=== PATIENT | male | born 1950 | race African-American/Black ===

== ENCOUNTER 2020-09-10 11:40 | Outpatient (REF) | payer MEDICARE, SELFPAY ==
[2020-09-10 14:45] LABS: Vitamin B12 434 pg/mL (200-900)
[2020-09-10 14:50] LABS: TSH reflex Free T4 3.73 mIU/mL (0.32-4.0)
== END 2020-09-10 11:41 | disposition home or self-care (01) ==
LOC: HO.HMGCLDS 11:40
PROVIDERS: PCP Nurse Practitioner Family; Visit Provider Nurse Practitioner Family
DX: R41.89 Other symptoms and signs involving cognitive functions and awareness (principal)
CPT/HCPCS: 82607; 84443

== ENCOUNTER → 2020-10-22 13:46 | Outpatient (BNVA) | payer MEDICARE, SELFPAY | PROVIDERS: PCP Nurse Practitioner Family; Visit Provider Urology | DX: L91.8 Other hypertrophic disorders of the skin (principal) | CPT/HCPCS: 99202 ==

== ENCOUNTER → 2020-11-05 09:49 | Outpatient (BNVA) | payer MEDICARE, SELFPAY | PROVIDERS: PCP Nurse Practitioner Family; Visit Provider Urology | DX: L91.8 Other hypertrophic disorders of the skin (principal) | CPT/HCPCS: 99212 ==

== ENCOUNTER 2021-03-27 09:58 | Outpatient (REF) | payer OTHER, SELFPAY ==
--- NOTE | ~2021-03-27 | XR_ITS ---
EXAMINATION: XR CERVICAL SPINE CLINICAL INFORMATION: Cervical disc disorder. COMPARISON: None TECHNIQUE: 3 views of the cervical spine were obtained. FINDINGS: Normal cervical lordosis and spinal alignment is seen. A rudimentary appearing disc is seen at C5-6 with partial osseous fusion of the vertebral bodies. Moderate degenerative disc disease is seen at C6-7 with disc space narrowing and moderate anterior osteophyte formation. The vertebral bodies are intact. The odontoid process is intact. Mild to moderate multilevel bilateral facet arthropathy is seen with hypertrophic changes most pronounced at C3-4. Prevertebral soft tissues are unremarkable. XR/XR cervical spine 3V IMPRESSION: 1. 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 No acute abnormality. 2. C6-7 moderate degenerative disc disease. 3. Mild to moderate multilevel bilateral facet arthropathy.
== END 2021-03-27 09:59 | disposition home or self-care (01) ==
LOC: HO.HMGCX 09:58
PROVIDERS: PCP Nurse Practitioner Family; Visit Provider Nurse Practitioner Family
DX: M50.90 Cervical disc disorder, unspecified, unspecified cervical region (principal)
CPT/HCPCS: 72040

== ENCOUNTER 2021-03-29 14:48 | Outpatient (REF) | payer OTHER, SELFPAY ==
--- NOTE | ~2021-03-29 | US_ITS ---
EXAMINATION: US SCROTUM CLINICAL INFORMATION: Scrotal pain. COMPARISON: None TECHNIQUE: A sonogram of the scrotum was performed assessing delacruz-scale appearance and color Doppler flow. Spectral Doppler analysis of the arterial and venous flow were performed in the testes bilaterally. FINDINGS: RIGHT: Right testicle measures 4.5 x 2.0 x 3.0 cm, volume 14.4 mL. There are several small millimeter in size calcifications. Spectral Doppler analysis of the arterial and venous flow is normal in the right testis. Right epididymal head is slightly enlarged and heterogeneous in attenuation. There are multiple right epididymal head cysts, largest measuring 5 mm. There is an appendix testis. Right epididymal Doppler flow is normal. There is a small right hydrocele. There is no right varicocele. LEFT: Left testicle measures 3.8 x 2.0 x 3.2 cm, volume 13.0 mL. There are several small millimeter in size calcifications. Spectral Doppler analysis of the arterial and venous flow is normal in the left testis. Left epididymal head is normal in size. There are several left epididymal head cysts, largest measuring 6 mm. No left varicocele is seen. There is an appendix testis. Left epididymal Doppler flow is normal. There is a small left hydrocele. There is no varicocele. US/US scrotum IMPRESSION: Enlarged heterogeneous-appearing right epididymal head. This does not appear hypervascular. Differential would include an epididymal mass and epididymitis. Short-term follow-up exam following antibiotic treatment is recommended. Bilateral epididymal head cysts. Small bilateral hydroceles. Bilateral small testicular calcifications.
== END 2021-03-29 14:49 | disposition home or self-care (01) ==
LOC: HO.US 14:48
PROVIDERS: PCP Nurse Practitioner Family; Visit Provider Nurse Practitioner Family
DX: N50.82 Scrotal pain (principal)
CPT/HCPCS: 76870

== ENCOUNTER → 2021-04-17 08:19 | Outpatient (BNVA) | payer OTHER, SELFPAY | PROVIDERS: Visit Provider Urology | DX: N43.3 Hydrocele, unspecified (principal); N45.1 Epididymitis; T81.30XA Disruption of wound, unspecified, initial encounter; K86.1 Other chronic pancreatitis; J44.9 Chronic obstructive pulmonary disease, unspecified; E11.9 Type 2 diabetes mellitus without complications; Z86.73 Personal history of transient ischemic attack (TIA), and cerebral infarction without residual deficits | CPT/HCPCS: 99202 ==

== ENCOUNTER → 2021-05-06 08:53 | Outpatient (BNVA) | payer OTHER, SELFPAY | PROVIDERS: PCP Nurse Practitioner Family; Visit Provider Internal Medicine | DX: M50.90 Cervical disc disorder, unspecified, unspecified cervical region (principal) | CPT/HCPCS: 99202 ==

== ENCOUNTER → 2021-05-28 10:23 | Outpatient (BNVA) | payer OTHER, SELFPAY | PROVIDERS: PCP Nurse Practitioner Family; Visit Provider Urology | DX: M79.10 Myalgia, unspecified site (principal) | CPT/HCPCS: 20550; 51798; 99212 ==

== ENCOUNTER 2021-06-12 07:41 | Outpatient (REF) | payer OTHER, SELFPAY ==
--- NOTE | ~2021-06-12 | XR_ITS ---
EXAMINATION: CHEST 2 VIEWS CLINICAL INFORMATION: Pre-MRI screening. COMPARISON: None TECHNIQUE: 2 views FINDINGS: The lungs are well-expanded and clear. The heart size and pulmonary vascularity is normal. No gross bony abnormality seen. There is a loop recorder seen along the left anterior chest wall XR/XR pre mri screening IMPRESSION: Loop recorder along the left anterior chest wall. The lungs are clear.
--- NOTE | ~2021-06-12 | MR_ITS ---
MR CERVICAL SPINE WITHOUT IV CONTRAST CLINICAL INFORMATION: Cervical disc disorder. COMPARISON: None available. TECHNIQUE: MRI of the cervical spine was obtained using routine sequences without contrast. FINDINGS: Cervical alignment is maintained. 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 Vertebral body heights are preserved. Multilevel endplate osteophytes. There is no bone marrow edema. There are no acute fractures. Craniocervical junction is unremarkable. Partially imaged intracranial compartment demonstrates cerebral volume loss. The cervical arterial flow voids are maintained. No significant extraspinal soft tissue findings. C2-C3: Disc osteophyte mildly narrows the central canal. Left greater than right facet arthropathy. No significant foraminal stenosis. C3-C4: Shallow central disc protrusion and ligamentum flavum thickening result in moderate central canal stenosis and flattening of the cord. Advanced uncovertebral joint hypertrophy and hypertrophic facet arthropathy result in moderate to severe left and moderate right foraminal stenosis. C4-C5: Central disc protrusion mildly narrows the central canal. Uncovertebral joint hypertrophy and hypertrophic facet arthropathy result in moderate to severe bilateral foraminal stenosis. 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 No central canal stenosis and no foraminal stenosis. C6-C7: Annular disc bulge. Uncovertebral joint hypertrophy and hypertrophic facet arthropathy result in moderate to severe right and mild left foraminal stenosis. C7-T1: Small annular disc bulge. No central canal stenosis. Right-sided hypertrophic facet arthropathy results in at least moderate right-sided foraminal stenosis. MR/MR cervical spine wo con IMPRESSION: At C3-C4, a shallow central disc protrusion and ligamentum flavum thickening result in moderate central canal stenosis and flattening of the cervical cord. Spondylitic changes result in varying degrees of moderate to severe foraminal stenosis bilaterally throughout the cervical spine as described.
== END 2021-06-12 07:42 | disposition home or self-care (01) ==
LOC: HO.MRI 07:41
PROVIDERS: PCP Nurse Practitioner Family; Visit Provider Anesthesiology
DX: Z01.818 Encounter for other preprocedural examination (principal); M50.90 Cervical disc disorder, unspecified, unspecified cervical region
CPT/HCPCS: 72141

== ENCOUNTER 2021-06-18 08:33 | Outpatient (REF) | payer OTHER, SELFPAY ==
[2021-06-18 11:53] LABS: Glucose Urine UA >=1000 MG/DL (NEG); Leukocyte Esterase Urine NEG (NEG); Nitrite Urine NEG (NEG); PH 5.5 (5.0-8.0); Specific Gravity - Urine 1.025 (1.005-1.025); Urine Blood NEG (NEG); Urine Ketones NEG (NEG); Urine Protein NEG (NEG-TRACE)
[2021-06-18 12:05] LABS: Appearance Urine CLOUDY; Color Urine YELLOW
[2021-06-18 12:19] LABS: Estimated Average Glucose 272 mg/dL; Hemoglobin A1c % 11.1 %
[2021-06-18 12:28] LABS: Alanine Aminotransferase 54 U/L (0-40); Albumin Level 4.3 g/dL (3.5-5.0); Alkaline Phosphatase 79 U/L (39-117); Anion Gap 14 (12-20); Aspartate Amino Transferase 25 U/L (5-37); Bilirubin Total 0.4 mg/dL (0.0-1.0); Blood Urea Nitrogen 14 mg/dL (9-16); Calcium 9.2 mg/dL (8.4-10.2); Carbon Dioxide 25 mmol/L (22-29); Chloride 104 mmol/L (96-108); Cholesterol 128 mg/dL; Estimated Glomerular Filt Rate > 60; Glucose Fasting 192 mg/dL (60-99); HDL Cholesterol 53 mg/dL; LDL Cholesterol Calculated 61 mg/dl; Potassium 4.3 mmol/L (3.3-5.1); Sodium 139 mmol/L (135-145); Total Protein 6.7 g/dL (6.5-8.0); Triglycerides 73 mg/dL
[2021-06-18 12:29] LABS: Amorphous Sediment Urine 1+ /LPF; Bacteria Urine 2+ /LPF; Mucus Urine TRACE /LPF; RBC Urine 0 /HPF (0); WBC Urine 0 /HPF (0-4)
[2021-06-18 12:36] LABS: Creatinine Urine 175.59 mg/dL
[2021-06-18 12:50] LABS: TSH reflex Free T4 2.87 uIU/mL (0.32-4.0)
== END 2021-06-18 08:34 | disposition home or self-care (01) ==
LOC: HO.HMGCLDS 08:33
PROVIDERS: PCP Nurse Practitioner Family; Visit Provider Nurse Practitioner Family
DX: Z00.00 Encounter for general adult medical examination without abnormal findings (principal); E11.9 Type 2 diabetes mellitus without complications
CPT/HCPCS: 36415; 80053; 80061; 81001; 81003; 82043; 83036; 84443

== ENCOUNTER → 2021-06-21 13:55 | Outpatient (BNVA) | payer OTHER, SELFPAY | PROVIDERS: PCP Nurse Practitioner Family; Referring Provider Nurse Practitioner Family; Visit Provider Urology | DX: E11.9 Type 2 diabetes mellitus without complications (principal); S39.011A Strain of muscle, fascia and tendon of abdomen, initial encounter; X58.XXXA Exposure to other specified factors, initial encounter; Y93.9 Activity, unspecified; Y92.9 Unspecified place or not applicable; Y99.8 Other external cause status | CPT/HCPCS: 51798; 81002; 99212 ==

== ENCOUNTER 2021-06-26 06:05 | Outpatient (REF) | payer OTHER, SELFPAY ==
--- NOTE | ~2021-06-26 | FL_ITS ---
EXAMINATION: XR FLUOROSCOPY WITH IMAGES CLINICAL INFORMATION: Cervical disc disorder COMPARISON: None. TECHNIQUE: Fluoroscopy performed by Akua Kinsey NP. Fluoroscopy time: 1.4 minutes DAP: 7 Gycm2 Images: 4 FINDINGS: Fluoroscopy guidance was provided for cervical spine procedure. Lateral images of the cervical spine demonstrate needle placement and contrast injection. FL/FL guidance in treatment room IMPRESSION: Fluoroscopy guidance for cervical spine procedure.
== END 2021-06-26 06:06 | disposition home or self-care (01) ==
LOC: HO.RADIR 06:05
PROVIDERS: Visit Provider Internal Medicine
DX: M47.812 Spondylosis without myelopathy or radiculopathy, cervical region (principal); M50.90 Cervical disc disorder, unspecified, unspecified cervical region
CPT/HCPCS: 64490; 64491; 64492; Q9967

== ENCOUNTER → 2021-07-05 08:01 | Outpatient (BNVA) | payer OTHER, SELFPAY | PROVIDERS: Visit Provider Internal Medicine | DX: M47.812 Spondylosis without myelopathy or radiculopathy, cervical region (principal) | CPT/HCPCS: 99212 ==

== ENCOUNTER → 2021-08-15 14:16 | Outpatient (BNVA) | payer OTHER, SELFPAY | PROVIDERS: PCP Nurse Practitioner Family; Referring Provider Nurse Practitioner Family; Visit Provider Nurse Practitioner | DX: Z12.11 Encounter for screening for malignant neoplasm of colon (principal); J44.9 Chronic obstructive pulmonary disease, unspecified; Z79.01 Long term (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 of anticoagulants | CPT/HCPCS: 99202 ==

== ENCOUNTER → 2021-12-19 08:33 | Outpatient (BNVA) | payer OTHER, SELFPAY | PROVIDERS: PCP Nurse Practitioner Family; Visit Provider Urology | DX: N40.1 Benign prostatic hyperplasia with lower urinary tract symptoms (principal); N13.8 Other obstructive and reflux uropathy; E11.40 Type 2 diabetes mellitus with diabetic neuropathy, unspecified; E11.65 Type 2 diabetes mellitus with hyperglycemia | CPT/HCPCS: 99212 ==

== ENCOUNTER 2022-03-18 10:45 | Day surgery (SDC) | payer OTHER, SELFPAY ==
[2022-03-13 08:36] VITALS: BMI 32.5
--- NOTE | 2022-03-14 14:03 | P.CONAN_ITS ---
Documented by User: Marilyn Torres NP 03/14/22 14:15 HPI - Anesthesia Eval Consult details Narrative: 71yo M for Colonoscopy Eliquis for PFO PMFSH Active Problems Active Problems: All Active Problems (Updated 03/11/22 @ 15:18 by Lewis Goldberg, [facility]) Myocardial infarction (Acute) Depression, major, recurrent (Acute) Diabetic neuropathy associated with diabetes mellitus due to underlying condition (Acute) BPH w urinary obs/LUTS (Acute) COPD (chronic obstructive pulmonary disease) (Acute) Chronic anticoagulation (Acute) Cervical spondylarthritis (Acute) Screening for colon cancer (Acute) Type 2 diabetes mellitus (Acute) Physical exam (Acute) Tendon pain (Acute) Strain of rectus abdominis muscle (Acute) Cervical neck pain with evidence of disc disease (Acute) Scrotal pain (Acute) Acquired skin tag (Acute) Scrotal irritation (Acute) Cognitive changes (Acute) Past Medical History Medical History (Updated 03/18/22 @ 11:03 by Marlene Bolden RN) Acquired skin tag Bilateral carpal tunnel syndrome BPH (benign prostatic hyperplasia) Carpal tunnel syndrome Cervical spondylarthritis Chronic pancreatitis COPD (chronic obstructive pulmonary disease) CVA (cerebral vascular accident) Depression Encephalopathy HTN (hypertension) Myocardial infarction PFO (patent foramen ovale) Tenosynovitis of finger Type 2 diabetes mellitus Family History Family History (Updated 02/27/22 @ 09:52 by Marivel Acosta CMA) Father Mental health disorder Mother Diabetes Unknown Substance use disorder Surgical History Surgical History History of appendectomy History of back surgery History of shoulder surgery Social History Social History Housing: Apartment Alcohol intake: current Alcohol intake frequency: holidays/special occasions only Patient Tobacco Use Status: Never used Tobacco e-Cigarette/Vaping Use: Never Used Second Hand Smoke Exposure: No Use of substances other than those prescribed or required for medical reasons: No Are you DNR?: No Advance Directives: No Advance Directives Information Provided: Yes Current occupational status: retired Cognitive needs: No Hearing needs: No Vision needs: No Meds Allergies Allergy/AdvReac Type Severity Reaction Status Date / Time No Known Allergies Allergy Verified 03/18/22 11:03 Home Medications Medication Instructions Recorded Confirmed Last Taken Type alcohol swabs 0 pad TOPICAL 09/10/20 07/05/21 Unknown History apixaban 5 mg tablet 5 mg PO BID 09/10/20 02/27/22 03/17/22 History blood sugar diagnostic #10 ea 09/10/20 07/05/21 Unknown History dexlansoprazole 60 mg 60 mg PO DAILY 09/10/20 02/27/22 Unknown History capsule,biphase delayed release flu vacc [id number](65yr up)-PF 240 ml IM 09/10/20 07/05/21 Unknown History mcg/0.7 mL intramuscular syringe insulin glargine 100 unit/mL (3 25 unit SUBCUT BEDTIME ml 09/10/20 02/27/22 Unknown History mL) subcutaneous pen lancets 30 gauge #100 ea 09/10/20 07/05/21 Unknown History melatonin 10 mg tablet 10 mg PO BEDTIME 09/10/20 02/27/22 Unknown History montelukast 10 mg tablet 10 mg PO DAILY 09/10/20 02/27/22 Unknown History pen needle, diabetic 32 gauge x #50 ea 09/10/20 07/05/21 Unknown History 10/29 pen needle, diabetic 33 gauge x #100 ea 09/10/20 07/05/21 Unknown History 01/08 albuterol sulfate 90 mcg/actuation 0 mcg INHALATION 06/10/21 02/27/22 Unknown History aerosol inhaler fluticasone furoate 100 1 ea INHALATION DAILY 06/10/21 02/27/22 Unknown History mcg-vilanterol 25 mcg/dose inhalation powder (Breo Ellipta) ciclopirox 0.77 % topical cream appl TOPICAL 08/15/21 Unknown History insulin aspart U-100 100 unit/mL SUBCUT 12/19/21 02/27/22 Unknown History (3 mL) subcutaneous pen (Novolog Flexpen U-100 Insulin aspart) pen needle, diabetic 33 gauge x #100 ea 12/19/21 Unknown History (Comfort EZ Pen [place]) donepezil 5 mg tablet 5 mg PO DAILY 02/27/22 02/27/22 Unknown History isosorbide mononitrate 30 mg 30 mg PO DAILY 02/27/22 02/27/22 Unknown History tablet,extended release 24 hr tamsulosin 0.4 mg capsule 0.4 mg PO DAILY 02/27/22 02/27/22 Unknown History Exam Exam Date and Time: March 14, 2022 1403 Height,Weight and Vital Signs: Height 5 ft 6 in Weight 91.626 kg Pertinent Lab Results Pertinent Lab Results: Laboratory Tests 06/18/21 08:42 Sodium 139 Potassium 4.3 Chloride 104 Carbon Dioxide 25 BUN 14 Creatinine 0.86 Narrative Narrative: EKG 02/2022 SB with frequent PVCs @ 81 Prolonged QT Diagnostic cath 05/2021 patent prior mid LAD stent with diffuse in-stent restenosis. A small obtuse marginal with severe ostial stenosis. Nml LV end-diastolic pressure with no gradient across his aortic valve. Small vessel CAD, large epicardial vessels have no obstructive disease. Medical therapy recommended for chest pain. No evidence of afib on ILR ECHO 04/2021 Frequent PVCs Nml LV chamber size. Evidence of mid to apical septal, apical, and anterior apical hypokinesis. Cannot r/o the possibility of previous infarct. EF 52%. Diastolic dysfunction. Nml RV chamber size. Reduced RV systolic function. Trace mitral insufficiency New WMA compared to 05/2019 Airway Adult Head Mouth w/Numbe Teeth: 1. Loose Assessment and Plan Assessment Anesthesia Assessment: Chart Reviewed Documented by User: Gian Yang MD 03/18/22 11:45 [facility] Past Medical History Medical History (Updated 03/18/22 @ 11:03 by Marlene Bolden RN) Acquired skin tag Bilateral carpal tunnel syndrome BPH (benign prostatic hyperplasia) Carpal tunnel syndrome Cervical spondylarthritis Chronic pancreatitis COPD (chronic obstructive pulmonary disease) CVA (cerebral vascular accident) Depression Encephalopathy HTN (hypertension) Myocardial infarction PFO (patent foramen ovale) Tenosynovitis of finger Type 2 diabetes mellitus Family History Family History (Updated 02/27/22 @ 09:52 by Marivel Acosta CMA) Father Mental health disorder Mother Diabetes Unknown Substance use disorder Family history of problems with anesthesia: No Surgical History Surgical History History of appendectomy History of back surgery History of shoulder surgery History of Problems with Anesthesia: No Social History Social History Housing: Apartment Alcohol intake: current Alcohol intake frequency: holidays/special occasions only Patient Tobacco Use Status: Never used Tobacco e-Cigarette/Vaping Use: Never Used Second Hand Smoke Exposure: No Use of substances other than those prescribed or required for medical reasons: No Are you DNR?: No Advance Directives: No Advance Directives Information Provided: Yes Current occupational status: retired Cognitive needs: No Hearing needs: No Vision needs: No Meds Allergies Allergy/AdvReac Type Severity Reaction Status Date / Time No Known Allergies Allergy Verified 03/18/22 11:03 Home Medications Medication Instructions Recorded Confirmed Last Taken Type alcohol swabs 0 pad TOPICAL 09/10/20 07/05/21 Unknown History apixaban 5 mg tablet 5 mg PO BID 09/10/20 02/27/22 03/17/22 History blood sugar diagnostic #10 ea 09/10/20 07/05/21 Unknown History dexlansoprazole 60 mg 60 mg PO DAILY 09/10/20 02/27/22 Unknown History capsule,biphase delayed release flu vacc [id number](65yr up)-PF 240 ml IM 09/10/20 07/05/21 Unknown History mcg/0.7 mL intramuscular syringe insulin glargine 100 unit/mL (3 25 unit SUBCUT BEDTIME ml 09/10/20 02/27/22 Unknown History mL) subcutaneous pen lancets 30 gauge #100 ea 09/10/20 07/05/21 Unknown History melatonin 10 mg tablet 10 mg PO BEDTIME 09/10/20 02/27/22 Unknown History montelukast 10 mg tablet 10 mg PO DAILY 09/10/20 02/27/22 Unknown History pen needle, diabetic 32 gauge x #50 ea 09/10/20 07/05/21 Unknown History 1/ pen needle, diabetic 33 gauge x #100 ea 09/10/20 07/05/21 Unknown History 01/08 albuterol sulfate 90 mcg/actuation 0 mcg INHALATION 06/10/21 02/27/22 Unknown History aerosol inhaler fluticasone furoate 100 1 ea INHALATION DAILY 06/10/21 02/27/22 Unknown History mcg-vilanterol 25 mcg/dose inhalation powder (Breo Ellipta) ciclopirox 0.77 % topical cream appl TOPICAL 08/15/21 Unknown History insulin aspart U-100 100 unit/mL SUBCUT 12/19/21 02/27/22 Unknown History (3 mL) subcutaneous pen (Novolog Flexpen U-100 Insulin aspart) pen needle, diabetic 33 gauge x #100 ea 12/19/21 Unknown History (Comfort EZ Pen [place]) donepezil 5 mg tablet 5 mg PO DAILY 02/27/22 02/27/22 Unknown History isosorbide mononitrate 30 mg 30 mg PO DAILY 02/27/22 02/27/22 Unknown History tablet,extended release 24 hr tamsulosin 0.4 mg capsule 0.4 mg PO DAILY 02/27/22 02/27/22 Unknown History Exam Airway Mallampati Class: II TM Dist: >3cm Neck ROM: Full Adult Head Mouth w/Numbe Teeth: 1. Loose Loose/Missing/Broken Teeth: Yes Assessment and Plan Assessment Anesthesia Assessment: Anesthesia Plan Discussed Final Anesthetic Review Family History of Problems with Anesthesia: No History of Problems with Anesthesia: No NPO: Yes ASA Class: III Final Preanesthetic Review: No Changes in Pt Med Stat, Meds/Allgs Chart Reviewed, Consent Obtained/Reviewed and Anes Risks/Benef Reviewed Patient Risk: Intermediate Procedure Risk: Low Anesthetic Plan Anesthetic Plan: MAC: Disposition: Standard PACU
--- NOTE | 2022-03-18 11:07 | MHC.SHP ---
Pre-Procedural Eval Section A Date of Service: 03/18/22 Section B Chief Complaint: screening Relevant Family History (Specify if Yes): No Relevant Social History: None Present Medications: see Short Stay Collaborative assessment Medical History: Significant History (Acquired skin tag Bilateral carpal tunnel syndrome Carpal tunnel syndrome Cervical spondylarthritis Chronic pancreatitis COPD (chronic obstructive pulmonary disease) CVA (cerebral vascular accident) Encephalopathy Myocardial infarction PFO (patent foramen ovale) Tenosynovitis of finger Type 2 diabet) History of Previous Operations: Relevant previous surgery/procedure and date(s) (History of appendectomy History of back surgery History of shoulder surgery) Allergies: Allergies Allergy/AdvReac Type Severity Reaction Status Date / Time No Known Allergies Allergy Verified 03/18/22 11:03 Review of Systems Sugical H&P ROS: Negative: Constitution, Cardiovascular, Respiratory, Neurological, Psychiatric, Hem-Onc, Allergic/Immunologic, Gastrointestinal, Genitourinary, Musculoskeletal, Integumentary, Endocrine and Eyes/Ears/Nose/Throat Exam Surgical H&P Exam: Normal: HEENT, Normal: Heart, Normal: Lungs, Normal: Extremities, Normal: Abdomen, Normal: Skin and Normal: Neurological Plan Diagnosis/Plan: Unchanged I have reviewed the history and physical and performed a pertinent physical examination on my patient. No changes have occurred unless specified.
[2022-03-18 11:16] VITALS: BP 139/64; PULSE 57; RESP 16; TEMP 36.3; O2SAT 97
[2022-03-18] MEDS: Lactated Ringers 1,000 ML 50 ML IVCONT (11:30)
[2022-03-18 11:31] LABS: Glucose, Whole Blood 140 mg/dL (60-115)
--- NOTE | 2022-03-18 11:32 | PM.OP ---
Brief Operative Note Date of Service: 03/18/22 Pre-op diagnosis: colon screening Post-op diagnosis: same Procedure: see op note Surgeon: Cara Mcbride MD Anesthesia: MAC Was an Cottrell Operator used for this Procedure?: No Estimated blood loss (mL): 0 Condition: stable Disposition: PACU
--- NOTE | 2022-03-18 11:33 | P.OP_ITS ---
Operative Note Operative Note Date of Service: 03/18/22 Narrative: Operative Information Procedure Description: Colonoscopy Indication: screening colonoscopy Anesthesia: MAC COLONOSCOPY Instrument: Olympus variable stiffness ADULT scope 190L Colonoscopy Monitoring: Vital signs and clinical assessment, continuous EKG monitoring, Pulse oximetry, Carbon Dioxide monitoring and blood pressure monitoring were done throughout the procedure. Colon withdrawal time was 13 minutes. Procedure: The patient was placed in the left lateral decubitis position and pre-procedure medications were administered. After a digital rectal examination of the ano-rectum, the video colonoscope was inserted into the rectum and advanced through the colon to the cecum/TI. The colonoscope was slowly withdrawn in a retrograde panoramic fashion and the colon mucosa was carefully examined including a retroflexed view of the rectum. Findings and interventions are described below. Procedure Difficulty: easy Findings: Terminal Ileum-normal Right sided retroflexion was normal Cecum:normal, few non bleeding small AVM noted. Ascending Colon: normal Transverse Colon -normal Descending Colon:normal Sigmoid Colon: normal Rectum: Retroflexion with small internal hemorrhoids, grade I, 4-5 mm sessile polyp removed with cold forceps Anorectum - normal Colon preparation: [place] Bowel Preparation Scale Right colon; 2 Transverse colon: 3 Left colon; 3 (0 = Unprepared colon segment with mucosa not seen due to solid stool that cannot be cleared. 1 = Portion of mucosa of the colon segment seen, but other areas of the colon segment not well seen due to staining, residual stool and/or opaque liquid. 2 = Minor amount of residual staining, small fragments of stool and/or opaque liquid, but mucosa of colon segment seen well. 3 = Entire mucosa of colon segment seen well with no residual staining, small fragments of stool or opaque liquid) Impression and Post Procedure Diagnosis: polyp internal hemorrhoids Plan: High fiber diet leaflet Avoid straining at stool, epsom salts and sitz bath, anusol supps or cream Repeat Colonoscopy in 5-7 years if adenomatous polyp, 10 yrs if hyperplastic or earlier if clinically indicated restart eliquis tomorrow Above findings were reviewed with the patient and relevant handouts were provided if indicated.
[2022-03-18 12:15] VITALS: BP 106/84; PULSE 57; RESP 20; TEMP 36.4; O2SAT 100
== END 2022-03-18 13:21 | disposition home or self-care (01) ==
PROVIDERS: PCP Nurse Practitioner Family; Visit Provider Internal Medicine Gastroenterology
PROC: 0DJD8ZZ Inspection of Lower Intestinal Tract, Via Natural or Artificial Opening Endoscopic (ICD-10-PCS; CPT 45378; principal; 2022-03-18 12:50)
DX: Z12.11 Encounter for screening for malignant neoplasm of colon (principal); Z86.010 Personal history of colon polyps; K62.1 Rectal polyp; K55.20 Angiodysplasia of colon without hemorrhage; K64.8 Other hemorrhoids; I25.2 Old myocardial infarction; Q21.1 Atrial septal defect; J44.9 Chronic obstructive pulmonary disease, unspecified; E11.9 Type 2 diabetes mellitus without complications; Z79.4 Long term (current) use of insulin; Z79.01 Long term (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 of anticoagulants; Z79.899 Other long term (current) drug therapy; Z86.73 Personal history of transient ischemic attack (TIA), and cerebral infarction without residual deficits
CPT/HCPCS: 45380; 82947; 88305

== ENCOUNTER 2022-06-27 08:21 | Outpatient (REF) | payer OTHER, SELFPAY ==
[2022-06-27 11:14] LABS: Appearance Urine Turbid; Color Urine Yellow; Glucose Urine UA Negative (Negative); Leukocyte Esterase Urine Negative (Negative); Nitrite Urine Negative (Negative); PH 5.5 (5.0-9.0); Specific Gravity - Urine >= 1.030 (1.005-1.025); Urine Blood Trace (Negative); Urine Ketones Negative (Negative); Urine Protein Negative (Neg-Trace)
[2022-06-27 11:18] LABS: Bacteria Urine None Seen (None Seen); Hyaline Casts Urine 0-2 /LPF (0-2); RBC Urine 0-2 /HPF (0-2); Squamous Epithelial Cell Urine 0-2 /HPF (0-2); WBC Urine 0-5 /HPF (0-5)
[2022-06-27 11:22] LABS: MANUAL DIFF FLAG NO
[2022-06-27 11:30] LABS: Basophils Percent Auto 0.4 % (0-2); Eosinophils Absolute Auto 0.1 X10*3/uL (0.0-0.4); Hematocrit 38.7 % (42.0-52.0); Hemoglobin 13.2 g/dl (14.0-18.0); Imm Gran Abs Auto 0.03 X10*3/uL (0.00-0.03); Imm Gran Pct Auto 0.6 % (0.0-0.4); Lymphocytes Absolute Auto 2.1 X10*3/uL (1.2-4.9); Lymphocytes Percent Auto 38.4 % (20-40); Mean Corpuscular HGB Conc 34.1 g/dl (31.0-36.0); Mean Corpuscular Hemoglobin 29.5 pg (27.0-33.0); Mean Corpuscular Volume 86.4 fL (80.0-98.0); Mean Platelet Volume 12.3 fL (9.4-12.4); Monocytes Absolute Auto 0.4 X10*3/uL (0.1-1.2); Monocytes Percent Auto 8.1 % (2-11); Neutrophils Absolute Auto 2.7 x10*3/uL (2.0-8.3); Neutrophils Percent Auto 50.5 % (45-73); Platelet Count 199 X10*3/uL (160-400); Red Blood Count 4.48 X10*6/uL (4.60-5.80); Red Cell Distribution Width 12.8 % (11.0-16.0); White Blood Count 5.4 X10*3/uL (4.8-10.8)
[2022-06-27 11:44] LABS: Estimated Average Glucose 200 mg/dL; Hemoglobin A1c % 8.6 %
[2022-06-27 11:45] LABS: Creatinine Urine 212.25 mg/dL; Microalbum/Creatinine Ratio Ur 7.5 ug/mg cr
[2022-06-27 11:57] LABS: Alanine Aminotransferase 46 U/L (0-40); Albumin Level 4.1 g/dL (3.5-5.0); Alkaline Phosphatase 81 U/L (39-117); Anion Gap 14 (12-20); Aspartate Amino Transferase 29 U/L (5-37); Bilirubin Total 0.5 mg/dL (0.0-1.0); Blood Urea Nitrogen 16 mg/dL (9-16); Carbon Dioxide 24 mmol/L (22-29); Chloride 104 mmol/L (96-108); Cholesterol 133 mg/dL; Estimated Glomerular Filt Rate > 60; Glucose Fasting 131 mg/dL (60-99); HDL Cholesterol 46 mg/dL; LDL Cholesterol Calculated 73 mg/dl; Potassium 4.3 mmol/L (3.3-5.1); Sodium 138 mmol/L (135-145); Total Protein 6.7 g/dL (6.5-8.0); Triglycerides 74 mg/dL
[2022-06-27 12:04] LABS: TSH reflex Free T4 2.94 uIU/mL (0.32-4.0)
== END 2022-06-27 08:22 | disposition home or self-care (01) ==
LOC: HO.HMGCLDS 08:21
PROVIDERS: PCP Nurse Practitioner Family; Visit Provider Nurse Practitioner Family
DX: E11.40 Type 2 diabetes mellitus with diabetic neuropathy, unspecified (principal)
CPT/HCPCS: 36415; 80053; 80061; 81001; 82043; 83036; 84443; 85025

== ENCOUNTER 2022-09-25 11:04 | Outpatient (REF) | payer OTHER, SELFPAY ==
--- NOTE | ~2022-09-25 | XR_ITS ---
EXAMINATION: XR CHEST CLINICAL INFORMATION: Acute bronchitis COMPARISON: Cervical spine 06/02/21. TECHNIQUE: 2 views of the chest were obtained. FINDINGS: The lungs are hyperinflated but clear of acute process. Heart size and pulmonary vascularity is normal. There is a loop recorder in the left anterior chest wall. No gross bony pneumonitis seen except for moderate right paravertebral spondylosis of dorsal spine. XR/XR chest 2V IMPRESSION: Slightly hyperinflated lungs without any acute process.
== END 2022-09-25 11:05 | disposition home or self-care (01) ==
LOC: HO.HMGCX 11:04
PROVIDERS: PCP Nurse Practitioner Family; Visit Provider Internal Medicine
DX: J20.9 Acute bronchitis, unspecified (principal); R09.89 Other specified symptoms and signs involving the circulatory and respiratory systems
CPT/HCPCS: 71046

== ENCOUNTER → 2022-11-04 09:32 | Outpatient (BNVA) | payer OTHER, SELFPAY | PROVIDERS: PCP Nurse Practitioner Family; Visit Provider Nurse Practitioner Family | DX: N40.1 Benign prostatic hyperplasia with lower urinary tract symptoms (principal); N13.8 Other obstructive and reflux uropathy; L91.8 Other hypertrophic disorders of the skin; C61 Malignant neoplasm of prostate | CPT/HCPCS: 51798; 99212 ==

== ENCOUNTER → 2022-11-14 09:57 | Outpatient (BNVA) | payer OTHER, SELFPAY | PROVIDERS: PCP Nurse Practitioner Family; Visit Provider Internal Medicine | DX: M47.812 Spondylosis without myelopathy or radiculopathy, cervical region (principal) | CPT/HCPCS: 99212 ==

== ENCOUNTER 2023-02-25 12:02 | Outpatient (REF) | payer OTHER, SELFPAY ==
--- NOTE | 2023-02-25 09:15 | EMG_ITS ---
Please see scanned EMG / Nerve Conduction Report. MTDD
== END 2023-02-25 12:03 | disposition home or self-care (01) ==
LOC: HO.NEURO 12:02
PROVIDERS: PCP Nurse Practitioner Family; Visit Provider Nurse Practitioner Family
DX: R29.898 Other symptoms and signs involving the musculoskeletal system (principal)
CPT/HCPCS: 95885; 95911

== ENCOUNTER 2023-03-16 09:04 | Emergency (ER) | payer OTHER, SELFPAY ==
--- NOTE | ~2023-03-16 | CT_ITS ---
EXAMINATION: CT LUMBAR SPINE WITHOUT CONTRAST CLINICAL INFORMATION: Fall, pain COMPARISON: None available. TECHNIQUE: 2 minutes thin axial and reformatted 2 minutes thin sagittal coronal images of lumbar spine were obtained without contrast. This CT examination was performed using dose optimization techniques as appropriate, variously including the following: *Automated exposure control *Adjustment of mA and/or kV according to patient size (this includes techniques or standardized protocols for targeted exams where dose is matched to indication/reason for exam; i.e. extremities or head) *Use of iterative reconstruction technique DLP; 646 mGy-cm FINDINGS: On sagittal reconstructed images there is maintained lumbar lordosis. The vertebral heights and alignment is normal. There is loss of L5-S1 disc height. There is moderate ventral spondylosis and bridging osteophytes at throughout the entire lumbar spine most prominent at the L4-L5 and L5-S1 disc levels. No aggressive lytic or sclerotic process seen. There is posterior annular calcification at L5-S1 disc level. Incidental finding of L2 L1 left lumbar rib. Mild vacuum degeneration changes bilateral SI joints is noted. The paravertebral soft tissues are normal. CT/CT lumbar spine wo IV con IMPRESSION: 1. No acute fracture, dislocation or subluxation seen. 2. Degenerative disc changes L5-S1 disc level with moderate ventral spondylosis and bridging osteophytes at L4-L5 and L5-S1 disc levels.
[2023-03-16 09:28] VITALS: BP 111/74; PULSE 63; RESP 16; TEMP 36.6; O2SAT 97; BMI 30.7
--- NOTE | 2023-03-16 10:32 | ED_ITS ---
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 Patient states that he has fallen multiple times over the last few months due to his chronic unsteady gait and now he is having low back pain. Patient denies any head strike, loss of consciousness, dizziness, lightheadedness, abdominal pain, nausea, vomiting, fever, chills, blurry vision, double vision, loss of vision, chest pain, difficulty breathing, shortness of breath, night sweats, pain with urination, increased urinary frequency, increased urinary urgency, blood in his urine or stool, syncope or a near syncopal episode, bowel incontinence, bladder incontinence, bowel retention, bladder retention, or any other complaints at this time. Onset (ago): month(s) Location: back Radiation: non-radiation Severity: mild Severity scale (1-10): 3 Quality: aching and dull Pain Consistency: constant Relieving factors: none Exacerbating factors: none Associated symptoms: denies other symptoms Treatments prior to arrival: none Related Data Home Medications Medication Instructions Recorded Confirmed alcohol swabs 0 pad topical 09/10/20 12/10/22 ciclopirox 0.77 % topical cream appl topical 08/15/21 12/10/22 tamsulosin 0.4 mg capsule 0.4 mg PO DAILY 02/27/22 12/10/22 rivastigmine 4.6 mg/24 hour 1 patch transdermal DAILY 06/05/22 12/10/22 transdermal patch Previous Rx's Medication Instructions Recorded bed protector #1 ea 02/07/21 cleaning towels #1 ea 02/07/21 peg 3350-electrolytes 236 240 ml PO Q10M 1 day #4,000 mL 08/15/21 gram-22.74 gram-6.74 gram-5.86 gram solution (Golytely) terazosin 5 mg capsule 5 mg PO BEDTIME 30 days #30 caps 12/19/21 Chair Lift For Stair use #1 ea 03/04/22 hospital bed #1 ea 03/04/22 flash glucose scanning reader #1 ea 06/05/22 (FreeStyle Gera 2 Gillespie) flash glucose sensor (FreeStyle #1 ea 06/05/22 Gera 2 Sensor kit) insulin glargine 100 unit/mL (3 80 unit (0.8 mL) subcut BEDTIME 30 07/16/22 mL) subcutaneous pen days #24 mL pen needle, diabetic 33 gauge x #100 ea 07/23/22 5/32 (Comfort EZ Pen [place]) fluticasone furoate 100 1 ea inhalation DAILY #60 ea 08/26/22 mcg-vilanterol 25 mcg/dose inhalation powder (Breo Ellipta) dexlansoprazole 60 mg 60 mg PO DAILY 90 days #90 caps 09/15/22 capsule,biphase delayed release montelukast 10 mg tablet 10 mg PO DAILY 90 days #90 tabs 09/15/22 insulin aspart U-100 100 unit/mL 1 sliding scale dose subcut TID 30 12/04/22 (3 mL) subcutaneous pen (Novolog days #15 mL FlexPen U-100 Insulin aspart) albuterol sulfate 90 mcg/actuation 2 inh inhalation Q6-8H PRN 01/22/23 aerosol inhaler bronchospasm #8.5 grams aspirin 81 mg tablet,delayed 81 mg PO DAILY 90 days #90 tabs 01/22/23 release atorvastatin 40 mg tablet 40 mg PO BEDTIME 90 days #90 tabs 01/22/23 donepezil 5 mg tablet 5 mg PO DAILY #90 tabs 01/22/23 glipizide 10 mg tablet 10 mg PO BID 30 days #60 tabs 01/22/23 melatonin 10 mg tablet 10 mg PO BEDTIME #90 tabs 01/22/23 sertraline 25 mg tablet 25 mg PO DAILY #90 tabs 01/22/23 walker #1 ea 01/22/23 gabapentin 300 mg capsule 300 mg PO TID #270 caps 01/30/23 losartan 25 mg tablet 25 mg PO DAILY #90 tabs 01/30/23 diaper,brief,adult,disposable #100 ea 02/12/23 apixaban 5 mg tablet 5 mg PO BID 90 days #180 tabs 02/27/23 isosorbide mononitrate 30 mg 30 mg PO DAILY 90 days #90 tabs 02/27/23 tablet,extended release 24 hr metoprolol succinate 50 mg 50 mg PO DAILY 90 days #90 tabs 02/27/23 tablet,extended release 24 hr diabetic shoes #1 ea 03/11/23 lancets 30 gauge #100 ea 03/12/23 cyclobenzaprine 5 mg tablet 5 mg PO TID PRN muscle spasm 7 03/16/23 days #21 tabs Allergies Allergy/AdvReac Type Severity Reaction Status Date / Time No Known Allergies Allergy Verified 01/22/23 13:10 Review of Systems Constitutional: Constitutional: Reports no additional constitutional complaints, Denies chills, Denies fever(s) and Denies night sweats Eyes: Eyes: Reports no additional eye complaints, Denies blurry vision, Denies change in vision, Denies diplopia, Denies eye discharge, Denies loss of vision and Denies eye pain ENT: Denies dizziness Cardiovascular: Cardiovascular: Reports no additional cardiovascular complaints, Denies chest pain, Denies lightheadedness, Denies Loss of Consciousness and Denies dyspnea Respiratory: Respiratory: Reports no additional respiratory complaints and Denies dyspnea Gastrointestinal: Gastrointestinal: Reports no additional gastrointestinal complaints, Denies abdominal pain, Denies melena, Denies hematochezia, Denies ch willie in bowel habits and Denies change in stool character Genitourinary: Genitourinary: Reports no additional male genitourinary complaints, Denies hematuria, Denies oliguria, Denies difficulty urinating, Denies dysuria, Denies urinary frequency, Denies urinary hesitancy, Denies urinary incontinence and Denies urinary urgency Musculoskeletal: Musculoskeletal: Reports no additional musculoskeletal complaints, Reports back pain, Denies numbness and Denies tingling Neurologic: Denies dizziness, Denies loss of vision, Denies numbness and Denies tingling Psychiatric: Psychiatric: Reports no additional psychiatric complaints Endocrine: Endocrine: Reports no additional endocrine complaints Hematologic/Lymphatic: Hematologic/Lymphatic: Reports no additional hematologic/lymphatic complaints Allergic/Immunologic: Allergic/Immunologic: Reports no additional allergic/immunologic complaints PMFSH Past Medical History Attestation statement: The following information was validated with the patient. 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 Surgical History History of appendectomy History of back surgery History of shoulder surgery Family History Family History Father Mental health disorder Mother Diabetes Unknown Substance use disorder Social History Social History Housing: Apartment Alcohol intake: current Alcohol intake frequency: holidays/special occasions only Patient Tobacco Use Status: Never used Tobacco e-Cigarette/Vaping Use: Never Used Second Hand Smoke Exposure: No Advance Directives: No Advance Directives Information Provided: Yes Current occupational status: retired Cognitive needs: No Hearing needs: No Vision needs: No Physical Exam ED Vital Signs: Vital Signs - 24 hr 03/16/23 09:28 Temperature 97.8 F Pulse Rate 63 Respiratory Rate 16 Blood Pressure 111/74 Pulse Oximetry 97 Oxygen Delivery Method Room Air BMI result Body Mass Index 30.7 Const General: cooperative, no acute distress, alert and awake Nutritional Appearance: well nourished Orientation/consciousness: patient oriented x3 Limitations: no limitations HENMT Head: Yes normal to inspection and Yes atraumatic Ears: hearing grossly normal bilaterally and external ears normal General nose exam: Normal external nose present, no nasal discharge noted and no epistaxis Face and sinus: Yes normal facial exam, No abrasion and No laceration Mouth: Normal oral and palatal mucosa present, no drooling and no muffled voice Eyes General: appearance normal, both eyes and all related structures Periorbital: periorbital findings normal Eyelids: Yes eyelids normal Conjunctivae: conjunctivae normal Pupils: Equal, round and reactive pupils present EOM: EOMs intact bilaterally Neck Neck: Yes normal visual inspection, Yes full ROM and Yes no lymphadenopathy Chest Chest palpation & inspection: normal inspection of the chest Resp Effort & Inspection: normal respiratory effort and able to speak in complete sentences Auscultation: clear to auscultation bilaterally Cardio Rate: regular rate GI Inspection: Yes normal to inspection General: Yes no CVA tenderness Back/Spine/Pelvis Back: no CVA tenderness Cervical Spine: normal cervical lordosis and cervical ROM normal Thoracic/Lumbar Spine: thoracic and lumbar spine normal to inspection and thoraco-lumbar ROM normal Neuro General: patient oriented x3 and moves all extremities Cranial nerves: Yes Equal, round and reactive pupils present Cognition (Neuro): normal cognition Motor exam (neuro): 5/5 motor strength present throughout Sensory Exam: Normal double simultaneous stimulation for sensation Coordination: [id number] test normal Extrem General: Yes normal to inspection, Yes full ROM and Yes capillary refill normal Psych Appearance: grossly normal Mental Status: mental status grossly normal Affect: normal affect Attitude: cooperative Thought process: Normal thought process present Thought content: Normal thought content present Insight: Good insight present (Psych) Medications Administered Discontinued Medications Generic Name Dose Route Start Last Admin Trade Name [place] PRN Reason Stop Dose Admin Cyclobenzaprine HCl 5 mg 03/16/23 12:40 03/16/23 12:51 Cyclobenzaprine Hcl 5 Mg Tablet PO 03/16/23 12:41 5 mg ONCE ONE Administration Medical Decision Making Medical Decision Making MDM Narrative: Patient is a 72 year old assigned male at with a history of HTN and BPH presenting to the emergency department today with low back pain. Patient's physical exam was unremarkable. Patient's lumbar CT showed no acute process. I explained my physical exam findings as well as all test results to the patient. I answered all questions asked by the patient. Patient received PO Flexeril which he stated helped his symptoms significantly. I stressed the importance of the patient taking his medication as prescribed. I stressed the importance of the patient following up with his primary care provider. I stressed the importance of the patient returning to the emergency department immediately if his symptoms were to worsen or if he were to develop any dizziness, shortness of breath, difficulty breathing, chest pain, blurry vision, loss of vision, nausea, vomiting, abdominal pain, fever, chills, back pain, or any other complaints. Patient verbalized agreement and understanding with this treatment plan and discharge. Differential Diagnosis Differential Diagnoses: The differential diagnosis associated with the presentation includes low back pain, falls Independent Interpretation I performed an independent interpretation of an: CT Scan Interpretation: My interpretation is in agreement with the radiologist's impression of this imaging study. EXAMINATION: CT LUMBAR SPINE WITHOUT CONTRAST CLINICAL INFORMATION: Fall, pain? COMPARISON: None available.? ? TECHNIQUE: 2 minutes thin axial and reformatted 2 minutes thin sagittal coronal images of lumbar spine were obtained without contrast.? ? This CT examination was performed using dose optimization techniques as appropriate, variously including the following: *Automated exposure control *Adjustment of mA and/or kV according to patient size (this includes techniques or standardized protocols for targeted exams where dose is matched to indication/reason for exam; i.e. extremities or head) *Use of iterative reconstruction technique DLP; 646 mGy-cm FINDINGS: On sagittal reconstructed images there is maintained lumbar lordosis. The vertebral heights and alignment is normal. There is loss of L5-S1 disc height. There is moderate ventral spondylosis and bridging osteophytes at throughout the entire lumbar spine most prominent at the L4-L5 and L5-S1 disc levels. No aggressive lytic or sclerotic process seen. There is posterior annular calcification at L5-S1 disc level. Incidental finding of L2 L1 left lumbar rib. Mild vacuum degeneration changes bilateral SI joints is noted. The paravertebral soft tissues are normal. CT/CT lumbar spine wo IV con IMPRESSION: 1.? No acute fracture, dislocation or subluxation seen. 2.? Degenerative disc changes L5-S1 disc level with moderate ventral spondylosis and bridging osteophytes at L4-L5 and L5-S1 disc levels. Dictated By: Clint Barrios MD Signed By: Electronically signed by Clint Barrios MD 03/16/23 1200 Discharge Plan Discharge Clinical Impression: Low back pain, Fall Patient Disposition: Home, Self-Care Instructions: Fall Prevention for Older Adults (ED), Back Pain (ED) Additional Instructions: Follow up with your primary care provider. Return to the emergency department immediately if your symptoms worsen or if you develop any dizziness, shortness of breath, difficulty breathing, chest pain, blurry vision, loss of vision, nausea, vomiting, abdominal pain, fever, chills, back pain, or any other complaints. Ryan un seguimiento con bills proveedor de atenci?n primaria. Regrese al departamento de emergencias de inmediato si jackelin s?ntomas empeoran o si presenta mareos, falta de aire, dificultad para respirar, dolor de pecho, visi?n borrosa, p?rdida de la visi?n, n?useas, v?mitos, dolor abdominal, fiebre, escalofr?os, dolor de espalda o cualquier otras quejas. Prescriptions: New cyclobenzaprine 5 mg tablet 5 mg PO TID PRN (Reason: muscle spasm) 7 Days Qty: 21 0RF No Action (DME) Chair Lift For Stair use See Rx Instructions .Route .MEDSUPPLY Qty: 1 0RF Rx Instructions: use daily (DME) hospital bed Kit See Rx Instructions .Route Qty: 1 0RF Rx Instructions: weakness, use daily (DME) FreeStyle Gera 2 Gillespie Misc See Rx Instructions .Route Qty: 1 3RF Rx Instructions: TID (DME) FreeStyle Gera 2 Sensor Kit See Rx Instructions .Route Qty: 1 3RF Rx Instructions: TID insulin glargine 100 unit/mL (3 mL) insulin pen 80 unit subcut BEDTIME 30 Days Qty: 24 0RF (DME) pen needle, diabetic [Comfort EZ Pen [place]] 33 gauge x 5/32 needle See Rx Instructions .ROUTE DAILY Qty: 100 2RF Rx Instructions: Use to administer insulin with pen 3 times a day as ordered. Breo Ellipta 100-25 mcg/dose blister with device 1 ea inhalation DAILY Qty: 60 0RF dexlansoprazole 60 mg capsule,biphase delayed releas 60 mg PO DAILY 90 Days Qty: 90 0RF montelukast 10 mg tablet 10 mg PO DAILY 90 Days Qty: 90 0RF insulin aspart U-100 [Novolog FlexPen U-100 Insulin] 100 unit/mL (3 mL) insulin pen 1 sliding scale dose subcut TID 30 Days Qty: 15 0RF (DME) walker Misc See Rx Instructions .Route Qty: 1 0RF Rx Instructions: use daily gabapentin 300 mg capsule 300 mg PO TID Qty: 270 1RF losartan 25 mg tablet 25 mg PO DAILY Qty: 90 1RF (DME) Briefs Medium Mis See Rx Instructions .ROUTE .MEDSUPPLY Qty: 100 6RF Rx Instructions: Change at least 3 times daily or as needed for episodes of incontinence apixaban 5 mg tablet 5 mg PO BID 90 Days Qty: 180 1RF metoprolol succinate 50 mg tablet extended release 24 hr 50 mg PO DAILY 90 Days Qty: 90 1RF isosorbide mononitrate 30 mg tablet extended release 24 hr 30 mg PO DAILY 90 Days Qty: 90 1RF (DME) diabetic shoes 0 .Route .MEDSUPPLY Qty: 1 0RF Rx Instructions: daily use with 3 pairs of inserts. (DME) lancets 30 [place] [facility] Rx Instructions .Route Qty: 100 3RF Rx Instructions: Use to check blood sugar if implanted device is not functioning. (DME) cleaning towels See Rx Instructions .Route .MEDSUPPLY Qty: 1 6RF Rx Instructions: 1; (DME) bed protector See Rx Instructions .Route .MEDSUPPLY Qty: 1 2RF Rx Instructions: 1; alcohol swabs Pads, Medicated 0 pad topical tamsulosin 0.4 mg capsule 0.4 mg PO DAILY rivastigmine 4.6 mg/24 hour patch 24 hour 1 patch transdermal DAILY albuterol sulfate 90 mcg/actuation HFA aerosol inhaler 2 inh inhalation Q6-8H PRN (Reason: bronchospasm) Qty: 8.5 0RF aspirin 81 mg tablet,delayed release (DR/EC) 81 mg PO DAILY 90 Days Qty: 90 0RF atorvastatin 40 mg tablet 40 mg PO BEDTIME 90 Days Qty: 90 0RF donepezil 5 mg tablet 5 mg PO DAILY Qty: 90 0RF glipizide 10 mg tablet 10 mg PO BID 30 Days Qty: 60 0RF melatonin 10 mg tablet 10 mg PO BEDTIME Qty: 90 0RF sertraline 25 mg tablet 25 mg PO DAILY Qty: 90 0RF ciclopirox 0.77 % cream topical peg 3350-electrolytes [Golytely] 236-22.74-6.74 -5.86 gram recon soln 240 ml PO Q10M 1 Days Qty: 4000 0RF Rx Instructions: until fecal effluent is clear; do not exceed a total volume of 2,000 mL terazosin 5 mg capsule 5 mg PO BEDTIME 30 Days Qty: 30 1RF Referrals: Lewis Goldberg, [facility] [Primary Care Provider] - Interventions: ED Discharge Assessment Last Done: 03/16/23 12:59 Discharge Date/Time: 03/16/23 12:59 Print Language: Ethiopian
[2023-03-16] MEDS: Cyclobenzaprine HCl 5 MG TABLET PO (12:51)
== END 2023-03-16 12:59 | disposition home or self-care (01) ==
PROVIDERS: Emergency Provider Emergency Medicine; PCP Nurse Practitioner Family
DX: M54.50 Low back pain, unspecified (principal); Z91.81 History of falling; E11.9 Type 2 diabetes mellitus without complications; I10 Essential (primary) hypertension; Z79.4 Long term (current) use of insulin; Z79.899 Other long term (current) drug therapy
CPT/HCPCS: 72131; 99283; 99284

== ENCOUNTER 2023-05-08 09:22 | Outpatient (AMB) | payer OTHER, SELFPAY ==
--- NOTE | 2023-05-08 09:25 | A.OFFVIS_ITS ---
Intake Vital Signs 05/08/23 09:27 Height 5 ft 6 in Weight 203 lb BMI 32.8 BP 123/65 Blood Pressure Location Lt brachial Position Sitting Respiration 14 Pulse 64 Pulse Source Pulse Oximeter Pulse Oximetry (%) 94 Oxygen Delivery Method Room Air Intake Visit Reasons: Increasing Back Pain s/p Fall Allergies No Known Allergies Allergy (Verified 05/08/23 09:28) Medication List - Last Reconciled 05/08/23 by Ginger Rao LPN albuterol sulfate 90 mcg/actuation 2 inhalations inhalation Q6-8H PRN alcohol swabs 0 pad topical apixaban 5 mg PO BID 90 days aspirin 81 mg PO DAILY 90 days atorvastatin 40 mg PO BEDTIME 90 days [bed protector 1; NS] [Chair Lift For Stair use use daily] ciclopirox 0.77% appl topical [cleaning towels 1; NS] cyclobenzaprine 5 mg PO TID PRN 7 days dexlansoprazole 60 mg PO DAILY 90 days [diabetic shoes daily use with 3 pairs of inserts.] diaper,brief,adult,disposable Change at least 3 times daily or as needed for episodes of incontinence flash glucose scanning reader ([employer] Gera 2 [place]) TID flash glucose sensor (FreeStyle Gera 2 Sensor kit) TID fluticasone furoate-vilanterol 100-25 mcg/dose (Breo Ellipta) 1 ea inhalation DAILY gabapentin 400 mg PO TID 30 days glipizide 10 mg PO BID hospital bed weakness, use daily insulin aspart U-100 (Novolog FlexPen U-100 Insulin aspart) 1 sliding scale dose subcut TID 30 days insulin glargine 80 units (0.8 mL) subcut BEDTIME 30 days isosorbide mononitrate ER 30 mg PO DAILY 90 days lancets Use to check blood sugar if implanted device is not functioning. losartan 25 mg PO DAILY metoprolol succinate ER 50 mg PO DAILY 90 days montelukast 10 mg PO DAILY 90 days pen needle, diabetic (Comfort EZ Pen [place]) Use to administer insulin with pen 3 times a day as ordered. rivastigmine 1 patch transdermal DAILY sertraline 25 mg PO DAILY tamsulosin 0.4 mg PO DAILY terazosin 5 mg PO BEDTIME 30 days walker use daily HPI Increasing Back Pain s/p Fall HPI Details 72-year-old male presenting today for an increasing back pain status post fall. He states that he was walking, and then he felt that his leg gave out and he fell down. He did hit his head, was picked up by EMS, and was seen in the [facility] ER on 01/07/23. He was on a blood thinner at that time. The patient was seen in the [facility] ER on 03/16/23 for low back pain. He states that he has fallen multiple times over the last few months due to his chronically unsteady gait. He describes his low back pain as constant, dull, and non-radiating. He rates his pain at 3/10 in intensity. He states that Flexeril provided good relief. He does experience radicular symptoms in his lower extremities. He had back surgery in 2003. He complains of lower back pain that radiates to his anterior LLQ. He reports that this is worse when turning his upper torso. He is currently on 400 mg of T ID. Past Procedures: 06/26/21: Right Diagnostic C3, C4, C5 MBB ? Greater than 50% relief on the day of the MBBs and continues to have greater than 25% relief one week out. [facility] Medical History Acquired deformity of toenail Acquired skin tag Bilateral carpal tunnel syndrome BPH (benign prostatic hyperplasia) Carpal tunnel syndrome Cervical spondylarthritis Chronic pancreatitis COPD (chronic obstructive pulmonary disease) CVA (cerebral vascular accident) Delayed gastric emptying Depression Encephalopathy HTN (hypertension) Myocardial infarction PFO (patent foramen ovale) Prostate cancer Tenosynovitis of finger Type 2 diabetes mellitus Ventricular bigeminy seen on campus monitor Surgical History History of appendectomy History of back surgery History of shoulder surgery Family History Father Mental health disorder Mother Diabetes Unknown Substance use disorder Social History Housing: Apartment Alcohol intake: current Alcohol intake frequency: holidays/special occasions only Patient Tobacco Use Status: Never used Tobacco e-Cigarette/Vaping Use: Never Used Second Hand Smoke Exposure: No Current occupational status: retired Cognitive needs: No Hearing needs: No Vision needs: No Review of Systems Const All systems reviewed & are unremarkable except as noted in HPI and below Physical Exam Vital Signs: Last Vital Signs Pulse 64 05/08/23 09:27 Resp 14 05/08/23 09:27 BP 123/65 05/08/23 09:27 Pulse Ox 94 05/08/23 09:27 Oxygen Delivery Method Room Air 05/08/23 09:27 BMI result Body Mass Index 32.8 General: Appears afebrile. Alert and oriented. Mood and affect appropriate. Follows and participates in conversation appropriately. Respiratory effort is unlabored. Able to transition from sit to stand unassisted. Ambulates with bilaterally normal heel strike and toe off. Chest Tenderness on palpation right lateral aspect of the chest wall overlying the lower ribs. Bilateral tenderness in the lateral chest wall. Results Reviewed Results Reviewed: 03/16/23: CT LUMBAR SPINE WITHOUT CONTRAST FINDINGS: On sagittal reconstructed images there is maintained lumbar lordosis. The vertebral heights and alignment is normal. There is loss of L5-S1 disc height. There is moderate ventral spondylosis and bridging osteophytes at throughout the entire lumbar spine most prominent at the L4-L5 and L5-S1 disc levels. No aggressive lytic or sclerotic process seen. There is posterior annular calcification at L5-S1 disc level. Incidental finding of L2 L1 left lumbar rib. Mild vacuum degeneration changes bilateral SI joints is noted. The paravertebral soft tissues are normal. IMPRESSION: 1. No acute fracture, dislocation or subluxation seen. 2. Degenerative disc changes L5-S1 disc level with moderate ventral spondylosis and bridging osteophytes at L4-L5 and L5-S1 disc levels. 09/25/22: X-RAY CHEST FINDINGS: The lungs are hyperinflated but clear of acute process. Heart size and pulmonary vascularity is normal. There is a loop recorder in the left anterior chest wall. No gross bony pneumonitis seen except for moderate right paravertebral spondylosis of dorsal spine. IMPRESSION: Slightly hyperinflated lungs without any acute process. 01/07/23: CT scan CERVICAL SPINE. Assessment & Plan Assessment & Plan (1) Rib cage dysfunction: Code(s): M99.08 - Segmental and somatic dysfunction of rib cage Plan 1. Symptoms could be secondary to rib tip or 12th rib syndrome. Will schedule him for diagnostic right 12th intercostal nerve block in the office under ultrasound guidance. Discussed the risks and benefits of the procedure with the patient in detail. All questions were answered. The patient is on board with the plan. 2. The patient will follow up on 05/18/23. Justification for interventional therapy: ? Patient with average pain > 6/10 ? Patient has exhausted conservative therapy Scribed for Dr. Yang by Cesar Langston, medical administrative specialist, on 05/08/2023. I, Dr. Yang, have personally reviewed and agree with the information entered by the scribe. Coding Level of Care Code Est Pt Level 4 (08537) Diagnoses Rib cage dysfunction M99.08
[2023-05-08 09:27] VITALS: BP 123/65; PULSE 64; RESP 14; O2SAT 94; BMI 32.8
== END 2023-05-08 10:11 | disposition home or self-care (01) ==
PROVIDERS: PCP Nurse Practitioner Family; Visit Provider Internal Medicine
DX: M99.08 Segmental and somatic dysfunction of rib cage (principal)
CPT/HCPCS: 99214

== ENCOUNTER → 2023-05-08 09:22 | Outpatient (BNVA) | payer OTHER, SELFPAY | PROVIDERS: PCP Nurse Practitioner Family; Visit Provider Internal Medicine | DX: M99.08 Segmental and somatic dysfunction of rib cage (principal) | CPT/HCPCS: 99212 ==

== ENCOUNTER 2023-05-18 14:42 | Outpatient (AMB) | payer OTHER, SELFPAY ==
[2023-05-18 14:45] VITALS: BP 125/55; PULSE 61; RESP 14; BMI 32.8
--- NOTE | 2023-05-18 14:45 | MHC.OFFVIS ---
Intake Vital Signs 05/18/23 14:45 Height 5 ft 6 in Weight 203 lb BMI 32.8 BP 125/55 L Blood Pressure Location Lt brachial Position Sitting Respiration 14 Pulse 61 Pulse Source Pulse Oximeter Intake Visit Reasons: Diagnostic intercostal nerve block Allergies No Known Allergies Allergy (Verified 05/18/23 14:48) Medication List - Last Reconciled 05/18/23 by Ginger Rao LPN albuterol sulfate 90 mcg/actuation 2 inhalations inhalation Q6-8H PRN alcohol swabs 0 pad topical apixaban 5 mg PO BID 90 days aspirin 81 mg PO DAILY 90 days atorvastatin 40 mg PO BEDTIME 90 days [bed protector 1; NS] [Chair Lift For Stair use use daily] ciclopirox 0.77% appl topical [cleaning towels 1; NS] cyclobenzaprine 5 mg PO TID PRN 7 days dexlansoprazole 60 mg PO DAILY 90 days [diabetic shoes daily use with 3 pairs of inserts.] diaper,brief,adult,disposable Change at least 3 times daily or as needed for episodes of incontinence flash glucose scanning reader (FreeStyle Gera 2 [place]) TID flash glucose sensor (FreeStyle Gera 2 Sensor kit) TID fluticasone furoate-vilanterol 100-25 mcg/dose (Breo Ellipta) 1 ea inhalation DAILY gabapentin 400 mg PO TID 30 days glipizide 10 mg PO BID hospital bed weakness, use daily insulin aspart U-100 (Novolog FlexPen U-100 Insulin aspart) 1 sliding scale dose subcut TID 30 days insulin glargine 80 units (0.8 mL) subcut BEDTIME 30 days isosorbide mononitrate ER 30 mg PO DAILY 90 days lancets Use to check blood sugar if implanted device is not functioning. losartan 25 mg PO DAILY metoprolol succinate ER 50 mg PO DAILY 90 days montelukast 10 mg PO DAILY 90 days pen needle, diabetic (Comfort EZ Pen [place]) Use to administer insulin with pen 3 times a day as ordered. rivastigmine 1 patch transdermal DAILY sertraline 25 mg PO DAILY tamsulosin 0.4 mg PO DAILY terazosin 5 mg PO BEDTIME 30 days walker use daily HPI Diagnostic intercostal nerve block HPI Details 72-year-old male presenting today for a diagnostic intercostal nerve block. Patient presents for scheduled procedure. Denies any recent cough, cold, infection, fever or other significant changes in medical history since last office visit. Past Procedures: 06/26/21: Right Diagnostic C3, C4, C5 MBB ? Greater than 50% relief on the day of the MBBs and continues to have greater than 25% relief one week out. [facility] Medical History Acquired deformity of toenail Acquired skin tag Bilateral carpal tunnel syndrome BPH (benign prostatic hyperplasia) Carpal tunnel syndrome Cervical spondylarthritis Chronic pancreatitis COPD (chronic obstructive pulmonary disease) CVA (cerebral vascular accident) Delayed gastric emptying Depression Encephalopathy HTN (hypertension) Myocardial infarction PFO (patent foramen ovale) Prostate cancer Tenosynovitis of finger Type 2 diabetes mellitus Ventricular bigeminy seen on hearing aid technician Surgical History History of appendectomy History of back surgery History of shoulder surgery Family History Father Mental health disorder Mother Diabetes Unknown Substance use disorder Social History Housing: Apartment Alcohol intake: current Alcohol intake frequency: holidays/special occasions only Patient Tobacco Use Status: Never used Tobacco e-Cigarette/Vaping Use: Never Used Second Hand Smoke Exposure: No Current occupational status: retired Cognitive needs: No Hearing needs: No Vision needs: No Review of Systems Const All systems reviewed & are unremarkable except as noted in HPI and below Physical Exam Vital Signs: Last Vital Signs Pulse 61 05/18/23 14:45 Resp 14 05/18/23 14:45 BP 125/55 L 05/18/23 14:45 BMI result Body Mass Index 32.8 General: Appears afebrile. Alert and oriented. Mood and affect appropriate. Follows and participates in conversation appropriately. Respiratory effort is unlabored. Able to transition from sit to stand unassisted. Ambulates with bilaterally normal heel strike and toe off. Office Procedures Nerve Block Details: Bilateral diagnostic 12th intercoastal nerve block, US guided After obtaining written consent, pre-procedure time-out was completed. The patient was placed in a left lateral position. The relevant levels of the intercostal nerves were physically palpated corresponding to the patient's pain and marked. Using ultrasound, the appropriate landmarks including the rib, intercostal muscles and pleura were identified. The skin was anesthetized with 1% lidocaine. A 21 gauge 80 mm echostim needle was advanced under sonographic guidance in proximity to each of the the intercostal nerves. Aspiration was negative for heme and air. 2 cc of ropivacaine 0.5% was injected around each of the targeted nerves. The needle was removed, skin cleansed and a sterile bandage was applied. The patient tolerated the procedure well and no complications were encountered. Following the procedure the patient's vital signs and respiration were stable. The patient was discharged home in good condition with post-procedural instructions. Time Out: Immediately prior to the procedure, the following was verbally confirmed that there is a signed consent form and that the correct patient, planned procedure, site and side are consistent with documentation and that necessary equipment and/or blood products are available prior to the start of the case. Complications: none EBL: <1 cc Procedure code (CPT) selection complete Results Reviewed Results Reviewed: 05/18/23 09:00 Lidocaine HCl 2 % MPF [Xylocaine 2 % MPF] 10 ml .ROUTE .K-MED ONE No imaging is available for review. Assessment & Plan Assessment & Plan (1) Rib cage dysfunction: Code(s): M99.08 - Segmental and somatic dysfunction of rib cage Plan Patient is status post bilateral diagnostic 12th intercoastal nerve block. Patient tolerated procedure well and was discharged home in stable condition with discharge instructions. All questions were answered. We will follow-up in two weeks via telephone or in clinic to assess response to therapy. A follow-up appointment was made during today's visit. Scribed for Dr. Yang by Cesar Langston, electromedical equipment technician, on 05/18/2023. I, Dr. Yang, have personally reviewed and agree with the information entered by the scribe. Coding Level of Care Code Procedure Only Diagnoses Rib cage dysfunction M99.08
== END 2023-05-18 15:45 | disposition home or self-care (01) ==
PROVIDERS: PCP Nurse Practitioner Family; Visit Provider Internal Medicine
DX: M99.08 Segmental and somatic dysfunction of rib cage (principal)
CPT/HCPCS: 64420

== ENCOUNTER → 2023-05-18 14:42 | Outpatient (BNVA) | payer OTHER, SELFPAY | PROVIDERS: PCP Nurse Practitioner Family; Visit Provider Internal Medicine | DX: M99.08 Segmental and somatic dysfunction of rib cage (principal) | CPT/HCPCS: 64420 ==

== ENCOUNTER 2023-06-15 09:58 | Outpatient (AMB) | payer OTHER, SELFPAY ==
[2023-06-15 10:25] VITALS: BP 110/68; PULSE 50; O2SAT 97; BMI 33.1
--- NOTE | 2023-06-15 10:25 | A.OFFPC_ITS ---
Vital Signs 06/15/23 10:25 Height 5 ft 6 in Weight 205 lb BMI 33.1 BP 110/68 Blood Pressure Location Rt brachial Position Sitting Pulse 50 Pulse Source Pulse Oximeter Pulse Oximetry (%) 97 Oxygen Delivery Method Room Air Intake Visit Reasons: annual PE Allergies No Known Allergies Allergy (Verified 06/15/23 12:25) Medication List - Last Reconciled 06/15/23 by Lewis Goldberg, SHRIMP PACKER- albuterol sulfate 90 mcg/actuation 2 inhalations inhalation Q6-8H PRN alcohol swabs 0 pad topical apixaban 5 mg PO BID 90 days aspirin 81 mg PO DAILY 90 days atorvastatin 40 mg PO BEDTIME 90 days [bed protector 1; NS] [Chair Lift For Stair use use daily] ciclopirox 0.77% appl topical [cleaning towels 1; NS] cyclobenzaprine 5 mg PO TID PRN 7 days dexlansoprazole 60 mg PO DAILY 90 days [diabetic shoes daily use with 3 pairs of inserts.] diaper,brief,adult,disposable Change at least 3 times daily or as needed for episodes of incontinence flash glucose scanning reader (FreeStyle Gera 2 [place]) TID flash glucose sensor (FreeStyle Gera 2 Sensor kit) TID fluticasone furoate-vilanterol 100-25 mcg/dose (Breo Ellipta) 1 ea inhalation DAILY gabapentin 400 mg PO TID 30 days glipizide 10 mg PO BID hospital bed weakness, use daily insulin aspart U-100 (Novolog FlexPen U-100 Insulin aspart) 1 sliding scale dose subcut TID 30 days insulin glargine 80 units (0.8 mL) subcut BEDTIME 30 days isosorbide mononitrate ER 30 mg PO DAILY 90 days lancets Use to check blood sugar if implanted device is not functioning. losartan 25 mg PO DAILY metoprolol succinate ER 50 mg PO DAILY 90 days montelukast 10 mg PO DAILY 90 days pen needle, diabetic (Comfort EZ Pen [place]) Use to administer insulin with pen 3 times a day as ordered. prednisone 50 mg PO DAILY 5 days rivastigmine 1 patch transdermal DAILY sertraline 25 mg PO DAILY tamsulosin 0.4 mg PO DAILY terazosin 5 mg PO BEDTIME 30 days walker use daily Tobacco use date assessed: 04/22/23 Fall risk assessment: 2 + Falls in past year Last assessed Fall Risk: 06/15/23 Dental Screening Dental Screen Date: 06/15/23 Did you have a dental visit in the last 12 months?: Yes Did you have a dental problem in the last 6 months where you did not have access to dental care?: No Was dental information given to patient?: Patient has dentist HPI annual PE HPI Details Pt is here for a PE. Will order labs. Colon screen is up to date. Due for PSA, will order. Denies dribbling with urination, weak stream, and nocturia. Pt is a diabetic, sees endo. Pt is getting over a viral illness. wheezing with intermittent cough, will treat with prednisone. diabetes: pt sees endo. 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 [facility] Medical History Acquired deformity of toenail Acquired skin tag Bilateral carpal tunnel syndrome BPH (benign prostatic hyperplasia) Carpal tunnel syndrome Cervical spondylarthritis Chronic pancreatitis COPD (chronic obstructive pulmonary disease) CVA (cerebral vascular accident) Delayed gastric emptying Depression Encephalopathy HTN (hypertension) Myocardial infarction PFO (patent foramen ovale) Prostate cancer Tenosynovitis of finger Type 2 diabetes mellitus Ventricular bigeminy seen on property assessment monitor Surgical History History of appendectomy History of back surgery History of shoulder surgery Family History Father Mental health disorder Mother Diabetes Unknown Substance use disorder Social History Housing: Apartment Alcohol intake: current Alcohol intake frequency: holidays/special occasions only Patient Tobacco Use Status: Never used Tobacco e-Cigarette/Vaping Use: Never Used Second Hand Smoke Exposure: No Current occupational status: retired Cognitive needs: No Hearing needs: No Vision needs: No Questionnaire Thrive Questionnaire Date Thrive assessed: 02/27/22 JANY-7 AMB Questionnaire JANY-7 Date JANY - 7 assessed: 02/27/22 Source: Developed by Drs. Brayden Huffman, Becka Llanos, Tommy Butler and colleagues, with an educational rafal from [employer]. Review of Systems Const Denies chills and Denies fever(s) Eyes Denies blurry vision ENT Denies vertigo, Denies dizziness and Denies sore throat Card Denies chest pain at rest, Denies chest pain with activity, Denies diaphoresis, Denies dyspnea and Denies dyspnea on exertion Resp Denies cough, Denies dyspnea, Denies dyspnea on exertion and Denies wheezing GI Denies abdominal pain, Denies melena, Denies hematochezia, Denies constipation, Denies diarrhea and Denies loose stools Denies hematuria Musc Denies numbness and Denies tingling Skin/Breast Denies lesions Neuro Denies vertigo, Denies dizziness, Denies numbness and Denies tingling Psych Denies anxiety, Denies depression, Denies homicidal ideation, Denies suicidal ideation and Denies other (substance abuse) Aller/Immun Denies wheezing Physical exam (Primary Care) Vital Signs: Last Vital Signs Pulse 50 06/15/23 10:25 BP 110/68 06/15/23 10:25 Pulse Ox 97 06/15/23 10:25 Oxygen Delivery Method Room Air 06/15/23 10:25 BMI result Body Mass Index 33.1 Tobacco/Smoking Status: Tobacco use Status Tobacco use date assessed 04/22/23 06/15/23 10:27 Patient Tobacco Use Status Never used Tobacco 06/15/23 10:27 e-Cigarette/Vaping Use Never Used 06/15/23 10:27 Thrive Assessment: Date of Thrive Assessment Date Thrive assessed 02/27/22 06/15/23 10:27 Const General: cooperative Nutritional Appearance: obese Orientation/consciousness: patient oriented x3 HENMT Head: Yes normal to inspection, Yes normocephalic and Yes atraumatic Ears: TM's normal bilaterally Eyes General: appearance normal, both eyes and all related structures Alignment and Position: alignment normal and position normal Neck Neck: Yes normal visual inspection and Yes no lymphadenopathy Thyroid: Thyroid normal Resp Effort & Inspection: normal respiratory effort Auscultation: wheezes throughout Cardio Rate: regular rate Rhythm: regular rhythm Heart sounds: S1 normal heart sound present, S2 normal heart sound present and no murmurs GI Palpation (GI): Soft to palpation and nontender Auscultation: normal bowel sounds Male General Exam: Yes normal external exam Penis: normal penis Skin Rashes: no rashes Neuro Other: lack of sensation with use of monofilament to bilat feet, intact though General: patient oriented x3, moves all extremities and deep tendon reflexes 2+ bilaterally Romberg Test: Negative Psych Appearance: grossly normal Mental Status: mental status grossly normal Speech and movement: Normal speech and movement present Affect: normal affect Attitude: cooperative Thought process: Normal thought process present Thought content: Normal thought content present Insight: Good insight present (Psych) Judgement: Good judgement present (Psych) Assessment and Plan Assessment & Plan (1) Type 2 diabetes mellitus: Code(s): E11.9 - Type 2 diabetes mellitus without complications (2) Physical exam: Code(s): Z00.00 - Encounter for general adult medical examination without abnormal findings Plan: Labs ordered (3) Screening PSA (prostate specific antigen): Code(s): Z12.5 - Encounter for screening for malignant neoplasm of prostate Plan: PSA ordered Plan The patient agreed to the use of a medical records clerk for this encounter. Scribed for MERLINE Mcintyre-CECY by Rola Modi medical records clerk, on 06/15/2023 at 10:50 EST. Orders: Orders Comprehensive [place]. Panel Fast Today E11.9 - Type 2 diabetes mellitus without complications, Z00.00 - Encounter for general adult medical examination without abnormal findings Lipid Panel Today E11.9 - Type 2 diabetes mellitus without complications, Z00.00 - Encounter for general adult medical examination without abnormal findings TSH reflex Free T4 Today E11.9 - Type 2 diabetes mellitus without complications, Z00.00 - Encounter for general adult medical examination without abnormal findings Microalbumin, Random (w Creat) Today E11.9 - Type 2 diabetes mellitus without complications, Z00.00 - Encounter for general adult medical examination without abnormal findings Complete Blood Count Auto Diff Today E11.9 - Type 2 diabetes mellitus without complications, Z00.00 - Encounter for general adult medical examination without abnormal findings UA CC w/rflx Micro + Cult Today E11.9 - Type 2 diabetes mellitus without complications, Z00.00 - Encounter for general adult medical examination without abnormal findings Prostate Specific Antigen Scr Today Z12.5 - Encounter for screening for malignant neoplasm of prostate Medications: New prednisone 50 mg PO DAILY 5 tabs 0RF 5 days Coding Level of Care Code Est Pt Prev Care >65y(80739) Diagnoses Type 2 diabetes mellitus E11.9 Physical exam Z00.00 Screening PSA (prostate specific antigen) Z12.5
== END 2023-06-15 11:59 | disposition home or self-care (01) ==
PROVIDERS: Visit Provider Nurse Practitioner Family
DX: E11.9 Type 2 diabetes mellitus without complications (principal); Z00.00 Encounter for general adult medical examination without abnormal findings; Z12.5 Encounter for screening for malignant neoplasm of prostate
CPT/HCPCS: 99397

== ENCOUNTER 2023-07-27 08:30 | Outpatient (REF) | payer OTHER, SELFPAY ==
[2023-07-27 09:01] LABS: MANUAL DIFF FLAG NO
[2023-07-27 09:14] LABS: Basophils Percent Auto 0.3 % (0-2); Eosinophils Absolute Auto 0.1 X10*3/uL (0.0-0.4); Hematocrit 39.9 % (42.0-52.0); Hemoglobin 13.5 g/dl (14.0-18.0); Imm Gran Abs Auto 0.03 X10*3/uL (0.00-0.03); Imm Gran Pct Auto 0.5 % (0.0-0.4); Lymphocytes Absolute Auto 2.2 X10*3/uL (1.2-4.9); Lymphocytes Percent Auto 32.9 % (20-40); Mean Corpuscular HGB Conc 33.8 g/dl (31.0-36.0); Mean Corpuscular Hemoglobin 29.2 pg (27.0-33.0); Mean Corpuscular Volume 86.2 fL (80.0-98.0); Mean Platelet Volume 10.9 fL (9.4-12.4); Monocytes Absolute Auto 0.5 X10*3/uL (0.1-1.2); Monocytes Percent Auto 7.1 % (2-11); Neutrophils Absolute Auto 3.8 x10*3/uL (2.0-8.3); Neutrophils Percent Auto 57.2 % (45-73); Platelet Count 266 X10*3/uL (160-400); Red Blood Count 4.63 X10*6/uL (4.60-5.80); Red Cell Distribution Width 12.9 % (11.0-16.0); White Blood Count 6.7 X10*3/uL (4.8-10.8)
[2023-07-27 10:12] LABS: Alanine Aminotransferase 40 U/L (0-40); Albumin Level 4.2 g/dL (3.5-5.0); Alkaline Phosphatase 92 U/L (39-117); Anion Gap 11 (12-20); Aspartate Amino Transferase 24 U/L (5-37); Bilirubin Total 0.4 mg/dL (0.0-1.0); Blood Urea Nitrogen 12 mg/dL (9-16); Calcium 9.2 mg/dL (8.4-10.2); Carbon Dioxide 26 mmol/L (22-29); Chloride 105 mmol/L (96-108); Cholesterol 87 mg/dL (<200); Estimated Glomerular Filt Rate > 60; Glucose Fasting 141 mg/dL (60-99); HDL Cholesterol 40 mg/dL (>40); LDL Cholesterol Calculated 33 mg/dL (<100); Potassium 4.2 mmol/L (3.3-5.1); Sodium 138 mmol/L (135-145); Triglycerides 74 mg/dL (<150)
[2023-07-27 10:22] LABS: Prostate Specific Antigen Scr 4.85 ng/mL (<0.05-4.0)
[2023-07-27 10:23] LABS: Appearance Urine Clear; Color Urine Yellow; Glucose Urine UA Negative (Negative); Leukocyte Esterase Urine Negative (Negative); Nitrite Urine Negative (Negative); PH 5.5 (5.0-9.0); Specific Gravity - Urine >= 1.030 (1.005-1.025); Urine Blood Negative (Negative); Urine Ketones Negative (Negative); Urine Protein Negative (Neg-Trace)
[2023-07-27 10:32] LABS: TSH reflex Free T4 2.66 uIU/mL (0.32-4.0)
[2023-07-27 10:39] LABS: Creatinine Urine 310.27 mg/dL; Microalbum/Creatinine Ratio Ur 6.7 ug/mg cr (<30)
== END 2023-07-27 08:31 | disposition home or self-care (01) ==
LOC: HO.LAB 08:30
PROVIDERS: PCP Nurse Practitioner Family; Visit Provider Nurse Practitioner Family
DX: Z00.00 Encounter for general adult medical examination without abnormal findings (principal); Z12.5 Encounter for screening for malignant neoplasm of prostate; E11.9 Type 2 diabetes mellitus without complications
CPT/HCPCS: 36415; 80053; 80061; 81003; 82043; 82570; 84153; 84443; 85025

== ENCOUNTER 2023-08-06 10:06 | Outpatient (AMB) | payer OTHER, SELFPAY ==
--- NOTE | 2023-08-06 10:27 | A.OFFPC_ITS ---
Vital Signs 08/06/23 10:28 Height 5 ft 6 in Weight 203 lb BMI 32.8 BP 120/78 Blood Pressure Location Rt brachial Position Sitting Pulse 62 Pulse Source Pulse Oximeter Pulse Oximetry (%) 96 Oxygen Delivery Method Room Air Intake Visit Reasons: [facility] right eye Allergies No Known Allergies Allergy (Verified 08/06/23 12:46) Medication List - Last Reconciled 08/06/23 by STEWART HarrisP- albuterol sulfate 90 mcg/actuation 2 inhalations inhalation Q6-8H PRN alcohol swabs 0 pad topical apixaban 5 mg PO BID 90 days aspirin 81 mg PO DAILY 90 days atorvastatin 40 mg PO BEDTIME 90 days [bed protector 1; NS] [Chair Lift For Stair use use daily] ciclopirox 0.77% appl topical [cleaning towels 1; NS] cyclobenzaprine 5 mg PO TID PRN 7 days dexlansoprazole 60 mg PO DAILY 90 days [diabetic shoes daily use with 3 pairs of inserts.] diaper,brief,adult,disposable Change at least 3 times daily or as needed for episodes of incontinence flash glucose scanning reader (WorkableStyle Gera 2 [place]) TID flash glucose sensor (FreeStyle Gera 2 Sensor kit) TID fluticasone furoate-vilanterol 100-25 mcg/dose (Breo Ellipta) 1 ea inhalation DAILY gabapentin 400 mg PO TID 30 days glipizide 10 mg PO BID hospital bed weakness, use daily insulin aspart U-100 (Novolog FlexPen U-100 Insulin aspart) 1 sliding scale dose subcut TID 30 days isosorbide mononitrate ER 30 mg PO DAILY 90 days lancets Use to check blood sugar if implanted device is not functioning. losartan 25 mg PO DAILY melatonin 10 mg PO BEDTIME PRN metoclopramide HCl 5 mg PO QIDACHS metoprolol succinate ER 50 mg PO DAILY 90 days montelukast 10 mg PO DAILY 90 days pen needle, diabetic (Comfort EZ Pen [place]) Use to administer insulin with pen 3 times a day as ordered. sertraline 25 mg PO DAILY tamsulosin 0.4 mg PO DAILY trospium ER 60 mg PO DAILY walker use daily Tobacco use date assessed: 08/06/23 Fall risk assessment: 2 + Falls in past year (4 times ) Last assessed Fall Risk: 08/06/23 Dental Screening Dental Screen Date: 08/06/23 Did you have a dental visit in the last 12 months?: Yes Did you have a dental problem in the last 6 months where you did not have access to dental care?: No Was dental information given to patient?: Patient has dentist [facility] eye HPI Details Pt is here for a pre-op evaluation. He is scheduled to undergo a right cataract extraction on 08/11. Pt is clear for surgery from my standpoint, though pt left before his appointment was finished. 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 monitoring Surgical History History of shoulder surgery History of appendectomy History of back surgery Family History Father Mental health disorder Mother Diabetes Unknown Substance use disorder Social History Housing: Apartment Alcohol intake: current Alcohol intake frequency: holidays/special occasions only Patient Tobacco Use Status: Never used Tobacco e-Cigarette/Vaping Use: Never Used Second Hand Smoke Exposure: No Current occupational status: retired Cognitive needs: No Hearing needs: No Vision needs: No Questionnaire Thrive Questionnaire Date Thrive assessed: 02/27/22 JANY-7 AMB Questionnaire JANY-7 Date JANY - 7 assessed: 02/27/22 Source: Developed by Drs. Brayden Huffman, Becka Llanos, Tommy Butler and colleagues, with an educational rafal from [employer]. Review of Systems Const Denies chills and Denies fever(s) Eyes Denies blurry vision ENT Denies vertigo, Denies dizziness and Denies sore throat Card Denies chest pain at rest, Denies chest pain with activity, Denies diaphoresis, Denies dyspnea and Denies dyspnea on exertion Resp Denies cough, Denies dyspnea, Denies dyspnea on exertion and Denies wheezing GI Denies abdominal pain, Denies melena, Denies hematochezia, Denies constipation, Denies diarrhea and Denies loose stools Denies hematuria Musc Denies numbness and Denies tingling Skin/Breast Denies lesions Neuro Denies vertigo, Denies dizziness, Denies numbness and Denies tingling Psych Denies anxiety, Denies depression, Denies homicidal ideation, Denies suicidal ideation and Denies other (substance abuse) Aller/Immun Denies wheezing Physical exam (Primary Care) Vital Signs: Last Vital Signs Pulse 62 08/06/23 10:28 BP 120/78 08/06/23 10:28 Pulse Ox 96 08/06/23 10:28 Oxygen Delivery Method Room Air 08/06/23 10:28 BMI result Body Mass Index 32.8 Tobacco/Smoking Status: Tobacco use Status Tobacco use date assessed 08/06/23 08/06/23 10:39 Patient Tobacco Use Status Never used Tobacco 08/06/23 10:28 e-Cigarette/Vaping Use Never Used 08/06/23 10:28 Thrive Assessment: Date of Thrive Assessment Date Thrive assessed 02/27/22 08/06/23 10:28 Const General: cooperative Nutritional Appearance: obese Orientation/consciousness: patient oriented x3 Neck Neck: Yes normal visual inspection and Yes no lymphadenopathy Resp Effort & Inspection: normal respiratory effort Auscultation: clear to auscultation bilaterally Cardio Rate: regular rate Rhythm: regular rhythm Heart sounds: S1 normal heart sound present, S2 normal heart sound present and no murmurs Neuro General: patient oriented x3 and moves all extremities Psych Appearance: grossly normal Mental Status: mental status grossly normal Speech and movement: Normal speech and movement present Affect: normal affect Attitude: cooperative Thought process: Normal thought process present Thought content: Normal thought content present Insight: Good insight present (Psych) Judgement: Good judgement present (Psych) Assessment and Plan Assessment & Plan (1) Pre-op evaluation: Code(s): Z01.818 - Encounter for other preprocedural examination Plan: Pt is clear for surgery from my standpoint Plan The patient agreed to the use of a biomedical technician for this encounter. Scribed for Lewis Goldberg, MAINTENANCE SHOP MANAGER- by Rola Modi, biomedical technician, on 08/06/2023 at 10:45 EST Orders: Orders Comprehensive Met. Panel Today Z01.818 - Encounter for other preprocedural examination Complete Blood Count Auto Diff Today Z01.818 - Encounter for other preprocedural examination Coding Level of Care Code Est Pt Prev Care >65y(61540) Diagnoses Pre-op evaluation Z01.818
[2023-08-06 10:28] VITALS: BP 120/78; PULSE 62; O2SAT 96; BMI 32.8
== END 2023-08-06 12:45 | disposition home or self-care (01) ==
PROVIDERS: PCP Nurse Practitioner Family; Visit Provider Nurse Practitioner Family
DX: H26.9 Unspecified cataract (principal); Z01.818 Encounter for other preprocedural examination
CPT/HCPCS: 99213

== ENCOUNTER → 2023-08-10 08:17 | Outpatient (BNVA) | payer OTHER, SELFPAY | PROVIDERS: PCP Nurse Practitioner Family; Visit Provider Internal Medicine | DX: M99.08 Segmental and somatic dysfunction of rib cage (principal) | CPT/HCPCS: 64420; 99212 ==

== ENCOUNTER 2023-10-21 09:09 | Outpatient (AMB) | payer OTHER, SELFPAY ==
--- NOTE | 2023-10-21 09:19 | MHC.PC.OV ---
Vital Signs 10/21/23 09:20 Weight 208 lb BP 112/52 L Blood Pressure Location Rt brachial Position Sitting Respiration 14 Pulse 64 Pulse Oximetry (%) 97 Oxygen Delivery Method Room Air Intake Visit Reasons: 4 month fu Allergies No Known Allergies Allergy (Verified 10/21/23 09:20) Medication List - Last Reconciled 10/21/23 by Lewis Goldberg, CCIE- albuterol sulfate 90 mcg/actuation 2 inhalations inhalation Q6-8H PRN amoxicillin 2,000 mg (4 x 500 mg) PO ONCE 1 day apixaban 5 mg PO BID 90 days aspirin 81 mg PO DAILY 90 days atorvastatin 40 mg PO BEDTIME 90 days [bed protector 1; NS] [Chair Lift For Stair use use daily] [cleaning towels 1; NS] [diabetic shoes daily use with 3 pairs of inserts.] diaper,brief,adult,disposable Change at least 3 times daily or as needed for episodes of incontinence flash glucose scanning reader (FreeStyle Gera 2 [place]) TID flash glucose sensor (FreeStyle Gera 2 Sensor kit) TID fluticasone furoate-vilanterol 100-25 mcg/dose (Breo Ellipta) 1 ea inhalation DAILY gabapentin 400 mg PO TID 30 days glipizide 10 mg PO BID hospital bed weakness, use daily insulin aspart U-100 (Novolog FlexPen U-100 Insulin aspart) 1 sliding scale dose subcut TID 30 days isosorbide mononitrate ER 30 mg PO DAILY 90 days lancets Use to check blood sugar if implanted device is not functioning. losartan 25 mg PO DAILY melatonin 10 mg PO BEDTIME PRN metoclopramide HCl 5 mg PO QIDACHS metoprolol succinate ER 50 mg PO DAILY 90 days montelukast 10 mg PO DAILY 90 days pen needle, diabetic (Comfort EZ Pen [place]) Use to administer insulin with pen 3 times a day as ordered. sertraline 25 mg PO DAILY trospium ER 60 mg PO DAILY walker use daily Tobacco use date assessed: 08/06/23 HPI 4 month fu HPI Details HTN: Blood pressure is managed with losartan 25mg and metoprolol 50mg. BP is lower today, denies any dizziness. Pt is following up with endo (diabetes), cardiology, and urology. Denies chest pain, shortness of breath, headache, dizziness, and blurred vision. [facility] Medical History Acquired deformity of toenail Delayed gastric emptying Prostate cancer Ventricular bigeminy seen on traffic monitor specialist BPH (benign prostatic hyperplasia) Depression HTN (hypertension) Tenosynovitis of finger Encephalopathy Bilateral carpal tunnel syndrome Myocardial infarction PFO (patent foramen ovale) Cervical spondylarthritis Acquired skin tag Chronic pancreatitis Carpal tunnel syndrome COPD (chronic obstructive pulmonary disease) CVA (cerebral vascular accident) Type 2 diabetes mellitus Surgical History History of shoulder surgery History of appendectomy History of back surgery Family History Father Mental health disorder Mother Diabetes Unknown Substance use disorder Social History Housing: Apartment Alcohol intake: current Alcohol intake frequency: holidays/special occasions only Patient Tobacco Use Status: Never used Tobacco e-Cigarette/Vaping Use: Never Used Second Hand Smoke Exposure: No Current occupational status: retired Cognitive needs: No Hearing needs: No Vision needs: No Questionnaire Thrive Questionnaire Date Thrive assessed: 02/27/22 JANY-7 AMB Questionnaire JANY-7 Date JANY - 7 assessed: 02/27/22 Source: Developed by Drs. Brayden Huffman, Becka Llanos, Tommy Butler and colleagues, with an educational rafal from [employer]. Review of Systems Const Reports as per HPI Physical exam (Primary Care) Vital Signs: Last Vital Signs Resp 62 H 10/21/23 09:20 BP 112/52 L 10/21/23 09:20 Pulse Ox 97 10/21/23 09:20 Oxygen Delivery Method Room Air 10/21/23 09:20 Tobacco/Smoking Status: Tobacco use Status Tobacco use date assessed 08/06/23 10/21/23 09:19 Patient Tobacco Use Status Never used Tobacco 10/21/23 09:19 e-Cigarette/Vaping Use Never Used 10/21/23 09:19 Thrive Assessment: Date of Thrive Assessment Date Thrive assessed 02/27/22 10/21/23 09:19 Const General: cooperative Orientation/consciousness: patient oriented x3 Neuro General: patient oriented x3 Psych Appearance: grossly normal Mental Status: mental status grossly normal Speech and movement: Normal speech and movement present Affect: normal affect Attitude: cooperative Thought process: Normal thought process present Thought content: Normal thought content present Insight: Good insight present (Psych) Judgement: Good judgement present (Psych) Assessment and Plan Assessment & Plan (1) HTN (hypertension): Code(s): I10 - Essential (primary) hypertension Plan: Continue to monitor Plan The patient agreed to the use of a medical instrument cable fabricator for this encounter. Scribed for KENRICK Mcintyre by Rola Modi medical instrument cable fabricator, on 10/21/2023 at 09:40 EST. Orders: Orders Complete Blood Count Auto Diff Today I10 - Essential (primary) hypertension Lipid Panel Today I10 - Essential (primary) hypertension Comprehensive [place]. Panel Fast Today I10 - Essential (primary) hypertension TSH reflex Free T4 Today I10 - Essential (primary) hypertension UA CC w/rflx Micro + Cult Today I10 - Essential (primary) hypertension Medications: Refilled amoxicillin take all 4 tabs approx 45 minutes before a dental procedure 2,000 mg (4 x 500 mg) PO ONCE 4 tabs 4RF 1 day Coding Level of Care Code Est Pt Level 3 (27879) Diagnoses HTN (hypertension) I10
[2023-10-21 09:20] VITALS: BP 112/52; PULSE 64; RESP 14; O2SAT 97
== END 2023-10-21 09:50 | disposition home or self-care (01) ==
PROVIDERS: PCP Nurse Practitioner Family; Visit Provider Nurse Practitioner Family
DX: I10 Essential (primary) hypertension (principal)
CPT/HCPCS: 99213

== ENCOUNTER 2023-12-10 06:44 | Outpatient (REF) | payer OTHER, SELFPAY ==
[2023-12-10 11:31] LABS: MANUAL DIFF FLAG NO
[2023-12-10 11:38] LABS: Appearance Urine Clear; Color Urine Yellow; Glucose Urine UA >=1000 mg/dL (Negative); Leukocyte Esterase Urine Negative (Negative); Nitrite Urine Negative (Negative); PH 5.5 (5.0-9.0); Specific Gravity - Urine >= 1.030 (1.005-1.025); UMIC TRIGGER UACC YES; Urine Blood Negative (Negative); Urine Ketones Negative (Negative); Urine Protein Negative (Neg-Trace)
[2023-12-10 11:41] LABS: Basophils Percent Auto 0.5 % (0-2); Eosinophils Absolute Auto 0.2 X10*3/uL (0.0-0.4); Eosinophils Percent Auto 3.2 % (0-4); Hemoglobin 14.3 g/dl (14.0-18.0); Imm Gran Abs Auto 0.06 X10*3/uL (0.00-0.03); Imm Gran Pct Auto 0.9 % (0.0-0.4); Lymphocytes Absolute Auto 2.6 X10*3/uL (1.2-4.9); Lymphocytes Percent Auto 39.5 % (20-40); Mean Corpuscular HGB Conc 33.3 g/dl (31.0-36.0); Mean Corpuscular Hemoglobin 29.2 pg (27.0-33.0); Mean Corpuscular Volume 87.9 fL (80.0-98.0); Mean Platelet Volume 12.1 fL (9.4-12.4); Monocytes Absolute Auto 0.5 X10*3/uL (0.1-1.2); Neutrophils Absolute Auto 3.2 x10*3/uL (2.0-8.3); Neutrophils Percent Auto 48.9 % (45-73); Platelet Count 253 X10*3/uL (160-400); Red Blood Count 4.89 X10*6/uL (4.60-5.80); White Blood Count 6.6 X10*3/uL (4.8-10.8)
[2023-12-10 11:45] LABS: Bacteria Urine None Seen (None Seen); Hyaline Casts Urine 0-2 /LPF (0-2); RBC Urine 0-2 /HPF (0-2); Squamous Epithelial Cell Urine 0-2 /HPF (0-2); WBC Urine 0-5 /HPF (0-5)
[2023-12-10 11:57] LABS: Alanine Aminotransferase 35 U/L (0-40); Albumin Level 4.4 g/dL (3.5-5.0); Alkaline Phosphatase 116 U/L (39-117); Anion Gap 11 (12-20); Aspartate Amino Transferase 26 U/L (5-37); Bilirubin Total 0.3 mg/dL (0.0-1.0); Blood Urea Nitrogen 15 mg/dL (9-16); Calcium 10.1 mg/dL (8.4-10.2); Carbon Dioxide 27 mmol/L (22-29); Chloride 105 mmol/L (96-108); Cholesterol 99 mg/dL (<200); Estimated Glomerular Filt Rate > 60; Glucose Fasting 138 mg/dL (60-99); Glucose Random 139 mg/dL (60-115); HDL Cholesterol 37 mg/dL (>40); LDL Cholesterol Calculated 43 mg/dL (<100); Potassium 4.2 mmol/L (3.3-5.1); Sodium 139 mmol/L (135-145); Total Protein 7.5 g/dL (6.5-8.0); Triglycerides 96 mg/dL (<150)
[2023-12-10 12:15] LABS: TSH reflex Free T4 3.75 uIU/mL (0.32-4.0)
== END 2023-12-10 06:45 | disposition home or self-care (01) ==
LOC: HO.HMGCLDS 06:44
PROVIDERS: PCP Nurse Practitioner Family; Visit Provider Nurse Practitioner Family
DX: Z01.818 Encounter for other preprocedural examination (principal); I10 Essential (primary) hypertension
CPT/HCPCS: 36415; 80053; 80061; 81001; 84443; 85025

== ENCOUNTER 2024-05-18 12:23 | Outpatient (AMB) | payer OTHER, SELFPAY ==
--- NOTE | 2024-05-18 12:46 | A.OFFPC_ITS ---
Vital Signs 05/18/24 12:49 Weight 204 lb BP 124/70 Blood Pressure Location Rt brachial Position Sitting Pulse 68 Pulse Source Pulse Oximeter Pulse Oximetry (%) 97 Oxygen Delivery Method Room Air Intake Visit Reasons: 6 month follow up Intake Note: Patient here for HTN follow up Allergies No Known Allergies Allergy (Verified 05/18/24 12:50) Tobacco use date assessed: 05/18/24 Fall risk assessment: No Falls in past year Last assessed Fall Risk: 05/18/24 Dental Screening Dental Screen Date: 05/18/24 Did you have a dental visit in the last 12 months?: Yes Did you have a dental problem in the last 6 months where you did not have access to dental care?: No Was dental information given to patient?: Patient has dentist HPI 6 month follow up HPI Details Pt c/o pain to his bilat hands with weak hand grasps bilat.. He has some faint swelling to his hands. ? arthritis. Will order labs and XRs. Pt is a diabetic, sees endo. Denies any fevers, chills, loss of use of hands. Does report intermittent numbness. [facility] Medical History (Updated 05/18/24 @ 13:19 by KENRICK Harris) Fatty liver Acquired deformity of toenail Delayed gastric emptying Prostate cancer Ventricular bigeminy seen on winder fixer BPH (benign prostatic hyperplasia) Depression HTN (hypertension) Tenosynovitis of finger Encephalopathy Bilateral carpal tunnel syndrome Myocardial infarction PFO (patent foramen ovale) Cervical spondylarthritis Acquired skin tag Chronic pancreatitis Carpal tunnel syndrome COPD (chronic obstructive pulmonary disease) CVA (cerebral vascular accident) Type 2 diabetes mellitus Surgical History History of shoulder surgery History of appendectomy History of back surgery Family History Father Mental health disorder Mother Diabetes Unknown Substance use disorder Social History Housing: Apartment Alcohol intake: current Alcohol intake frequency: holidays/special occasions only Patient Tobacco Use Status: Never used Tobacco e-Cigarette/Vaping Use: Never Used Second Hand Smoke Exposure: No Current occupational status: retired Cognitive needs: No Hearing needs: No Vision needs: No Questionnaire PHQ-9 Over the last 2 weeks, how often have you been bothered by any of the following problems? 1. Little interest or pleasure in doing things: more than half the days 2. Feeling down, depressed, or hopeless: more than half the days 3. Trouble falling or staying asleep, or sleeping too much: more than half the days 4. Feeling tired or having little energy: nearly every day 5. Poor appetite or overeating: several days 6. Feeling bad about yourself - or that you are a failure or have let yourself or your family down: nearly every day 7. Trouble concentrating on things, such as reading the newspaper or watching television: several days 8. Moving or speaking so slowly that other people could have noticed. Or the opposite - being so fidgety or restless that you have been moving around a lot more than usual: not at all 9. Thoughts that you would be better off or of hurting yourself in some way: several days Total score: 15 Source: Developed by Drs. Brayden Huffman, Becka Llanos, Tommy Butler and colleagues, with an educational rafal from [employer]. Thrive Questionnaire Date Thrive assessed: 02/27/22 I am a: Parent/Caregiver What is your living situation today?: I have a steady place to live Within the past 12 months, did the food you bought not last and you didn't have the money to get more?: Never true Within the past 12 months, did you worry whether your food would run out before you got money to buy more?: Never true Do you have trouble paying for medicines?: No Do you have trouble getting transportation to medical appointments?: No Do you have trouble paying your heating and electricity bill?: No Do you have trouble taking care of your child, family member or friend?: No Do you have trouble with day-to-day activities such as bathing, preparing meals, shopping, managing finances, etc.?: Yes Are you currently unemployed and looking for a job?: Yes Are you interested in more education?: No Please select the resources that you would like help with: Housing/Prison Currently or been in a relationship where the following occur: No concerns reported THRIVE Score: 0 AUDIT C Alcohol Use Questionnaire (AUDIT-C) 1. How often do you have a drink containing alcohol?: Never Total Score: 0 JANY-7 AMB Questionnaire JANY-7 Date JANY - 7 assessed: 02/27/22 Feeling nervous, anxious, or on edge: 1 = Several days Not being able to stop or control worryin = Several days Worrying too much about different things: 1 = Several days Trouble relaxin = Nearly every day Being so restless that it is hard to sit still: 1 = Several days Becoming easily annoyed or irritable: 1 = Several days Feeling afraid as if something awful might happen: 1 = Several days Total JANY-7 score (0-4 normal; 5-9 mild; 10-14 moderate; 15-21 severe): 9 Source: Developed by Drs. Brayden Huffman, Becka Llanos, Tommy Butler and colleagues, with an educational rafal from [employer]. Review of Systems Const Reports as per HPI Physical exam (Primary Care) Vital Signs: Last Vital Signs Pulse 68 05/18/24 12:49 BP 124/70 05/18/24 12:49 Pulse Ox 97 05/18/24 12:49 Oxygen Delivery Method Room Air 05/18/24 12:49 Tobacco/Smoking Status: Tobacco use Status Tobacco use date assessed 05/18/24 05/18/24 12:52 Patient Tobacco Use Status Never used Tobacco 05/18/24 12:47 e-Cigarette/Vaping Use Never Used 05/18/24 12:47 PHQ-9: PHQ-9 Score PHQ-9: Total score 15 05/18/24 13:18 Thrive Assessment: Date of Thrive Assessment Date Thrive assessed 02/27/22 05/18/24 12:47 Currently or been in a relationship where the following occur: No concerns reported Const General: cooperative Orientation/consciousness: patient oriented x3 Resp Effort & Inspection: normal respiratory effort Auscultation: clear to auscultation bilaterally Cardio Rate: regular rate Rhythm: regular rhythm Heart sounds: S1 normal heart sound present and S2 normal heart sound present Neuro General: patient oriented x3 Extrem Other: faint swelling to fingers bilat, slight weakness with bilat hand grasps Psych Appearance: grossly normal Mental Status: mental status grossly normal Speech and movement: Normal speech and movement present Affect: normal affect Attitude: cooperative Thought process: Normal thought process present Thought content: Normal thought content present Insight: Good insight present (Psych) Judgement: Good judgement present (Psych) Assessment and Plan Assessment & Plan (1) Bilateral hand pain: Code(s): M79.641 - Pain in right hand; M79.642 - Pain in left hand Plan: Labs and XRs ordered Plan The patient agreed to the use of a medical device sales representative for this encounter. Scribed for MERLINE Mcintyre-CECY by Rola Modi medical device sales representative, on 05/18/2024 at 13:20 EST. Orders: Orders C Reactive Protein Today M79.641 - Pain in right hand, M79.642 - Pain in left hand Rheumatoid Factor Today M79.641 - Pain in right hand, M79.642 - Pain in left hand Lyme IgG/IgM w/reflex to WB Today M79.641 - Pain in right hand, M79.642 - Pain in left hand ROBLES Reflex Titer and Pattern Today M79.641 - Pain in right hand, M79.642 - Pain in left hand Erythrocyte Sedimentation Rate Today M79.641 - Pain in right hand, M79.642 - Pain in left hand Cyclic Citrullinated Peptide Today M79.641 - Pain in right hand, M79.642 - Pain in left hand Tick-borne Disease Molecular Today M79.641 - Pain in right hand, M79.642 - Pain in left hand XR hand LT 2V Today M79.641 - Pain in right hand, M79.642 - Pain in left hand XR hand RT 2V Today M79.641 - Pain in right hand, M79.642 - Pain in left hand Coding Level of Care Code Est Pt Level 3 (12349) Diagnoses Bilateral hand pain M79.641; M79.642
[2024-05-18 12:49] VITALS: BP 124/70; PULSE 68; O2SAT 97
== END 2024-05-18 14:11 | disposition home or self-care (01) ==
PROVIDERS: PCP Nurse Practitioner Family; Visit Provider Nurse Practitioner Family
DX: M79.641 Pain in right hand (principal); M79.642 Pain in left hand
CPT/HCPCS: 99213

== ENCOUNTER 2024-05-18 13:26 | Outpatient (REF) | payer OTHER, SELFPAY ==
--- NOTE | ~2024-05-18 | XR_ITS ---
EXAMINATION: XR HAND, LEFT CLINICAL INFORMATION: Left hand pain COMPARISON: None available. TECHNIQUE: PA, lateral, and oblique views of the left hand. FINDINGS: Normal osseous mineralization. No focal erosion. No significant degenerative or arthritic changes are noted. No acute fracture or dislocation. No significant abnormality of the bones, joints and soft tissues is demonstrated. Arterial calcifications are seen. XR/XR hand LT 2V IMPRESSION: No acute or significant osseous abnormalities in the left hand. Arterial calcifications.
--- NOTE | ~2024-05-18 | XR_ITS ---
EXAMINATION: XR HAND, RIGHT CLINICAL INFORMATION: Pain in the right hand COMPARISON: None available. TECHNIQUE: PA, lateral, and oblique views of the right hand. FINDINGS: Normal osseous mineralization. No focal erosion. No evidence of acute fracture or dislocation. No soft tissue calcifications. No significant abnormality of the bones, joints or soft tissues is demonstrated. XR/XR hand RT 2V IMPRESSION: No acute osseous abnormality. No significant arthritic changes are noted in the right hand.
[2024-05-18 16:47] LABS: C Reactive Protein 0.24 mg/dL (< or = 0.50)
[2024-05-18 16:49] LABS: Rheumatoid Factor 23.9 IU/mL (<15.0)
[2024-05-18 17:36] LABS: Erythrocyte Sedimentation Rate 5 MM/HR (0-15)
[2024-05-19 10:58] LABS: Lyme Abs Screen <0.90 index
[2024-05-20 15:18] LABS: Cyclic Citrullinated Peptide <16 UNITS
[2024-05-20 15:47] LABS: A. Phagocytphilium DNA,RT-PCR NOT DETECTED (NOT DETECTED); Babesia Microti DNA, RT-PCR NOT DETECTED (NOT DETECTED); Borrelia Miyamotoi,DNA RT-PCR NOT DETECTED (NOT DETECTED); E.Chaffeensis DNA RT-PCR NOT DETECTED (NOT DETECTED); Lyme(Borrelia ssp)DNA RT-PCR NOT DETECTED (NOT DETECTED)
[2024-05-23 14:13] LABS: Anti Nuclear Antibody Screen NEGATIVE (NEGATIVE)
== END 2024-05-18 13:27 | disposition home or self-care (01) ==
LOC: HO.HMGCX 13:26
PROVIDERS: PCP Nurse Practitioner Family; Visit Provider Nurse Practitioner Family
DX: M79.642 Pain in left hand (principal); M79.641 Pain in right hand
CPT/HCPCS: 36415; 73120; 85652; 86038; 86140; 86200; 86431; 86617; 86618; 87468; 87469; 87478; 87484; 87798

== ENCOUNTER 2024-06-22 08:10 | Outpatient (AMB) | payer OTHER, SELFPAY ==
[2024-06-22 08:19] VITALS: BP 116/70; PULSE 66; O2SAT 94; BMI 33.2
--- NOTE | 2024-06-22 08:19 | MHC.PC.OV ---
Vital Signs 06/22/24 08:19 Height 5 ft 6 in Weight 206 lb BMI 33.2 BP 116/70 Blood Pressure Location Lt brachial Position Sitting Pulse 66 Pulse Source Pulse Oximeter Pulse Oximetry (%) 94 Oxygen Delivery Method Room Air Intake Visit Reasons: Annual PE Intake Note: Pt is here today for his PE Allergies No Known Allergies Allergy (Verified 06/22/24 08:23) Medication List - Last Reconciled 06/22/24 by Lewis Goldberg, SENIOR TECHNICAL MANAGER- albuterol sulfate 90 mcg/actuation 2 inhalations inhalation Q6-8H PRN apixaban 5 mg PO BID 90 days aspirin 81 mg PO DAILY 90 days atorvastatin 40 mg PO BEDTIME 90 days [bed protector 1; NS] [Chair Lift For Stair use use daily] [cleaning towels 1; NS] clotrimazole-betamethasone 1-0.05 % 1 appl topical BID [diabetic shoes daily use with 3 pairs of inserts.] diaper,brief,adult,disposable Change at least 3 times daily or as needed for episodes of incontinence flash glucose scanning reader (PanteaStyle Gera 2 [place]) TID flash glucose sensor (FreeStyle Gera 2 Sensor kit) TID fluticasone furoate-vilanterol 100-25 mcg/dose (Breo Ellipta) 1 ea inhalation DAILY gabapentin 400 mg PO TID 30 days glipizide 10 mg PO BID hospital bed weakness, use daily insulin aspart U-100 (Novolog FlexPen U-100 Insulin aspart) 1 sliding scale dose subcut TID 30 days isosorbide mononitrate ER 30 mg PO DAILY 90 days lancets Use to check blood sugar if implanted device is not functioning. losartan 25 mg PO DAILY melatonin 10 mg (2 x 5 mg) PO BEDTIME PRN 90 days metoclopramide HCl 5 mg PO QIDACHS metoprolol succinate ER 50 mg PO DAILY 90 days montelukast 10 mg PO DAILY 90 days pen needle, diabetic (Comfort EZ Pen [place]) Use to administer insulin with pen 3 times a day as ordered. sertraline 25 mg PO DAILY trospium ER 60 mg PO DAILY walker use daily Tobacco use date assessed: 06/22/24 Fall risk assessment: No Falls in past year Last assessed Fall Risk: 06/22/24 Dental Screening Dental Screen Date: 06/22/24 Did you have a dental visit in the last 12 months?: Yes Did you have a dental problem in the last 6 months where you did not have access to dental care?: No Was dental information given to patient?: Patient has dentist HPI Annual PE HPI Details Pt is here for a PE. Will order labs. Colon screen is up to date. PSA is up to date. Pt follows up with urology (hx of prostate cancer), cardiology, neurology, and endo (diabetes). Pt is accompanied by his who helps translate for pt. NOTE: moving to [place] next month [facility] Medical History Fatty liver Acquired deformity of toenail Delayed gastric emptying Prostate cancer Ventricular bigeminy seen on monitoring engineer BPH (benign prostatic hyperplasia) Depression HTN (hypertension) Tenosynovitis of finger Encephalopathy Bilateral carpal tunnel syndrome Myocardial infarction PFO (patent foramen ovale) Cervical spondylarthritis Acquired skin tag Chronic pancreatitis Carpal tunnel syndrome COPD (chronic obstructive pulmonary disease) CVA (cerebral vascular accident) Type 2 diabetes mellitus Surgical History History of shoulder surgery History of appendectomy History of back surgery Family History Father Mental health disorder Mother Diabetes Unknown Substance use disorder Social History Housing: Apartment Alcohol intake: current Alcohol intake frequency: holidays/special occasions only Patient Tobacco Use Status: Never used Tobacco e-Cigarette/Vaping Use: Never Used Second Hand Smoke Exposure: No Current occupational status: retired Cognitive needs: No Hearing needs: No Vision needs: No Questionnaire PHQ-9 Over the last 2 weeks, how often have you been bothered by any of the following problems? 1. Little interest or pleasure in doing things: more than half the days 2. Feeling down, depressed, or hopeless: more than half the days 3. Trouble falling or staying asleep, or sleeping too much: more than half the days 4. Feeling tired or having little energy: nearly every day 5. Poor appetite or overeating: several days 6. Feeling bad about yourself - or that you are a failure or have let yourself or your family down: nearly every day 7. Trouble concentrating on things, such as reading the newspaper or watching television: several days 8. Moving or speaking so slowly that other people could have noticed. Or the opposite - being so fidgety or restless that you have been moving around a lot more than usual: not at all 9. Thoughts that you would be better off or of hurting yourself in some way: several days Total score: 15 Depression Screening Interpretation: Positive (denies any SI or HI) Depression Screening Follow-up: Existing condition and In treatment Depression Screening Done: Yes Source: Developed by Drs. Brayden Huffman, Becka Llanos, Tommy Butler and colleagues, with an educational rafal from [employer]. Thrive Questionnaire Date Thrive assessed: 06/22/24 I am a: Parent/Caregiver What is your living situation today?: I have a steady place to live Within the past 12 months, did the food you bought not last and you didn't have the money to get more?: Never true Within the past 12 months, did you worry whether your food would run out before you got money to buy more?: Never true Do you have trouble paying for medicines?: No Do you have trouble getting transportation to medical appointments?: No Do you have trouble paying your heating and electricity bill?: No Do you have trouble taking care of your child, family member or friend?: No Do you have trouble with day-to-day activities such as bathing, preparing meals, shopping, managing finances, etc.?: Yes Are you currently unemployed and looking for a job?: Yes Are you interested in more education?: No Please select the resources that you would like help with: None Currently or been in a relationship where the following occur: No concerns reported THRIVE Score: 0 AUDIT C Alcohol Use Questionnaire (AUDIT-C) 1. How often do you have a drink containing alcohol?: Never Total Score: 0 JANY-7 AMB Questionnaire JANY-7 Date JANY - 7 assessed: 06/22/24 Feeling nervous, anxious, or on edge: 1 = Several days Not being able to stop or control worryin = Several days Worrying too much about different things: 1 = Several days Trouble relaxin = Nearly every day Being so restless that it is hard to sit still: 1 = Several days Becoming easily annoyed or irritable: 1 = Several days Feeling afraid as if something awful might happen: 1 = Several days Total JANY-7 score (0-4 normal; 5-9 mild; 10-14 moderate; 15-21 severe): 9 Source: Developed by Drs. Brayden Huffman, Becka Llanos, Tommy Butler and colleagues, with an educational rafal from [employer]. JANY-7 Assessment Billing JANY-7 Assessment Tool: JANY-7 Assessment 28582 Review of Systems Const Denies chills and Denies fever(s) Eyes Denies blurry vision ENT Denies vertigo, Denies dizziness and Denies sore throat Card Denies chest pain at rest, Denies chest pain with activity, Denies diaphoresis, Denies dyspnea and Denies dyspnea on exertion Resp Denies cough, Denies dyspnea, Denies dyspnea on exertion and Denies wheezing GI Denies abdominal pain, Denies melena, Denies hematochezia, Denies constipation, Denies diarrhea and Denies loose stools Denies hematuria Musc Denies numbness and Denies tingling Skin/Breast Denies lesions Neuro Denies vertigo, Denies dizziness, Denies numbness and Denies tingling Psych Denies anxiety, Denies depression, Denies homicidal ideation, Denies suicidal ideation and Denies other (substance abuse) Aller/Immun Denies wheezing Physical exam (Primary Care) Vital Signs: Last Vital Signs Pulse 66 06/22/24 08:19 BP 116/70 06/22/24 08:19 Pulse Ox 94 06/22/24 08:19 Oxygen Delivery Method Room Air 06/22/24 08:19 BMI result Body Mass Index 33.2 Tobacco/Smoking Status: Tobacco use Status Tobacco use date assessed 06/22/24 06/22/24 08:26 Patient Tobacco Use Status Never used Tobacco 06/22/24 08:19 e-Cigarette/Vaping Use Never Used 06/22/24 08:19 PHQ-9: PHQ-9 Score PHQ-9: Total score 15 06/22/24 08:19 Depression Screening Interpretation: Positive (denies any SI or HI) Depression Screening Follow-up: Existing condition and In treatment Thrive Assessment: Date of Thrive Assessment Date Thrive assessed 06/22/24 06/22/24 08:26 Currently or been in a relationship where the following occur: No concerns reported Const General: cooperative Nutritional Appearance: well nourished Orientation/consciousness: patient oriented x3 Limitations: ambulation with cane HENMT Head: Yes normal to inspection, Yes normocephalic and Yes atraumatic Ears: TM's normal bilaterally Eyes General: appearance normal, both eyes and all related structures Alignment and Position: alignment normal and position normal Neck Neck: Yes normal visual inspection, Yes no lymphadenopathy and Yes supple Resp Effort & Inspection: normal respiratory effort Auscultation: clear to auscultation bilaterally Cardio Rate: regular rate Rhythm: regular rhythm Heart sounds: S1 normal heart sound present, S2 normal heart sound present and no murmurs GI Palpation (GI): Soft to palpation and nontender Auscultation: normal bowel sounds Male General Exam: Yes normal external exam Penis: normal penis Scrotum: scrotum normal, testes descended bilaterally and no inguinal hernias Testes: no testicular mass Skin Other: multiple skin tags throughout neck, faint macular eyrthema to inguinal and suprapubic region Rashes: no rashes Neuro General: patient oriented x3, moves all extremities, no focal motor deficits and deep tendon reflexes 2+ bilaterally Romberg Test: Negative Extrem Other: bilat feet: no sensation with use of monofilament, feet intact Psych Appearance: grossly normal Mental Status: mental status grossly normal Speech and movement: Normal speech and movement present Affect: normal affect Attitude: cooperative Thought process: Normal thought process present Thought content: Normal thought content present Insight: Good insight present (Psych) Judgement: Good judgement present (Psych) Assessment and Plan Assessment & Plan (1) Encounter for routine adult physical exam with abnormal findings: Code(s): Z00.01 - Encounter for general adult medical examination with abnormal findings Plan: Labs ordered (2) Groin rash: Code(s): R21 - Rash and other nonspecific skin eruption Plan: Cream sent, appears more fungal Plan The patient agreed to the use of a medical tech for this encounter. Scribed for KENRICK Mcintyre by sadi Cartagena scribe, on 06/22/2024 at 08:45 EST. Medications: New clotrimazole-betamethasone 1-0.05 % 1 appl topical BID 45 grams 2RF Coding Level of Care Code Est Pt Prev Care >65y(00442) Diagnoses Encounter for routine adult physical exam with abnormal findings Z00.01 Groin rash R21 Additional Codes JANY-7 Assessment Billing - JANY-7 Assessment Tool: JANY-7 Assessment 50796 ([id number])
== END 2024-06-22 09:24 | disposition home or self-care (01) ==
PROVIDERS: PCP Nurse Practitioner Family; Visit Provider Nurse Practitioner Family
DX: Z00.01 Encounter for general adult medical examination with abnormal findings (principal); R21 Rash and other nonspecific skin eruption
CPT/HCPCS: 99213; 99397

== ENCOUNTER 2024-06-22 09:06 | Outpatient (REF) | payer OTHER, SELFPAY ==
[2024-06-22 10:09] LABS: MANUAL DIFF FLAG NO
[2024-06-22 10:16] LABS: Basophils Percent Auto 0.4 % (0-2); Eosinophils Absolute Auto 0.3 X10*3/uL (0.0-0.4); Eosinophils Percent Auto 4.4 % (0-4); Hematocrit 38.2 % (42.0-52.0); Hemoglobin 12.8 g/dl (14.0-18.0); Imm Gran Abs Auto 0.03 X10*3/uL (0.00-0.03); Imm Gran Pct Auto 0.5 % (0.0-0.4); Lymphocytes Absolute Auto 2.1 X10*3/uL (1.2-4.9); Lymphocytes Percent Auto 36.5 % (20-40); Mean Corpuscular HGB Conc 33.5 g/dl (31.0-36.0); Mean Corpuscular Hemoglobin 29.1 pg (27.0-33.0); Mean Corpuscular Volume 86.8 fL (80.0-98.0); Mean Platelet Volume 11.9 fL (9.4-12.4); Monocytes Absolute Auto 0.5 X10*3/uL (0.1-1.2); Monocytes Percent Auto 8.9 % (2-11); Neutrophils Absolute Auto 2.8 x10*3/uL (2.0-8.3); Neutrophils Percent Auto 49.3 % (45-73); Platelet Count 236 X10*3/uL (160-400); Red Cell Distribution Width 13.4 % (11.0-16.0); White Blood Count 5.6 X10*3/uL (4.8-10.8)
[2024-06-22 10:26] LABS: Appearance Urine Clear; Color Urine Yellow; Glucose Urine UA >=1000 mg/dL (Negative); Leukocyte Esterase Urine Negative (Negative); Nitrite Urine Negative (Negative); PH 5.5 (5.0-9.0); Specific Gravity - Urine >= 1.030 (1.005-1.025); UMIC TRIGGER UACC YES; Urine Blood Negative (Negative); Urine Ketones Negative (Negative); Urine Protein Negative (Neg-Trace)
[2024-06-22 10:32] LABS: Bacteria Urine None Seen (None Seen); Hyaline Casts Urine 0-2 /LPF (0-2); RBC Urine 0-2 /HPF (0-2); Squamous Epithelial Cell Urine 0-2 /HPF (0-2); WBC Urine 0-5 /HPF (0-5)
== END 2024-06-22 09:07 | disposition home or self-care (01) ==
LOC: HO.HMGCLDS 09:06
PROVIDERS: PCP Nurse Practitioner Family; Visit Provider Nurse Practitioner Family
DX: I10 Essential (primary) hypertension (principal)
CPT/HCPCS: 36415; 81001; 81003; 85025

== ENCOUNTER 2025-02-08 12:32 | Outpatient (REF) | payer OTHER, SELFPAY ==
--- NOTE | ~2025-02-08 | XR_ITS ---
EXAMINATION: XR CHEST 2 VIEWS HISTORY: B34.9 - Viral infection, unspecified COMPARISON: Comparison is made with the prior examination dated 09/25/2022. FINDINGS: PA and lateral views of the chest are submitted. The lungs are expanded and clear. There is no pleural effusion, pneumothorax, or pulmonary vascular congestion. The heart is normal in size. There is degenerative disc disease of the spine. There is a suture anchor in the right humeral head. XR/XR chest 2V IMPRESSION: No acute cardiopulmonary abnormality. Electronically signed by: Brayden Padgett MD 02/09/2025 11:34 AM EDT
--- OUTSIDE RECORDS SUMMARY | 2025-02-08 17:12 | XMS_ITS | Clinical Summary ---
Author Organization [facility], Address [address] [place] [address] [place] [address] Phone Care Team Providers Care Casino Investigator Name Role Phone Lucia Rebolledo PA-C Primary Care Provider [phone] Allergies Active Allergy Reactions Criticality Noted Date [...] complete this topic Insurance ([id number]) Care Teams Casino Investigator Relationship Specialty Start Date End Date Lucia Rebolledo PA-C [address] [place] [address] [address] [place] [address] PCP - General Physician Datacap Developer 12/09/19
--- OUTSIDE RECORDS SUMMARY | 2025-02-08 17:13 | XMS_ITS | Clinical Summary ---
Author Organization [address] [place] [address] [place] [phone] Phone Care Team Providers Care Rail Equipment Operator Name Role Phone Lewis Goldberg NP Primary [...] (hypoglycemia). 3 Active blood-glucose meter,continuous ([employer] G6 Buttonhole Facer) misc 1 Device by Does not apply [...] units 15 mL 5 Active blood-glucose sensor ([employer] G7 Sensor) device Use to change sensor [...] Diabetes mellitus type 2, un complicated, on watermelon harvesting supervisor insulin pump ([facility] V24, [facility] V28) 05/21/2023 Diabetes mellitus type 2 wit h neurological manifestations ([facility] V24, [facility] V28) 08/04/2022 PVC's (premature ventricular contractions) 04/03 [...] losartan and isosorbide as prescribed. Chronic pancreatitis ([facility] V24, [facility] V28) 07/19/2019 PFO (patent foramen ovale) 06/29/2019 Assessment & Plan (02/03/2025 1:19 PM EDT): Patient has history of PFO was deemed not a candidate for surgical care. He continues aspirin therapy. Major depression 03/03/2019 Overview (07/27/2024): F/u home therapist CAD (coronary artery disease) 03/03/2019 Assessment & Plan (02/03/2025 1:19 PM EDT): Patient has history of [place] and was left with residual coronary disease. [...] with routine medical care. Cerebrovascular accident (CVA) ([facility] V24, [facility] V28) 11/22/2018 Overview (07/27/2024): Follows with neurology. [...] Care Team Description 02/08/2025 Telephone Gastroenterology - [place] 175 [facility] 175 [facility] [address] [place] [phone] [place] 02/03/2025 1:10 PM EDT Office Visit [facility] [address] [place] [address] Jerrica Rizzo NP PFO (patent foramen ovale) (Primary Dx); Coronary artery disease involving [place] coronary artery of [place] heart without angina pectoris; Mixed hyperlipidemia; Upper respiratory tract infection, unspecified type 02/01/2025 10:12 AM EDT - 02/01/2025 11:59 PM EDT Hospital Encounter [facility] MRI [address] [place] [phone] BRBPR (bright red blood per rectum); Chronic pancreatitis, unspecified pancreatitis type (CMS/HCC V24, CMS/HCC V28); Pancreatic insufficiency; Gastroesophageal reflux disease with esophagitis without hemorrhage Discharge Disposition: Home or Self Care 01/24/2025 8:30 AM EDT Office Visit Gastroenterology - [place] 175 [facility] [address] [facility] [address] [place] [phone] Lucia Rebolledo PA BRBPR (bright red blood per rectum) (Primary Dx); Chronic pancreatitis, unspecified pancreatitis type (CMS/HCC V24, CMS/HCC V28); Pancreatic insufficiency; Gastroesophageal reflux disease with esophagitis without hemorrhage 12/29/2024 9:30 AM EST Office Visit Endocrinology - [address] [address] Sydney Hector PA Diabetes mellitus type 2, uncomplicated, on correction insulin pump (CMS/HCC V24, CMS/HCC V28) (Primary Dx) from Last 3 Months Surgical History Surgery Date Site/Laterality Comments APPENDECTOMY PROCEDURE: [place] APPENDECTOMY ROTATOR CUFF REPAIR PROCEDURE: HISTORICAL ROTATOR CUFF REPAIR BACK SURGERY 1992 PROCEDURE: HISTORICAL BACK SURGERY; COMMENT: lumbar Medical History Medical History Date Comments Type 2 diabetes mellitus wit h neurological manifestations, uncontrolled 11/18/2017 DX:Type 2 diabetes mellitus with neurological manifestations, uncontrolled Major depression 03/03/2019 DX:Major depres kody [place] (myocardial infarction) 03/03/2019 D X:[place] (myocardial infarction) PFO (patent foramen ovale) 06/29/2019 [...] 9:00 AM EDT Office Visit Endocrinology - [place] [address] [place] [address] Sydney Hector PA [address] [place] [address] 03/08/2025 1:30 PM EDT Appointment [facility] Endoscopy [address] [place] [phone] Joe Echols MD [address] [address] 06/12/2025 9:30 AM EDT Office Visit Gastroenterology - [place] [address] [place] [address] [phone] Lucia Rebolledo PA [address] [address] Health Maintenance Due Date Last Done Comments [...] (patent foramen ovale) Coronary artery disease involving [place] coronary artery of [place] heart without angina pectoris Mixed hyperlipidemia MR ABDOMEN WO AND W CONTRAST Routine 02/01/2025 11:52 AM EDT BRBPR (bright red blood per rectum) Chronic pancreatitis, unspecified pancreatitis type (CMS/HCC V24, CMS/HCC V28) Pancreatic insufficiency Gastroesophageal reflux disease with esophagitis without hemorrhage HEMOGLOBIN A1C Routine 12/29/2024 10:20 AM EST Diabetes mellitus type 2, uncomplicated, on correction insulin pump (CMS/HCC V24, CMS/HCC V28) BASIC METABOLIC PANEL Routine 12/29/2024 10:20 AM EST Diabetes mellitus type 2, uncomplicated, on correction insulin pump (CMS/HCC V24, CMS/HCC V28) LIPID PANEL WITH REFLEX TO DIRECT LDL Routine 12/29/2024 10:20 AM EST Diabetes mellitus type 2, uncomplicated, on watermelon harvesting supervisor insulin pump (CMS/HCC V24, CMS/HCC V28) MICROALBUMIN CREATININE URINE RATIO Routine 12/29/2024 10:20 AM EST Diabetes mellitus type 2, uncomplicated, on correction insulin pump (CMS/HCC V24, CMS/HCC V28) POC GLUCOSE Routine 12/29/2024 9:37 AM EST Diabetes mellitus type 2, uncomplicated, on watermelon harvesting supervisor insulin pump (CMS/HCC V24, CMS/HCC V28) DIABETES EYE EXAM Routine 10/28/2023 from Last 3 Months or Most Recently Relevant to Health Maintenance Results * ECG 12 lead (02/03/2025 1:19 PM EDT) Ventricular Rate ECG 79 BPM GEMUSE Atrial Rate 79 BPM GEMUSE P-R Interval 152 ms GEMUSE QRS Duration 96 ms GEMUSE Q-T Interval 400 ms GEMUSE QTc 458 ms GEMUSE P Wave [place] 60 degrees GEMUSE R [place] -6 degrees GEMUSE T Marks 80 degrees GEMUSE ECG Interpretation Normal sinus [...] Signed Date: 02/01/2025 12:45 ET Workstation ID: [id number] Transcribed By: Self Edit Transcribed Date: 02/01/2025 [...] Signed Date: 02/01/2025 12:45 ET Workstation ID: [id number] Transcribed By: Self Edit Transcribed Date: 02/01/2025 12:18 ET us Lucia LEWIS IMG MRI PROCEDURES Final Resu lt * Lipid panel with reflex to direct LDL (12/29/2024 10:20 AM EST) Cholesterol 100 0 - 200 mg/dL LAB CHEMISTRY METHOD 12/29/2024 12:56 PM EST [facility] Triglycerides 119 0 - 150 mg/dL LAB CHEMISTRY METHOD 12/29/2024 12:56 PM EST [facility] HDL 47 >=40 mg/dL LAB CHEMISTRY METHOD 12/29/2024 12:56 PM EST [facility] LDL Calculated 29 0 - 100 mg/dL LAB CHEMISTRY METHOD 12/29/2024 12:56 PM EST [facility] VLDL Cholesterol [place] 23.8 mg/dL LAB CHEMISTRY METHOD 12/29/2024 12:56 PM EST [facility] Non HDL Chol. (LDL+VLDL) 53 <145 mg/dL LAB CHEMISTRY METHOD 12/29/2024 12:56 PM EST [facility] Chol/HDL Ratio 2.1 0.0 - 4.4 LAB CHEMISTRY METHOD 12/29/2024 12:56 PM EST [facility] Blood Venous blood specimen / Unknown Venipuncture / Unknown 12/29/2024 10:20 AM EST 12/29/2024 10:20 AM EST us Sydney LEWIS LAB BLOOD ORDERABLES Final Result [facility] [address] [place] [address], * (ABNORMAL) Microalbumin creatinine urine ratio (12/29/2024 10:20 AM EST) Creatinine, Urine 224.0 mg/dL LAB CHEMISTRY METHOD 12/29/2024 1:14 PM [facility] Microalb, Ur 98.1(H) 0.0 - 29.0 mg/L LAB CHEMISTRY METHOD 12/29/2024 1:14 PM EST [facility] Microalb/Crea t Ratio 44(H) <30 mg/g creat LAB CHEMISTRY METHOD 12/29/2024 1:14 PM EST [facility] Urine Urine specimen from urethra / Unknown Non-blood Collection / Unknown 12/29/2024 10:20 AM EST 12/29/2024 10:20 AM EST Sydney LEWIS LAB URINE ORDERABLES Final Result Performing Organization Address City/[facility]/ZIP Co de Phone Number [facility] [address] [place] [address], [place] [phone] * (ABNORMAL) Hemoglobin A1c (12/29/2024 10:20 AM EST) Pathologist [facility] Hemoglobin A1C 9.9(H) <6.5 % LAB CHEMISTRY METHOD 12/29/2024 2:04 PM EST [facility] Mean Bld Glu Estim. 237 mg/dL LAB CHEMISTRY METHOD 12/29/2024 2:04 PM EST [facility] Blood Venous blood specimen / Unknown Venipuncture / Unknown 12/29/2024 10:20 AM EST 12/29/2024 10:20 AM EST us Sydney LEWIS LAB BLOOD ORDERABLES Final Result Performing Organization Address City/[facility]/ZIP Co de Phone Number [facility] [address] [place] [address], [place] [phone] * (ABNORMAL) Basic metabolic panel (12/29/2024 10:20 AM EST) Sodium 135 133 - 145 mmol/L LAB CHEMISTRY METHOD 12/29/2024 12:52 PM [facility] Potassium 4.1 3.5 - 5.5 mmol/L LAB CHEMISTRY METHOD 12/29/2024 12:52 PM [facility] Chloride 100 96 - 110 mmol/L LAB CHEMISTRY METHOD 12/29/2024 12:52 PM [facility] CO2 25 21 - 32 mmol/L LAB CHEMISTRY METHOD 12/29/2024 12:52 PM [facility] Anion Gap 10 3 - 11 LAB CHEMISTRY METHOD 12/29/2024 12:52 PM [facility] Glucose 303(H) 70 - 100 mg/dL LAB CHEMISTRY METHOD 12/29/2024 12:52 PM [facility] BUN 12 5 - 25 mg/dL LAB CHEMISTRY METHOD 12/29/2024 12:52 PM [facility] Creatinine 0.97 0.70 - 1.30 mg/dL LAB CHEMISTRY METHOD 12/29/2024 12:52 PM [facility] eGFR 83 >=60 mL/min/1. 73m2 LAB CHEMISTRY METHOD 12/29/2024 12:52 PM [facility] Comment:Calculation based on the??Chronic Kidney Disease Epidemiology Collaboration (CKD-EPI) equation refit??without adjustment for race. BUN/Creatinine Ratio 12.4 LAB CHEMISTRY METHOD 12/29/2024 12:52 PM [facility] Calcium 9.4 8.5 - 10.5 mg/dL LAB CHEMISTRY METHOD 12/29/2024 12:52 PM [facility] Blood Venous blood specimen / Unknown Venipuncture / Unknown 12/29/2024 10:20 AM EST 12/29/2024 10:20 AM EST us Sydney LEWIS LAB BLOOD ORDERABLES Final Result [facility] [address] [place] [address], [place] [phone] * POC glucose manually resulted (12/29/2024 9:37 [...] Most Recently Relevant to Health Maintenance Insurance [facility] Member Subscriber Plan / Payer (Ef fective 2024-Present) Name:Deann Thao Relation to Subscriber:Self Name:Deann Thao Payer ID:[id number] Group ID:[id number] Type:Not on file Address: [place] [address] [place] [place] [address] Care Teams Rail Equipment Operator Relationship Specialty Start Date End Date Lewis Goldberg NP [address] [place], [place] PCP - General 07/05/21
--- OUTSIDE RECORDS SUMMARY | 2025-02-08 17:13 | XMS_ITS | Encounter Summary ---
Author Organization [facility] Address [address] [place] [address] Care Team Providers Care Patient Support Partner Name Role Phone Lewis Goldberg NP Primary Care Provider Encounter Details Date Type Department Care Team (Late Contact Info) Description 02/08/2025 Telephone Gastroenterology - [place] 175 [facility] 175 [facility] [address] [place] [address] Kanwal Mayorga [place] Social History [...] 9:00 AM EDT Office Visit Endocrinology - [place] [address] [place] [address] Sydney Hector PA [address] [place] [address] 03/08/2025 1:[address] [facility] Endoscopy [address] [place] [phone] Joe Echols MD 175 [facility] [address] [place], [place] [phone] 06/12/2025 9:30 AM EDT Office Visit Gastroenterology - [place] [address] [place] [address] [place] [address] Lucia Rebolledo PA [address] [place] [place] [address] documented as of this encounter Visit Diagnoses Not on filedocumented in this encounter Care Teams Patient Support Partner Relationship Specialty Start Date End Date Lewis Goldberg NP [address] [place], [place] PCP - General 07/05/21 documented as of this encounter
--- OUTSIDE RECORDS SUMMARY | 2025-02-08 17:13 | XMS_ITS | Encounter Summary ---
Author Organization [facility] Address [address] [place] [address] Care Team Providers Care Patient Care Associate Name Role Phone Lewis Goldberg NP Primary Care Provider + [phone] Reason for Visit * Reason Comments Follow-up Encounter Details Date Type Department Care Team (Late st Contact Info) Description 02/03/2025 1:10 PM EDT Office Visit [facility] [address] [place] [phone] Jerrica Rizzo NP [address] [place] [address] [address] [place] [address] PFO (patent foramen ovale) (Primary Dx); Coronary artery disease involving [place] coronary artery of [place] heart without angina pectoris; Mixed hyperlipidemia; Upper [...] (coronary artery disease) Patient has history of [place] and was left with residual coronary disease. [...] 02/14/2025 9:00 AM EDT Office Visit [facility] [address] [place] [address] Sydney Hector PA [address] [place] [address] 03/08/2025 1:[address] [facility] Endoscopy [address] [place] [phone] Joe Echols MD [address] [address] 06/12/2025 9:30 AM EDT Office Visit Gastroenterology - [place] 175 [facility] [address] [phone] Lucia Rebolledo PA [address] [address] documented as of this encounter Procedures Procedure Name Priority Date/Time Associated Diagnosis Comments ECG 12-LEAD Routine 02/03/2025 1:19 PM EDT PFO (patent foramen ovale) Coronary artery disease involving [place] coronary artery of [place] heart without angina pectoris Mixed hyperlipidemia documented in this encounter Results * ECG 12 lead (02/03/2025 1:19 PM EDT) Ventricular Rate ECG 79 BPM GEMUSE Atrial Rate 79 BPM GEMUSE P-R Interval 152 ms GEMUSE QRS Duration 96 ms GEMUSE Q-T Interval 400 ms GEMUSE QTc 458 ms GEMUSE P Wave [place] 60 degrees GEMUSE R [place] -6 degrees GEMUSE T [place] 80 degrees GEMUSE ECG Interpretation Normal sinus [...] atrial septal defect Coronary artery disease involving [place] coronary artery of [place] heart without angina pectoris Mixed hyperlipidemia Upper respiratory tract infection, unspecified type documented in this encounter Care Teams Patient Care Associate Relationship Specialty Start Date End Date Lewis Goldberg NP 262 [facility] [place], [place] PCP - General 07/05/21 documented as of this encounter
== END 2025-02-08 12:33 | disposition home or self-care (01) ==
LOC: HO.HMGCX 12:32
PROVIDERS: PCP Nurse Practitioner Family; Visit Provider Nurse Practitioner Family
DX: B34.9 Viral infection, unspecified (principal); I10 Essential (primary) hypertension
CPT/HCPCS: 71046; 96127; 99212

== ENCOUNTER 2025-02-08 12:32 | Outpatient (AMB) | payer OTHER, SELFPAY ==
[2025-02-08 13:33] VITALS: BP 118/66; PULSE 72; RESP 18; TEMP 37.1; O2SAT 96; BMI 29.7
--- NOTE | 2025-02-08 13:33 | MHC.PC.OV ---
Vital Signs 02/08/25 13:33 Height 5 ft 6 in Weight 184 lb BMI 29.7 BP 118/66 Blood Pressure Location Rt brachial Position Sitting Respiration 18 Pulse 72 Pulse Source Pulse Oximeter Temp 98.7 F Temp Source Oral Pulse Oximetry (%) 96 Oxygen Delivery Method Room Air Intake Visit Reasons: Followup meds Allergies No Known Allergies Allergy (Verified 02/08/25 14:27) Medication List - Last Reconciled 02/08/25 by STEWART HarrisP- albuterol sulfate 90 mcg/actuation 2 inhalations inhalation Q6-8H PRN amoxicillin 2,000 mg (4 x 500 mg) PO ONCE apixaban 5 mg PO BID 90 days aspirin 81 mg PO DAILY 90 days atorvastatin 40 mg PO BEDTIME 90 days [bed protector 1; NS] benzonatate 200 mg PO BID PRN 10 days [Chair Lift For Stair use use daily] [cleaning towels 1; NS] clotrimazole-betamethasone 1-0.05 % 1 appl topical BID [diabetic shoes daily use with 3 pairs of inserts.] diaper,brief,adult,disposable Change at least 3 times daily or as needed for episodes of incontinence flash glucose scanning reader (FreeStyle Gera 2 Duarte) TID flash glucose sensor (FreeStyle Gera 2 Sensor kit) TID fluticasone furoate-vilanterol 100-25 mcg/dose (Breo Ellipta) 1 ea inhalation DAILY gabapentin 400 mg PO TID 30 days glipizide 10 mg PO BID hospital bed weakness, use daily hydrocortisone 2.5% 1 appl topical TID insulin aspart U-100 (Novolog FlexPen U-100 Insulin aspart) 1 sliding scale dose subcut TID 30 days isosorbide mononitrate ER 30 mg PO DAILY 90 days lancets Use to check blood sugar if implanted device is not functioning. losartan 25 mg PO DAILY melatonin 10 mg (2 x 5 mg) PO BEDTIME PRN 90 days metoclopramide HCl 5 mg PO QIDACHS metoprolol succinate ER 50 mg PO DAILY 90 days montelukast 10 mg PO DAILY 90 days pen needle, diabetic (Comfort EZ Pen [place]) Use to administer insulin with pen 3 times a day as ordered. sertraline 25 mg PO DAILY tacrolimus 0.1% 1 appl topical DAILY PRN trospium ER 60 mg PO DAILY walker use daily Tobacco use date assessed: 02/08/25 Fall risk assessment: 2 + Falls in past year Last assessed Fall Risk: 02/08/25 Dental Screening Dental Screen Date: 02/08/25 Did you have a dental visit in the last 12 months?: Yes Did you have a dental problem in the last 6 months where you did not have access to dental care?: No Was dental information given to patient?: Patient has dentist HPI Followup meds HPI Details Chief Complaint The patient reports generalized cough and congestion. History of Present Illness The patient is a 74-year-old male presenting with generalized follow-up and medication refills. He reports ongoing cough and congestion, stating that these symptoms are improving. No fever or chills were noted, and he denies any chest pain or shortness of breath. The patient has not experienced abdominal pain, diarrhea, constipation, blood in stool, or sore throat. He and his moved to [place] for a few months before returning, and he sees multiple specialists for his healthcare needs. HTN: stable Social History - Currently residing with his . - Relocated temporarily to [place] for a few months. Health Maintenance Review of Systems - Respiratory: Reports cough and congestion. Denies shortness of breath or chest pain. - Constitutional: Denies fever and chills. - Gastrointestinal: Denies abdominal pain, diarrhea, constipation, and blood in stool. - ENT: Denies sore throat. Physical Exam General: Cooperative, healthy appearing, comfortable, no acute distress and well developed Orientation: Patient oriented x3 Limitations: No limitations Head: Normal to inspection Ears: Hearing grossly normal bilaterally Nose: Normal external nose present Face and sinus: Normal facial exam Eyes: Appearance normal, both eyes and all related structures Neck: Normal visual inspection and Yes full ROM, no lymphadenopathy noted Respiratory: Some rhonchi noted, but able to speak in complete sentences. Cardiovascular: Regular rate and rhythm. Normal S1 and S2 GI: Normal to inspection. Soft to palpation and nontender Skin: No rashes or lesions noted Neuro: Patient oriented x3 Extremities: Trace edema in lower extremities, otherwise normal to inspection Results Plan I have decided on performing a chest X-ray due to the presence of cough, congestion, and rhonchi noted upon examination. The patient was also informed about the trace edema present in his lower extremities, and this will be monitored closely. Medication refills were provided as needed, and the patient was encouraged to continue regular consultation with his specialists. Close observation and follow-up of the symptoms are essential. Discussion Notes I discussed with the patient the importance of obtaining a chest X-ray to assess the observed rhonchi and ensure there are no underlying pulmonary conditions. I advised continuing with his current specialists for his comprehensive healthcare needs, and we agreed on the current management plan. Patient Instructions - Follow up with specialists as regularly scheduled. - Obtain a chest X-ray as discussed to further assess respiratory symptoms. - Monitor any changes in the symptoms or new symptoms for timely reporting. - Continue with prescribed medications and maintain regular health appointments. [facility] Medical History (Updated 02/08/25 @ 14:18 by MERLINE Harris-CECY) Encephalomalacia on imaging study Fatty liver Acquired deformity of toenail Delayed gastric emptying Prostate cancer Ventricular bigeminy seen on ekg monitor tech BPH (benign prostatic hyperplasia) Depression HTN (hypertension) Tenosynovitis of finger Encephalopathy Bilateral carpal tunnel syndrome Myocardial infarction PFO (patent foramen ovale) Cervical spondylarthritis Acquired skin tag Chronic pancreatitis Carpal tunnel syndrome COPD (chronic obstructive pulmonary disease) CVA (cerebral vascular accident) Type 2 diabetes mellitus Surgical History History of shoulder surgery History of appendectomy History of back surgery Family History Father Mental health disorder Mother Diabetes Unknown Substance use disorder Social History Housing: Apartment Alcohol intake: current Alcohol intake frequency: holidays/special occasions only Patient Tobacco Use Status: Never used Tobacco e-Cigarette/Vaping Use: Never Used Second Hand Smoke Exposure: No service: No Current occupational status: retired Cognitive needs: No Hearing needs: No Vision needs: No Questionnaire PHQ-9 Over the last 2 weeks, how often have you been bothered by any of the following problems? 1. Little interest or pleasure in doing things: more than half the days 2. Feeling down, depressed, or hopeless: more than half the days 3. Trouble falling or staying asleep, or sleeping too much: more than half the days 4. Feeling tired or having little energy: several days 5. Poor appetite or overeating: not at all 6. Feeling bad about yourself - or that you are a failure or have let yourself or your family down: more than half the days 7. Trouble concentrating on things, such as reading the newspaper or watching television: more than half the days 8. Moving or speaking so slowly that other people could have noticed. Or the opposite - being so fidgety or restless that you have been moving around a lot more than usual: several days 9. Thoughts that you would be better off or of hurting yourself in some way: several days Total score: 13 Depression Screening Interpretation: Positive (denies any si or hi) Depression Screening Follow-up: Existing condition and In treatment Depression Screening Done: Yes 20466 - PHQ-9 Billing: Yes Source: Developed by Drs. Brayden Huffman, Becka Llanos, Tommy Butler and colleagues, with an educational rafal from [employer]. Thrive Questionnaire Date Thrive assessed: 02/08/25 I am a: Patient What is your living situation today?: I have a steady place to live Within the past 12 months, did the food you bought not last and you didn't have the money to get more?: Never true Within the past 12 months, did you worry whether your food would run out before you got money to buy more?: Never true Do you have trouble paying for medicines?: No Do you have trouble getting transportation to medical appointments?: No Do you have trouble paying your heating and electricity bill?: No Do you have trouble taking care of your child, family member or friend?: Yes Do you have trouble with day-to-day activities such as bathing, preparing meals, shopping, managing finances, etc.?: No Are you currently unemployed and looking for a job?: No Are you interested in more education?: No Please select the resources that you would like help with: None Currently or been in a relationship where the following occur: No concerns reported THRIVE Score: 0 AUDIT C Alcohol Use Questionnaire (AUDIT-C) 1. How often do you have a drink containing alcohol?: Never Total Score: 0 JANY-7 AMB Questionnaire JANY-7 Date JANY - 7 assessed: 02/08/25 Feeling nervous, anxious, or on edge: 2 = More than half the days Not being able to stop or control worryin = More than half the days Worrying too much about different things: 2 = More than half the days Trouble relaxin = More than half the days Being so restless that it is hard to sit still: 2 = More than half the days Becoming easily annoyed or irritable: 2 = More than half the days Feeling afraid as if something awful might happen: 1 = Several days Total JANY-7 score (0-4 normal; 5-9 mild; 10-14 moderate; 15-21 severe): 13 Source: Developed by Drs. Brayden Huffman, Bekca Llanos, Tommy Butler and colleagues, with an educational rafal from [employer]. JANY-7 Assessment Billing JANY-7 Assessment Tool: JANY-7 Assessment 10879 Physical exam (Primary Care) Vital Signs: Last Vital Signs Temp 98.7 F 02/08/25 13:33 Pulse 72 02/08/25 13:33 Resp 18 02/08/25 13:33 BP 118/66 02/08/25 13:33 Pulse Ox 96 02/08/25 13:33 Oxygen Delivery Method Room Air 02/08/25 13:33 BMI result Body Mass Index 29.7 Tobacco/Smoking Status: Tobacco use Status Tobacco use date assessed 02/08/25 02/08/25 13:43 Patient Tobacco Use Status Never used Tobacco 02/08/25 13:43 e-Cigarette/Vaping Use Never Used 02/08/25 13:43 PHQ-9: PHQ-9 Score PHQ-9: Total score 13 02/08/25 14:24 Depression Screening Interpretation: Positive (denies any si or hi) Depression Screening Follow-up: Existing condition and In treatment Thrive Assessment: Date of Thrive Assessment Date Thrive assessed 02/08/25 02/08/25 13:43 Currently or been in a relationship where the following occur: No concerns reported Coding Level of Care Code Est Pt Level 3 (16492) Diagnoses HTN (hypertension) I10 Viral illness B34.9 Additional Codes JANY-7 Assessment Billing - JANY-7 Assessment Tool: JANY-7 Assessment 14945 ([id number]) PHQ-9 - 05148 - PHQ-9 Billing: Yes ([id number]) Assessment & Plan Assessment & Plan (1) HTN (hypertension): Code(s): I10 - Essential (primary) hypertension Category: Medical (2) Viral illness: Code(s): B34.9 - Viral infection, unspecified Category: Medical Plan . Orders: Orders Comprehensive [place]. Panel Fast Today I10 - Essential (primary) hypertension XR chest 2V Today B34.9 - Viral infection, unspecified Complete Blood Count Auto Diff Today I10 - Essential (primary) hypertension TSH reflex Free T4 Today I10 - Essential (primary) hypertension UA CC w/rflx Micro + Cult Today I10 - Essential (primary) hypertension Lipid Panel Today I10 - Essential (primary) hypertension Medications: New amoxicillin take all 4 tabs one hr before dental procedure 2,000 mg (4 x 500 mg) PO ONCE 4 tabs 3RF benzonatate 200 mg PO BID PRN 20 caps 0RF cough 10 days Refilled apixaban 5 mg PO BID 180 tabs 0RF 90 days atorvastatin 40 mg PO BEDTIME 90 tabs 4RF 90 days glipizide 10 mg PO BID 180 tabs 1RF losartan 25 mg PO DAILY 90 tabs 4RF aspirin 81 mg PO DAILY 90 tabs 0RF 90 days gabapentin 400 mg PO TID 90 caps 0RF 30 days melatonin 10 mg (2 x 5 mg) PO BEDTIME PRN 180 tabs 0RF sleep 90 days metoprolol succinate ER 50 mg PO DAILY 90 tabs 0RF 90 days montelukast 10 mg PO DAILY 90 tabs 0RF 90 days sertraline 25 mg PO DAILY 90 tabs 0RF
--- OUTSIDE RECORDS SUMMARY | 2025-02-08 14:47 | XMS_ITS | Clinical Summary ---
Author Organization [facility], Address [address] [place] [address] [place] [address] Phone Care Team Providers Care Bobbin Washer Name Role Phone Lucia Rebolledo PA-C Primary Care Provider [phone] Allergies Active Allergy Reactions Criticality Noted Date Comments Lisinopril Other (see comments) Medium 09/30/2019 Metformin Diarrhea 03/03/2019 Medications acetaminophen (TYLENOL 8 HOUR) 650 MG 8 hr tablet Pain Relief 650 mg tablet,extended release Active albuterol HFA (PROVENTIL HFA;VENTOLIN HFA) 108 (90 Base) MCG/ACT inhaler Inhale 2 puffs Activ e ammonium lactate (AMLACTIN) 12 % cream ammonium lactate 12 % topical cream Active apixaban (Eliquis) 5 MG tablet Take 1 tablet by mouth 9 Active atorvastatin (LIPITOR) 40 MG tablet atorvastatin 40 mg tablet 9 Active azithromycin (ZITHROMAX) 250 MG tablet azithromycin 250 mg tablet Active chlorhexidine (PERIDEX) 0.12 % solution chlorhexidine gluconate 0.12 % mouthwash Active clonazePAM (KlonoPIN) 0.5 MG tablet clonazepam 0.5 mg tablet Active ciprofloxacin (CIPRO) 500 MG tablet ciprofloxacin 500 mg tablet Active clopidogrel (PLAVIX) 75 MG tablet clopidogrel 75 mg tablet Active clotrimazole (LOTRIMIN) 1 % cream clotrimazole 1 % topical cream 9 Active clotrimazole-b etamethasone (LOTRISONE) cream clotrimazole-betam ethasone 1 %-0.05 % topical cream Active dexlansoprazol e (Dexilant) [address] capsule Dexilant 60 mg capsule, delayed release 9 Active diclofenac (VOLTAREN) 50 MG EC tablet diclofenac sodium 50 mg tablet,delayed release Active doxycycline (VIBRAMYCIN) 100 MG capsule doxycycline hyclate 100 mg capsule Active Empagliflozin (Jardiance) 10 MG tablet Take 10 mg by mouth 0 Active fluconazole (DIFLUCAN) 150 MG tablet fluconazole 150 mg tablet Active Fluticasone Furoate-Vilant anirudh (Breo Ellipta) 100-25 MCG/INH aerosol powder INHALE 1 PUFF BY MOUTH INTO THE lungs EVERY DAY AT THE same TIME EVERY DAY 8 Active fluticasone (FLONASE) 50 MCG/ACT nasal spray 2 sprays each nostril daily 0 Active fluticasone (FLONASE) 50 MCG/ACT nasal spray fluticasone propionate 50 mcg/actuation nasal spray,suspension Active gabapentin (NEURONTIN) 100 MG capsule gabapentin 100 mg capsule Active glipiZIDE (GLUCOTROL) 10 MG tablet glipizide 10 mg tablet 9 Active glucose blood (FREESTYLE LITE) test strip Test blood sugar once daily 9 Active HYDROcodone-ac etaminophen (NORCO) 5-325 MG per tablet hydrocodone 5 mg-acetaminophen 325 mg tablet Active hydrocortisone (Procto-Med HC) 2.5 % rectal cream Procto-Med HC 2.5 % topical cream perineal applicator Active hydrocortisone valerate (WEST-GEOFF) 0.2 % ointment hydrocortisone valerate 0.2 % topical ointment 8 Active hydrOXYzine (ATARAX) 25 MG tablet hydroxyzine HCl 25 mg tablet Active ibuprofen (ADVIL,MOTRIN) 400 MG tablet ibuprofen 400 mg tablet Active Lancets (FREESTYLE) lancets Test blood sugar once daily 9 Active lansoprazole (PREVACID) [address] capsule lansoprazole 30 mg capsule,delayed release Active lidocaine (XYLOCAINE) 5 % ointment lidocaine 5 % topical ointment Active lisinopril (PRINIVIL,ZEST RIL) 2.5 MG tablet lisinopril 2.5 mg tablet Active losartan (COZAAR) 25 MG tablet losartan 25 mg tablet 9 Active Melatonin 10 MG tablet melatonin 10 mg tablet Active meloxicam (MOBIC) 7.5 MG tablet meloxicam 7.5 mg tablet Active metFORMIN (GLUCOPHAGE) 1000 MG tablet metformin 1,000 mg tablet Active metoprolol succinate XL (TOPROL-XL) 50 MG 24 hr tablet metoprolol succinate ER 50 mg tablet,extended release 24 hr 9 Active mometasone (ELOCON) 0.1 % lotion APPLY ONLY TO SCALP LESIONS AND RUB IN GENTLY AND COMPLETELY. PREVENT SOLUTION FROM SPREADING ONTO FOREHEAD. 9 Active montelukast (SINGULAIR) 10 MG tablet montelukast 10 mg tablet 8 Active nitroglycerin (NITROSTAT) 0.4 MG SL tablet nitroglycerin 0.4 mg sublingual tablet Active pantoprazole (PROTONIX) 40 MG EC tablet pantoprazole 40 mg tablet,delayed release Active penicillin v potassium (VEETID) 500 MG tablet penicillin V potassium 500 mg tablet Active predniSONE (DELTASONE) 10 MG tablet prednisone 10 mg tablet Active pregabalin (Lyrica) 300 MG capsule Lyrica 300 mg capsule Active raNITIdine (ZANTAC) 300 MG tablet ranitidine 300 mg tablet Active rOPINIRole (REQUIP) 0.5 MG tablet ropinirole 0.5 mg tablet Active sAXagliptin-me tFORMIN ER (Kombiglyze XR) 2.5-1000 MG tablet sustained-rele ase 24 hour Kombiglyze XR 2.5 mg-1,000 mg tablet,extended release Active senna (Senexon) 8.6 MG tablet Senexon 8.6 mg tablet Active sertraline (ZOLOFT) 50 MG tablet sertraline 50 mg tablet Active Simethicone 250 MG capsule Take 1 capsule by mouth 9 Active SITagliptin (Januvia) 50 MG tablet Januvia 50 mg tablet Active tamsulosin (FLOMAX) 0.4 MG 24 hr capsule tamsulosin 0.4 mg capsule Active terbinafine (LamISIL) 1 % cream terbinafine HCl 1 % topical cream Active tiZANidine (ZANAFLEX) 2 MG tablet tizanidine 2 mg tablet Active traMADol (ULTRAM) 50 MG tablet tramadol 50 mg tablet Active traZODone (DESYREL) 50 MG tablet trazodone 50 mg tablet Active Active Problems Problem Noted Date Diagnosed Date Secondary hypertension 03/15/2020 Cyst of kidney 02/07/2020 Disorder of nervous system due to type 2 diabete s mellitus 10/29/2016 Immunizations Immunization Administration Dates Next Due Influenza, Quadrivalent, With Preservative 07/15 Social History Tobacco Use Types Packs/Day Years Used Date Smoking Tobacco: Never Smokeless Tobacco: Never Alcohol Use Standard Drinks/Week Comments Never 0 (1 standard drink = 0.6 oz pur e alcohol) AUDIT-C Answer Date Recorded Q1: How often do you have a drink containing alc ohol? Never 02/07/2020 Average Number of Drinks Not on file 020 Frequency of Binge Drinking Not on file 01/24 Sex and Gender Information Value Date Recorded Sex Assigned at Not on file Legal Sex Male 9:40 AM EST Gender Identity Not on file Sexual Orientation Not on file Plan of Treatment Health Maintenance Due Date Last Done Comments Colorectal Cancer Screening: Annual FOBT 2001 Colorectal Cancer Screening: Colonoscopy 2001 Colorectal Cancer Screening: Sigmoidoscopy 2001 Pneumococcal Vaccine: 50+ Years (1 of 1 - PCV) 2002 Diabetes: Ophthalmology Exam 01/18/2020 Diabetes: Pedal Pulse Checked 01/18/2020 Diabetes: Sensory Foot Exam 01/18/2020 Diabetes: Visual Foot Exam 01/18/2020 Diabetes: Hemoglobin A1C 12/14/2020 020, 03/13/2020, 10/28/2019 Influenza Vaccine (Season Ended) 2025 07/15/2016 Hepatitis B Vaccine Aged Out No longe r eligible based on patient's age to complete this topic Insurance ([id number]) Care Teams Bobbin Washer Relationship Specialty Start Date End Date Lucia Rebolledo PA-C [address] [place] [address] [address] [place] [address] PCP - General Physician Alarm Service Technician 12/09/19
--- OUTSIDE RECORDS SUMMARY | 2025-02-08 14:47 | XMS_ITS | Patient Health Record ---
Author Organization [facility] Address [address] [facility] [place] [address] Care Team Providers Care Preventive Medicine Specialist Name Role Phone VOSSKELLYGRETCHEN iDonna Primary Care Provide r Unavailable WILL PEREZ Unavailable [phone] Allergies No Known Allergies Reason For Referral Reason [id number] Diagnosis 1 Inflamed internal he morrhoid (K64.8) Referred Organization [facility] Referred Provider WILL PEREZ Referred Address [address] [place] [address] [place], Referred Provider Specialty Gastroentero logy Referral Priority Routine Medications Medication SIG (Take, Route, Frequency, Duration) Notes Start Date End Date Status Losartan Potassium 25 MG 1 tablet Orally Once a day Active Atorvastatin Calcium 40 MG 1 tablet Orally Once a day Active Aspirin 81 81 MG 1 tablet Orally Once a day Active Omeprazole 40 MG 1 capsule 1/2 to 1 h our before morning meal Orally Once a day Active glipiZIDE 10 MG 1 tablet 30 minutes before breakfast Orally Once a day Active Lantus SoloStar 100 UNIT/ML as directed Subcutaneous Act monica Eliquis 5 MG as directed Orally Active Problems Problem Type SNOMED Code ICD Code Onset Dates Problem Status W/U Status Risk Notes Problem Acute myocardial infarction (42280472) Acute myocardial infarction, unspecified (I21.9) Active confirmed Problem Hyperlipidemia (65457629) Hyperlipidemia (E78.5) Active confirmed Problem Asthma (665167649) Asthma (J45.909) Active confirmed Problem Hypertension (08059489) Hypertension (I10) Active confirmed Problem Type 2 diabetes mellitus (89625551) Type 2 diabetes mellitus (E11.9) Active confirmed Vital Signs Heart Rate 69 /min 11/30/2024 Blood pressure diastolic 69 mm Hg 11/30/2024 Height 66 in 11/30/2024 Blood pressure systolic 109 mm Hg 11/30/2024 Weight 193 lbs 11/30/2024 BMI 31.15 kg/m2 11/30/2024 Encounters Encounter Location Date Provider Diagnosis [facility] [address] [facility] [place] [place] [address] 11/30/2024 [facility] Abdominal pain R10.9 ; Constipation in male K59.00 ; Pancreatic cyst K86.2 and Colon cancer screening Z12.11 [facility] [address] [facility] [place] [place] [address] 11/30/2024 [facility] Assessments Encounter Date Diagnosis (ICD Code) Assessment Notes Treatment Notes Treatment Clinical Notes Section Notes 11/30/2024 Constipation in male (ICD-10 - K59.00) Discussed in detail regarding dietary modification and also increasing fiber in diet and taking fiber supplementation. 11/30/2024 Abdominal pain (ICD-10 - R10.9) related to his pancreatitis? will evaluate with MRI 11/30/2024 Pancreatic cyst (ICD-10 - K86.2) 11/30/2024 Colon cancer screening (ICD-10 - Z12.11) needs cscope, but will do labs/MRI first. Plan Of Treatment Pending Test Test Name Order Date CBC With Differential/Platelet MRI : Abdomen with and without Contrast 11/30/2024 [id number] 11/30/2024 Insurance Providers Payer Name Payer Address Payer Phone Subscriber Number Group Number Insured Name Patient Relationship to Insured Coverage Start Date Coverage End Date [facility] [address] [address] BERNIE KRISHNAN [phone] [id number] EDUARDO MILLS Self - patient is the insured MEDICARE SECONDARY [address] JOSHUA SALMERON [phone] [id number] EDUARDO MILLS Self - patient is the insured Medical (General) History Medical History History ICD Code Hypertension I10 Type 2 diabetes mellitus E11.9 Hyperlipidemia E78.5 Asthma J45.909 Acute myocardial infarction, unspecified I21.9 Surgical History Surgery Date(Month/Year) appendectomy Back surgery
--- OUTSIDE RECORDS SUMMARY | 2025-02-08 14:48 | XMS_ITS ---
Author Organization [facility] Address [address] [place] [id number] Care Team Providers Care Guide Rail Cleaner Name Role Phone Mau Rivas Primary Care Provider REASON FOR VISIT F/UP REFILL Social History Sex Assigned At : Social History Observation Description Sex Assigned At Female Encounters Encounter Location Date Provider Diagnosis [address] [address] 12/30/2024 Mau Rivas Plan Of Treatment Next Appt Details Provider Name:Mau montoya, 03/06/2025 08:32:00 AM, [address] [place] [address], [place], [address], Provider Name:Mau montoya, 12/19/2025 09:00:00 AM, [address] [place] [address], [place] [address], [place], [address], Progress Notes * EDUARDO MILLSDOB:05/1950 (74 yo M)Acc No.[id number]:12/30/2024 Progress Note Patient:?MAYO MILLSKALA ON Provider:?Mau Rivas MD :1950???Age:74 Y???Sex:Male Omar e:12/30/2024 Address:[address] [place], [place] [id number] Subjective: * Chief Complaints: * ???1. F/UP REFILL. * Medical History:? Objective: * Vitals:? Assessment: Plan: * Treatment: * Images: Care Plan Details* * Electronic signature of Gus Rivas MD on 02/08/2025 at 02:48 PM EDT Sign off status: Pending * Provider:?Mau Rivas MD Date:?04/2025 Generated for Rosalie padilla/Yoav/Aleshia on:?02/08/2025 02:48 PM EDT
--- OUTSIDE RECORDS SUMMARY | 2025-02-08 14:48 | XMS_ITS ---
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 Primary Care Provide r Unavailable WILL PEREZ Unavailable [phone] Allergies No Known Allergies REASON FOR VISIT CONSULT Medications Medication SIG (Take, Route, Frequency, Duration) Notes Start Date End Date Status Atorvastatin Calcium 40 MG 1 tablet Orally Once a day Active Aspirin 81 81 MG 1 tablet Orally Once a day Active Omeprazole 40 MG 1 capsule 1/2 to 1 h our before morning meal Orally Once a day Active glipiZIDE 10 MG 1 tablet 30 minutes before breakfast Orally Once a day Active Lantus SoloStar 100 UNIT/ML as directed Subcutaneous Act monica Losartan Potassium 25 MG 1 tablet Orally Once a day Active Eliquis 5 MG as directed Orally Active Problems Problem Type SNOMED Code ICD Code Onset Dates Problem Status W/U Status Risk Notes Problem Hypertension (36086050) Hypertension (I10) Active confirmed Problem Type 2 diabetes mellitus (20744179) Type 2 diabetes mellitus (E11.9) Active confirmed Problem Hyperlipidemia (05518546) Hyperlipidemia (E78.5) Active confirmed Problem Asthma (694771883) Asthma (J45.909) Active confirmed Problem Acute myocardial infarction (48376367) Acute myocardial infarction, unspecified (I21.9) Active confirmed Vital Signs Weight 193 lbs 11/30/2024 Height 66 in 11/30/2024 BMI 31.15 kg/m2 11/30/2024 Heart Rate 69 /min 11/30/2024 Blood pressure systolic 109 mm Hg 11/30/19 25 Blood pressure diastolic 69 mm Hg 025 Encounters Encounter Location Date Provider Diagnosis [facility] [address] [facility] [place] [facility] [address] 11/30/2024 WILL PEREZ Abdominal pain R10.9 ; Constipation in male K59.00 ; Pancreatic cyst K86.2 and Colon cancer screening Z12.11 Assessments Encounter Date Diagnosis (ICD Code) Assessment Notes Treatment Notes Treatment Clinical Notes Section Notes 11/30/2024 Abdominal pain (ICD-10 - R10.9) related to his pancreatitis? will evaluate with MRI 11/30/2024 Constipation in male (ICD-10 - K59.00) Discussed in detail regarding dietary modification and also increasing fiber in diet and taking fiber supplementation. 11/30/2024 Pancreatic cyst (ICD-10 - K86.2) 11/30/2024 Colon cancer screening (ICD-10 - Z12.11) needs cscope, but will do labs/MRI first. Plan Of Treatment Treatment Notes Assessment Notes Abdominal pain related to his pancr eatitis? will evaluate with MRI Constipation in male Discussed in detail regarding dietary modification and also increasing fiber in diet and taking fiber supplementation. Colon cancer screening needs cscope, but will do labs/MRI first. Pending Test Test Name Order Date CBC With Differential/Platelet MRI : Abdomen with and without Contrast 11/30/2024 CMP14+eGFR 11/30/2024 Next Appt Details Follow Up: 4 Weeks, Reason: Progress Notes * EDUARDO MILLSDOB:05/1950 (74 yo M)Acc No.[id number]:11/30/2024 Progress Notes Patient:?TOOTIE MILLS ON Provider:?WILL PEREZ MD :1950???Age:74 Y???Sex:Male Omar e:11/30/2024 Address:[address] [place], [place] [id number] Pcp:GRETCHEN SOTO Subjective: * Chief Complaints: * ???CONSULT * HPI: ???Constitutional:? This is a 74 year old male here for consult. pt with constipation,occ blood in stool. he has chronic back pain and also right sided abdominal pain for years. he was told his pancreas does not work well. he drank too much alcohol. he also had pancreatic cyst? no recent imaging. last cscope was 7 years back. he had polyps. * ROS:?Plastic Surgery ROS:?The patient's ROS and history is pertinent for?all systems reviews , negative other than listed..?Cardiovascular:? no chest pain..?Respiratory:? no shortness of breath..?Gastrointestinal:?no other GI symtoms other them staited a both in HPI ..?Infectious Disease:? no fever or chills ..?Musculoskeletal:? no joint pain or sweeling or redness..?Neurological:?no neurologic symtoms ..?Genitourinary:?no urine symtoms..?Psychiatric:?not suicidal..? * Medical History:? * Surgical History:?appendecto my Back surgery * Hospitalization/Major Diagno stic Procedure:? * Family History:? PT DENIES FM WITH COLON CANCER. * Social History:?Drugs/Alcohol:?Do you drink alcohol?: No. * Medications:?TakingLosartan Potassium 25 MG Tablet 1 tablet Orally Once a day Atorvastatin Calcium 40 MG Tablet 1 tablet Orally Once a day glipiZIDE 10 MG Tablet 1 tablet 30 minutes before breakfast Orally Once a day Lantus SoloStar 100 UNIT/ML Solution Pen-injector as directed Subcutaneous Aspirin 81 81 MG Tablet Delayed Release 1 tablet Orally Once a day Omeprazole 40 MG Capsule Delayed Release 1 capsule 1/2 to 1 hour before morning meal Orally Once a day Eliquis 5 MG Tablet as directed Orally Medication List reviewed and reconciled with the patientTaking Losartan Potassium 25 MG Tablet 1 tablet Orally Once a day Taking Atorvastatin Calcium 40 MG Tablet 1 tablet Orally Once a day Taking glipiZIDE 10 MG Tablet 1 tablet 30 minutes before breakfast Orally Once a day Taking Lantus SoloStar 100 UNIT/ML Solution Pen-injector as directed Subcutaneous Taking Aspirin 81 81 MG Tablet Delayed Release 1 tablet Orally Once a day Taking Omeprazole 40 MG Capsule Delayed Release 1 capsule 1/2 to 1 hour before morning meal Orally Once a day Taking Eliquis 5 MG Tablet as directed Orally Medication List reviewed and reconciled with the patient * Allergies:?N.K.D.A.no[Allerg ies Verified] Objective: * Vitals:?Wt:193lbs, Ht: 66 in , BMI:31.15Index, HR:69/min, BP:109/69mm Hg, Ht-cm: 167.64 cm, Wt-k.54 kg. * Examination: ???Examination: ?GENERAL APPEARANCE:?in no acute distress, well developed, well nourished.?HEAD:?normocephalic, atraumatic.?EYES:?pupils equal, round, reactive to light and accommodation.?HEART:? S1, S2 normal.?LUNGS:? clear to auscultation bilaterally.?ABDOMEN:?normal, bowel sounds present, soft, nontender, nondistended.? Assessment: * Assessment: 1.?Abdominal pain - R10.9 (P rimary)???2.?Constipation in male - K59.00???3.?Pancreatic cyst - K86.2???4.?Colon cancer screening - Z12.11??? Plan: * Treatment: 2.?Constipation in male? Notes: Discussed in detail regarding dietary modification and also increasing fiber in diet and taking fiber supplementation.?? 3.?Pancreatic cyst?LAB: CBC With Differential/Platelet ?LAB: CMP14+eGFR ?Imaging: MRI : Abdomen with and without Contrast 4.?Colon cancer screening? Notes: needs cscope, but will do labs/MRI first.?? * Procedure Codes:? * Follow Up:?4 Weeks * Images: Care Plan Details* * Sign off status: Completed true * Provider:?WILL PEREZ MD Date:? 11/30/2024 Generated for Rosalie padilla/Yoav/Aleshia on:?02/08/2025 02:47 PM EDT History and Physical Notes * HPI (History of Present Illness) Category Sub-Category Detail Notes Category Not es Constitutional This is a 74 year old male here for consult. pt with constipation,occ blood in stool. he has chronic back pain and also right sided abdominal pain for years. he was told his pancreas does not work well. he drank too much alcohol. he also had pancreatic cyst? no recent imaging. last cscope was 7 years back. he had polyps. Examination Category Sub-Category Detail Notes Category Not es Examination GENERAL APPEARANCE: in no acute distress, well developed, well nourished HEAD: normocephalic, atrau matic EYES: pupils equal, round, reactive to light and accommodation HEART: S1, S2 normal LUNGS: clear to auscultatio n bilaterally ABDOMEN: normal, bowel sounds present, soft, nontender, nondistended
--- OUTSIDE RECORDS SUMMARY | 2025-02-08 14:48 | XMS_ITS | Patient Health Record ---
Author Organization [employer]. Address [address] [place] [id number] Care Team Providers Care Cafeteria Table Attendant Name Role Phone Mau Rivas Primary Care Provider [phone] Allergies No Known Allergies Results Component Value Reference Range Notes X-Ray CHEST 2 VIEWS Reviewed date:10/20/2024 08:18:46 AM Interpretation: Performing Lab: Notes/Report: See Below For Report Exam # [id number] - October 15 2024 - CHEST 2 VIEWS - See Below For Report Prothrombin Time (PT) with I NR-LC Reviewed date:10/20/2024 08:18:52 AM Interpretation: Performing Lab:[facility], [address], [place] [id number], Phone - [phone], Director - Simon Notes/Report: INR 1.0 0.9-1.2 Reference interval is for non-anticoagulated patients. . Suggested INR therapeutic range for Vitamin K antagonist therapy: Standard Dose (moderate intensity therapeutic range): 2.0 - 3.0 Higher intensity therapeutic range 2.5 - 3.5 Prothrombin Time 11.0 9.1-12.0 sec US ABDOMEN COMP Reviewed date:11/10/2024 04:39:59 PM Interpretation: Performing Lab: Notes/Report: See Below For Report Exam # [id number] - November 09 2024 - ABDOMEN COMP - See Below For Report Cardiovascular Risk Assessme nt Reviewed date:10/20/2024 08:18:56 AM Interpretation: Performing Lab:[facility], [address] [place], [place] [id number], Phone - [phone], Director - Simon Notes/Report: Interpretation Note Supplemental report is available. PDF . Ceruloplasmin-LC Reviewed date:11/17/2024 03:59:06 PM Interpretation: Performing Lab:[facility], [address] [place] [id number], Phone - [phone], Director - Simon Notes/Report: Ceruloplasmin 23.6 16.0-31.0 mg/dL Prothrombin Time (PT) with I NR-LC Reviewed date:11/17/2024 03:59:06 PM Interpretation: Performing Lab:[facility], [address] [place] [id number], Phone - [phone], Director - Simon Notes/Report: INR 1.0 0.9-1.2 Reference interval is for non-anticoagulated patients. . Suggested INR therapeutic range for Vitamin K antagonist therapy: Standard Dose (moderate intensity therapeutic range): 2.0 - 3.0 Higher intensity therapeutic range 2.5 - 3.5 Prothrombin Time 11.3 9.1-12.0 sec AFP, Serum, Tumor Marker Reviewed date:11/17/2024 03:59:06 PM Interpretation: Performing Lab:[facility], [address] [place] [id number], Phone - [phone], Director - Simon Notes/Report: AFP, Serum, Tumor Marker 2.5 0.0-8.4 ng/mL [employer] Electrochemiluminescence Immunoassay (ECLIA) . Values obtained with different assay methods or kits cannot be used interchangeably. Results cannot be interpreted as absolute evidence of the presence or absence of malignant disease. . This test is not interpretable in females. Written Authorization Reviewed date:11/17/2024 03:59:06 PM Interpretation: Performing Lab:[facility], [address] [place] [id number], Phone - [phone], Director - Simon Notes/Report: Written Authorization Written Authorization Received. Authorization received from Original Requisition 11-16-2024 Logged by Yeni Norman Lipid Panel With LDL/HDL Rat io-LC Reviewed date:11/17/2024 03:59:06 PM Interpretation: Performing Lab:[facility] [address] [place] [id number], Phone - [phone], Director - Simon Notes/Report: Cholesterol, Total 114 100-199 mg/dL Triglycerides 168 0-149 mg/dL HDL Cholesterol 44 >39 mg/dL VLDL Cholesterol Orville 28 5-40 mg/dL LDL Chol Calc (NIH) 42 0-99 mg/dL LDL/HDL Ratio 1.0 0.0-3.6 ratio LDL/HDL Ratio Men Women 1/2 Avg.Risk 1.0 1.5 Avg.Risk 3.6 3.2 2X Avg.Risk 6.2 5.0 3X Avg.Risk 8.0 6.1 Comprehensive Metabolic Pane l 14+eGFR-LC-Q Reviewed date:11/17/2024 03:59:06 PM Interpretation: Performing Lab:[address] [id number], Phone - [phone], Director - Simon Notes/Report: Glucose 311 70-99 mg/dL BUN 19 8-27 mg/dL Creatinine 0.86 0.76-1.27 mg/dL eGFR 92 >59 mL/min/1.73 BUN/Creatinine Ratio 22 10-24 Sodium 138 134-144 mmol/L Potassium 4.5 3.5-5.2 mmol/L Chloride 98 96-106 mmol/L Carbon Dioxide, Total 26 20-29 mmol/L Calcium 10.0 8.6-10.2 mg/dL Protein, Total 7.5 6.0-8.5 g/dL Albumin 4.8 3.8-4.8 g/dL Globulin, Total 2.7 1.5-4.5 g/dL Bilirubin, Total 0.5 0.0-1.2 mg/dL Alkaline Phosphatase 145 44-121 IU/L AST (SGOT) 45 0-40 IU/L ALT (SGPT) 82 0-44 IU/L CBC With Differential/Platel et-LC-Q Reviewed date:11/17/2024 03:59:06 PM Interpretation: Performing Lab:[facility] [address] [facility], [address] [place] [id number], Phone - [phone], Director - Simon Notes/Report: WBC 5.6 3.4-10.8 x10E3/uL RBC 5.17 4.14-5.80 x10E6/uL Hemoglobin 15.1 13.0-17.7 g/dL Hematocrit 46.8 37.5-51.0 % MCV 91 79-97 fL MCH 29.2 26.6-33.0 pg MCHC 32.3 31.5-35.7 g/dL RDW 12.6 11.6-15.4 % Platelets 228 150-450 x10E3/uL Neutrophils 60 Not Estab. % Lymphs 32 Not Estab. % Monocytes 6 Not Estab. % Eos 2 Not Estab. % Basos 0 Not Estab. % Neutrophils (Absolute) 3.3 1.4-7.0 x10E3/uL Lymphs (Absolute) 1.8 0.7-3.1 x10E3/uL Monocytes(Absolute) 0.3 0.1-0.9 x10E3/uL Eos (Absolute) 0.1 0.0-0.4 x10E3/uL Baso (Absolute) 0.0 0.0-0.2 x10E3/uL Immature Granulocytes 0 Not Estab. % Immature Grans (Abs) 0.0 0.0-0.1 x10E3/uL Hemoglobin A1C Reviewed date:11/17/2024 03:59:06 PM Interpretation: Performing Lab:[facility] [address] [id number], Phone - [phone], Director - Simon Notes/Report: Hemoglobin A1c 8.7 4.8-5.6 % . Prediabetes: 5.7 - 6.4 Diabetes: >6.4 Glycemic control for adults with diabetes: <7.0 PSA Total, Serum-LC Reviewed date:11/17/2024 03:59:06 PM Interpretation: Performing Lab:[facility] [address] [id number], Phone - [phone], Director - Simon Notes/Report: Prostate Specific Ag 1.8 0.0-4.0 ng/mL [employer] ECLIA methodology. . According to the [employer], Serum PSA should decrease and remain at undetectable levels after radical prostatectomy. The AUA defines biochemical recurrence as an initial PSA value 0.2 ng/mL or greater followed by a subsequent confirmatory PSA value 0.2 ng/mL or greater. Values obtained with different assay methods or kits cannot be used interchangeably. Results cannot be interpreted as absolute evidence of the presence or absence of malignant disease. Microalb/Creat Ratio, Timed Ur-LC Reviewed date:11/17/2024 03:59:07 PM Interpretation: Performing Lab:[facility] [address] [id number], Phone - [phone], Director - Simon Notes/Report: Ur.Collec. Interval 0 Creatinine, Urine 57.6 Not Estab. mg/dL Albumin, Urine 3.5 Not Estab. ug/mL Alb/Creat Ratio 6.1 0.0-30.0 ug/mg creat Alb, U Excret. Rate 0.0-20.0 ug/min No to deborah volume submitted. Unable to calculate 24 hour result. Albumin,Ur mg/day TNP Unable to calculate result since non-numeric result obtained for component test. EKG Electrocardiogram Reviewed date:10/07/2024 02:14:04 PM Interpretation: Performing Lab: Notes/Report: PSA Total (Reflex To Free) Reviewed date:10/20/2024 08:22:54 AM Interpretation: Performing Lab:[facility] [address] [id number], Phone - [phone], Director - Simon Notes/Report: Prostate Specific Ag 2.1 0.0-4.0 ng/mL [employer] ECLIA methodology. . According to the [employer], Serum PSA should decrease and remain at undetectable levels after radical prostatectomy. The AUA defines biochemical recurrence as an initial PSA value 0.2 ng/mL or greater followed by a subsequent confirmatory PSA value 0.2 ng/mL or greater. Values obtained with different assay methods or kits cannot be used interchangeably. Results cannot be interpreted as absolute evidence of the presence or absence of malignant disease. Reflex Criteria The percent free PSA is performed on a reflex basis only when the total PSA is between 4.0 and 10.0 ng/mL. Lipid Panel-Q-LC Reviewed date:10/20/2024 08:22:50 AM Interpretation: Performing Lab:[facility] [address] [id number], Phone - [phone], Director - Simon Notes/Report: Cholesterol, Total 115 100-199 mg/dL Triglycerides 129 0-149 mg/dL HDL Cholesterol 37 >39 mg/dL VLDL Cholesterol Orville 23 5-40 mg/dL LDL Chol Calc (NIH) 55 0-99 mg/dL Comprehensive Metabolic Pane l 14+eGFR-LC-Q Reviewed date:10/20/2024 08:22:46 AM Interpretation: Performing Lab:[facility] [address] [place] [id number], Phone - [phone], Director - Simon Notes/Report: Glucose 155 70-99 mg/dL BUN 14 8-27 mg/dL Creatinine 0.88 0.76-1.27 mg/dL eGFR 91 >59 mL/min/1.73 BUN/Creatinine Ratio 16 10-24 Sodium 138 134-144 mmol/L Potassium 4.5 3.5-5.2 mmol/L Chloride 101 96-106 mmol/L Carbon Dioxide, Total 26 20-29 mmol/L Calcium 9.7 8.6-10.2 mg/dL Protein, Total 7.2 6.0-8.5 g/dL Albumin 4.6 3.8-4.8 g/dL Globulin, Total 2.6 1.5-4.5 g/dL Bilirubin, Total 0.5 0.0-1.2 mg/dL Alkaline Phosphatase 148 44-121 IU/L AST (SGOT) 54 0-40 IU/L ALT (SGPT) 91 0-44 IU/L Urinalysis, Mvgroche-GW-I Reviewed date:10/20/2024 08:25:48 AM Interpretation: Performing Lab:[facility] [address] [place] [id number], Phone - [phone], Director - Simon Notes/Report: Specific Whipple >=1.030 1.005-1.030 pH 5.5 5.0-7.5 Urine-Color Yellow Yellow Appearance Clear Clear WBC Esterase Negative Negative Protein Negative Negative/Trace Glucose 3+ Negative Ketones Negative Negative Occult Blood Negative Negative Bilirubin Negative Negative Urobilinogen,Semi-Qn 0.2 0.2-1.0 mg/dL Nitrite, Urine Negative Negative Microscopic Examination Micr oscopic follows if indicated. Microscopic Examination See below: Micr oscopic was indicated and was performed. WBC 0-5 0 - 5 /hpf RBC None seen 0 - 2 /hpf Epithelial Cells (non renal) None seen 0 - 10 /hpf Casts None seen None seen /lpf Bacteria None seen None seen/Few CBC With Differential/Platel et-LC-Q Reviewed date:10/20/2024 08:22:42 AM Interpretation: Performing Lab:[facility], [address] [place] [id number], Phone - [phone], Director - Simon Notes/Report: WBC 5.7 3.4-10.8 x10E3/uL RBC 5.07 4.14-5.80 x10E6/uL Hemoglobin 14.5 13.0-17.7 g/dL Hematocrit 45.0 37.5-51.0 % MCV 89 79-97 fL MCH 28.6 26.6-33.0 pg MCHC 32.2 31.5-35.7 g/dL RDW 13.0 11.6-15.4 % Platelets 236 150-450 x10E3/uL Neutrophils 54 Not Estab. % Lymphs 35 Not Estab. % Monocytes 6 Not Estab. % Eos 4 Not Estab. % Basos 0 Not Estab. % Neutrophils (Absolute) 3.1 1.4-7.0 x10E3/uL Lymphs (Absolute) 2.0 0.7-3.1 x10E3/uL Monocytes(Absolute) 0.4 0.1-0.9 x10E3/uL Eos (Absolute) 0.3 0.0-0.4 x10E3/uL Baso (Absolute) 0.0 0.0-0.2 x10E3/uL Immature Granulocytes 1 Not Estab. % Immature Grans (Abs) 0.0 0.0-0.1 x10E3/uL Hemoglobin A1C Reviewed date:01/10/2025 09:49:17 AM Interpretation: Performing Lab:[facility], [address] [place] [address], [place], [place] [id number], Phone - [phone], Director - An Notes/Report: Hemoglobin A1c 11.0 4.8-5.6 % . Prediabetes: 5.7 - 6.4 Diabetes: >6.4 Glycemic control for adults with diabetes: <7.0 Microalbumin/Creatinine Rati o, Random Urine-LC Reviewed date:10/20/2024 08:22:37 AM Interpretation: Performing Lab:[facility], [address] [place] [id number], Phone - [phone], - Simon Notes/Report: Creatinine, Urine 107.2 Not Estab. mg/dL Albumin, Urine 5.0 Not Estab. ug/mL Alb/Creat Ratio 5 0-29 mg/g creat Normal: 0 - 29 Moderately increased: 30 - 300 Severely increased: >300 Occult Blood, Fecal, IA-LAB [facility] Reviewed date:10/20/2024 08:19:02 AM Interpretation: Performing Lab:[facility] [address] [place] [id number], Phone - [phone], Director - Simon Notes/Report: Occult Blood, Fecal, IA Negative Negative Occult Blood, Fecal, IA-LAB MELVIN Reviewed date:11/17/2024 04:15:29 PM Interpretation: Performing Lab:[facility] [address] [id number], Phone - [phone], - Simon Notes/Report: Occult Blood, Fecal, IA Positive Negative [facility] CKD Program Reviewed date:11/17/2024 03:59:06 PM Interpretation: Performing Lab:[facility] [address] [place] [id number], Phone - [phone], - Simon Notes/Report: Interpretation Note - CHRONIC KIDNEY DISEASE: EGFR, BLOOD PRESSURE, AND PROTEINURIA ASSESSMENT Estimated GFR is 60 mL/min/1.73mE2 or above; this patient is not presently in CKD stage 3 or higher, therefore we are unable to provide suggestions for treatment or follow-up. - DISCLAIMER These assessments and treatment suggestions are provided as a convenience in support of the physician-patient relationship and are not intended to replace the physician's clinical judgment. They are derived from national guidelines in addition to other evidence and expert opinion. The clinician should consider this information within the context of clinical opinion and the individual patient. SEE GUIDANCE FOR CHRONIC KIDNEY DISEASE PROGRAM: Kidney Disease Improving Global Outcomes (KDIGO) clinical practice guidelines are at http://kdigo.org/home/guidelin es/. National Kidney Foundation Kidney Disease Outcomes Quality Initiative (KDOQI (TM)), with its limitations and disclaimers, are at www.kidney.org/professionals/K DOQI. This program is intended for patients who have been diagnosed with stages 3, 4, or pre-dialysis 5 CKD. It is not intended for children, patients, or transplant patients. PDF . Cardiovascular Risk Assessme nt Reviewed date:11/17/2024 03:59:06 PM Interpretation: Performing Lab:[facility], [address], [place] [id number], Phone - [phone], Director - Simon Notes/Report: Interpretation Note Supplemental report is available. PDF Not applicable Microscopic Examination Reviewed date:11/17/2024 03:59:07 PM Interpretation: Performing Lab:[facility], [address], [place] [id number], Phone - [phone], Director - Simon Notes/Report: Specific Whipple >=1.030 1.005-1.030 pH 5.5 5.0-7.5 Urine-Color Yellow Yellow Appearance Clear Clear WBC Esterase Negative Negative Protein Negative Negative/Trace Glucose 3+ Negative Ketones Trace Negative Occult Blood Negative Negative Bilirubin Negative Negative Urobilinogen,Semi-Qn 0.2 0.2-1.0 mg/dL Nitrite, Urine Negative Negative Microscopic Examination Micr oscopic not indicated and not performed. Reason For Referral Reason Please fax consul t notes and/or results of procedure approved to [phone]. Thanks! ~Annual Eye Exam~ Diagnosis 1 Encounter for examin ation of eyes and vision without abnormal findings (Z01.00) Referral Organization [facility] Referring Provider First Name Mau Referring Provider Last Name Rob Referring Provider Speciality General Pr actice Referred Provider [employer] Referred Provider Specialty Regional [employer] Referral Priority Routine Reason Please fax consul t notes and/or results of procedure approved to [phone]. Thanks! CONSULT ONLY - MANAGED CARE ~Annual Eye Exam~ Diagnosis 1 Encounter for examin ation of eyes and vision without abnormal findings (Z01.00) Referral Organization [facility] Referring Provider First Name Mau Referring Provider Last Name Rob Referring Provider Speciality General Pr actice Referred Provider [employer] [employer] Referred Provider Specialty [employer] Referral Priority Routine Reason NEW PATIENT [phone] [place] [phone] [place] [phone] [place] [phone] [place] [phone] If additional testing is needed, please refer back to PCP. Please fax consult notes and/or results of procedure approved to [phone]. Thanks! Diagnosis 1 Internal hemorrhoids (K64.8) Referral Organization [facility] Referring Provider First Name Mau Referring Provider Last Name Rob Referring Provider Speciality General Pr actice Referred Provider [employer] ([place]) Referred Provider Specialty Gastroentero logy Referral Priority Routine Reason If additional licha ting is needed, please refer back to PCP. Diagnosis 1 Fecal occult blood t est positive (R19.5) Referral Organization [facility] Referring Provider First Name Mau Referring Provider Last Name Rob [facility] Niesha actroman Referred Provider Specialty Gastroentero logy Referral Priority Routine Medications Medication SIG (Take, Route, Frequency, Duration) Notes Start Date End Date Status Warfarin Sodium 5 MG 1 tablet Orally Once a day Active Metoprolol Tartrate 50 MG 1 tablet with food Orally daily 10/07/2024 Active Insulin Syringe 30G X 5/16 1 ML as directed once a day 10/07/2024 Activ e Rosuvastatin Calcium 40 MG 1 tablet Orally Once a day 10/07/2024 Active Fluticasone-Salmeterol 100-50 MCG/ACT 1 puff Inhalation Twice a day 10/07/2024 Active Donepezil HCl 10 MG 1 tablet at bedtime Orally Once a day 11/15/2024 Active Isosorbide Dinitrate 30 MG 1 tablet Orally daily 1 12/08/2023 Active Sertraline HCl 50 MG 1 tablet Orally Once a day Active Flomax 0.4 MG 1 capsule Orally Onc e a day 10/07/2024 Active glipiZIDE 10 MG 1 tablet 30 minutes before breakfast Orally Once a day 10/07/2024 Active Lancets - as directed twice a day 10/07/2024 Active Losartan Potassium 25 MG 1 tablet Orally Once a day 10/07/2024 Active strips strips checK twice a day subcutaneus twice a day 10/07/2024 Active Gabapentin 300 MG 1 capsule Orally Onc e a day 10/07/2024 Active Multivitamin Adult - 1 tablet Orally Once a day Active Lantus 100 UNIT/ML 51 unit Subcutaneous daily 09/25 Active Social History Tobacco Use: Social History Observation Description Date Details (start date - stop date) Never Smoker NA - NA Sex Assigned At : Social History Observation Description Sex Assigned At Female Sexual History Question Answer Notes Had sex in the past 12 months (vaginal, oral, or anal)? No Have you ever had a Sexually transmitted disease ? No Tobacco Control (Standard) Question Answer Notes Tobacco use: Nonsmoker AUDIT-C (Standard) Question Answer Notes Did you have a drink containing alcohol in the p ast year? No Points 0 Interpretation Negative Problems Problem Type SNOMED Code ICD Code Onset Dates Problem Status W/U Status Risk Notes Problem 880110909 [employer] (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 of insulin (Z79.4) Active confirmed Problem 287754023 Type 2 diabetes mellitus with diabetic chronic kidney disease (E11.22) Active confirmed Problem 085996930 Mixed hyperlipidemia (E78.2) Active confirmed Problem 05842592 Alzheimer's disease with early onset (G30.0) Active confirmed Problem 2913519299141 Hypertensive heart and chronic kidney disease without heart failure, with stage 1 through stage 4 chronic kidney disease, or unspecified chronic kidney disease (I13.10) Active confirmed Problem 1882134 Old myocardial infarction (I25.2) Active confirmed Problem 864660008 Fatty infiltration of liver (K76.0) Active confirmed Problem 32820683 Major depressive disorder, recurrent episode, moderate (F33.1) Active confirmed Problem 92034172 Hepatomegaly (R16.0) Active confirmed Problem 399652190 [employer] (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 of anticoagulants (Z79.01) Active confirmed Problem Internal hemorrhoids (76848143) Internal hemorrhoids (K64.8) Active confirmed Problem 973468913 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) Active confirmed Problem 183546202 H/O heart artery stent (Z95.5) Active confirmed Problem 555057206 Hyperactivity of bladder (N31.8) Active confirmed Problem 603954682 Chronic pancreatitis, unspecified pancreatitis type (K86.1) Active confirmed As per [facility] records from 07/14/2024 Problem 955674277 CKD (chronic kidney disease), stage II (N18.2) Active confirmed GFR 92 as per lab results from 11/17/2024 has improved from GFR 82 as per lab results from [facility] record from 06/26/2024 Problem 313075113 Diabetic peripheral neuropathy (E11.42) Active confirmed Problem Type 2 diabetes mellitus with other specified complication, without long-term current use of insulin (E11.69) Active confirmed Problem 85158034 Pulmonary hypertension (I27.20) Active confirmed As per [facility] records from 09/27/2024 Problem 914226978 BPH without urinary obstruction (N40.0) Active confirmed Problem 21941118 COPD without exacerbation (J44.9) Active confirmed Problem 582859996 Diabetic peripheral vascular disease (E11.51) Active confirmed Problem 651239370 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, mild, without behavioral disturbance, psychotic disturbance, mood disturbance, and anxiety (F02.A0) Active confirmed Vital Signs Temperature 97 degrees Fahrenheit 11/23/2024 Respiratory Rate 18 /min 11/23/2024 Oximetry 97 % 11/23/2024 Blood pressure diastolic 58 mm Hg 11/23/2024 Height 5ft6in in 11/23/2024 Blood pressure systolic 119 mm Hg 11/23/2024 Weight 191 lbs 11/23/2024 BMI 30.82 kg/m2 11/23/2024 Encounters Encounter Location Date Provider Diagnosis [facility] [address] [place] [address] 10/07/2024 Mau Rivas [facility] [address] [place] [address] 10/07/2024 Mau Rivas [facility] [address] [place] [address] 10/07/2024 Mau Rivas [facility] [address] [place] [address] 10/14/2024 Mau Rivas H/O heart artery yon nt Z95.5 [facility] [address] [facility] [address] [place] [address] 11/15/2024 Mau Freyarez Elevated liver enzym es R74.8 ; Hypertensive heart and chronic kidney disease without heart failure, with stage 1 through stage 4 chronic kidney disease, or unspecified chronic kidney disease I13.10 ; Mixed hyperlipidemia E78.2 ; Type 2 diabetes mellitus with diabetic chronic kidney disease E11.22 ; BPH without urinary obstruction N40.0 ; Hyperactivity of bladder N31.8 and H/O heart artery stent Z95.5 [facility] [address] [facility] [address] [place] [address] 11/15/2024 Mau Rivas [facility] [address] [facility] [address] [place] [address] 10/07/2024 Mau Rob Major depressive disorder, recurrent episode, moderate F33.1 ; Hypertensive heart and chronic kidney disease without heart failure, with stage 1 through stage 4 chronic kidney disease, or unspecified chronic kidney disease I13.10 ; 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.119 ; Pulmonary hypertension I27.20 ; Old myocardial infarction I25.2 ; Type 2 diabetes mellitus with diabetic chronic kidney disease E11.22 ; CKD (chronic kidney disease), stage II N18.2 ; Type 2 diabetes mellitus with other specified complication, without long-term current use of insulin E11.69 ; Mixed hyperlipidemia E78.2 ; Diabetic peripheral neuropathy E11.42 ; Diabetic peripheral vascular disease E11.51 ; COPD without exacerbation J44.9 ; Chronic pancreatitis, unspecified pancreatitis type K86.1 ; BPH without urinary obstruction N40.0 ; Hyperactivity of bladder N31.8 ; Obesity (BMI 30.0-34.9) E66.811 ; H/O heart artery stent Z95.5 ; half-way (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 of insulin Z79.4 ; History of cerebrovascular accident (CVA) in adulthood Z86.73 ; Body mass index (BMI) of 32.0 to 32.9 in adult Z68.32 ; Encounter for examination of eyes and vision without abnormal findings Z01.00 ; Encounter for fecal immunochemical test screening Z12.11 ; Screening for osteoporosis Z13.820 and Encounter for prostate cancer screening Z12.5 [facility] [address] [address] 10/20/2024 Mau Rivas Hypertensive heart a nd chronic kidney disease without heart failure, with stage 1 through stage 4 chronic kidney disease, or unspecified chronic kidney disease I13.10 ; Elevated liver enzymes R74.8 ; Pulmonary hypertension I27.20 ; 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.119 ; Old myocardial infarction I25.2 ; Type 2 diabetes mellitus with diabetic chronic kidney disease E11.22 ; CKD (chronic kidney disease), stage II N18.2 ; Type 2 diabetes mellitus with other specified complication, without long-term current use of insulin E11.69 ; Mixed hyperlipidemia E78.2 ; Diabetic peripheral neuropathy E11.42 ; Diabetic peripheral vascular disease E11.51 ; COPD without exacerbation J44.9 ; Major depressive disorder, recurrent episode, moderate F33.1 ; Chronic pancreatitis, unspecified pancreatitis type K86.1 ; BPH without urinary obstruction N40.0 ; Obesity (BMI 30.0-34.9) E66.9 ; H/O heart artery stent Z95.5 ; [employer] (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 of insulin Z79.4 and Body mass index (BMI) of 31.0 to 31.9 in adult Z68.[address] [address] 11/09/2024 Mau Rivas Elevated liver enzym es R74.[address] [address] 11/15/2024 Mau Rivas Alzheimer's disease with early onset G30.0 ; Internal hemorrhoids K64.8 ; Dementia in other diseases classified elsewhere, mild, without behavioral disturbance, psychotic disturbance, mood disturbance, and anxiety F02.A0 ; COPD without exacerbation J44.9 ; Major depressive disorder, recurrent episode, moderate F33.1 ; Hypertensive heart and chronic kidney disease without heart failure, with stage 1 through stage 4 chronic kidney disease, or unspecified chronic kidney disease I13.10 ; Pulmonary hypertension I27.20 ; 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.119 ; Type 2 diabetes mellitus with diabetic chronic kidney disease E11.22 ; CKD (chronic kidney disease), stage II N18.2 ; Type 2 diabetes mellitus with other specified complication, without long-term current use of insulin E11.69 ; Mixed hyperlipidemia E78.2 ; Diabetic peripheral neuropathy E11.42 ; Diabetic peripheral vascular disease E11.51 ; Chronic pancreatitis, unspecified pancreatitis type K86.1 ; BPH without urinary obstruction N40.0 ; Obesity (BMI 30.0-34.9) E66.9 ; H/O heart artery stent Z95.5 ; half-way (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 of anticoagulants Z79.01 ; [employer] (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 of insulin Z79.4 ; Body mass index (BMI) of 30.0 to 30.9 in adult Z68.30 ; Encounter for examination of eyes and vision without abnormal findings Z01.00 and Encounter for screening fecal occult blood testing Z12.[address] [address] 11/23/2024 Mau Rivas Major depressive disorder, recurrent episode, moderate F33.1 ; Fecal occult blood test positive R19.5 ; COPD without exacerbation J44.9 ; Alzheimer's disease with early onset G30.0 ; Dementia in other diseases classified elsewhere, mild, without behavioral disturbance, psychotic disturbance, mood disturbance, and anxiety F02.A0 ; Chronic pancreatitis, unspecified pancreatitis type K86.1 ; Hypertensive heart and chronic kidney disease without heart failure, with stage 1 through stage 4 chronic kidney disease, or unspecified chronic kidney disease I13.10 ; 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.119 ; Pulmonary hypertension I27.20 ; Type 2 diabetes mellitus with diabetic chronic kidney disease E11.22 ; CKD (chronic kidney disease), stage II N18.2 ; Type 2 diabetes mellitus with other specified complication, without long-term current use of insulin E11.69 ; Mixed hyperlipidemia E78.2 ; Diabetic peripheral neuropathy E11.42 ; Diabetic peripheral vascular disease E11.51 ; BPH without urinary obstruction N40.0 ; Obesity (BMI 30.0-34.9) E66.9 ; H/O heart artery stent Z95.5 ; [employer] (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 of insulin Z79.4 ; half-way (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 of anticoagulants Z79.01 and Body mass index (BMI) of 30.0 to 30.9 in adult Z68.30 [address] [place] [address] 11/17/2024 Mau Freyarez [facility] [address] [facility] [address] [place] [address] 11/25/2024 Mau Rivas Assessments Encounter Date Diagnosis (ICD Code) Assessment Notes Treatment Notes Treatment Clinical Notes Section Notes 10/07/2024 Hypertensive heart and chronic kidney disease without heart failure, with stage 1 through stage 4 chronic kidney disease, or unspecified chronic kidney disease (ICD-10 - I13.10) Heart disease and CKD Stage II due to HTN. Blood pressure control and daily exercise as tolerated is recommended. Will continue to monitor. 10/07/2024 Major depressive disorder, recurrent episode, moderate (ICD-10 - F33.1) Recommended to patient avoid stressful situations. Will continue to monitor. 10/14/2024 H/O heart artery stent (ICD-10 - Z95.5) 10/20/2024 Hypertensive heart and chronic kidney disease without heart failure, with stage 1 through stage 4 chronic kidney disease, or unspecified chronic kidney disease (ICD-10 - I13.10) Heart disease and CKD Stage II due to HTN. Blood pressure control and daily exercise as tolerated is recommended. Will continue to monitor. 10/20/2024 Elevated liver enzymes (ICD-10 - R74.8) 11/09/2024 Elevated liver enzymes (ICD-10 - R74.8) 11/15/2024 Elevated liver enzymes (ICD-10 - R74.8) 11/15/2024 Alzheimer's disease with early onset (ICD-10 - G30.0) 11/15/2024 Internal hemorrhoids (ICD-10 - K64.8) 11/23/2024 Major depressive disorder, recurrent episode, moderate (ICD-10 - F33.1) Recommended to patient avoid stressful situations. Will continue to monitor. 11/23/2024 Fecal occult blood test positive (ICD-10 - R19.5) 11/23/2024 COPD without exacerbation (ICD-10 - J44.9) 11/15/2024 Dementia in other diseases classified elsewhere, mild, without behavioral disturbance, psychotic disturbance, mood disturbance, and anxiety (ICD-10 - F02.A0) Continue taking Donepezil 11/15/2024 Hypertensive heart and chronic kidney disease without heart failure, with stage 1 through stage 4 chronic kidney disease, or unspecified chronic kidney disease (ICD-10 - I13.10) 10/20/2024 Pulmonary hypertension (ICD-10 - I27.20) As per medical consultants [facility] records from 09/27/2024 As per medical consultants [facility] records from 09/27/2024. Will continue to monitor. Strict blood pressure control, low fat diet and daily exercise as tolerated recommended. 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 Will continue to monitor. Strict blood pressure control, low fat diet and daily exercise as tolerated recommended. 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 Will continue to monitor patient. 11/15/2024 Type 2 diabetes mellitus with diabetic chronic kidney disease (ICD-10 - E11.22) 11/15/2024 Major depressive disorder, recurrent episode, moderate (ICD-10 - F33.1) Recommended to patient avoid stressful situations. Will continue to monitor. 10/20/2024 Old myocardial infarction (ICD-10 - I25.2) Will continue to monitor. Strict blood pressure control, low fat diet and daily exercise as tolerated recommended. 10/07/2024 Old myocardial infarction (ICD-10 - I25.2) Will continue to monitor. Strict blood pressure control, low fat diet and daily exercise as tolerated recommended. 10/07/2024 Type 2 diabetes mellitus with diabetic chronic kidney disease (ICD-10 - E11.22) Diabetes Mellitus (DM) w Renal Manifestations, CKD II due to DM 10/20/2024 Type 2 diabetes mellitus with diabetic chronic kidney disease (ICD-10 - E11.22) Diabetes Mellitus (DM) w Renal Manifestations, CKD II due to DM 11/15/2024 Hypertensive heart and chronic kidney disease without heart failure, with stage 1 through stage 4 chronic kidney disease, or unspecified chronic kidney disease (ICD-10 - I13.10) Heart disease and CKD Stage II due to HTN. Blood pressure control and daily exercise as tolerated is recommended. Will continue to monitor. 11/15/2024 BPH without urinary obstruction (ICD-10 - N40.0) 11/23/2024 Chronic pancreatitis, unspecified pancreatitis type (ICD-10 - K86.1) As per [facility] records from 07/14/2024 As per [facility] records from 07/14/2024. Will continue to monitor patient. 11/23/2024 Hypertensive heart and chronic kidney disease without heart failure, with stage 1 through stage 4 chronic kidney disease, or unspecified chronic kidney disease (ICD-10 - I13.10) Heart disease and CKD Stage II due to HTN. Blood pressure control and daily exercise as tolerated is recommended. Will continue to monitor. 11/15/2024 Hyperactivity of bladder (ICD-10 - N31.8) 11/15/2024 Pulmonary hypertension (ICD-10 - I27.20) As per medical consultants [facility] records from 09/27/2024 As per medical consultants [facility] records from 09/27/2024. Will continue to monitor. Strict blood pressure control, low fat diet and daily exercise as tolerated recommended. 10/20/2024 CKD (chronic kidney disease), stage II (ICD-10 - N18.2) GFR 82 as per lab results from [facility] record from 06/26/2024 GFR 82 as per lab results from [facility] record from 06/26/2024 10/07/2024 CKD (chronic kidney disease), stage II (ICD-10 - N18.2) GFR 82 as per lab results from [facility] record from 06/26/2024 GFR 82 as per lab results from [facility] record from 06/26/2024 10/07/2024 Type 2 diabetes mellitus with other specified complication, without long-term current use of insulin (ICD-10 - E11.69) Mixed Hyperlipidemia as due to diabetes mellitus (DM) 11/15/2024 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 Continue taking Glipizide. 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 Will continue to monitor. Strict blood pressure control, low fat diet and daily exercise as tolerated recommended. 11/15/2024 Type 2 diabetes mellitus with diabetic chronic kidney disease (ICD-10 - E11.22) Diabetes Mellitus (DM) w Renal Manifestations, CKD II due to DM 10/20/2024 Mixed hyperlipidemia (ICD-10 - E78.2) 10/07/2024 Mixed hyperlipidemia (ICD-10 - E78.2) 10/07/2024 Diabetic peripheral neuropathy (ICD-10 - E11.42) DM w Neurological Manisfestation. Neuropathy/Polyne uropathy/Peripher al due to DM 11/15/2024 CKD (chronic kidney disease), stage II (ICD-10 - N18.2) GFR 82 as per lab results from [facility] record from 06/26/2024 GFR 82 as per lab results from [facility] record from 06/26/2024 10/20/2024 Diabetic peripheral neuropathy (ICD-10 - E11.42) DM w Neurological Manisfestation. Neuropathy/Polyne uropathy/Peripher al due to DM 11/23/2024 Type 2 diabetes mellitus with diabetic chronic kidney disease (ICD-10 - E11.22) Diabetes Mellitus (DM) w Renal Manifestations, CKD II due to DM 11/23/2024 CKD (chronic kidney disease), stage II (ICD-10 - N18.2) GFR 92 as per lab results from 11/17/2024 has improved from GFR 82 as per lab results from [facility] record from 06/26/2024 GFR 92 as per lab results from 11/17/2024 has improved from GFR 82 as per lab results from [facility] record from 06/26/2024 10/20/2024 Diabetic peripheral vascular disease (ICD-10 - E11.51) DM w Peripheral Circulatory Diseases, Peripheral Vascular Disease (PVD) due to DM - Encouraged patient to perform aerobic activity for 20 to 30 mins 5 days a week to improve vascular health - Recommending ASA 81 mg / daily - Advised about Compressive socks use 11/15/2024 Type 2 diabetes mellitus with other specified complication, without long-term current use of insulin (ICD-10 - E11.69) Mixed Hyperlipidemia as due to diabetes mellitus (DM). Continue taking Glipizide. 10/07/2024 Diabetic peripheral vascular disease (ICD-10 - E11.51) DM w Peripheral Circulatory Diseases, Peripheral Vascular Disease (PVD) due to DM - Encouraged patient to perform aerobic activity for 20 to 30 mins 5 days a week to improve vascular health - Recommending ASA 81 mg / daily - Advised about Compressive socks use 10/07/2024 COPD without exacerbation (ICD-10 - J44.9) 11/15/2024 Mixed hyperlipidemia (ICD-10 - E78.2) 10/20/2024 COPD without exacerbation (ICD-10 - J44.9) 11/23/2024 Type 2 diabetes mellitus with other specified complication, without long-term current use of insulin (ICD-10 - E11.69) Mixed Hyperlipidemia as due to diabetes mellitus (DM). Continue glipiZIDE 10 MG Tablet, 11/23/2024 Mixed hyperlipidemia (ICD-10 - E78.2) 11/15/2024 Diabetic peripheral neuropathy (ICD-10 - E11.42) DM w Neurological Manisfestation. Neuropathy/Polyne uropathy/Peripher al due to DM 10/20/2024 Major depressive disorder, recurrent episode, moderate (ICD-10 - F33.1) Recommended to patient avoid stressful situations. Will continue to monitor. 10/07/2024 Chronic pancreatitis, unspecified pancreatitis type (ICD-10 - K86.1) As per [facility] records from 07/14/2024 As per [facility] records from 07/14/2024. Avoid smoking and drinking alcohol, and limit caffeine. Eat a healthy diet that's low in fat and protein, and eat smaller meals more frequently 10/07/2024 BPH without urinary obstruction (ICD-10 - N40.0) 10/20/2024 Chronic pancreatitis, unspecified pancreatitis type (ICD-10 - K86.1) As per [facility] records from 07/14/2024 As per [facility] records from 07/14/2024. Avoid smoking and drinking alcohol, and limit caffeine. Eat a healthy diet that's low in fat and protein, and eat smaller meals more frequently 11/15/2024 Diabetic peripheral vascular disease (ICD-10 - E11.51) DM w Peripheral Circulatory Diseases, Peripheral Vascular Disease (PVD) due to DM - Encouraged patient to perform aerobic activity for 20 to 30 mins 5 days a week to improve vascular health - Recommending ASA 81 mg / daily - Advised about Compressive socks use 11/23/2024 Diabetic peripheral neuropathy (ICD-10 - E11.42) DM w Neurological Manisfestation. Neuropathy/Polyne uropathy/Peripher al due to DM 11/23/2024 Diabetic peripheral vascular disease (ICD-10 - E11.51) DM w Peripheral Circulatory Diseases, Peripheral Vascular Disease (PVD) due to DM - Encouraged patient to perform aerobic activity for 20 to 30 mins 5 days a week to improve vascular health - Recommending ASA 81 mg / daily - Advised about Compressive socks use 10/07/2024 Hyperactivity of bladder (ICD-10 - N31.8) 11/15/2024 Chronic pancreatitis, unspecified pancreatitis type (ICD-10 - K86.1) As per [facility] records from 07/14/2024 As per [facility] records from 07/14/2024. Will continue to monitor patient. 10/20/2024 BPH without urinary obstruction (ICD-10 - N40.0) 11/15/2024 BPH without urinary obstruction (ICD-10 - N40.0) 10/07/2024 Obesity (BMI 30.0-34.9) (ICD-10 - E66.811) Avoid overeating, eating too quickly, eating high-fat foods, eating during stressful situations, or drinking too much alcohol or coffee. Counseled patient on adequate diet and exercise as tolerant. 11/23/2024 BPH without urinary obstruction (ICD-10 - N40.0) 11/23/2024 Obesity (BMI 30.0-34.9) (ICD-10 - E66.9) Avoid overeating, eating too quickly, eating high-fat foods, eating during stressful situations, or drinking too much alcohol or coffee. Counseled patient on adequate diet and exercise. 10/07/2024 H/O heart artery stent (ICD-10 - Z95.5) 11/15/2024 Obesity (BMI 30.0-34.9) (ICD-10 - E66.9) Avoid overeating, eating too quickly, eating high-fat foods, eating during stressful situations, or drinking too much alcohol or coffee. Counseled patient on adequate diet and exercise. 10/20/2024 Obesity (BMI 30.0-34.9) (ICD-10 - E66.9) Avoid overeating, eating too quickly, eating high-fat foods, eating during stressful situations, or drinking too much alcohol or coffee. Counseled patient on adequate diet and exercise. 11/15/2024 H/O heart artery stent (ICD-10 - Z95.5) 10/07/2024 [employer] (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 of insulin (ICD-10 - Z79.4) 10/20/2024 H/O heart artery stent (ICD-10 - Z95.5) 11/23/2024 H/O heart artery stent (ICD-10 - Z95.5) 11/23/2024 [employer] (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 of insulin (ICD-10 - Z79.4) 10/07/2024 History of cerebrovascular accident (CVA) in adulthood (ICD-10 - Z86.73) 10/20/2024 half-way (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 of insulin (ICD-10 - Z79.4) 11/15/2024 half-way (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 of anticoagulants (ICD-10 - Z79.01) 11/15/2024 half-way (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 of insulin (ICD-10 - Z79.4) 10/20/2024 Body mass index (BMI) of 31.0 to 31.9 in adult (ICD-10 - Z68.31) 10/07/2024 Body mass index (BMI) of 32.0 to 32.9 in adult (ICD-10 - Z68.32) 11/23/2024 half-way (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 of anticoagulants (ICD-10 - Z79.01) 11/23/2024 Body mass index (BMI) of 30.0 to 30.9 in adult (ICD-10 - Z68.30) 10/07/2024 Encounter for examination of eyes and vision without abnormal findings (ICD-10 - Z01.00) 11/15/2024 Body mass index (BMI) of 30.0 to 30.9 in adult (ICD-10 - Z68.30) 11/15/2024 Encounter for examination of eyes and vision without abnormal findings (ICD-10 - Z01.00) 10/07/2024 Encounter for fecal immunochemical test screening (ICD-10 - Z12.11) 10/07/2024 Screening for osteoporosis (ICD-10 - Z13.820) 11/15/2024 Encounter for screening fecal occult blood testing (ICD-10 - Z12.11) 10/07/2024 Encounter for prostate cancer screening (ICD-10 - Z12.5) 10/07/2024 Other 11/15/2024 Other Plan Of Treatment Pending Test Test Name Order Date EKG Electrocardiogram 11/15/2024 CHEST X-RAY (PA/LATERAL) 11/15/2024 CHEST X-RAY (PA/LATERAL) 10/07/2024 Prothrombin Time + INR 10/14/2024 ALPHA FETOPROTEIN, TUMOR MARKER 11/15/19 25 CERULOPLASMIN 11/15/2024 HEPATITIS PANEL 11/15/2024 Urinalysis, Routine-LC 11/15/2024 Prothrombin Time + INR 11/15/2024 Future Test Test Name Order Date Abdominal Ultrasound 11/07/2024 Prothrombin Time + INR 12/16/2024 Next Appt Details Provider Name:Mau Pauly montoya, 03/06/2025 08:32:00 AM, [address], [place], [address], Provider Name:Mau montoya, 12/19/2025 09:00:00 AM, [address], [place], [address], Insurance Providers Payer Name Payer Address Payer Phone Subscriber Number Group Number Insured Name Patient Relationship to Insured Coverage Start Date Coverage End Date [facility] [address] [address] [place] [phone] [id number] EDUARDO MILLS Self - patient is the insured Medical (General) History Medical History History ICD Code Hypertensive Diabetic Asthma Pulmonary hypertension I27.20 Mixed hyperlipidemia E78.2 Chronic pancreatitis, unspecified pancre atitis type K86.1 COPD without exacerbation J44.9 Major depressive disorder, recurrent epi sode, moderate F33.1 BPH without urinary obstruction N40.0 Alzheimer's disease with early onset G30 .0 Surgical History Surgery Date(Month/Year) appendectomy
--- OUTSIDE RECORDS SUMMARY | 2025-02-08 14:49 | XMS_ITS | Clinical Summary ---
Author Organization [address] [place] [address] [place] [phone] Phone Care Team Providers Care Drag Seiner Name Role Phone Lewis Goldberg NP Primary Care Provider Allergies Active Allergy Reactions Criticality Noted Date Comments Lisinopril Cough,Diarrhea Medium 09/30/2019 Metformin Diarrhea 03/03/2019 Medications insulin pump cart,automated,B T (Omnipod 5 G6 Pods, Gen 5,) cartridge 1 DEVICE BY DOES NOT APPLY ROUTE EVERY 48 HOURS. 4 Active dexlansoprazole (DEXILANT) [address] capsule TAKE 1 CAPSULE BY MOUTH DAILY. 4 Active sertraline (ZOLOFT) 50 mg tablet Take 1 Tablet by mouth daily. Active donepeziL (ARICEPT) 5 mg tablet Take 1 Tablet by mouth at bedtime. Active alcohol swabs pads, medicated 1 Package by Does not apply route 3 times daily (with meals). USE DIRECTED TO CLEAN AREA PRIOR TO TESTING OR INJECTING INSULIN FOR 30 DAYS 4 Active blood-glucose transmitter (DEXCOM G6 TRANSMITTER MISC) 1 Device by Does not apply route See Admin Instructions. Change transmitter every 3 months. 4 Active NUTRITIONAL SUPPLEMENTS ORAL Take 4 Tablets by mouth as needed for Other (hypoglycemia). 4 Active gabapentin (NEURONTIN) 400 mg capsule Take 1 Capsule by mouth 3 times daily. Active trospium 60 mg capsule,extended release 24hr Take 1 Capsule by mouth daily. Active rivastigmine (EXELON) 9.5 mg/[address] 1 Patch onto the skin daily. Active glucagon (Baqsimi) 3 mg/actuation nasal spray 1 Dose by Nasal route as needed for Other (hypoglycemia). 3 Active blood-glucose meter,continuous (Dexcom G6 Orthotic/Prosthetic Clinician) misc 1 Device by Does not apply route daily. 3 Active dextrose 40 % gel Take 15 g by mouth as needed for Other. 3 Active glucagon (Gvoke HypoPen 1-Pack) 0.5 mg/0.1 mL auto-injector Inject 1 Dose into the skin as needed for Other (severe hypoglycemia). 2 Active atorvastatin (LIPITOR) 40 mg tablet Take 1 Tablet by mouth daily. 2 Active isosorbide mononitrate (IMDUR) 30 mg 24 hr tablet Take 1 Tablet by mouth daily. 2 Active apixaban (ELIQUIS) 5 mg tablet Take 1 Tablet by mouth 2 times daily. 2 Active lancets lancets USE DIRECTED TO TEST BLOOD SUGAR ONCE A DAY 2 Active losartan (COZAAR) 25 mg tablet Take 25 mg by mouth daily. Active metoprolol succinate (TOPROL-XL) 50 mg 24 hr tablet Take 1 Tab by mouth daily. 0 Active aspirin 81 mg EC tablet Take 1 Tab by mouth daily. 0 Active albuterol HFA (PROAIR HFA ; PROVENTIL HFA ; VENTOLIN HFA) 90 mcg/actuation inhaler Inhale 2 Puffs into the lungs every 4 hours as needed. Active montelukast (SINGULAIR) 10 mg tablet TAKE ONE TABLET BY MOUTH EVERY DAY IN THE EVENING 8 Active lipase/protease/ amylase (PANCRELIPASE EC ORAL) Take 1 Capsule by mouth 3 times daily (with meals). 4 Active fluticasone furoate-vilanter oL (Breo Ellipta) 100-25 mcg/dose inhaler Inhale by mouth. INHALE 1 PUFF BY MOUTH INTO THE lungs EVERY DAY AT THE same TIME EVERY DAY 8 Active glipiZIDE (GLUCOTROL) 10 mg tablet Take 1 tablet (10 mg total) by mouth 2 (two) times a day before meals. 180 tablet 3 5 Active dapagliflozin propanediol (Farxiga) 10 mg tablet Take 1 tablet (10 mg total) by mouth 1 (one) time each day. 90 tablet 5 Active insulin pump cart,auto,BT,G6/ 7 (Omnipod 5 G6-G7 Pods, Gen 5,) cartridge 1 DEVICE BY DOES NOT APPLY ROUTE EVERY 48 HOURS 45 each 3 5 Active insulin aspart (NovoLOG FlexPen) 100 unit/mL (3 mL) injection pen Inject 3 times a day with meals per scale :100-149: 2 units; 150-199: 3 units; 200-249: 4 units; 250-300:5 units; 301-350: 6 units; 351-400: 7 units call office if BS above 400, when not in insulin pump. Max dose 40 units 15 mL 5 Active blood-glucose sensor (IPX G7 Sensor) device Use to change sensor every 10 days 9 each 3 5 Active blood sugar diagnostic (FreeStyle Lite Strips) test strip Use to check BS 3 times a day 100 each 12 5 12/30/19 26 Active blood-glucose meter kit 1 each 1 (one) time each day. Use to check BS 3 times a day 1 each 5 12/30/19 26 Active freestyle 28 gauge lancets Check blood sugar 3 times a day or as directed 100 each 5 12/30/19 26 Active insulin degludec (TRESIBA FlexTouch U-200) 200 unit/mL (3 mL) CONCENTRATED injection pen Inject 30 Units under the skin at bedtime. When not in insulin pump 45 mL 5 12/30/19 26 Active pen needle, diabetic (BD Ultra-Fine Short Pen Needle) 31 gauge x 5/16 needle Use to inject 1-4 times daily as directed 100 each 5 Active pen needle, diabetic (Microdot Insulin Pen Needle) 33 gauge x 5/32 needle Use with insulin 4 times a day 100 each 5 5 Active insulin aspart (NovoLOG) 100 unit/mL injection Use daily with insulin pump, max daily dose 150 units 30 mL 5 12/30/19 26 Active lansoprazole (PREVACID) [address] capsule Take 1 capsule (30 mg total) by mouth 1 (one) time each day. Do not crush or chew. 30 each 3 5 01/25/20 26 Active loperamide (Imodium A-D) 2 mg tablet Take 1 tablet (2 mg total) by mouth 4 (four) times a day if needed for diarrhea. 90 tablet 1 5 04/24/20 25 Active hydrocortisone (Proctosol HC) 2.5 % rectal cream Insert into the rectum 2 (two) times a day for 10 days. 30 g 5 Active Active Problems Problem Noted Date Diagnosed Date URI (upper respiratory infection) 02/03/2025 Assessment & Plan (02/03/2025 1:19 PM EDT): Patient reports that he has had a cough and he currently has influenza. Patient encouraged to go home, wear a mask when in public areas and follow-up with his primary care provider if necessary. Pancreatic insufficiency 07/27/2024 Diabetes mellitus type 2, un complicated, on termite technician insulin pump ([facility] V24, [facility] V28) 05/21/2023 Diabetes mellitus type 2 wit h neurological manifestations ([facility] V24, [facility] V28) 08/04/2022 PVC's (premature ventricular contractions) 04/03 Overview (07/27/2024): Last Assessment & Plan: Patient has history of PVCs asymptomatic. He continues Toprol with good effect. He denies any exertional symptoms. We will continue to follow this and patient will let us know if he develops any palpitations. Secondary hypertension 03/15/2020 Overview (07/27/2024): Last Assessment & Plan: BP under excellent control with a reading today 118/70. Continue with metoprolol, losartan and isosorbide as prescribed. Chronic pancreatitis ([facility] V24, [facility] V28) 07/19/2019 PFO (patent foramen ovale) 06/29/2019 Assessment & Plan (02/03/2025 1:19 PM EDT): Patient has history of PFO was deemed not a candidate for surgical care. He continues aspirin therapy. Major depression 03/03/2019 Overview (07/27/2024): F/u home therapist CAD (coronary artery disease) 03/03/2019 Assessment & Plan (02/03/2025 1:19 PM EDT): Patient has history of CO and was left with residual coronary disease. He continues on risk factor modifying agents. He denies any exertional anginal symptoms. Continue with aspirin, statin and beta-martha. I have reviewed with the patient the importance of a heart healthy lifestyle which includes eating a low-fat low-salt diet, getting regular exercise, maintaining a healthy weight, not smoking, and following up with routine medical care. Cerebrovascular accident (CVA) ([facility] V24, [facility] V28) 11/22/2018 Overview (07/27/2024): Follows with neurology. Last Assessment & Plan: With a history of CVA and evidence of PFO deemed not in need of closure. Neurology has left the patient on aspirin and Eliquis due to the multiple events.Patient is coming from the dental extraction his Eliquis can be held for 2 days if it is held only for 2 days he does not need bridging if is held for a longer period of time he will need bridging. Though we have never seen actual atrial fibrillation when his ILR was in which has been removed recently. He was left on Eliquis. Esophageal dysmotility 07/13/2018 GERD (gastroesophageal reflux disease) 8 Overview (07/27/2024): esophagitis Hyperlipidemia 04/09/2018 Assessment & Plan (02/03/2025 1:19 PM EDT): Patient's last LDL cholesterol was 30. He will remain on atorvastatin as prescribed. Restless leg syndrome 07/03/2017 Hemorrhoids 08/08/2016 Resolved Problems Problem Noted Date Diagnosed Date Resolved Date Chest pain 04/03/2021 02/02/2025 Overview (07/27/2024): Last Assessment & Plan: Patient complains of vague chest discomfort. There was small vessel disease identified on his cath. I do not think were dealing with large epicardial vessel pain. I am starting him on isosorbide 30 mg a day to try to help with small vessel disease but also helping down his blood pressure little bit has been more about lightheadedness and headache Encounters Date Type Department Care Team Description 02/08/2025 Telephone Gastroenterology - [place] [address] [facility] [address] [facility] [address] [place] [phone] Kanwal MayorgaSASABE, [place] 02/03/2025 1:10 PM EDT Office Visit [facility] - [facility] [address] [place] [address] Jerrica Rizzo NP PFO (patent foramen ovale) (Primary Dx); Coronary artery disease involving crow coronary artery of crow heart without angina pectoris; Mixed hyperlipidemia; Upper respiratory tract infection, unspecified type 02/01/2025 10:12 AM EDT - 02/01/2025 11:59 PM EDT Hospital Encounter [facility] MRI [address] [place] [phone] BRBPR (bright red blood per rectum); Chronic pancreatitis, unspecified pancreatitis type (CMS/HCC V24, CMS/HCC V28); Pancreatic insufficiency; Gastroesophageal reflux disease with esophagitis without hemorrhage Discharge Disposition: Home or Self Care 01/24/2025 8:30 AM EDT Office Visit Gastroenterology - [place] [address] [facility] [address] [place] [phone] Lucia Rebolledo PA BRBPR (bright red blood per rectum) (Primary Dx); Chronic pancreatitis, unspecified pancreatitis type (CMS/HCC V24, CMS/HCC V28); Pancreatic insufficiency; Gastroesophageal reflux disease with esophagitis without hemorrhage 12/29/2024 9:30 AM EST Office Visit Endocrinology - [address] [phone] Sydney Hector PA Diabetes mellitus type 2, uncomplicated, on alf insulin pump (CMS/HCC V24, CMS/HCC V28) (Primary Dx) from Last 3 Months Surgical History Surgery Date Site/Laterality Comments APPENDECTOMY PROCEDURE: [place] APPENDECTOMY ROTATOR CUFF REPAIR PROCEDURE: HISTORICAL ROTATOR CUFF REPAIR BACK SURGERY 1992 PROCEDURE: HISTORICAL BACK SURGERY; COMMENT: lumbar Medical History Medical History Date Comments Type 2 diabetes mellitus wit h neurological manifestations, uncontrolled 11/18/2017 DX:Type 2 diabetes mellitus with neurological manifestations, uncontrolled Major depression 03/03/2019 DX:Major depres kody Old CO (myocardial infarction) 03/03/2019 D X:Old CO (myocardial infarction) PFO (patent foramen ovale) 06/29/2019 DX:PF O (patent foramen ovale) Family history of cardiovasc ular disease DX:Family history of cardiov ascular disease Family History Medical History Relation Name Comments No Known Problems Father Alzheimer's disease Mother Relation Name Status Comments Father Mother Social History Tobacco Use Types Packs/Day Years Used Date Smoking Tobacco: Never Smokeless Tobacco: Never Alcohol Use Standard Drinks/Week Comments Not Currently 0 (1 standard drink = 0.6 oz pur e alcohol) Sex and Gender Information Value Date Recorded Sex Assigned at Not on file Legal Sex Male 1:09 PM EST Gender Identity Not on file Sexual Orientation Not on file Obstetrics History Last Filed Vital Signs Vital Sign Reading Time Taken Comments Blood Pressure 118/66 02/03/2025 12:48 PM EDT Pulse 79 02/03/2025 12:48 PM EDT Temperature 36.5 ??C (97.7 ??F) 12/29/2024 9:27 AM ES T Respiratory Rate - - Oxygen Saturation 96% 02/03/2025 12: 48 PM EDT Inhaled Oxygen Concentration - - Weight 84.7 kg (186 lb 12.8 oz) 025 12:48 PM EDT Height 167.6 cm (5' 6 ) 02/03/2025 12:4 8 PM EDT Body Mass Index 30.15 02/03/2025 12:48 PM EDT Plan of Treatment Upcoming Encounters Date Type Department Care Team (Late st Contact Info) Description 02/14/2025 9:00 AM EDT Office Visit Endocrinology - [place] [address] [place] [phone] Sydney Hector PA [address] [place] [address] 03/08/2025 1:30 PM EDT Appointment [facility] [address] [place] [phone] Joe Echols MD [address] [address] 06/12/2025 9:30 AM EDT Office Visit Gastroenterology - [place] [address] [place] [address] [phone] Lucia Rebolledo PA [address] [address] Health Maintenance Due Date Last Done Comments Diabetes: Annual Foot Exam 1962 DTaP,Tdap,and Td Vaccines (1 - Tdap) 1971 RSV Immunization Adult Patients (1 - Risk 60-74 years 1-dose series) 2012 Zoster Vaccines (3 of 3) 11/25/2019 09/30/2019, 07/26 Colorectal Cancer Screening: Colonoscopy 09/23/2022 Depression Screening 09/23/2022 Falls Risk Assessment 09/23/2022 Hepatitis C Screening 09/23/2022 Social Influencers of Health Screening 09/23/2022 COVID-19 Vaccine ( season) 2024 10/02/2022, 09/09/2021, 01/21/2021, Additional history exists Diabetes: Annual Retina Eye Exam 10/28/2024 10/28/2023 Influenza Vaccine (Season Ended) 2025 07/07/2023, 07/10/2022, 07/29/2021, Additional history exists Diabetes: Blood Sugar Control Test (HGBA1C) 07/01/2025 12/29/2024, 05/20/2024, 05/20/2024 Diabetes: Annual Urine Albumin-Creatinine Ratio (uACR) 12/29/2025 12/29/2024, 05/20/2024 Diabetes: Annual GFR (Glomerular Filtration Rate) 12/29/2025 12/29/2024, 06/11/2023 Hypertension/CHF/CAD Annual BMP Blood Test 12/29/2025 12/29/2024, 06/11/2023 Cholesterol Screening (Lipid Panel) 12/29/2029 12/29/2024, 05/20/2024, 05/20/2024 Pneumococcal Vaccine: 50+ Years Completed 02/27/2022, 07/12/2020 HIB Vaccines Aged Out No longer eligi ble based on patient's age to complete this topic HPV Vaccines Aged Out No longer eligi ble based on patient's age to complete this topic Hepatitis A Vaccines Aged Out No long er eligible based on patient's age to complete this topic Hepatitis B Vaccines Aged Out No long er eligible based on patient's age to complete this topic IPV Vaccines Aged Out No longer eligi ble based on patient's age to complete this topic MMR Vaccines Aged Out No longer eligi ble based on patient's age to complete this topic Meningococcal ACWY Vaccine Aged Out N o longer eligible based on patient's age to complete this topic Meningococcal B Vaccine Aged Out No l onger eligible based on patient's age to complete this topic RSV Immunization Patients Under 20 months Aged Out No longer eligible based on patient's age to complete this topic Varicella Vaccines Aged Out No longer eligible based on patient's age to complete this topic Procedures Procedure Name Priority Date/Time Associated Diagnosis Comments ECG 12-LEAD Routine 02/03/2025 1:19 PM EDT PFO (patent foramen ovale) Coronary artery disease involving crow coronary artery of crow heart without angina pectoris Mixed hyperlipidemia MR ABDOMEN WO AND W CONTRAST Routine 02/01/2025 11:52 AM EDT BRBPR (bright red blood per rectum) Chronic pancreatitis, unspecified pancreatitis type (CMS/HCC V24, CMS/HCC V28) Pancreatic insufficiency Gastroesophageal reflux disease with esophagitis without hemorrhage HEMOGLOBIN A1C Routine 12/29/2024 10:20 AM EST Diabetes mellitus type 2, uncomplicated, on alf insulin pump (CMS/HCC V24, CMS/HCC V28) BASIC METABOLIC PANEL Routine 12/29/2024 10:20 AM EST Diabetes mellitus type 2, uncomplicated, on alf insulin pump (CMS/HCC V24, CMS/HCC V28) LIPID PANEL WITH REFLEX TO DIRECT LDL Routine 12/29/2024 10:20 AM EST Diabetes mellitus type 2, uncomplicated, on termite technician insulin pump (CMS/HCC V24, CMS/HCC V28) MICROALBUMIN CREATININE URINE RATIO Routine 12/29/2024 10:20 AM EST Diabetes mellitus type 2, uncomplicated, on alf insulin pump (CMS/HCC V24, CMS/HCC V28) POC GLUCOSE Routine 12/29/2024 9:37 AM EST Diabetes mellitus type 2, uncomplicated, on termite technician insulin pump (CMS/HCC V24, CMS/HCC V28) DIABETES EYE EXAM Routine 10/28/2023 from Last 3 Months or Most Recently Relevant to Health Maintenance Results * ECG 12 lead (02/03/2025 1:19 PM EDT) Ventricular Rate ECG 79 BPM GEMUSE Atrial Rate 79 BPM GEMUSE P-R Interval 152 ms GEMUSE QRS Duration 96 ms GEMUSE Q-T Interval 400 ms GEMUSE QTc 458 ms GEMUSE P Wave [place] 60 degrees GEMUSE R [place] -6 degrees GEMUSE T [place] 80 degrees GEMUSE ECG Interpretation Normal sinus rhythm Normal ECG When compared with ECG of 26-JUN-2024 20:57, Premature ventricular complexes are no longer Present Confirmed by Rosalina WILLIAMSON JAMES ([id number]) on 02/03/2025 6:44:57 PM GEMUSE 02/03/2025 1:01 PM EDT 02/03/2025 6:44 PM EDT us Jerrica Rizzo NP ECG ORDERABLES Edited Resul t - Final GEMUSE * MR Abdomen wo and w Contrast (02/01/2025 11:52 AM EDT) Anatomical Region Laterality Modality Body Magnetic Resonan ce 02/01/2025 12:1 8 PM EDT Impressions 02/01/2025 12:45 PM EDT 1. ??Small amount of layering sludge in the gallbladder. ??Biliary tree is otherwise unremarkable. 2. ??Several small T2 hyperintense pancreatic lesions. ??These measure up to 7 mm in diameter. 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 ??Guidelines recommend a follow-up MRI to assess for stability in 2 years. -------- FINAL REPORT -------- Dictated By: Prabhjot Taylor Dictated Date: 02/01/2025 12:18 ET Assigned Physician: Prabhjot Taylor Reviewed and Electronically Signed By: Prabhjot Taylor Signed Date: 02/01/2025 12:45 ET Workstation ID: [id number] Transcribed By: Self Edit Transcribed Date: 02/01/2025 12:18 ET Narrative 02/01/2025 12:45 PM EDT PROCEDURE: MRI of the abdomen with intravenous contrast. HISTORY: History of chronic pancreatitis. TECHNIQUE: Multiplanar multisequence MRI of the abdomen with and without intravenous contrast. IV contrast dose: ??20 mL intravenous Dotarem from a 20 mL vial with 0 mL discarded. COMPARISON: CT 02/02/2024. FINDINGS: LOWER THORAX: Normal. LIVER: No focal lesion. ??Mild steatosis evident on out of phase imaging. ??The portal and hepatic veins are patent. BILIARY: Full at the gallbladder fundus. ??Small amount of hazy layering material suggestive of sludge at the fundus. ??Normal caliber biliary tree. ??No ductal dilatation or filling defect. PANCREAS: Scattered small T2 hyperintense lesions. ??The largest 2 lesions are located in the tail, one measuring 5 mm and one 7 mm in diameter. ??Neither demonstrates an appreciable communication with the main duct. ??A small linear T2 hyperintense structure in the level of the pancreatic body (series 10, image 48) does appear to indicate with the main duct. ??No ductal dilatation. SPLEEN: Normal. ADRENAL GLANDS: Normal. KIDNEYS: Several left renal cortical cysts. ??The largest is a 5.4 cm cyst exophytic from the lower pole. ??There are thin septations within a lobulated cyst arising from the upper pole but no mural nodularity. ??Visible portions of the collecting systems are normal. RETROPERITONEUM: No mass or lymphadenopathy. VASCULATURE: No aneurysm. BOWEL/MESENTERY: Visible portions are normal. ABDOMINAL WALL: Visible portions are normal. BONES: No significant degenerative change. ??No visible bony lesion. Procedure Note Prabhjot Taylor MD - 02/01/2025 PROCEDURE: MRI of the abdomen with intravenous contrast. HISTORY: History of chronic pancreatitis. TECHNIQUE: Multiplanar multisequence MRI of the abdomen with and withoutintravenous contrast. IV contrast dose: 20 mL intravenous Dotarem from a 20 mL vial with 0 mLdiscarded. COMPARISON: CT 02/02/2024. FINDINGS: LOWER THORAX: Normal. LIVER: No focal lesion. Mild steatosis evident on out of phase imaging.The portal and hepatic veins are patent. BILIARY: Full at the gallbladder fundus. Small amount of hazy layeringmaterial suggestive of sludge at the fundus. Normal caliber biliary tree.No ductal dilatation or filling defect. PANCREAS: Scattered small T2 hyperintense lesions. The largest 2 lesionsare located in the tail, one measuring 5 mm and one 7 mm in diameter.Neither demonstrates an appreciable communication with the main duct. Asmall linear T2 hyperintense structure in the level of the pancreatic body(series 10, image 48) does appear to indicate with the main duct. Noductal dilatation. SPLEEN: Normal. ADRENAL GLANDS: Normal. KIDNEYS: Several left renal cortical cysts. The largest is a 5.4 cm cystexophytic from the lower pole. There are thin septations within alobulated cyst arising from the upper pole but no mural nodularity.Visible portions of the collecting systems are normal. RETROPERITONEUM: No mass or lymphadenopathy. VASCULATURE: No aneurysm. BOWEL/MESENTERY: Visible portions are normal. ABDOMINAL WALL: Visible portions are normal. BONES: No significant degenerative change. No visible bony lesion. IMPRESSION: 1. Small amount of layering sludge in the gallbladder. Biliary tree isotherwise unremarkable. 2. Several small T2 hyperintense pancreatic lesions. These measure up to7 mm in diameter. These are probably IPMNs. Guidelines recommend afollow-up MRI to assess for stability in 2 years. -------- FINAL REPORT -------- Dictated By: Prabhjot Taylor Dictated Date: 02/01/2025 12:18 ET Assigned Physician: Prabhjot Taylor Reviewed and Electronically Signed By: Prabhjot Taylor Signed Date: 02/01/2025 12:45 ET Workstation ID: [id number] Transcribed By: Self Edit Transcribed Date: 02/01/2025 12:18 ET us Lucia LEWIS IMG MRI PROCEDURES Final Resu lt * Lipid panel with reflex to direct LDL (12/29/2024 10:20 AM EST) Cholesterol 100 0 - 200 mg/dL LAB CHEMISTRY METHOD 12/29/2024 12:56 PM EST [facility] Triglycerides 119 0 - 150 mg/dL LAB CHEMISTRY METHOD 12/29/2024 12:56 PM EST [facility] HDL 47 >=40 mg/dL LAB CHEMISTRY METHOD 12/29/2024 12:56 PM EST [facility] LDL Calculated 29 0 - 100 mg/dL LAB CHEMISTRY METHOD 12/29/2024 12:56 PM EST [facility] VLDL Cholesterol [place] 23.8 mg/dL LAB CHEMISTRY METHOD 12/29/2024 12:56 PM EST [facility] Non HDL Chol. (LDL+VLDL) 53 <145 mg/dL LAB CHEMISTRY METHOD 12/29/2024 12:56 PM EST [facility] Chol/HDL Ratio 2.1 0.0 - 4.4 LAB CHEMISTRY METHOD 12/29/2024 12:56 PM EST [facility] Blood Venous blood specimen / Unknown Venipuncture / Unknown 12/29/2024 10:20 AM EST 12/29/2024 10:20 AM EST us Sydney LEWIS LAB BLOOD ORDERABLES Final Result [facility] [address] [place] [address], * (ABNORMAL) Microalbumin creatinine urine ratio (12/29/2024 10:20 AM EST) Creatinine, Urine 224.0 mg/dL LAB CHEMISTRY METHOD 12/29/2024 1:14 PM [facility] Microalb, Ur 98.1(H) 0.0 - 29.0 mg/L LAB CHEMISTRY METHOD 12/29/2024 1:14 PM EST [facility] Microalb/Crea t Ratio 44(H) <30 mg/g creat LAB CHEMISTRY METHOD 12/29/2024 1:14 PM EST [facility] Urine Urine specimen from urethra / Unknown Non-blood Collection / Unknown 12/29/2024 10:20 AM EST 12/29/2024 10:20 AM EST Sydney LEWIS LAB URINE ORDERABLES Final Result Performing Organization Address City/[facility]/ZIP Co de Phone Number [facility] [address] [place] [address], [place] [phone] * (ABNORMAL) Hemoglobin A1c (12/29/2024 10:20 AM EST) Pathologist [facility] Hemoglobin A1C 9.9(H) <6.5 % LAB CHEMISTRY METHOD 12/29/2024 2:04 PM EST [facility] Mean Bld Glu Estim. 237 mg/dL LAB CHEMISTRY METHOD 12/29/2024 2:04 PM EST [facility] Blood Venous blood specimen / Unknown Venipuncture / Unknown 12/29/2024 10:20 AM EST 12/29/2024 10:20 AM EST us Sydney LEWIS LAB BLOOD ORDERABLES Final Result Performing Organization Address City/[facility]/ZIP Co de Phone Number [facility] [address] [place] [address], [place] [phone] * (ABNORMAL) Basic metabolic panel (12/29/2024 10:20 AM EST) Sodium 135 133 - 145 mmol/L LAB CHEMISTRY METHOD 12/29/2024 12:52 PM [facility] Potassium 4.1 3.5 - 5.5 mmol/L LAB CHEMISTRY METHOD 12/29/2024 12:52 PM [facility] Chloride 100 96 - 110 mmol/L LAB CHEMISTRY METHOD 12/29/2024 12:52 PM [facility] CO2 25 21 - 32 mmol/L LAB CHEMISTRY METHOD 12/29/2024 12:52 PM [facility] Anion Gap 10 3 - 11 LAB CHEMISTRY METHOD 12/29/2024 12:52 PM [facility] Glucose 303(H) 70 - 100 mg/dL LAB CHEMISTRY METHOD 12/29/2024 12:52 PM [facility] BUN 12 5 - 25 mg/dL LAB CHEMISTRY METHOD 12/29/2024 12:52 PM [facility] Creatinine 0.97 0.70 - 1.30 mg/dL LAB CHEMISTRY METHOD 12/29/2024 12:52 PM [facility] eGFR 83 >=60 mL/min/1. 73m2 LAB CHEMISTRY METHOD 12/29/2024 12:52 PM [facility] Comment:Calculation based on the??Chronic Kidney Disease Epidemiology Collaboration (CKD-EPI) equation refit??without adjustment for race. BUN/Creatinine Ratio 12.4 LAB CHEMISTRY METHOD 12/29/2024 12:52 PM [facility] Calcium 9.4 8.5 - 10.5 mg/dL LAB CHEMISTRY METHOD 12/29/2024 12:52 PM [facility] Blood Venous blood specimen / Unknown Venipuncture / Unknown 12/29/2024 10:20 AM EST 12/29/2024 10:20 AM EST us Sydney LEWIS LAB BLOOD ORDERABLES Final Result [facility] [address] [place] [address], [place] [phone] * POC glucose manually resulted (12/29/2024 9:37 AM EST) Glucose POC 302 mg/dL Comment:Non fasting Blood Capillary blood specimen / Unknown 12/29/2024 9:37 AM EST Sydney LEWIS POINT OF CARE TEST ENTER/ED IT ORDERABLES Final Result * Hm Diabetes Eye Exam (10/28/2023) Diabetes: Annual Retina Eye Exam abstracted Historical Provider MD HEALTH MAINTENANCE Final Result from Last 3 Months or Most Recently Relevant to Health Maintenance Insurance [facility] Member Subscriber Plan / Payer (Ef fective 2024-Present) Name:Deann Thao Relation to Subscriber:Self Name:Deann Thao Payer ID:[id number] Group ID:[id number] Type:Not on file Address: [place] [address] [address] [id number] Care Teams Drag Seiner Relationship Specialty Start Date End Date Lewis Goldberg NP [address] [place], [place] PCP - General 07/05/21
--- OUTSIDE RECORDS SUMMARY | 2025-02-08 14:49 | XMS_ITS | Encounter Summary ---
Author Organization [facility] Address [address] [place] [address] Care Team Providers Care Program Management Professional Name Role Phone Lewis Goldberg NP Primary Care Provider + [phone] Reason for Visit * Reason Comments Follow-up Encounter Details Date Type Department Care Team (Late st Contact Info) Description 02/03/2025 1:10 PM EDT Office Visit [facility] [address] [place] [phone] Jerrica Rizzo NP [address] [place] [address] [address] [place] [address] PFO (patent foramen ovale) (Primary Dx); Coronary artery disease involving [place] coronary artery of [place] heart without angina pectoris; Mixed hyperlipidemia; Upper respiratory tract infection, unspecified type Social History Tobacco Use Types Packs/Day Years Used Date Smoking Tobacco: Never Smokeless Tobacco: Never Alcohol Use Standard Drinks/Week Comments Not Currently 0 (1 standard drink = 0.6 oz pur e alcohol) Sex and Gender Information Value Date Recorded Sex Assigned at Not on file Legal Sex Male 1:09 PM EST Gender Identity Not on file Sexual Orientation Not on file documented as of this encounter Last Filed Vital Signs Vital Sign Reading Time Taken Comments Blood Pressure 118/66 02/03/2025 12:48 PM EDT Pulse 79 02/03/2025 12:48 PM EDT Temperature - - Respiratory Rate - - Oxygen Saturation 96% 02/03/2025 12: 48 PM EDT Inhaled Oxygen Concentration - - Weight 84.7 kg (186 lb 12.8 oz) 025 12:48 PM EDT Height 167.6 cm (5' 6 ) 02/03/2025 12:4 8 PM EDT Body Mass Index 30.15 02/03/2025 12:48 PM EDT documented in this encounter Progress Notes * Jerrica Rizzo NP - 02/03/2025 1:10 PM EDTAssociated Problem(s): PFO (patent foramen ovale) Patient has history of PFO was deemed not a candidate for surgical care. He continues aspirin therapy. * Jerrica Rizzo NP - 02/03/2025 1:10 PM EDTAssociated Problem(s): CAD (coronary artery disease) Patient has history of MN and was left with residual coronary disease. He continues on risk factor modifying agents. He denies any exertional anginal symptoms. Continue with aspirin, statin and beta-martha. I have reviewed with the patient the importance of a heart healthy lifestyle which includeseating a low-fat low-salt diet, getting regular exercise, maintaining a healthy weight, not smoking, and following up with routine medical care. * Jerrica Rizzo NP - 02/03/2025 1:10 PM EDTAssociated Problem(s): Hyperlipidemia Patient's last LDL cholesterol was 30. He will remain on atorvastatin as prescribed. * Jerrica Rizzo NP - 02/03/2025 1:10 PM EDTAssociated Problem(s): URI (upper respiratory infection) Patient reports that he has had a cough and he currently has influenza. Patient encouraged to go home, wear a mask when in public areas and follow-up with his primary care provider if necessary. documented in this encounter Plan of Treatment Upcoming Encounters Date Type Department Care Team (Late st Contact Info) Description 02/14/2025 9:00 AM EDT Office Visit [facility] [address] [place] [address] Sydney Hector PA [address] [place] [address] 03/08/2025 1:30 PM EDT Appointment [facility]oscopy [address] [place] [phone] Joe Echols MD [address] [address] 06/12/2025 9:30 AM EDT Office Visit Gastroenterology - [place] 175 [facility] [address] [phone] Lucia Rebolledo PA [address] [address] documented as of this encounter Procedures Procedure Name Priority Date/Time Associated Diagnosis Comments ECG 12-LEAD Routine 02/03/2025 1:19 PM EDT PFO (patent foramen ovale) Coronary artery disease involving [place] coronary artery of [place] heart without angina pectoris Mixed hyperlipidemia documented in this encounter Results * ECG 12 lead (02/03/2025 1:19 PM EDT) Ventricular Rate ECG 79 BPM GEMUSE Atrial Rate 79 BPM GEMUSE P-R Interval 152 ms GEMUSE QRS Duration 96 ms GEMUSE Q-T Interval 400 ms GEMUSE QTc 458 ms GEMUSE P Wave [place] 60 degrees GEMUSE R [place] -6 degrees GEMUSE T [place] 80 degrees GEMUSE ECG Interpretation Normal sinus rhythm Normal ECG When compared with ECG of 26-JUN-2024 20:57, Premature ventricular complexes are no longer Present Confirmed by Rosalina WILLIAMSON JAMES ([id number]) on 02/03/2025 6:44:57 PM GEMUSE 02/03/2025 1:01 PM EDT 02/03/2025 6:44 PM EDT us Jerrica Rizzo NP ECG ORDERABLES Edited Resul t - Final GEMUSE documented in this encounter Visit Diagnoses Diagnosis PFO (patent foramen ovale)- Primary Ostium secundum type atrial septal defect Coronary artery disease involving [place] coronary artery of [place] heart without angina pectoris Mixed hyperlipidemia Upper respiratory tract infection, unspecified type documented in this encounter Care Teams Program Management Professional Relationship Specialty Start Date End Date Lewis Goldberg NP [address] [facility] [place], [place] PCP - General 07/05/21 documented as of this encounter
--- OUTSIDE RECORDS SUMMARY | 2025-02-08 14:49 | XMS_ITS ---
Author Organization [facility] Address [address] [place] [address] Care Team Providers Care Featheredge Machine Operator Name Role Phone Mau Rivas Primary Care Provider [phone] REASON FOR VISIT RESULTS LAB Social History Sex Assigned At : Social History Observation Description Sex Assigned At Female Encounters Encounter Location Date Provider Diagnosis [facility] [address] [address] 12/20/2024 Mau Rivas Plan Of Treatment Next Appt Details Provider Name:Mau montoya, 03/06/2025 08:32:00 AM, [address] [place] [address], [place], [address], Provider Name:Mau montoya, 12/19/2025 09:00:00 AM, [address] [place] [address], [place] [address], [place], [address], Progress Notes * EDUARDO MILLSDOB:05/1950 (74 yo M)Acc No.[id number]:12/20/2024 Progress Notes Patient:?MAYO MILLSKALA ON Provider:?Mau Riavs MD :1950???Age:74 Y???Sex:Male Omar e:12/20/2024 Address:[address] [place], [place] [phone] Subjective: * Chief Complaints: * ???1. RESULTS LAB. * Medical History:? Objective: * Vitals:? Assessment: Plan: * Treatment: * Images: Care Plan Details* * Electronic signature of Gus Rivas MD on 02/08/2025 at 02:49 PM EDT Sign off status: Pending * Provider:?Mau Rivas MD Date:?11/27 Generated for Rosalie padilla/Yoav/Aleshia on:?02/08/2025 02:49 PM EDT
--- OUTSIDE RECORDS SUMMARY | 2025-02-08 14:49 | XMS_ITS ---
Author Organization [facility] Address [address] [place] [address] Care Team Providers Care Meat Clerk Name Role Phone Rob Mau Primary Care Provider REASON FOR VISIT INR LAB Social History Sex Assigned At : Social History Observation Description Sex Assigned At Female Encounters Encounter Location Date Provider Diagnosis [facility] [address] [address] 12/16/2024 Mau Rivas Plan Of Treatment Next Appt Details Provider Name:Mau montoya, 03/06/2025 08:32:00 AM, [address] [place] [address], [place], [address], Provider Name:Mau montoya, 12/19/2025 09:00:00 AM, [address] [place] [address], [place], [address], Progress Notes * EDUARDO MILLSDOB:05/1950 (74 yo M)Acc No.[id number]:12/16/2024 Progress Note Patient:?MAYO MILLSJERSEYJason ON Provider:?Mau Rivas MD :1950???Age:74 Y???Sex:Male Omar e:12/16/2024 Address:[address] [place], [place] [id number] Subjective: * Chief Complaints: * ???1. INR LAB. * Medical History:? Objective: * Vitals:? Assessment: Plan: * Treatment: * Images: * Electronic signature of Gus Rivas MD on 02/08/2025 at 02:48 PM EDT Sign off status: Pending * Provider:?Mau Rivas MD Date:?11/27 Generated for Rosalie padilla/Yoav/Aleshia on:?02/08/2025 02:48 PM EDT
--- OUTSIDE RECORDS SUMMARY | 2025-02-08 14:49 | XMS_ITS | Encounter Summary ---
Author Organization [facility] Address [address] [place] [address] Care Team Providers Care Head Teller Name Role Phone Lewis Goldberg NP Primary Care Provider Encounter Details Date Type Department Care Team (Late Contact Info) Description 02/08/2025 Telephone Gastroenterology - [place] 175 [facility] 175 [facility] [address] [place] [address] Kanwal Mayorga [place] Social History Tobacco Use Types Packs/Day Years [...] on file documented as of this encounter Plan of Treatment Upcoming Encounters Date Type Department Care Team (Late Contact Info) Description 02/14/2025 9:00 AM EDT Office Visit Endocrinology - [place] [id number] [place] [address] Sydney Hector PA [address] [place] [address] 03/08/2025 1:30 PM EDT Appointment [facility] [address] [place] [phone] Joe Echols MD 175 [facility] [address] [place], [place] [phone] 06/12/2025 9:30 AM EDT Office Visit Gastroenterology - [place] [address] [place] [address] Lucia Rebolledo PA [address] [place] [address] documented as of this encounter Visit Diagnoses Not on filedocumented in this encounter Care Teams Head Teller Relationship Specialty Start Date End Date Lewis Goldberg NP [address] [place], [place] PCP - General 07/05/21 documented as of this encounter
--- OUTSIDE RECORDS SUMMARY | 2025-02-08 14:49 | XMS_ITS ---
Author Organization [facility] Address [address] [facility] [place] [address] Care Team Providers Care Weaving Teacher Name Role Phone GRETCHEN DRAPER Primary Care Provide r Unavailable WILL PEREZ Unavailable REASON FOR VISIT APPOINTMENT Encounters Encounter Location Date Provider Diagnosis [facility] [address] [facility], [place] [address] 11/30/2024 WILL PEREZ Plan Of Treatment No Information Progress Notes * EDUARDO MILLSDOB:05/1950 (74 yo M)Acc No.[id number]:11/30/2024 Patient:?TOOTIE MILLS ON :1950???Age:74 Y???Sex:Male Address:[address] [place] [address], [place] [address] * true * Date:? Generated for Printi ng/Fatyshawng/eTransmitting on:?02/08/2025 02:48 PM EDT
== END 2025-02-08 16:36 | disposition home or self-care (01) ==
LOC: HO.HMCC 12:33
PROVIDERS: PCP Nurse Practitioner Family; Visit Provider Nurse Practitioner Family
DX: I10 Essential (primary) hypertension (principal); B34.9 Viral infection, unspecified

== ENCOUNTER → 2025-02-08 14:32 | Outpatient (BNV) | payer OTHER, SELFPAY | PROVIDERS: PCP Nurse Practitioner Family; Visit Provider Radiology Diagnostic Radiology | DX: B34.9 Viral infection, unspecified (principal) | CPT/HCPCS: 71046 ==

== ENCOUNTER 2025-03-28 08:49 | Outpatient (REF) | payer OTHER, SELFPAY ==
--- OUTSIDE RECORDS SUMMARY | 2025-03-28 09:24 | XMS_ITS | Patient Health Record ---
Author Organization [facility] Address [address] [facility] [place] [address] Care Team Providers Care Help Aid Name Role Phone VOSSKELLYGRETCHEN Dionna Primary Care Provide r Unavailable WILL PEREZ Unavailable Allergies No Known Allergies Reason For Referral Reason [id number] Diagnosis 1 Inflamed internal he morrhoid (K64.8) Referred Organization [facility] Referred Provider WILL PEREZ Referred Address [address] [place] [address] [place],[address], Referred Provider Specialty Gastroentero logy Referral Priority [...] Status Risk Notes Problem Acute myocardial infarction (45180276) Acute myocardial infarction, unspecified (I21.9) Active confirmed Problem Hyperlipidemia (57070413) Hyperlipidemia (E78.5) Active confirmed Problem Asthma (870594350) Asthma (J45.909) Active confirmed Problem Hypertension (68386093) Hypertension (I10) Active confirmed Problem Type 2 diabetes mellitus (77876778) Type 2 diabetes mellitus (E11.9) Active confirmed Vital Signs Heart Rate 69 /min 11/30/2024 Blood pressure diastolic 69 mm Hg 11/30/2024 Height 66 in 11/30/2024 Blood pressure systolic 109 mm Hg 11/30/2024 Weight 193 lbs 11/30/2024 BMI 31.15 kg/m2 11/30/2024 Encounters Encounter Location Date Provider Diagnosis [facility] [address] [facility], [place] [address] 11/30/2024 [facility] Abdominal pain R10.9 ; Constipation in male K59.00 ; Pancreatic cyst K86.2 and Colon cancer screening Z12.11 [facility] [address] [facility], [place] [address] 11/30/2024 [facility] Assessments Encounter Date Diagnosis (ICD Code) Assessment [...] Insured Coverage Start Date Coverage End Date [facility] Health Plan [address] [address] [place]ERNIE KR[place]NAN [phone] [id number] EDUARDO MILLS Self - patient is the insured MEDICARE SECONDARY [address] [place] [phone] [id number] EDUARDO MILLS Self - patient is the insured Medical (General) History Medical History History ICD Code Hypertension I10 Type 2 diabetes mellitus E11.9 Hyperlipidemia E78.5 Asthma J45.909 Acute myocardial infarction, unspecified I21.9 Surgical History Surgery Date(Month/Year) appendectomy Back surgery
[2025-03-28 13:06] LABS: Appearance Urine Clear; Color Urine Yellow; Glucose Urine UA >=1000 mg/dL (Negative); Leukocyte Esterase Urine Negative (Negative); Nitrite Urine Negative (Negative); PH 5.5 (5.0-9.0); Specific Gravity - Urine 1.025 (1.005-1.025); UMIC TRIGGER UACC YES; Urine Blood Negative (Negative); Urine Ketones Negative (Negative); Urine Protein Negative (Neg-Trace)
[2025-03-28 13:11] LABS: Bacteria Urine None Seen (None Seen); Hyaline Casts Urine 0-2 /LPF (0-2); MANUAL DIFF FLAG NO; RBC Urine 0-2 /HPF (0-2); Squamous Epithelial Cell Urine 0-2 /HPF (0-2); WBC Urine 0-5 /HPF (0-5)
[2025-03-28 13:36] LABS: Basophils Percent Auto 0.4 % (0-2); Eosinophils Absolute Auto 0.1 X10*3/uL (0.0-0.4); Eosinophils Percent Auto 2.6 % (0-4); Hemoglobin 13.9 g/dl (14.0-18.0); Imm Gran Abs Auto 0.01 X10*3/uL (0.00-0.03); Imm Gran Pct Auto 0.2 % (0.0-0.4); Lymphocytes Percent Auto 40.6 % (20-40); Mean Corpuscular HGB Conc 33.9 g/dl (31.0-36.0); Mean Corpuscular Volume 85.6 fL (80.0-98.0); Monocytes Absolute Auto 0.4 X10*3/uL (0.1-1.2); Monocytes Percent Auto 7.2 % (2-11); Neutrophils Absolute Auto 2.5 x10*3/uL (2.0-8.3); Platelet Count 235 X10*3/uL (160-400); Red Blood Count 4.79 X10*6/uL (4.60-5.80); Red Cell Distribution Width 12.9 % (11.0-16.0)
[2025-03-28 14:19] LABS: Alanine Aminotransferase 50 U/L (0-40); Albumin Level 4.5 g/dL (3.5-5.0); Alkaline Phosphatase 114 U/L (39-117); Anion Gap 10 (12-20); Aspartate Amino Transferase 36 U/L (5-37); Bilirubin Total 0.3 mg/dL (0.0-1.0); Blood Urea Nitrogen 15 mg/dL (9-16); Calcium 9.2 mg/dL (8.4-10.2); Carbon Dioxide 28 mmol/L (22-29); Chloride 103 mmol/L (96-108); Cholesterol 94 mg/dL (<200); Estimated Glomerular Filt Rate > 60; Glucose Fasting 271 mg/dL (60-99); HDL Cholesterol 36 mg/dL (>40); LDL Cholesterol Calculated 41 mg/dL (<100); Potassium 4.5 mmol/L (3.3-5.1); Sodium 136 mmol/L (135-145); Total Protein 7.3 g/dL (6.5-8.0); Triglycerides 89 mg/dL (<150)
[2025-03-28 14:33] LABS: TSH reflex Free T4 3.38 uIU/mL (0.32-4.0)
== END 2025-03-28 08:50 | disposition home or self-care (01) ==
LOC: HO.HMGCLDS 08:49
PROVIDERS: PCP Nurse Practitioner Family; Visit Provider Nurse Practitioner Family
DX: I10 Essential (primary) hypertension (principal)
CPT/HCPCS: 36415; 80053; 80061; 81001; 81003; 84443; 85025

== ENCOUNTER 2025-06-08 08:20 | Outpatient (AMB) | payer OTHER, SELFPAY ==
--- NOTE | 2025-06-08 08:31 | MHC.OFFVIS ---
Vital Signs 06/08/25 08:32 Height 5 ft 6 in Intake Visit Reasons: B/L hand stiffness Accompanied by: Spouse Allergies No Known Allergies Allergy (Verified 06/08/25 08:42) Medication List - Last Reconciled 06/08/25 by Tamar Vera CNP albuterol sulfate 90 mcg/actuation 2 inhalations inhalation Q6-8H PRN amoxicillin 2,000 mg (4 x 500 mg) PO ONCE apixaban 5 mg PO BID 90 days aspirin 81 mg PO DAILY 90 days atorvastatin 40 mg PO BEDTIME 90 days [bed protector 1; NS] benzonatate 200 mg PO BID PRN 10 days [Chair Lift For Stair use use daily] [cleaning towels 1; NS] clotrimazole-betamethasone 1-0.05 % 1 appl topical BID [diabetic shoes daily use with 3 pairs of inserts.] diaper,brief,adult,disposable Change at least 3 times daily or as needed for episodes of incontinence flash glucose scanning reader (TOSA (Tests On Software Applications)Style Gera 2 [place]) TID flash glucose sensor (FreeStyle Gera 2 Sensor kit) TID fluticasone furoate-vilanterol 100-25 mcg/dose (Breo Ellipta) 1 ea inhalation DAILY gabapentin 400 mg PO TID 30 days glipizide 10 mg PO BID hospital bed weakness, use daily hydrocortisone 2.5% 1 appl topical TID insulin aspart U-100 (Novolog FlexPen U-100 Insulin aspart) 1 sliding scale dose subcut TID 30 days isosorbide mononitrate ER 30 mg PO DAILY 90 days lancets Use to check blood sugar if implanted device is not functioning. losartan 25 mg PO DAILY melatonin 10 mg (2 x 5 mg) PO BEDTIME PRN 90 days memantine (Namenda) 5 mg PO BID 30 days metoclopramide HCl 5 mg PO QIDACHS metoprolol succinate ER 50 mg PO DAILY 90 days montelukast 10 mg PO DAILY 90 days pen needle, diabetic (Comfort EZ Pen [place]) Use to administer insulin with pen 3 times a day as ordered. sertraline 25 mg PO DAILY tacrolimus 0.1% 1 appl topical DAILY PRN trospium ER 60 mg PO DAILY walker use daily HPI Comments Details: He returns after about 16 months. He and his returned to the area after moving to [place] for period of time. His memory was not so good, and was very forgetful. He was previously on rivastigmine patch, but he could not get medication in [place] and has been without medication since 11/2024. He has had neck pain for long time that has gotten worse with pain down both arms, along with numbness and tingling in both hands for long time, possibly more than a year. He had trouble closing his hands and collar padder blindstitch strength was not so good. He had R CTS release a few years ago which did not work at all. He also had some numbness and tingling in his legs. He was walking with cane, no recent falls. His blood sugar was not well controlled at this time. Spends time walking, watching TV, sleeping. In the past, he has gotten lost while walking and when on the bus, getting off at the incorrect stop. 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 He has a history of diabetes and has had at least for strokes. [facility] Medical History (Updated 06/08/25 @ 09:02 by Tamar Vera CNP) Encephalomalacia on imaging study Fatty liver Acquired deformity of toenail Delayed gastric emptying Prostate cancer Ventricular bigeminy seen on motel clerk BPH (benign prostatic hyperplasia) Depression HTN (hypertension) Tenosynovitis of finger Encephalopathy Bilateral carpal tunnel syndrome Myocardial infarction PFO (patent foramen ovale) Cervical spondylarthritis Acquired skin tag Chronic pancreatitis Carpal tunnel syndrome COPD (chronic obstructive pulmonary disease) CVA (cerebral vascular accident) Type 2 diabetes mellitus Surgical History History of shoulder surgery History of appendectomy History of back surgery Family History Father Mental health disorder Mother Diabetes Unknown Substance use disorder Social History Housing: Apartment Alcohol intake: current Alcohol intake frequency: holidays/special occasions only Patient Tobacco Use Status: Never used Tobacco e-Cigarette/Vaping Use: Never Used Second Hand Smoke Exposure: No service: No Current occupational status: retired Cognitive needs: No Hearing needs: No Vision needs: No Review of Systems Const Denies chills, Denies daytime sleepiness, Denies difficulty sleeping, Denies fatigue, Denies fever(s), Denies frequent falls, Denies headache(s), Denies increased appetite, Denies poor appetite, Denies snoring, Denies weakness, Denies weight gain and Denies weight loss Eyes Denies loss of vision ENT Denies vertigo, Denies dizziness, Denies headache(s) and Reports neck pain Card Denies chest pain at rest, Denies chest pain with activity, Denies syncope, Denies leg edema, Denies palpitations, Denies dyspnea and Denies dyspnea on exertion Resp Denies cough, Denies dyspnea, Denies dyspnea on exertion and Denies snoring GI Denies abdominal pain, Denies constipation, Denies heartburn, Denies diarrhea and Denies nausea Denies urinary frequency, Denies urinary incontinence and Denies urinary urgency Musc Reports abnormal gait (balance difficulty), Reports back pain, Reports myalgias, Reports arthralgias, Reports neck pain, Reports numbness and Reports tingling Neuro Reports abnormal gait (balance difficulty), Denies vertigo, Denies dizziness, Denies syncope, Denies frequent falls, Denies headache(s), Denies lack of coordination, Denies loss of vision, Reports memory loss, Reports numbness, Denies Other visual disturbances, Denies restless legs, Denies seizure-like activity, Reports tingling, Denies paresthesias, Denies tremor(s) and Denies weakness Psych Reports anxiety, Reports depression, Denies auditory hallucinations, Reports memory loss and Denies visual hallucinations Endo Denies fatigue and Denies palpitations Physical Exam Const Other: General Appearance:? normal, in no acute distress. Heart:? S1, S2 normal, no murmurs. Lungs:? clear anteriorly and posteriorly. Musculoskeletal:? normal. Extremities:? no edema. Psych:? alert, as below. Neuro Other: Abnormal Neurological Findings:?LE DTR 1+. 5-/5 L collar padder blindstitch. 5-/5 APB bilaterally. Walking with cane. MMSE 19/30. Mental Status: alert, as below. Cranial Nerves: Pupils are equal, round, and reactive to light. External ocular muscles are intact. Visual navarro are full, no ptosis. Face is symmetrical, no facial weakness or droop. Facial sensations are normal. Tongue protrudes in midline. Palate elevates symmetrically. Shoulder shrugging is normal Motor Examination: As above, otherwise normal muscle tone, bulk and strength. No atrophy or fasciculations. No drift of the extended upper extremities. LE DTR 1+. Sensory Exam: Normal light touch, temperature, pinprick, vibration, and joint-position sensations. Rhomberg sign is absent. Coordination: No ataxia. No titubation. Oojrtq-[id number], [id number] test, and rapid alternating movements were normal. Gait Exam: With cane. Cerebellar Signs: [id number] is okay. Extrapyramidal System: No tremor, rigidity with normal facial expressions. No bradykinesia. No bradyphrenia. Normal arm swing and posture. No propulsion or retropulsion. Speech: Normal. No dysphasia or dysarthria. MMSE Level of Consciousness: Alert. Orientation: Knows correct year and day. Does not know month, date, or season. Knows correct city, county and state. Knows correct location. Does not know floor. Registration: Able to register 3 objects. Attention: Unable to do serial 7's. Recall: Able to recall 1 out of 3 objects. Language: Normal spontaneous speech, fluency, repetition, naming, comprehension, reading, and writing. Total Score: 19/30. Results Reviewed Results Reviewed: MRI of the brain on 02/05/22 showed a moderate degree of generalized atrophy and chronic white matter changes. Had large areas of encephalomalacia in the right frontal and left occipital region from old strokes and a left frontal lacunar stroke. NCV/EMG LE 02/2023: Mild to moderate axonal sensory peripheral neuropathy in LE bilaterally. EMG of R L4-S1 innervated muscles consistent with distal chronic neuropathic changes of neuropathy. Assessment & Plan Assessment & Plan (1) Alzheimer disease: Code(s): G30.9 - Alzheimer's disease, unspecified; F02.80 - Dementia in other diseases classified elsewhere, unspecified severity, without behavioral disturbance, psychotic disturbance, mood disturbance, and anxiety Category: Medical Plan: He has been without rivastigmine patch since 11/2024. He tried donepezil in the past, but had GI side effects. Start memantine 5mg 1 tablet twice a day, use/side effects reviewed. (2) Cervical radiculopathy: Code(s): M54.12 - Radiculopathy, cervical region Category: Medical Plan: NCV/EMG ordered. (3) History of stroke: Code(s): Z86.73 - Personal history of transient ischemic attack (TIA), and cerebral infarction without residual deficits Category: Medical Plan: Control blood pressure. Continue statin and Eliquis. (4) Diabetic peripheral neuropathy: Code(s): E11.42 - Type 2 diabetes mellitus with diabetic polyneuropathy Category: Medical Plan: Control blood sugar. Stay physically active. Plan Meds tried: Donepezil (GI side effects) Orders: Orders NE electromyogram (EMG) Today M54.12 - Radiculopathy, cervical region NE nerve conduction velocity Today M54.12 - Radiculopathy, cervical region Medications: New memantine (Namenda) 5 mg PO BID 60 tabs 3RF 30 days Coding Level of Care Code Est Pt Level 4 (02858) Diagnoses Alzheimer disease G30.9; F02.80 Cervical radiculopathy M54.12 History of stroke Z86.73 Diabetic peripheral neuropathy E11.42
--- OUTSIDE RECORDS SUMMARY | 2025-06-08 08:32 | XMS_ITS | Patient Health Record ---
Author Organization [employer]. 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 . Suggested INR therapeutic range for Vitamin K antagonist therapy: Standard Dose (moderate intensity therapeutic range): 2.0 - 3.0 Higher intensity therapeutic range 2.5 - 3.5 Prothrombin Time 11.0 9.1-12.0 sec Lipid Panel With LDL/HDL Rat io-LC Reviewed date:11/17/2024 03:59:06 PM Interpretation: Performing Lab:[facility], [address] [place] [id number], Phone - [phone], Director - Simon Notes/Report: Cholesterol, Total 114 [...] 14+eGFR-LC-Q Reviewed date:11/17/2024 03:59:06 PM Interpretation: Performing Lab:[facility] [address] [place] [id number], Phone - [phone], Director - Simon Notes/Report: Glucose 311 70-99 [...] et-LC-Q Reviewed date:11/17/2024 03:59:06 PM Interpretation: Performing Lab:[facility], [address] [place] [id number], Phone - [phone], Director - Simon Notes/Report: WBC 5.6 3.4-10.8 [...] % Immature Grans (Abs) 0.0 0.0-0.1 x10E3/uL Microalb/Creat Ratio, Timed Ur-LC Reviewed date:11/17/2024 03:59:07 PM Interpretation: Performing Lab:[facility] [id number], Phone - [phone], Director - Simon Notes/Report: Ur.Collec. Interval 0 Creatinine, Urine 57.6 Not Estab. mg/dL Albumin, Urine 3.5 Not Estab. ug/mL Alb/Creat Ratio 6.1 0.0-30.0 ug/mg creat Alb, U Excret. Rate 0.0-20.0 ug/min No to deborah volume submitted. Unable to calculate 24 hour result. Albumin,Ur mg/day TNP Unable to calculate result since non-numeric result obtained for component test. Hemoglobin A1C Reviewed date:11/17/2024 03:59:06 PM Interpretation: Performing Lab:[address] [id number], Phone - [phone], Director - Simon Notes/Report: Hemoglobin A1c 8.7 4.8-5.6 % . Prediabetes: 5.7 - 6.4 Diabetes: >6.4 Glycemic control for adults with diabetes: <7.0 PSA Total, Serum-LC Reviewed date:11/17/2024 03:59:06 PM Interpretation: Performing Lab:[address] [id number], Phone - [phone], Director - Simon Notes/Report: Prostate Specific Ag 1.8 0.0-4.0 ng/mL [facility] ECLIA methodology. . According to the [employer], Serum PSA should decrease and [...] the presence or absence of malignant disease. EKG Electrocardiogram Reviewed date:10/07/2024 02:14:04 PM Interpretation: Performing Lab: Notes/Report: PSA Total (Reflex To Free) Reviewed date:10/20/2024 08:22:54 AM Interpretation: Performing Lab:[facility] [id number], Phone - [phone], Director - MDAngelina Notes/Report: Prostate Specific Ag 2.1 0.0-4.0 ng/mL [facility] ECLIA methodology. . According to the [employer], Serum PSA should decrease and [...] Panel-Q-LC Reviewed date:10/20/2024 08:22:50 AM Interpretation: Performing Lab:[address] [id number], Phone - [phone], Director - Simon Notes/Report: Cholesterol, Total 115 100-199 mg/dL Triglycerides 129 0-149 mg/dL HDL Cholesterol 37 >39 mg/dL VLDL Cholesterol [place] 23 5-40 mg/dL LDL Chol Calc (NIH) 55 0-99 mg/dL Comprehensive Metabolic Pane l 14+eGFR-LC-Q Reviewed date:10/20/2024 08:22:46 AM Interpretation: Performing Lab:[address] [id number], Phone - [phone], Director - Claritarier Notes/Report: Glucose 155 70-99 mg/dL BUN 14 [...] IU/L ALT (SGPT) 91 0-44 IU/L Urinalysis, Nbbycnyv-BR-R Reviewed date:10/20/2024 08:25:48 AM Interpretation: Performing Lab:[facility] [address] [id number], Phone - [phone], Director - Simon Notes/Report: Specific Central >=1.030 1.005-1.030 pH 5.5 5.0-7.5 Urine-Color Yellow [...] et-LC-Q Reviewed date:10/20/2024 08:22:42 AM Interpretation: Performing Lab:[facility], [facility] [address] [place], [place] [id number], Phone - [phone], Director - Simon Notes/Report: WBC 5.7 3.4-10.8 [...] A1C Reviewed date:01/10/2025 09:49:17 AM Interpretation: Performing Lab:[facility] [address] [id number], Phone - [phone], Director - An Notes/Report: Hemoglobin A1c 11.0 4.8-5.6 % . Prediabetes: 5.7 - 6.4 Diabetes: >6.4 Glycemic control for adults with diabetes: <7.0 Microalbumin/Creatinine Rati o, Random Urine-LC Reviewed date:10/20/2024 08:22:37 AM Interpretation: Performing Lab:[facility], [address] [place] [id number], Phone - [phone], Director - Simon Notes/Report: Creatinine, Urine 107.2 Not Estab. mg/dL Albumin, Urine 5.0 Not Estab. ug/mL Alb/Creat Ratio 5 0-29 mg/g creat Normal: 0 - 29 Moderately increased: 30 - 300 Severely increased: >300 Occult Blood, Fecal, IA-LAB MELVIN Reviewed date:10/20/2024 08:19:02 AM Interpretation: Performing Lab:[facility], [address] [place], [place] [id number], Phone - [phone], Director - Simon Notes/Report: Occult Blood, Fecal, IA Negative Negative Occult Blood, Fecal, IA-LAB MELVIN Reviewed date:11/17/2024 04:15:29 PM Interpretation: Performing Lab:[facility], [address] [place], [place] [id number], Phone - [phone], Director - Simon Notes/Report: Occult Blood, Fecal, IA Positive Negative X-Ray CHEST 2 VIEWS Reviewed date:10/20/2024 08:18:46 AM Interpretation: Performing Lab: Notes/Report: See Below For Report Exam # [id number] - October 15 2024 - CHEST 2 VIEWS - [facility] Reviewed date:11/17/2024 03:59:06 PM Interpretation: Performing Lab:[facility], [facility] [place], [place] [id number], Phone - [phone], Director - Simon Notes/Report: Interpretation Note - CHRONIC [...] Reviewed date:11/17/2024 03:59:06 PM Interpretation: Performing Lab:[facility] [address] [id number], Phone - [phone], Director - Simon Notes/Report: Interpretation Note Supplemental report is available. PDF Not applicable Microscopic Examination Reviewed date:11/17/2024 03:59:07 PM Interpretation: Performing Lab:[facility] [address] [id number], Phone - [phone], Director - Simon Notes/Report: Specific Central >=1.030 1.005-1.030 pH 5.5 5.0-7.5 Urine-Color Yellow Yellow Appearance Clear Clear WBC Esterase Negative Negative Protein Negative Negative/Trace Glucose 3+ Negative Ketones Trace Negative Occult Blood Negative Negative Bilirubin Negative Negative Urobilinogen,Semi-Qn 0.2 0.2-1.0 mg/dL Nitrite, Urine Negative Negative Microscopic Examination Micr oscopic not indicated and not performed. Ceruloplasmin-LC Reviewed date:11/17/2024 03:59:06 PM Interpretation: Performing Lab:[facility] [address] [id number], Phone - [phone], Director - Simon Notes/Report: Ceruloplasmin 23.6 16.0-31.0 mg/dL Prothrombin Time (PT) with I NR-LC Reviewed date:11/17/2024 03:59:06 PM Interpretation: Performing Lab:[facility] [address] [id number], Phone - [phone], Director - Simon Notes/Report: INR 1.0 0.9-1.2 Reference interval is for non-anticoagulated patients. . Suggested INR therapeutic range for Vitamin K antagonist therapy: Standard Dose (moderate intensity therapeutic range): 2.0 - 3.0 Higher intensity therapeutic range 2.5 - 3.5 Prothrombin Time 11.3 9.1-12.0 sec AFP, Serum, Tumor Marker Reviewed date:11/17/2024 03:59:06 PM Interpretation: Performing Lab:[facility], [address] [place], [place] [id number], Phone - [phone], Director - Simon Notes/Report: AFP, Serum, Tumor Marker 2.5 0.0-8.4 ng/mL [employer] Electrochemiluminescence Immunoassay (ECLIA) . Values obtained with different assay methods or kits cannot be used interchangeably. Results cannot be interpreted as absolute evidence of the presence or absence of malignant disease. . This test is not interpretable in females. Written Authorization Reviewed date:11/17/2024 03:59:06 PM Interpretation: Performing Lab:[facility], [address] [place], [place] [id number], Phone - [phone], Director - Simon Notes/Report: Written Authorization Written Authorization Received. Authorization received from Original Requisition 11-16-2024 Logged by Yeni Norman Cardiovascular Risk Assessme nt Reviewed date:10/20/2024 08:18:56 AM Interpretation: Performing Lab:[facility], [address] [place], [place] [id number], Phone - [phone], Director - Simon Notes/Report: Interpretation Note Supplemental report is available. PDF . US ABDOMEN COMP Reviewed date:11/10/2024 04:39:59 PM Interpretation: Performing Lab: Notes/Report: See Below For Report Exam # [id number] - November 09 2024 - ABDOMEN COMP - Reason For Referral Reason Please fax consul t notes and/or results of procedure approved to [phone]. Thanks! ~Annual Eye Exam~ Diagnosis 1 Encounter for examin ation of eyes and vision without abnormal findings (Z01.00) Referral Organization [facility] Referring Provider First Name Mau Referring Provider Last Name Rob Referring Provider Speciality General Pr actice Referred Provider [facility] [place] [place] Referred Provider Specialty Rental Salesperson Referral Priority Routine Reason Please fax consul t notes and/or results of procedure approved to [phone]. Thanks! CONSULT ONLY - MANAGED CARE ~Annual Eye Exam~ Diagnosis 1 Encounter for examin ation of eyes and vision without abnormal findings (Z01.00) Referral Organization [facility] Referring Provider First Name Mau Referring Provider Last Name Rob Referring Provider [facility] General Pr actice Referred Provider [facility] [place] Referred Provider Specialty Rental Salesperson Referral Priority Routine Reason NEW PATIENT [phone] [place] [phone] or [phone] [place] [phone] [place] [phone] If additional testing is needed, please refer back to PCP. Please fax consult notes and/or results of procedure approved to [phone]. Thanks! Diagnosis 1 Internal hemorrhoids (K64.8) Referral Organization [facility] Referring Provider First Name Mau Referring Provider Last Name Rob Referring Provider [facility] General Niesha actice Referred Provider [facility] ([place]) Referred Provider Specialty Gastroentero logy Referral Priority Routine Reason If additional licha ting is needed, please refer back to PCP. Diagnosis 1 Fecal occult blood t est positive (R19.5) Referral Organization [facility] Referring Provider First Name Mau Referring Provider Last Name Rob Referring Provider [facility] General Niesha actice Referred Provider Specialty Gastroentero logy Referral Priority Routine Medications Medication SIG (Take, Route, Frequency, Duration) Notes Start Date End Date Status Warfarin Sodium 5 MG 1 tablet Orally Once a day Active Metoprolol Tartrate 50 MG 1 tablet with food Orally daily 10/07/2024 Active Insulin Syringe 30G X 5/16 1 ML as directed once a day 10/07/2024 Activ e Fluticasone-Salmeterol 100-50 MCG/ACT 1 puff Inhalation Twice a day 10/07/2024 Active Donepezil HCl 10 MG 1 tablet at bedtime Orally Once a day 11/15/2024 Active Isosorbide Dinitrate 30 MG 1 tablet Orally daily 1 12/08/2023 Active Rosuvastatin Calcium 40 MG 1 tablet Oral ly Once a day; Duration: 90 days 10/07/2024 Active glipiZIDE 10 MG 1 tablet 30 minutes before breakfast Orally Once a day; Duration: 100 days 10/07/2024 Active Losartan Potassium 25 MG 1 tablet Orally Once a day; Duration: 100 days 10/07/2024 Active Sertraline HCl 50 MG 1 tablet Orally Once a day Active Flomax 0.4 MG 1 capsule Orally Onc e a day 10/07/2024 Active Lancets - as directed twice a day 10/07/2024 Active strips strips checK [...] Problem Status W/U Status Risk Notes Problem Long-term current use of insulin (823513532) 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 (Z79.4) Active confirmed Problem Diabetic renal disease (880229468) Type 2 diabetes mellitus with diabetic chronic kidney disease (E11.22) Active confirmed Problem Mixed hyperlipidemia (798592313) Mixed hyperlipidemia (E78.2) Active confirmed Problem Alzheimer's disease with early onset (342444987) Alzheimer's disease with early onset (G30.0) Active confirmed Problem Hypertensive heart AND renal disease (65778871) Hypertensive heart and chronic kidney disease without heart failure, with stage 1 through stage 4 chronic kidney disease, or unspecified chronic kidney disease (I13.10) Active confirmed Problem Old myocardial infarction (6809235) Old myocardial infarction (I25.2) Active confirmed Problem Fatty liver (296149685) Fatty infiltration of liver (K76.0) Active confirmed Problem Moderate recurrent major depression (07724906) Major depressive disorder, recurrent episode, moderate (F33.1) Active confirmed Problem Hepatomegaly (12067256) Hepatomegaly (R16.0) Active confirmed Problem Long-term current use of anticoagulant (887884783) shelter (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 of anticoagulants (Z79.01) Active confirmed Problem Internal hemorrhoids (65569729) Internal hemorrhoids (K64.8) Active confirmed Problem Angina (962936279) 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) Active confirmed Problem History of placement of stent for coronary artery disease (situation) (453385873) H/O heart artery stent (Z95.5) Active confirmed Problem Low compliance bladder (0752361) Hyperactivity of bladder (N31.8) Active confirmed Problem Chronic pancreatitis (908949007) Chronic pancreatitis, unspecified pancreatitis type (K86.1) Active confirmed As per [facility] records from 07/14/2024 Problem Chronic kidney disease stage 2 (006152671) CKD (chronic kidney disease), stage II (N18.2) Active confirmed GFR 92 as per lab results from 11/17/2024 has improved from GFR 82 as per lab results from [facility] record from 06/26/2024 Problem Diabetic peripheral neuropathy (444754131) Diabetic peripheral neuropathy (E11.42) Active confirmed Problem Type 2 diabetes mellitus with other specified complication, without long-term current use of insulin (E11.69) Active confirmed Problem Pulmonary hypertension (76641017) Pulmonary hypertension (I27.20) Active confirmed [facility] per [facility] records from 09/27/2024 Problem Benign prostatic hypertrophy without outflow obstruction (244917602) BPH without urinary obstruction (N40.0) Active confirmed Problem Chronic obstructive lung disease (88879751) COPD without exacerbation (J44.9) Active confirmed Problem Diabetic peripheral vascular disease (347984512) Diabetic peripheral vascular disease (E11.51) Active confirmed Problem 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, [...] 11/23/2024 Encounters Encounter Location Date Provider Diagnosis [place] [id number] [place] [address] 10/07/2024 Mau Freyarez [facility] [address] [place] [address] 10/07/2024 Mau Rivas [facility] [address] [place] [address] 10/07/2024 Mauamilcar Freyarez [facility] [address] [place] [address] 10/14/2024 Mauamilcar Freyarez H/O heart artery yon nt Z95.5 [facility] [address] [place] [address] 11/15/2024 Mau Freyarez Elevated liver enzym es [...] N31.8 and H/O heart artery stent Z95.5 [facility] [address] [place] [address] 11/15/2024 Mau Rivas [facility] [address] [place] [address] 10/07/2024 Mau Rivas Major depressive disorder, recurrent episode, moderate F33.1 ; Hypertensive heart and chronic kidney disease without heart failure, with stage 1 through stage 4 chronic kidney disease, or unspecified chronic kidney disease I13.10 ; Atherosclerosis of [place] coronary artery of [place] heart with angina pectoris I25.119 ; Pulmonary [...] ; H/O heart artery stent Z95.5 ; shelter (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 of insulin Z79.4 ; History of cerebrovascular accident (CVA) in adulthood Z86.73 ; Body mass index (BMI) of 32.0 to 32.9 in adult Z68.32 ; Encounter for examination of eyes and vision without abnormal findings Z01.00 ; Encounter for fecal immunochemical test screening Z12.11 ; Screening for osteoporosis Z13.820 and Encounter for prostate cancer screening Z12.5 [facility] [address] [address] 10/20/2024 Mau Rivas Hypertensive heart a nd chronic kidney disease without heart failure, with stage 1 through stage 4 chronic kidney disease, or unspecified chronic kidney disease I13.10 ; Elevated liver enzymes R74.8 ; Pulmonary hypertension I27.20 ; Atherosclerosis of [place] coronary artery of [place] heart with angina pectoris I25.119 ; Old [...] ; H/O heart artery stent Z95.5 ; 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 Z79.4 and Body mass index (BMI) of 31.0 to 31.9 in adult Z68.31 [facility] [address] [address] 11/09/2024 Mau Rivas Elevated liver enzym es R74.8 [facility] [address] [place] [address] 11/15/2024 Mau Rivas Alzheimer's disease with early [...] ; Pulmonary hypertension I27.20 ; Atherosclerosis of [place] coronary artery of [place] heart with angina pectoris I25.119 ; Type [...] ; H/O heart artery stent Z95.5 ; 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 (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 of anticoagulants Z79.01 ; 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 Z79.4 ; Body mass index (BMI) of 30.0 to 30.9 in adult Z68.30 ; Encounter for examination of eyes and vision without abnormal findings Z01.00 and Encounter for screening fecal occult blood testing Z12.[address] [address] 11/23/2024 Mau Rivas Major depressive disorder, recurrent [...] chronic kidney disease I13.10 ; Atherosclerosis of [place] coronary artery of [place] heart with angina pectoris I25.119 ; Pulmonary [...] ; H/O heart artery stent Z95.5 ; 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 Z79.4 ; 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 (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 of anticoagulants Z79.01 and Body mass index (BMI) of 30.0 to 30.9 in adult Z68.30 [facility] [address] [place] [address] 11/17/2024 Mau [facility] [address] [place] [address] 11/25/2024 Mau [facility] [address] [place] [address] 03/06/2025 Mauamilcar Rivas Type 2 diabetes mellitus with diabetic chronic kidney disease E11.22 ; Hypertensive heart and chronic kidney disease without heart failure, with stage 1 through stage 4 chronic kidney disease, or unspecified chronic kidney disease I13.10 and Mixed hyperlipidemia E78.2 Assessments Encounter Date Diagnosis (ICD Code) Assessment [...] occult blood test positive (ICD-10 - R19.5) 03/06/2025 Type 2 diabetes mellitus with diabetic chronic kidney disease (ICD-10 - E11.22) 03/06/2025 Hypertensive heart and chronic kidney disease without heart failure, with stage 1 through stage 4 chronic kidney disease, or unspecified chronic kidney disease (ICD-10 - I13.10) 11/23/2024 COPD without exacerbation (ICD-10 - J44.9) [...] (ICD-10 - I27.20) [facility] per [facility] records from 09/27/2024 [facility] per [facility] records from 09/27/2024. Will continue to monitor. Strict blood pressure control, low fat diet and daily exercise as tolerated recommended. 10/07/2024 Atherosclerosis of [place] coronary artery of [place] heart with angina pectoris (ICD-10 - I25.119) 10/07/2024 Pulmonary hypertension (ICD-10 - I27.20) [facility] per [facility] records from 09/27/2024 As per [facility] records from 09/27/2024. Will continue to monitor. Strict blood pressure control, low fat diet and daily exercise as tolerated recommended. 10/20/2024 Atherosclerosis of [place] coronary artery of [place] heart with angina pectoris (ICD-10 - I25.119) 11/15/2024 Mixed hyperlipidemia (ICD-10 - E78.2) 11/15/2024 COPD without exacerbation (ICD-10 - J44.9) 11/23/2024 Alzheimer's disease with early onset (ICD-10 - G30.0) 03/06/2025 Mixed hyperlipidemia (ICD-10 - E78.2) 11/23/2024 Dementia in other diseases classified elsewhere, [...] pancreatitis type (ICD-10 - K86.1) As per [facility] records from 07/14/2024 As per [facility] records from 07/14/2024. Will continue to monitor [...] (ICD-10 - I27.20) [facility] per [facility] records from 09/27/2024 As per [facility] records from 09/27/2024. Will continue to monitor. Strict blood pressure control, low fat diet and daily exercise as tolerated recommended. 10/20/2024 CKD (chronic kidney disease), stage II (ICD-10 - N18.2) GFR 82 as per lab results from [facility] record from 06/26/2024 GFR 82 as per lab results from [facility] record from 06/26/2024 10/07/2024 CKD (chronic kidney disease), stage II (ICD-10 - N18.2) GFR 82 as per lab results from [facility] record from 06/26/2024 GFR 82 as per lab results from [facility] record from 06/26/2024 10/07/2024 Type 2 diabetes mellitus with other specified complication, without long-term current use of insulin (ICD-10 - E11.69) Mixed Hyperlipidemia as due to diabetes mellitus (DM) 11/15/2024 Atherosclerosis of [place] coronary artery of [place] heart with angina pectoris (ICD-10 - I25.119) 11/15/2024 H/O heart artery stent (ICD-10 - Z95.5) 10/20/2024 Type 2 diabetes mellitus with other specified complication, without long-term current use of insulin (ICD-10 - E11.69) Mixed Hyperlipidemia as due to diabetes mellitus (DM). Continue taking Glipizide. 11/23/2024 Atherosclerosis of [place] coronary artery of [place] heart with angina pectoris (ICD-10 - I25.119) 11/23/2024 Pulmonary hypertension (ICD-10 - I27.20) [facility] per [facility] records from 09/27/2024 As per [facility] records from 09/27/2024. Will continue to monitor. [...] GFR 82 as per lab results from [facility] record from 06/26/2024 GFR 82 as per lab results from [facility] record from 06/26/2024 10/20/2024 Diabetic peripheral neuropathy [...] GFR 82 as per lab results from [facility] record from 06/26/2024 GFR 92 as per lab results from 11/17/2024 has improved from GFR 82 as per lab results from [facility] record from 06/26/2024 10/20/2024 Diabetic peripheral vascular [...] pancreatitis type (ICD-10 - K86.1) As per [facility] records from 07/14/2024 As per [facility] records from 07/14/2024. Avoid smoking and drinking alcohol, and limit caffeine. Eat a healthy diet that's low in fat and protein, and eat smaller meals more frequently 10/07/2024 BPH without urinary obstruction (ICD-10 - N40.0) 10/20/2024 Chronic pancreatitis, unspecified pancreatitis type (ICD-10 - K86.1) As per [facility] records from 07/14/2024 As per [facility] records from 07/14/2024. Avoid smoking and drinking [...] pancreatitis type (ICD-10 - K86.1) As per [facility] records from 07/14/2024 As per [facility] records from 07/14/2024. 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 (ICD-10 - Z79.01) 11/15/2024 shelter (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 of insulin (ICD-10 - Z79.4) 10/20/2024 Body mass index (BMI) of 31.0 to 31.9 in adult (ICD-10 - Z68.31) 10/07/2024 Body mass index (BMI) of 32.0 to 32.9 in adult (ICD-10 - Z68.32) 11/23/2024 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 (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 of anticoagulants (ICD-10 - Z79.01) [...] INR 10/14/2024 ALPHA FETOPROTEIN, TUMOR MARKER 11/15/19 CERULOPLASMIN 11/15/2024 HEPATITIS PANEL 11/15/2024 Urinalysis, Routine-LC 11/15/2024 Prothrombin Time + INR 11/15/2024 Future Test Test Name Order Date Abdominal Ultrasound 11/07/2024 Prothrombin Time + INR 12/16/2024 Next Appt Details Provider Name:Mua montoya, 12/19/2025 09:00:00 AM, [address] [facility] [address], [address], Insurance Providers Payer Name Payer Address Payer Phone Subscriber Number Group Number Insured Name Patient Relationship to Insured Coverage Start Date Coverage End Date [facility] [address] [address] [place] [phone] [id number] EDUARDO MILLS Self - patient is the [...]
--- OUTSIDE RECORDS SUMMARY | 2025-06-08 08:32 | XMS_ITS | Patient Health Record ---
Author Organization [facility] Address [address] [facility] [address] Care Team Providers Care Door To Door Sales Representative Name Role Phone VOSSKELLYGRETCHEN Dionna Primary Care Provide r Unavailable WILL PEREZ Unavailable [phone] Allergies No Known Allergies Reason For Referral Reason [id number] Diagnosis 1 Inflamed internal he morrhoid (K64.8) Referred Organization [facility] Referred Provider WILL PEREZ Referred Address [address] [place] [address] [place],[address], Referred Provider Specialty Gastroentero logy Referral Priority [...] Status Risk Notes Problem Acute myocardial infarction (17028568) Acute myocardial infarction, unspecified (I21.9) Active confirmed Problem Hyperlipidemia (71321261) Hyperlipidemia (E78.5) Active confirmed Problem Asthma (642208105) Asthma (J45.909) Active confirmed Problem Hypertension (73099132) Hypertension (I10) Active confirmed Problem Type 2 diabetes mellitus (E11.9) Active confirmed Vital Signs Heart Rate 69 /min 11/30/2024 Blood pressure diastolic 69 mm Hg 11/30/2024 Height 66 in 11/30/2024 Blood pressure systolic 109 mm Hg 11/30/2024 Weight 193 lbs 11/30/2024 BMI 31.15 kg/m2 11/30/2024 Encounters Encounter Location Date Provider Diagnosis [facility] [address] [facility] [place] [place] [address] 11/30/2024 [facility] Abdominal pain R10.9 ; Constipation in male K59.00 ; Pancreatic cyst K86.2 and Colon cancer screening Z12.11 [facility] [address] [facility] [place] [address] 11/30/2024 [facility] Assessments Encounter Date Diagnosis (ICD Code) Assessment [...] Insured Coverage Start Date Coverage End Date [facility] [address] [address] [place], [place] [phone] [id number] EDUARDO MILLS Self - patient is the insured MEDICARE SECONDARY [address] [place] [phone] [id number] EDUARDO MILLS Self - patient is the insured Medical (General) History Medical History History ICD Code Hypertension I10 Type 2 diabetes mellitus E11.9 Hyperlipidemia E78.5 Asthma J45.909 Acute myocardial infarction, unspecified I21.9 Surgical History Surgery Date(Month/Year) appendectomy Back surgery
--- OUTSIDE RECORDS SUMMARY | 2025-06-08 08:32 | XMS_ITS | Clinical Summary ---
Author Organization [facility], Address [address] [place] [address] [place] [address] Phone Care Team Providers Care Clinical Safety Manager Name Role Phone Lucia Rebolledo PA-C Primary Care Provider Unav ailable Allergies Active Allergy Reactions Criticality Noted Date [...] A1C 12/14/2020 020, 03/13/2020, 10/28/2019 Influenza Vaccine (#1) 2025 07/15/2016 Hepatitis B Vaccine Aged Out No longe r eligible based on patient's age to complete this topic Insurance [address] [place] [id number] [place] [address] ([id number]) JOSHUA LORENZ [id number] Care Teams Clinical Safety Manager Relationship Specialty Start Date End Date Lucia Rebolledo PA-C PCP - General Physician Residential Construction Instructor 12/09/19
--- OUTSIDE RECORDS SUMMARY | 2025-06-08 08:32 | XMS_ITS | Clinical Summary ---
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 Basic metabolic panel (12/29/2024 10:20 AM EST) Sodium 135 133 - 145 mmol/L LAB CHEMISTRY METHOD 12/29/2024 12:52 PM EST [facility] Potassium 4.1 3.5 - 5.5 mmol/L LAB CHEMISTRY METHOD 12/29/2024 12:52 PM [facility] Chloride 100 96 - 110 mmol/L LAB CHEMISTRY METHOD 12/29/2024 12:52 PM [facility] CO2 25 21 - 32 mmol/L LAB CHEMISTRY METHOD 12/29/2024 12:52 PM [facility] Anion Gap 10 3 - 11 LAB CHEMISTRY METHOD 12/29/2024 12:52 PM [facility] Glucose 303(H) 70 - 100 mg/dL LAB CHEMISTRY METHOD 12/29/2024 12:52 PM [facility] BUN 12 5 - 25 mg/dL LAB CHEMISTRY METHOD 12/29/2024 12:52 PM [facility] Creatinine 0.97 0.70 - 1.30 mg/dL LAB CHEMISTRY METHOD 12/29/2024 12:52 PM [facility] eGFR 83 >=60 mL/min/1. 73m2 LAB CHEMISTRY METHOD 12/29/2024 12:52 PM [facility] Comment:Calculation based on the Chronic Kidney Disease Epidemiology Collaboration (CKD-EPI) equation refit without adjustment for race. BUN/Creatinine Ratio 12.4 LAB CHEMISTRY METHOD 12/29/2024 12:52 PM [facility] Calcium 9.4 8.5 - 10.5 mg/dL LAB CHEMISTRY METHOD 12/29/2024 12:52 PM [facility] Blood Venous blood specimen / Unknown Venipuncture / Unknown 12/29/2024 10:20 AM EST 12/29/2024 10:20 AM EST us Sydney LEWIS LAB BLOOD ORDERABLES Final Result [facility] [address] [place] [address], * Diabetes Eye Exam (10/28/2023) Diabetes: Annual Retina Eye Exam abstracted us Historical Provider HEALTH MAINTENANCE Final Result from Last 3 Months or Most Recently Relevant to Health Maintenance Insurance [facility] Member Subscriber Plan / Payer (Ef fective 2024-Present) Name:Deann Thao Relation to Subscriber:Self Name:Deann Thao Payer ID:[id number] Group ID:[id number] Type:Not on file Address: [place] [address] [place] [phone] Care Teams Social Media Manager Relationship Specialty Start Date End Date Lewis Goldberg NP [address] [facility] [place], [place] PCP - General 07/05/21
== END 2025-06-08 09:12 | disposition home or self-care (01) ==
LOC: HO.HSM 08:24
PROVIDERS: PCP Nurse Practitioner Family; Visit Provider Registered Nurse
DX: G30.9 Alzheimer's disease, unspecified (principal); F02.80 Dementia in other diseases classified elsewhere, unspecified severity, without behavioral disturbance, psychotic disturbance, mood disturbance, and anxiety; M54.12 Radiculopathy, cervical region; Z86.73 Personal history of transient ischemic attack (TIA), and cerebral infarction without residual deficits; E11.42 Type 2 diabetes mellitus with diabetic polyneuropathy
CPT/HCPCS: 99214

== ENCOUNTER → 2025-06-08 08:20 | Outpatient (BNVA) | payer OTHER, SELFPAY | PROVIDERS: PCP Nurse Practitioner Family; Visit Provider Registered Nurse | DX: M54.2 Cervicalgia (principal); G30.9 Alzheimer's disease, unspecified; F02.80 Dementia in other diseases classified elsewhere, unspecified severity, without behavioral disturbance, psychotic disturbance, mood disturbance, and anxiety; M54.12 Radiculopathy, cervical region; Z86.73 Personal history of transient ischemic attack (TIA), and cerebral infarction without residual deficits; E11.42 Type 2 diabetes mellitus with diabetic polyneuropathy | CPT/HCPCS: 99212 ==

== ENCOUNTER 2025-06-20 08:47 | Outpatient (REF) | payer OTHER, SELFPAY ==
--- OUTSIDE RECORDS SUMMARY | 2024-12-20 05:00 | XMS_ITS ---
Author Organization [facility] Address [address] [place] [address] Care Team Providers Care Dental Coordinator Name Role Phone Mau Rivas Primary Care Provider [phone] REASON FOR VISIT RESULTS LAB Social History Sex Assigned At : Social History Observation Description Sex Assigned At Female Encounters Encounter Location Date Provider Diagnosis [facility] [address] [address] 12/20/2024 Mau Rivas Plan Of Treatment Next Appt Details Provider Name:Mau montoya, 12/19/2025 09:00:00 AM, [address] [place] [address], [place], [address], Progress Notes * GENE SAÚLSUNDOB:05/1950 (75 yo M)Acc No.[id number]:12/20/2024 Progress Notes Patient: MAYO ERICNACION Provider: Dionna Rivas MD :1950 A ge:74 Y S ex:Male Date:12/20/2024 Address:[address] [place], [place] [phone] Subjective: * Chief Complaints: * 1 . RESULTS LAB. * Medical History: Objective: * Vitals: Assessment: Plan: * Treatment: * Images: Care Plan Details* * Electronic signature of Gus Rivas MD on 06/20/2025 at 09:05 AM EDT Sign off status: Pending * Provider: Dionna Rivas MD Date: 0 12/20/2024 Generated for Printi ng/Faxing/eTransmitting on: 0 06/20/2025 09:05 AM EDT
--- OUTSIDE RECORDS SUMMARY | 2024-12-30 05:00 | XMS_ITS ---
Author Organization [facility] Address [address] [place] [address] Care Team Providers Care Stripping Cutter And Winder Name Role Phone Mau Rivas Primary Care Provider REASON FOR VISIT F/UP REFILL Social History Sex Assigned At : Social History Observation Description Sex Assigned At Female Encounters Encounter Location Date Provider Diagnosis [address] [address] 12/30/2024 Mau Rivas Plan Of Treatment Next Appt Details Provider Name:Mau Coats jan, 12/19/2025 09:00:00 AM, [address] [place] [address], [place], [address], Progress Notes * EDUARDO MILLSDOB:05/1950 (75 yo M)Acc No.[id number]:12/30/2024 Progress Note Patient: Federico GLOVER EDUARDO Provider: Dionna Rivas MD :1950 A ge:74 Y S ex:Male Date:12/30/2024 Address:[address] [place], [place] [id number] Subjective: * Chief Complaints: * 1 . F/UP REFILL. * Medical History: Objective: * Vitals: Assessment: Plan: * Treatment: * Images: Care Plan Details* * Electronic signature of Gus Rivas MD on 06/20/2025 at 09:05 AM EDT Sign off status: Pending * Provider: Dionna Rivas MD Date: 0 12/30/2024 Generated for Rosalie padilla/Yoav/Ceferinoitting on: 0 06/20/2025 09:05 AM EDT
--- OUTSIDE RECORDS SUMMARY | 2025-06-20 09:04 | XMS_ITS | Clinical Summary ---
Author Organization [facility], Address [address] [place] [address] [place] [address] Phone Care Team Providers Care What Job Titles Mean Name Role Phone Lucia Rebolledo PA-C Primary [...] age to complete this topic Insurance [address] [place] [id number] [place] [address] ([id number]) [place] [phone] Care Teams What Job Titles Mean Relationship Specialty Start Date End Date Lucia Rebolledo PA-C PCP - General Physician Audience Coordinator 12/09/19
--- OUTSIDE RECORDS SUMMARY | 2025-06-20 09:04 | XMS_ITS | Patient Health Record ---
Author Organization [facility] Address [address] [facility] [place] [address] Care Team Providers Care Zipper Repairer Name Role Phone VOSSKELLYGRETCHEN Dionna Primary Care Provide r Unavailable WILL PEREZ Unavailable [phone] Allergies No Known Allergies Reason For Referral Reason [id number] Diagnosis 1 Inflamed internal he morrhoid (K64.8) Referred Organization [facility] Referred Provider WILL PEREZ Referred Address [address] [place] [address] [place],[address], Referred Provider Specialty Gastroentero logy Referral Priority [...] Status Risk Notes Problem Acute myocardial infarction (60849329) Acute myocardial infarction, unspecified (I21.9) Active confirmed Problem Hyperlipidemia (E78.5) Active confirmed Problem Asthma (664294781) Asthma (J45.909) Active confirmed Problem Hypertension (78685476) Hypertension (I10) Active confirmed Problem Type 2 diabetes mellitus (03572226) Type 2 diabetes mellitus (E11.9) Active confirmed Vital Signs Heart Rate 69 /min 11/30/2024 Blood pressure diastolic 69 mm Hg 11/30/2024 Height 66 in 11/30/2024 Blood pressure systolic 109 mm Hg 11/30/2024 Weight 193 lbs 11/30/2024 BMI 31.15 kg/m2 11/30/2024 Encounters Encounter Location Date Provider Diagnosis [facility] [address] [facility], [place] [address] 11/30/2024 [facility] Abdominal pain R10.9 ; Constipation in male K59.00 ; Pancreatic cyst K86.2 and Colon cancer screening Z12.11 [facility] [address] [facility], [place] [address] 11/30/2024 [facility] Assessments Encounter Date Diagnosis (ICD Code) [...] Insured Coverage Start Date Coverage End Date [facility] Health Plan [address] [address] [place], [place] [phone] [id number] [place] Self - patient is the insured MEDICARE SECONDARY [address] [place] [phone] [id number] EDUARDO MILLS Self - patient is the insured Medical (General) History Medical History History ICD Code Hypertension I10 Type 2 diabetes mellitus E11.9 Hyperlipidemia E78.5 Asthma J45.909 Acute myocardial infarction, unspecified I21.9 Surgical History Surgery Date(Month/Year) appendectomy Back surgery
--- OUTSIDE RECORDS SUMMARY | 2025-06-20 09:05 | XMS_ITS | Encounter Summary ---
Author Organization [facility] Address [address] [place] [address] Care Team Providers Care Manager Intranet Name Role Phone Lewis Goldberg NP Primary Care Provider [phone] Reason for Visit * Reason Onset Date Comments prior auth 05/29/2025 Encounter Details Date Type Department Care Team (Late st Contact Info) Description 05/29/2025 Telephone [facility] [place] [id number] [place] [address] Sydney Hector PA [address] [place] [address] Social History Tobacco Use Types Packs/Day Years [...] on file documented as of this encounter Progress Notes * Cristine Restrepo RN - 06/01/2025 10:31 AM EDT ZENOBIA LEWIS completed and faxed to them for Omnipod intro kit and omnipod pods * Parker Tamez - 05/29/2025 3:14 PM EDT Prior Authorization for Medication-do not complete and send this encounter unless you have the fax from the pharmacy. Is this a Cover My Meds request: [place] of Medication Omnipod 5 Dose of Medication Dexcom G7/G6 Pods What is the RX # from the faxed refill? [id number] How does patient take this med? N/a What Pharmacy did the fax come from: [facility] fax #: [phone] documented in this encounter Plan of Treatment Upcoming Encounters Date Type Department Care Team (Late st Contact Info) Description 08/09/2025 9:45 AM EDT Office Visit Endocrinology [address] [address] Sydney Hector PA [address] [place] [address] 12/11/2025 9:10 AM EST Office Visit Gastroenterology - [place] [address] [address] [place] [phone] Lucia Rebolledo PA [address] [place] [address] documented as of this encounter Visit Diagnoses Not on filedocumented in this encounter Care Teams Manager Intranet Relationship Specialty Start Date End Date Lewis Goldberg NP [address] [place], [place] PCP - General 07/05/21 documented as of this encounter
--- OUTSIDE RECORDS SUMMARY | 2025-06-20 09:05 | XMS_ITS | Patient Health Record ---
Author Organization [employer]. Address [address] [place] [id number] Care Team Providers Care Open Die Inspector Name Role Phone Mau Rivas Primary Care Provider Allergies No Known Allergies Results Component Value Reference Range Notes EKG Electrocardiogram Reviewed date:10/07/2024 02:14:04 PM Interpretation: Performing Lab: Notes/Report: X-Ray CHEST 2 VIEWS Reviewed date:10/20/2024 08:18:46 AM Interpretation: Performing Lab: Notes/Report: See Below For Report Exam # [id number] - October 15 2024 - CHEST 2 VIEWS - Occult Blood, Fecal, IA-LAB MELVIN Reviewed date:11/17/2024 04:15:29 PM Interpretation: Performing Lab:[facility] [address] [id number], Phone - [phone], Director - Simon Notes/Report: Occult Blood, Fecal, IA Positive Negative Occult Blood, Fecal, IA-LAB MELVIN Reviewed date:10/20/2024 08:19:02 AM Interpretation: Performing Lab:[facility] [address] [id number], Phone - [phone], Director - Simon Notes/Report: Occult Blood, Fecal, IA Negative Negative Microalbumin/Creatinine Rati o, Random Urine-LC Reviewed date:10/20/2024 08:22:37 AM Interpretation: Performing Lab:[facility] [address] [id number], Phone - [phone], Director - Simon Notes/Report: Creatinine, Urine 107.2 Not Estab. mg/dL Albumin, Urine 5.0 Not Estab. ug/mL Alb/Creat Ratio 5 0-29 mg/g creat Normal: 0 - 29 Moderately increased: 30 - 300 Severely increased: >300 Hemoglobin A1C Reviewed date:01/10/2025 09:49:17 AM Interpretation: Performing Lab:[facility] [address] [id number], Phone - [phone], Director - An Notes/Report: Hemoglobin A1c 11.0 4.8-5.6 % . Prediabetes: 5.7 - 6.4 Diabetes: >6.4 Glycemic control for adults with diabetes: <7.0 CBC With Differential/Platel et-LC-Q Reviewed date:10/20/2024 08:22:42 AM Interpretation: Performing Lab:[facility] [address] [id number], Phone - [phone], Director - Simon Notes/Report: WBC 5.7 3.4-10.8 [...] % Immature Grans (Abs) 0.0 0.0-0.1 x10E3/uL Urinalysis, [id number] Reviewed date:10/20/2024 08:25:48 AM Interpretation: Performing Lab:[facility] [id number], Phone - [phone], [facility]: Specific [place] >=1.030 1.005-1.030 pH 5.5 5.0-7.5 Urine-Color Yellow [...] seen /lpf Bacteria None seen None seen/Few Comprehensive Metabolic Pane l 14+eGFR-LC-Q Reviewed date:10/20/2024 08:22:46 AM Interpretation: Performing Lab:[address] [id number], Phone - [phone], [facility]: Glucose 155 70-99 mg/dL BUN 14 [...] 0-40 IU/L ALT (SGPT) 91 0-44 IU/L Lipid Panel-Q-LC Reviewed date:10/20/2024 08:22:50 AM Interpretation: Performing Lab:[address] [id number], Phone - [phone], Director - Simon Notes/Report: Cholesterol, Total 115 100-199 mg/dL Triglycerides 129 0-149 mg/dL HDL Cholesterol 37 >39 mg/dL VLDL Cholesterol [place] 23 5-40 mg/dL LDL Chol Calc (NIH) 55 0-99 mg/dL PSA Total (Reflex To Free) Reviewed date:10/20/2024 08:22:54 AM Interpretation: Performing Lab:[facility] [id number], Phone - [phone], Director - Simon Notes/Report: Prostate Specific Ag 2.1 0.0-4.0 ng/mL [facility] AffineIA methodology. . According to the [place] [employer], Serum PSA should decrease and [...] PSA is between 4.0 and 10.0 ng/mL. Microscopic Examination Reviewed date:11/17/2024 03:59:07 PM Interpretation: Performing Lab:[address] [id number], Phone - [phone], Director - Simon Notes/Report: Specific [place] >=1.030 1.005-1.030 pH 5.5 5.0-7.5 Urine-Color Yellow Yellow Appearance Clear Clear WBC Esterase Negative Negative Protein Negative Negative/Trace Glucose 3+ Negative Ketones Trace Negative Occult Blood Negative Negative Bilirubin Negative Negative Urobilinogen,Semi-Qn 0.2 0.2-1.0 mg/dL Nitrite, Urine Negative Negative Microscopic Examination Micr oscopic not indicated and not performed. Cardiovascular Risk Assessme nt Reviewed date:11/17/2024 03:59:06 PM Interpretation: Performing Lab:[address] [id number], Phone - [phone], Director - Simon Notes/Report: Interpretation Note Supplemental report is available. PDF Not applicable Written Authorization Reviewed date:11/17/2024 03:59:06 PM Interpretation: Performing Lab:[facility], [facility] [address] [place], [place] [id number], Phone - [phone], Director - Simon Notes/Report: Written Authorization Written Authorization Received. Authorization received from Original Requisition 11-16-2024 Logged by Yeni Norman AFP, Serum, Tumor Marker Reviewed date:11/17/2024 03:59:06 PM Interpretation: Performing Lab:[facility], [facility] [place], [place] [id number], Phone - [phone], Director - Simon Notes/Report: AFP, Serum, Tumor Marker 2.5 0.0-8.4 ng/mL [facility] [employer] Electrochemiluminescence Immunoassay (ECLIA) . Values obtained with different assay methods or kits cannot be used interchangeably. Results cannot be interpreted as absolute evidence of the presence or absence of malignant disease. . This test is not interpretable in females. PSA Total, Serum-LC Reviewed date:11/17/2024 03:59:06 PM Interpretation: Performing Lab:[facility], [address] [place] [id number], Phone - [phone], Director - Simon Notes/Report: Prostate Specific Ag 1.8 0.0-4.0 ng/mL [facility]ra ECLIA methodology. . According to the [place] [employer], Serum PSA should decrease and [...] the presence or absence of malignant disease. Hemoglobin A1C Reviewed date:11/17/2024 03:59:06 PM Interpretation: Performing Lab:[facility], [facility] [place], [place] [id number], Phone - [phone], Director - Simon Notes/Report: Hemoglobin A1c 8.7 4.8-5.6 % . Prediabetes: 5.7 - 6.4 Diabetes: >6.4 Glycemic control for adults with diabetes: <7.0 Prothrombin Time (PT) with I NR-LC Reviewed date:11/17/2024 03:59:06 PM Interpretation: Performing Lab:[facility] [address] [id number], Phone - [phone], Director - Simon Notes/Report: INR 1.0 0.9-1.2 Reference interval is for non-anticoagulated patients. . Suggested INR therapeutic range for Vitamin K antagonist therapy: Standard Dose (moderate intensity therapeutic range): 2.0 - 3.0 Higher intensity therapeutic range 2.5 - 3.5 Prothrombin Time 11.3 9.1-12.0 sec Ceruloplasmin-LC Reviewed date:11/17/2024 03:59:06 PM Interpretation: Performing Lab:[facility] [address] [id number], Phone - [phone], Director - Simon Notes/Report: Ceruloplasmin 23.6 16.0-31.0 mg/dL [facility] CKD Program Reviewed date:11/17/2024 03:59:06 PM Interpretation: Performing Lab:[facility] [address] [id number], Phone - [phone], Director Khurram Montes Notes/Report: Interpretation Note - CHRONIC KIDNEY DISEASE: [...] children, patients, or transplant patients. PDF . Prothrombin Time (PT) with I NR-LC Reviewed date:10/20/2024 08:18:52 AM Interpretation: Performing Lab:[facility], [address] [place] [id number], Phone - [phone], Director - Simon Notes/Report: INR 1.0 0.9-1.2 Reference interval is for non-anticoagulated patients. . Suggested INR therapeutic range for Vitamin K antagonist therapy: Standard Dose (moderate intensity therapeutic range): 2.0 - 3.0 Higher intensity therapeutic range 2.5 - 3.5 Prothrombin Time 11.0 9.1-12.0 sec US ABDOMEN COMP Reviewed date:11/10/2024 04:39:59 PM Interpretation: Performing Lab: Notes/Report: See Below For Report Exam # [id number] - November 09 2024 - ABDOMEN COMP - Cardiovascular Risk Assessme nt Reviewed date:10/20/2024 08:18:56 AM Interpretation: Performing Lab:[facility], [address] [place] [id number], Phone - [phone], Director - Simon Notes/Report: Interpretation Note Supplemental report is available. PDF . Microalb/Creat Ratio, Timed Ur-LC Reviewed date:11/17/2024 03:59:07 PM Interpretation: Performing Lab:[facility], [facility] [place], [place] [id number], Phone - [phone], Director - Simon Notes/Report: Ur.Collec. Interval 0 Creatinine, Urine 57.6 Not Estab. mg/dL Albumin, Urine 3.5 Not Estab. ug/mL Alb/Creat Ratio 6.1 0.0-30.0 ug/mg creat Alb, U Excret. Rate 0.0-20.0 ug/min No to deborah volume submitted. Unable to calculate 24 hour result. Albumin,Ur mg/day TNP Unable to calculate result since non-numeric result obtained for component test. CBC With Differential/Platel et-LC-Q Reviewed date:11/17/2024 03:59:06 PM Interpretation: [facility], [address] [place] [id number], Phone - [phone], Director - Simon Notes/Report: WBC 5.6 3.4-10.8 [...] % Immature Grans (Abs) 0.0 0.0-0.1 x10E3/uL Comprehensive Metabolic Pane l 14+eGFR-LC-Q Reviewed date:11/17/2024 03:59:06 PM Interpretation: Performing Lab:[address] [id number], Phone - [phone], Director - Simon Notes/Report: Glucose 311 70-99 [...] 0-40 IU/L ALT (SGPT) 82 0-44 IU/L Lipid Panel With LDL/HDL Rat io-LC Reviewed date:11/17/2024 03:59:06 PM Interpretation: Performing Lab:[facility] [address] [id number], Phone - [phone], Director - Simon Notes/Report: Cholesterol, Total 114 100-199 mg/dL Triglycerides 168 0-149 mg/dL HDL Cholesterol 44 >39 mg/dL VLDL Cholesterol [place] 28 5-40 mg/dL LDL Chol Calc (NIH) 42 0-99 mg/dL LDL/HDL Ratio 1.0 0.0-3.6 ratio LDL/HDL Ratio Men Women 1/2 Avg.Risk 1.0 1.5 Avg.Risk 3.6 3.2 2X Avg.Risk 6.2 5.0 3X Avg.Risk 8.0 6.1 Reason For Referral Reason Please fax consul t notes and/or results of procedure approved to [phone]. Thanks! ~Annual Eye Exam~ Diagnosis 1 Encounter for examin ation of eyes and vision without abnormal findings (Z01.00) Referral Organization [facility] Referring Provider First Name Mau Referring Provider Last Name Rob Referring Provider Speciality General Pr actice Referred Provider [employer], [facility] Referred Provider Specialty Sharepoint Specialist Referral Priority Routine Reason Please fax consul t notes and/or results of procedure approved to [phone]. Thanks! CONSULT ONLY - MANAGED CARE ~Annual Eye Exam~ Diagnosis 1 Encounter for examin ation of eyes and vision without abnormal findings (Z01.00) Referral Organization [facility] Referring Provider First Name Mau Referring Provider Last Name Rob Referring [facility] Pr actice Referred Provider [employer] Referred Provider Specialty Sharepoint Specialist Referral Priority Routine Reason NEW PATIENT [phone] or [phone] or [phone] [place] [phone] [place] [phone] If additional testing is needed, please refer back to PCP. Please fax consult notes and/or results of procedure approved to [phone]. Thanks! Diagnosis 1 Internal hemorrhoids (K64.8) Referral Organization [facility] Referring Provider First Name Mau Referring Provider Last Name Rob Referring Provider [facility] General Niesha actice Referred Provider Xiao Graf ([place]) Referred Provider Specialty Gastroentero logy Referral Priority Routine Reason If additional licha ting is needed, please refer back to PCP. Diagnosis 1 Fecal occult blood t est positive (R19.5) Referral Organization [facility] Referring Provider First Name Mau Referring Provider Last Name Rob Referring Provider [facility] General Niesha actice Referred Provider Specialty Gastroentero [...] Notes Problem Long-term current use of insulin (387880320) superintendent terminal (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 of insulin (Z79.4) Active confirmed Problem Diabetic renal disease (456450980) Type 2 diabetes mellitus with diabetic chronic kidney disease (E11.22) Active confirmed Problem Mixed hyperlipidemia (502892299) Mixed hyperlipidemia (E78.2) Active confirmed Problem Alzheimer's disease with early onset (445690454) Alzheimer's disease with early onset (G30.0) Active confirmed Problem 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, with stage 1 through stage 4 chronic kidney disease, or unspecified chronic kidney disease (I13.10) Active confirmed Problem Old myocardial infarction (5325793) Old myocardial infarction (I25.2) Active confirmed Problem Fatty liver (854562359) Fatty infiltration of liver (K76.0) Active confirmed Problem Moderate recurrent major depression (72136820) Major depressive disorder, recurrent episode, moderate (F33.1) Active confirmed Problem Hepatomegaly (30918698) Hepatomegaly (R16.0) Active confirmed Problem Long-term current use of anticoagulant (629968738) MCC (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 of anticoagulants (Z79.01) Active confirmed Problem Internal hemorrhoids (31939850) Internal hemorrhoids (K64.8) Active confirmed Problem Angina (366250520) 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) Active confirmed Problem History of placement of stent for coronary artery disease (situation) (998394198) H/O heart artery stent (Z95.5) Active confirmed Problem Low compliance bladder (6899440) Hyperactivity of bladder (N31.8) Active confirmed Problem Chronic pancreatitis (034853452) Chronic pancreatitis, unspecified pancreatitis type (K86.1) Active confirmed As per [facility] records from 07/14/2024 Problem Chronic kidney disease stage 2 (762204938) CKD (chronic kidney disease), stage II (N18.2) Active confirmed GFR 92 as per lab results from 11/17/2024 has improved from GFR 82 as per lab results from [facility] record from 06/26/2024 Problem Diabetic peripheral neuropathy (398119047) Diabetic peripheral neuropathy (E11.42) Active confirmed Problem Type 2 diabetes mellitus with other specified complication, without long-term current use of insulin (E11.69) Active confirmed Problem Pulmonary hypertension (14603439) Pulmonary hypertension (I27.20) Active confirmed As per [facility] records from 09/27/2024 Problem Benign prostatic hypertrophy without outflow obstruction (140109751) BPH without urinary obstruction (N40.0) Active confirmed Problem Chronic obstructive lung disease (63773426) COPD without exacerbation (J44.9) Active confirmed Problem Diabetic peripheral vascular disease (162122884) Diabetic peripheral vascular disease (E11.51) Active confirmed [...] 11/23/2024 Encounters Encounter Location Date Provider Diagnosis [place] [address] [place] [address] 10/07/2024 Mau Freyarez [facility] [address] [place] [address] 10/07/2024 Mau Rivas [facility] [address] [place] [address] 10/07/2024 Mauamilcar Freyarez [facility] [address] [place] [address] 10/14/2024 Mauamilcar Freyarez H/O heart artery yon nt Z95.5 [facility] [address] [place] [address] 11/15/2024 Mau Freyarez Elevated liver enzym es [...] N31.8 and H/O heart artery stent Z95.5 [facility] [address] [place] [address] 11/15/2024 Mau Rivas [facility] [address] [place] [address] 10/07/2024 Mau Rivas Major depressive disorder, recurrent episode, moderate F33.1 ; Hypertensive heart and chronic kidney disease without heart failure, with stage 1 through stage 4 chronic kidney disease, or unspecified chronic kidney disease I13.10 ; Atherosclerosis of [place] coronary artery of [place] heart with angina pectoris I25.119 ; Pulmonary [...] ; H/O heart artery stent Z95.5 ; MCC (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 of insulin Z79.4 ; History of cerebrovascular accident (CVA) in adulthood Z86.73 ; Body mass index (BMI) of 32.0 to 32.9 in adult Z68.32 ; Encounter for examination of eyes and vision without abnormal findings Z01.00 ; Encounter for fecal immunochemical test screening Z12.11 ; Screening for osteoporosis Z13.820 and Encounter for prostate cancer screening Z12.5 [facility] [address] [address] 10/20/2024 Mau Rivas Hypertensive heart a nd chronic kidney disease without heart failure, with stage 1 through stage 4 chronic kidney disease, or unspecified chronic kidney disease I13.10 ; Elevated liver enzymes R74.8 ; Pulmonary hypertension I27.20 ; Atherosclerosis of [place] coronary artery of [place] heart with angina pectoris I25.119 ; Old [...] ; H/O heart artery stent Z95.5 ; superintendent terminal (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 of insulin Z79.4 and Body mass index (BMI) of 31.0 to 31.9 in adult Z68.31 [facility] [address] [address] 11/09/2024 Mau Rivas Elevated liver enzym es R74.8 [facility] [address] [place] [address] 11/15/2024 Mau Rivas Alzheimer's disease with early [...] ; Pulmonary hypertension I27.20 ; Atherosclerosis of [place] coronary artery of [place] heart with angina pectoris I25.119 ; Type [...] ; H/O heart artery stent Z95.5 ; superintendent terminal (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 of anticoagulants Z79.01 ; superintendent terminal (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 of insulin Z79.4 ; Body mass index (BMI) of 30.0 to 30.9 in adult Z68.30 ; Encounter for examination of eyes and vision without abnormal findings Z01.00 and Encounter for screening fecal occult blood testing Z12.[address] [address] 11/23/2024 Mau Rivas Major depressive disorder, recurrent [...] chronic kidney disease I13.10 ; Atherosclerosis of [place] coronary artery of [place] heart with angina pectoris I25.119 ; Pulmonary [...] ; H/O heart artery stent Z95.5 ; superintendent terminal (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 of insulin Z79.4 ; superintendent terminal (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 of anticoagulants Z79.01 and Body mass index (BMI) of 30.0 to 30.9 in adult Z68.30 [facility] [address] [place] [address] 11/17/2024 Mau [facility] [address] [place] [address] 11/25/2024 Mau [facility] [address] [place] [address] 03/06/2025 Mauamilcar Rivas Type 2 diabetes mellitus [...] I27.20) As per [facility] records from 09/27/2024 As per [facility] records from 09/27/2024. Will continue to monitor. Strict blood pressure control, low fat diet and daily exercise as tolerated recommended. 10/07/2024 Atherosclerosis of [place] coronary artery of [place] heart with angina pectoris (ICD-10 - I25.119) 10/07/2024 Pulmonary hypertension (ICD-10 - I27.20) As per [facility] records from 09/27/2024 As per [facility] records from 09/27/2024. Will continue to monitor. Strict blood pressure control, low fat diet and daily exercise as tolerated recommended. 10/20/2024 Atherosclerosis of [place] coronary artery of [place] heart with angina pectoris (ICD-10 - I25.119) [...] pancreatitis type (ICD-10 - K86.1) As per [facility] records from 07/14/2024 As per [facility] records from 07/14/2024. Will continue to [...] I27.20) As per [facility] records from 09/27/2024 As per [facility] records from 09/27/2024. Will continue to monitor. Strict blood pressure control, low fat diet and daily exercise as tolerated recommended. 10/20/2024 CKD (chronic kidney disease), stage II (ICD-10 - N18.2) GFR 82 as per lab results from [facility] record from 06/26/2024 GFR 82 as per lab results from [facility] record from 06/26/2024 10/07/2024 CKD (chronic kidney disease), stage II (ICD-10 - N18.2) GFR 82 as per lab results from [facility] record from 06/26/2024 GFR 82 as per lab results from [facility] record from 06/26/2024 10/07/2024 Type 2 diabetes mellitus with other specified complication, without long-term current use of insulin (ICD-10 - E11.69) Mixed Hyperlipidemia as due to diabetes mellitus (DM) 11/15/2024 Atherosclerosis of [place] coronary artery of [place] heart with angina pectoris (ICD-10 - I25.119) 11/15/2024 H/O heart artery stent (ICD-10 - Z95.5) 10/20/2024 Type 2 diabetes mellitus with other specified complication, without long-term current use of insulin (ICD-10 - E11.69) Mixed Hyperlipidemia as due to diabetes mellitus (DM). Continue taking Glipizide. 11/23/2024 Atherosclerosis of [place] coronary artery of [place] heart with angina pectoris (ICD-10 - I25.119) 11/23/2024 Pulmonary hypertension (ICD-10 - I27.20) As per [facility] records from 09/27/2024 As per [facility] records from 09/27/2024. Will continue to monitor. [...] pancreatitis type (ICD-10 - K86.1) As per [facility] records from 07/14/2024 As per [facility] records from 07/14/2024. Avoid smoking and drinking alcohol, and limit caffeine. Eat a healthy diet that's low in fat and protein, and eat smaller meals more frequently 10/07/2024 BPH without urinary obstruction (ICD-10 - N40.0) 10/20/2024 Chronic pancreatitis, unspecified pancreatitis type (ICD-10 - K86.1) As per [facility] records from 07/14/2024 As per [facility] records from 07/14/2024. Avoid smoking and [...] pancreatitis type (ICD-10 - K86.1) As per [facility] records from 07/14/2024 As per [facility] records from 07/14/2024. Will continue to [...] heart artery stent (ICD-10 - Z95.5) 10/07/2024 MCC (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 of insulin (ICD-10 - Z79.4) 10/20/2024 H/O heart artery stent (ICD-10 - Z95.5) 11/23/2024 H/O heart artery stent (ICD-10 - Z95.5) 11/23/2024 MCC (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 of insulin (ICD-10 - Z79.4) 10/07/2024 History of cerebrovascular accident (CVA) in adulthood (ICD-10 - Z86.73) 10/20/2024 MCC (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 of insulin (ICD-10 - Z79.4) 11/15/2024 superintendent terminal (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 of anticoagulants (ICD-10 - Z79.01) 11/15/2024 MCC (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 of insulin (ICD-10 - Z79.4) 10/20/2024 Body mass index (BMI) of 31.0 to 31.9 in adult (ICD-10 - Z68.31) 10/07/2024 Body mass index (BMI) of 32.0 to 32.9 in adult (ICD-10 - Z68.32) 11/23/2024 superintendent terminal (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 of anticoagulants (ICD-10 - Z79.01) [...] INR 12/16/2024 Next Appt Details Provider Name:Mau montoya, 12/19/2025 09:00:00 AM, [address] [facility] [address], [address], Insurance Providers Payer Name Payer Address Payer Phone Subscriber Number Group Number Insured Name Patient Relationship to Insured Coverage Start Date Coverage End Date [facility] [address] [address] [place] [address] [id number] EDUARDO MILLS Self - patient is the [...]
--- OUTSIDE RECORDS SUMMARY | 2025-06-20 09:05 | XMS_ITS | Clinical Summary ---
Author Organization [address] [place] [address] [place] [phone] Phone Care Team Providers Care Road Design Draftsperson Name Role Phone Lewis Goldberg NP Primary Care Provider [phone] Allergies Active Allergy Reactions Criticality Noted Date [...] by mouth as needed for Other (hypoglycemia). 01/12/20 24 Active gabapentin (NEURONTIN) 400 mg capsule Take 1 Capsule by mouth 3 times daily. Active trospium 60 mg capsule,extended release 24hr Take 1 Capsule by mouth daily. Active glucagon (Baqsimi) 3 mg/actuation nasal spray 1 Dose by Nasal route as needed for Other (hypoglycemia). 04/03/20 23 Active dextrose 40 % gel Take 15 g by mouth as needed for Other. 12/04/19 23 Active glucagon (Gvoke HypoPen 1-Pack) 0.5 mg/0.1 mL auto-injector Inject 1 Dose into the skin as needed for Other (severe hypoglycemia). 10/17/20 22 Active atorvastatin (LIPITOR) 40 mg tablet Take 1 Tablet by mouth daily. 07/17/20 22 Active isosorbide mononitrate (IMDUR) 30 mg 24 hr tablet Take 1 Tablet by mouth daily. 07/16/20 Active lancets lancets USE DIRECTED TO TEST BLOOD SUGAR ONCE A DAY 02/20/20 Active losartan (COZAAR) 25 mg tablet Take 25 mg by mouth daily. Active aspirin 81 mg EC tablet Take [...] mouth 3 times daily (with meals). 12/30/19 Active fluticasone furoate-vilanteroL (Breo Ellipta) 100-25 mcg/dose inhaler Inhale by mouth. INHALE 1 PUFF BY MOUTH INTO THE lungs EVERY DAY AT THE same TIME EVERY DAY 08/19/20 Active glipiZIDE (GLUCOTROL) 10 mg tablet Take 1 tablet (10 mg total) by mouth 2 (two) times a day before meals. 180 tablet 3 12/30/19 25 Active blood sugar diagnostic (FreeStyle Lite Strips) [...] as directed 100 each 12/30/19 25 Active pimecrolimus (ELIDEL) 1 % cream Apply topically if needed. 02/14/20 25 Active insulin aluminum fabrication supervisor cart,aut,G6/7,cntr (Omnipod 5 G6-G7 Intro Kt,Gen5,) cartridgeIndicatio ns:Diabetes mellitus type 2, uncomplicated, on superintendent container terminal insulin pump ([facility] V24, [facility] V28) Please dispense 1 pdf, it [...] 40 units 15 mL 03/28/20 25 Active Additional Information Patient not taking.Reported on 06/13/2025 insulin degludec (TRESIBA FlexTouch U-200) 200 unit/mL (3 mL) CONCENTRATED injection pen 90 units SC at bedtime 45 mL 03/28/20 25 Active pen needle, diabetic (Microdot Insulin Pen Needle) 33 gauge x 5/32 needle Use with insulin 4 times a day 100 each 03/28/20 25 Active insulin aspart (NovoLOG) 100 unit/mL injection Use daily with insulin pump, max daily dose 150 units. Dispense 3 vials 30 mL 05/09/20 026 Active insulin pump cart,auto,BT,G6/7 (Omnipod 5 G6-G7 Pods, Gen 5,) cartridgeIndicatio ns:Diabetes mellitus type 2 with neurological manifestations ([facility] V24, [facility] V28) 1 DEVICE BY DOES NOT APPLY ROUTE EVERY 48 HOURS 45 each 05/23/20 25 Active lansoprazole (PREVACID) [address] capsule Take 1 capsule (30 mg total) by mouth 1 (one) time each day. Do not crush or chew. 30 each 3 06/12/20 25 026 Active hydrocortisone (Proctosol HC) 2.5 % rectal cream Insert into the rectum 2 (two) times a day for 10 days. 30 g 06/12/20 25 025 Active apixaban (ELIQUIS) 5 mg tablet Take 1 tablet (5 mg total) by mouth 2 (two) times a day. Take 1 Tablet by mouth 2 times daily. 180 tablet 2 06/13/20 25 Active metoprolol succinate (TOPROL-XL) 50 mg 24 hr tablet Take 1 tablet (50 mg total) by mouth 1 (one) time each day. 90 tablet 2 06/13/20 25 Active metoprolol succinate (TOPROL-XL) 50 mg 24 hr tablet Take 1 Tab by mouth daily. 08/06/20 20 025 Discontin ued(Reord er) lansoprazole (PREVACID) [address] capsule Take 1 capsule (30 mg total) by mouth 1 (one) time each day. Do not crush or chew. 30 each 3 01/25/20 25 025 Discontin ued(Reord er) hydrocortisone (Proctosol HC) 2.5 % rectal cream Insert into the rectum 2 (two) times a day for 10 days. 30 g 01/25/20 25 025 Discontin ued(Reord er) insulin pump cart,auto,BT,G6/7 (Omnipod 5 G6-G7 Pods, Gen 5,) cartridgeIndicatio ns:Diabetes mellitus type 2 with neurological manifestations ([facility] V24, [facility] V28) 1 DEVICE BY DOES NOT APPLY ROUTE EVERY 48 HOURS 45 each 3 02/15/20 25 025 Discontin ued(Reord er) apixaban (ELIQUIS) 5 mg tablet Take 1 tablet (5 mg total) by mouth 2 (two) times a day. Take 1 Tablet by mouth 2 times daily. 180 tablet 1 04/11/20 025 Discontin ued(Reord er) Active Problems Problem [...] Diabetes mellitus type 2, un complicated, on nursing home insulin pump ([facility] V24, [facility] V28) 05/21/2023 Diabetes mellitus type 2 wit h neurological manifestations ([facility] V24, [facility] V28) 08/04/2022 PVC's (premature ventricular contractions) [...] losartan and isosorbide as prescribed. Chronic pancreatitis (CMS/HCC V24, CMS/HCC V28) 07/19/2019 PFO (patent foramen ovale) 06/29/2019 Assessment & Plan (06/13/2025 9:12 AM EDT): Patient has history of PFO was deemed not a candidate for surgical care. He continues aspirin therapy. Assessment & Plan (02/03/2025 1:19 PM EDT): Patient has history of PFO was deemed not a candidate for surgical care. He continues aspirin therapy. 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 He continues on risk factor modifying agents. He denies any exertional anginal symptoms. Continue with aspirin, statin and beta-martha. I have reviewed with the patient the importance of a heart healthy lifestyle which includes eating a low-fat low-salt diet, getting regular exercise, maintaining a healthy weight, not smoking, and following up with routine medical care. Assessment & Plan (02/03/2025 1:19 PM EDT): Patient has history of AR and was left with residual coronary disease. [...] with routine medical care. Cerebrovascular accident (CVA) ([facility] V24, [facility] V28) 11/22/2018 Overview (06/13/2025): Follows with neurology. Assessment & Plan (06/13/2025 9:12 AM EDT): Patient has history of CVA and has evidence of PFO however he was deemed not a candidate for closure. He was seen by neurology in the past and was left on aspirin and Eliquis due to multiple previous events. Esophageal dysmotility 07/13/2018 GERD (gastroesophageal reflux disease) 8 Overview (07/27/2024): esophagitis Hyperlipidemia 04/09/2018 Assessment & Plan (06/13/2025 9:12 AM EDT): Patient's last LDL cholesterol was 29. He will remain on atorvastatin as prescribed. Assessment & Plan (02/03/2025 1:19 PM EDT): [...] Encounters Date Type Department Care Team Description 06/13/2025 8:40 AM EDT Office Visit [facility] [address] [place] [address] Jerrica Rizzo NP Coronary artery disease involving [place] coronary artery of [place] heart without angina pectoris (Primary Dx); Cerebrovascular accident (CVA), unspecified mechanism (CMS/HCC V24, CMS/HCC V28); PFO (patent foramen ovale); Mixed hyperlipidemia 06/12/2025 9:30 AM EDT Office Visit Gastroenterology - [place] [address] [place] [phone] Lucia Rebolledo PA Positive colorectal cancer screening using Cologuard test (Primary Dx); Gastroesophageal reflux disease with esophagitis without hemorrhage; Tubular adenoma; Internal hemorrhoids with complication 05/31/2025 Telephone Endocrinology - [address] [phone] Sydney Hector PA 05/29/2025 Telephone Endocrinology [address] [phone] Sydney Hector PA 05/09/2025 8:00 AM EDT Office Visit Endocrinology [address] [phone] Sydney Hector PA Diabetes mellitus type 2 with neurological manifestations (CMS/HCC V24, CMS/HCC V28) (Primary Dx); Secondary hypertension; Mixed hyperlipidemia 04/11/2025 Telephone [facility] [address] [place] [phone] Jerrica Rizzo NP 03/28/2025 8:00 AM EDT Office Visit Endocrinology - [address] [phone] Sydney Hector PA Diabetes mellitus type 2, uncomplicated, on superintendent container terminal insulin pump (CMS/HCC V24, CMS/HCC V28) (Primary Dx) from Last 3 Months Surgical History Surgery Date Site/Laterality Comments APPENDECTOMY PROCEDURE: [place] APPENDECTOMY ROTATOR CUFF REPAIR PROCEDURE: HISTORICAL ROTATOR CUFF REPAIR BACK SURGERY 1992 PROCEDURE: HISTORICAL BACK SURGERY; COMMENT: lumbar COLONOSCOPY W/ BIOPSIES ESOPHAGOGASTRODUODENOSCOPY Medical History Medical History Date Comments Type 2 diabetes mellitus wit h neurological manifestations, uncontrolled 11/18/2017 DX:Type 2 diabetes mellitus with neurological manifestations, uncontrolled Major depression 03/03/2019 DX:Major depres kody Old AR (myocardial infarction) 03/03/2019 D X:Old AR (myocardial infarction) PFO (patent foramen ovale) 06/29/2019 DX:PF O (patent foramen ovale) Family history of cardiovasc ular disease DX:Family history of cardiov ascular disease Sleep apnea Hyperlipidemia Hypertension Pancreatitis GERD (gastroesophageal reflux disease) CAD (coronary artery disease) CVA (cerebral vascular accid ent) ([facility] V24, [facility] V28) Esophageal dysmotility PVC (premature ventricular [...] Sign Reading Time Taken Comments Blood Pressure 110/66 06/13/2025 8:25 AM EDT Pulse 61 06/13/2025 8:25 AM EDT Temperature 36.2 C (97.1 F) 05/09/2025 8:00 AM EDT Respiratory Rate 14 03/28/2025 8:05 AM EDT Oxygen Saturation 95% 06/13/2025 8:25 AM EDT Inhaled Oxygen Concentration - - Weight 87.6 kg (193 lb 1.6 oz) 06/13/2025 8:25 A M EDT Height 167.6 cm (5' 6 ) 06/13/2025 8:25 AM EDT Body Mass Index 31.17 06/13/2025 8:25 AM EDT Plan of Treatment Upcoming Encounters Date Type Department Care Team ([facility] st Contact Info) Description 08/09/2025 9:45 AM EDT Office Visit Endocrinology [address] [place] [phone] Sydney Hector PA [address] [place] [address] 12/11/2025 9:10 AM EST Office Visit Gastroenterology - [place] [address] [place] [phone] Lucia Rebolledo PA [address] [place] [phone] Health Maintenance Due Date Last Done Comments [...] Exam 10/28/2024 10/28/2023 Influenza Vaccine (#1) 2025 , 07/10/2022, 07/29/2021, Additional history exists Diabetes: Blood [...] EDT Diabetes mellitus type 2, uncomplicated, on superintendent container terminal insulin pump ([facility] V24, [facility] V28) COLONOSCOPY Routine 03/08/2025 2:40 PM EDT BRBPR (bright red blood per rectum) Positive colorectal cancer screening using Cologuard test MICROALBUMIN CREATININE URINE RATIO Routine 12/29/2024 10:20 AM EST Diabetes mellitus type 2, uncomplicated, on superintendent container terminal insulin pump ([facility] V24, [facility] V28) BASIC METABOLIC PANEL Routine 12/29/2024 10:20 AM EST Diabetes mellitus type 2, uncomplicated, on superintendent container terminal insulin pump ([facility] V24, [facility] V28) LIPID PANEL WITH REFLEX TO DIRECT LDL Routine 12/29/2024 10:20 AM EST Diabetes mellitus type 2, uncomplicated, on superintendent container terminal insulin pump ([facility] V24, [facility] V28) DIABETES EYE EXAM Routine 10/28/2023 from Last 3 Months or Most Recently Relevant to Health Maintenance Results * (ABNORMAL) Hemoglobin A1c (05/09/2025 8:40 AM EDT) Hemoglobin A1C 9.5(H) <6.5 % LAB CHEMISTRY METHOD 05/09/2025 1:30 PM EDT [facility] Mean Bld Glu Estim. 226 mg/dL LAB CHEMISTRY METHOD 05/09/2025 1:30 PM EDT [facility] Blood Venous blood specimen / Unknown Venipuncture / Unknown 05/09/2025 8:40 AM EDT 05/09/2025 8:40 AM EDT us Sydney LEWIS LAB BLOOD ORDERABLES Final Result [facility] [address] [place] [address], [place] [phone] * COLONOSCOPY Anesthesia - MAC; [facility] ENDOSCOPY (03/08/2025 2:40 PM EDT) Anatomical Region Laterality Modality Endoscopy 03/08/2025 2:22 PM EDT Impressions 03/08/2025 2:45 PM EDT - Two diminutive polyps in the sigmoid colon and in the transverse colon, removed with a jumbo cold forceps. Resected and retrieved. - Internal hemorrhoids. Recommendation: - Await pathology results. - No repeat colonoscopy due to age. Narrative 03/08/2025 2:[address] [facility] GI Patient Name: Deann Thao Procedure Date: [...] verified by the physician, the nurse, the academic services professional and the radio electronics technician in the pre-procedure area in the [...] reduce spontaneously). Procedure Code(s): --- Professional --- 59076, Colonoscopy, flexible; with biopsy, single or multiple Diagnosis Code(s): --- Professional --- D12.5, Benign neoplasm of sigmoid colon D12.3, Benign neoplasm of transverse colon (hepatic flexure or splenic flexure) CPT copyright 2020 [employer]. All rights reserved. The codes documented in this report are preliminary and upon channel account manager review may be revised to meet current compliance requirements. Joe Echols MD 03/08/2025 2:45:33 PM This report has been signed electronically.Joe Echols MD Number of Addenda: 0 Note Initiated On: 03/08/2025 2:22 PM Scope Withdrawal Time: 0 hours 9 minutes 20 seconds Scope In: 2:29:28 PM Scope Out: 2:40:44 PM Endoscopy Department at [facility] - [address] [place] [phone] Procedure Note Joe Echols MD - 03/08/[address] [facility] GI Patient Name: Deann Thao Procedure Date: [...] the physician, the nurse, theanesthetist and the radio electronics technician in the pre-procedure area in the [...] insize. These polyps were removed with a [employer] coldforceps. Resection and retrieval were complete. Estimatedblood loss was minimal. Internal hemorrhoids were found duringretroflexion. The hemorrhoids were Grade I (internal hemorrhoids that do not prolapse) and Grade II (internal hemorrhoids that prolapse but reducespontaneously). Procedure Code(s): --- Professional --- 41731, Colonoscopy, flexible; with biopsy, singleor multiple Diagnosis Code(s): --- Professional --- D12.5, Benign neoplasm of sigmoid colon D12.3, Benign neoplasm of transverse colon (hepatic flexure or splenic flexure) CPT copyright 2020 [employer]. All rights reserved. The codes documented in this report are preliminary and upon channel account manager reviewmay be revised to meet current compliance requirements. Joe Echols MD 03/08/2025 2:45:33 PM This report has been signed electronically.Joe Echols MD Number of Addenda: 0 Note Initiated On: 03/08/2025 2:22 PM Scope Withdrawal Time: 0 hours 9 minutes 20 seconds Scope In: 2:29:28 PM Scope Out: 2:40:44 PM Endoscopy Department at [facility] - [address] [place] [phone] IMPRESSION: - Two diminutive polyps in the sigmoid colon and in the transverse colon, removed with a jumbo cold forceps. Resected and retrieved. - Internal hemorrhoids. Recommendation: - Await pathology results. - No repeat colonoscopy due to age. us Joe Echols MD GI~PROCEDURE ORDERABLES Fin al Result * Lipid panel with reflex to direct LDL (12/29/2024 10:20 AM EST) Cholesterol 100 0 - 200 mg/dL LAB CHEMISTRY METHOD 12/29/2024 12:56 PM EST [facility] Triglycerides 119 0 - 150 mg/dL LAB CHEMISTRY METHOD 12/29/2024 12:56 PM EST [facility] HDL 47 >=40 mg/dL LAB CHEMISTRY METHOD 12/29/2024 12:56 PM EST [facility] LDL Calculated 29 0 - 100 mg/dL LAB CHEMISTRY METHOD 12/29/2024 12:56 PM EST [facility] VLDL Cholesterol [place] 23.8 mg/dL LAB CHEMISTRY METHOD 12/29/2024 12:56 PM EST [facility] Non HDL Chol. (LDL+VLDL) 53 <145 mg/dL LAB CHEMISTRY METHOD 12/29/2024 12:56 PM EST [facility] Chol/HDL Ratio 2.1 0.0 - 4.4 LAB CHEMISTRY METHOD 12/29/2024 12:56 PM [facility] Blood Venous blood specimen / Unknown Venipuncture / Unknown 12/29/2024 10:20 AM EST 12/29/2024 10:20 AM EST us Sydney LEWIS LAB BLOOD ORDERABLES Final Result [facility] [address] [place] [address], [place] [phone] * (ABNORMAL) Microalbumin creatinine urine ratio (12/29/2024 10:20 AM EST) Creatinine, Urine 224.0 mg/dL LAB CHEMISTRY METHOD 12/29/2024 1:14 PM [facility] Microalb, Ur 98.1(H) 0.0 - 29.0 mg/L LAB CHEMISTRY METHOD 12/29/2024 1:14 PM [facility] Microalb/Crea t Ratio 44(H) <30 mg/g creat LAB CHEMISTRY METHOD 12/29/2024 1:14 PM [facility] Urine Urine specimen from urethra / Unknown Non-blood Collection / Unknown 12/29/2024 10:20 AM EST 12/29/2024 10:20 AM EST us Sydney LEWIS LAB URINE ORDERABLES Final Result [facility] [address] [place] [address], * (ABNORMAL) Basic metabolic panel (12/29/2024 10:20 AM EST) Pathologist [facility] Sodium 135 133 - 145 mmol/L LAB CHEMISTRY METHOD 12/29/2024 12:52 PM [facility] Potassium 4.1 3.5 - [...] mg/dL LAB CHEMISTRY METHOD 12/29/2024 12:52 PM EST [facility] Creatinine 0.97 0.70 - 1.30 mg/dL LAB CHEMISTRY METHOD 12/29/2024 12:52 PM [facility] eGFR 83 >=60 mL/min/1. 73m2 LAB CHEMISTRY METHOD 12/29/2024 12:52 PM EST [facility] Comment:Calculation based on the Chronic [...] Sydney LEWIS LAB BLOOD ORDERABLES Final Result [facility] [address] [place] [address], * Diabetes Eye Exam (10/28/2023) Diabetes: Annual Retina Eye Exam abstracted Historical Provider HEALTH MAINTENANCE Final Result from Last 3 Months or Most Recently Relevant to Health Maintenance Insurance [facility] Member Subscriber Plan / Payer (Ef fective 2024-Present) Name:Deann Thao Relation to Subscriber:Self Name:Deann Thao Payer ID:[id number] Group ID:[id number] Type:Not on file Address: [address] [place] [id number] Draftsperson Relationship Specialty Start Date End Date Lewis Goldberg NP [address] [facility] GILBERT Powell PCP - General 07/05/21
--- OUTSIDE RECORDS SUMMARY | 2025-06-20 09:05 | XMS_ITS | Encounter Summary ---
Author Organization [facility] Address [address] [place] [address] Care Team Providers Care Reel Assembler Name Role Phone Lewis Goldberg NP Primary Care Provider [phone] Reason for Visit * Reason Onset Date Comments Med Refill 05/31/2025 Encounter Details Date Type Department Care Team (Late Contact Info) Description 05/31/2025 Telephone Endocrinology [address] [phone] Sydney Hector PA [address] [place] [address] Social History Tobacco Use Types Packs/Day Years [...] Department Care Team (Late Contact Info) Description 08/09/2025 9:45 AM EDT Office Visit Endocrinology - [address] [phone] Sydney Hector PA [address] [place] [address] 12/11/2025 9:10 AM EST Office Visit Gastroenterology - [place] [address] [place] [address] Lucia Rebolledo PA [address] [place] [phone] documented as of this encounter Visit Diagnoses Not on filedocumented in this encounter Care Teams Reel Assembler Relationship Specialty Start Date End Date Lewis Goldberg NP [address] [place], [place] PCP - General 07/05/21 documented as of this encounter
--- NOTE | 2025-06-20 09:07 | EMG_ITS ---
R/O CERVICAL RADICULOPATHY, BREANA HAND WEAKNESS, RT SIDE NECK PAIN, DIABETIC NCV/EMG BREANA UPPER Impression: Severe carpal tunnel syndrome on the left, and an early carpal tunnel syndrome on the right. EMG of the right C5-T1 innervated muscles is consistent with mild chronic neuropathic changes in the right abductor pollicis brevis muscle suggestive of chronic median neuropathy. Please see complete neurophysiological report MTDD
== END 2025-06-20 08:48 | disposition home or self-care (01) ==
LOC: HO.NEURO 08:47
PROVIDERS: PCP Nurse Practitioner Family; Visit Provider Psychiatry & Neurology Neurology
DX: M54.12 Radiculopathy, cervical region (principal)
CPT/HCPCS: 95886; 95913

== ENCOUNTER → 2025-06-20 09:07 | Outpatient (BNV) | payer OTHER, SELFPAY | PROVIDERS: PCP Nurse Practitioner Family; Visit Provider Psychiatry & Neurology Neurology | DX: G56.03 Carpal tunnel syndrome, bilateral upper limbs (principal) | CPT/HCPCS: 95886; 95913 ==

== ENCOUNTER 2025-07-24 13:48 | Outpatient (AMB) | payer OTHER, SELFPAY ==
--- OUTSIDE RECORDS SUMMARY | 2024-12-16 04:30 | XMS_ITS ---
Author Organization [facility] Address [address] [place] [address] Care Team Providers Care Computer Trainer Name Role Phone Mau Rivas Primary Care Provider [phone] REASON FOR VISIT INR LAB Social History Sex Assigned At : Social History Observation Description Sex Assigned At Female Encounters Encounter Location Date Provider Diagnosis [facility] [address] [address] 12/16/2024 Mau Rivas Plan Of Treatment Next Appt Details Provider Name:Mauamilcar montoya, 12/19/2025 09:00:00 AM, [address] [place] [address], [place] [address], [place], [address], Progress Notes * MILLSEDUARDODOB:05/1950 (75 yo M)Acc No.[id number]:12/16/2024 Progress Note Patient: Federico GLOVER EDUARDO Provider: Dionna Rivas MD :1950 A ge:74 Y S ex:Male Date:12/16/2024 Address:[address] [place], [place] [id number] Subjective: * Chief Complaints: * 1 . INR LAB. * Medical History: Objective: * Vitals: Assessment: Plan: * Treatment: * Images: * Electronic signature of Gus Rivas MD on 07/24/2025 at 03:28 PM EDT Sign off status: Pending * Provider: Dionna Rivas MD Date: 0 12/16/2024 Generated for Rosalie padilla/Yoav/eTransmitting on: 0 07/24/2025 03:28 PM EDT
--- OUTSIDE RECORDS SUMMARY | 2024-12-20 05:00 | XMS_ITS ---
Author Organization [facility] Address [address] [place] [address] Care Team Providers Care Home Economics Extension Worker Name Role Phone Mau Rivas Primary Care Provider [phone] REASON FOR VISIT RESULTS LAB Social History Sex Assigned At : Social History Observation Description Sex Assigned At Female Encounters Encounter Location Date Provider Diagnosis [facility] [address] [address] 12/20/2024 Mau Rivas Plan Of Treatment Next Appt Details Provider Name:Mau montoya, 12/19/2025 09:00:00 AM, [address] [place] [address], [facility], [place], [address], Progress Notes * GENE SAÚLSUNDOB:05/1950 (75 yo M)Acc No.[id number]:12/20/2024 Progress Notes Patient: MAYO ERICNACION Provider: Dionna Rivas MD :1950 A ge:74 Y S ex:Male Date:12/20/2024 Address:[address] [place], [place] [phone] Subjective: * Chief Complaints: * 1 . RESULTS LAB. * Medical History: Objective: * Vitals: Assessment: Plan: * Treatment: * Images: Care Plan Details* * Electronic signature of Gus Rivas MD on 07/24/2025 at 03:28 PM EDT Sign off status: Pending * Provider: Dionna Rivas MD Date: 0 12/20/2024 Generated for Printi ng/Faxing/eTransmitting on: 0 07/24/2025 03:28 PM EDT
--- OUTSIDE RECORDS SUMMARY | 2024-12-30 05:00 | XMS_ITS ---
Author Organization [facility] Address [address] [place] [address] Care Team Providers Care Wax Pot Tender Name Role Phone Mau Rivas Primary Care Provider [phone] REASON FOR VISIT F/UP REFILL Social History Sex Assigned At : Social History Observation Description Sex Assigned At Female Encounters Encounter Location Date Provider Diagnosis [address] [address] 12/30/2024 Mau Rivas Plan Of Treatment Next Appt Details Provider Name:Mau Coats jan, 12/19/2025 09:00:00 AM, [address] [place] [address], [place] [address], [place], [address], Progress Notes * EDUARDO MILLSDOB:05/1950 (75 yo M)Acc No.[id number]:12/30/2024 Progress Note Patient: Federico GLOVER EDUARDO Provider: Dionna Rivas MD :1950 A ge:74 Y S ex:Male Date:12/30/2024 Address:[address] [place], [place] [phone] Subjective: * Chief Complaints: * 1 . F/UP REFILL. * Medical History: Objective: * Vitals: Assessment: Plan: * Treatment: * Images: Care Plan Details* * Electronic signature of Gus Rivas MD on 07/24/2025 at 03:28 PM EDT Sign off status: Pending * Provider: Dionna Rivas MD Date: 0 12/30/2024 Generated for Rosalie padilla/Yoav/Ceferinoitting on: 0 07/24/2025 03:28 PM EDT
[2025-07-24 14:03] VITALS: BP 112/64; PULSE 64; RESP 18; TEMP 36.9; O2SAT 96; BMI 32.3
--- NOTE | 2025-07-24 14:03 | A.OFFPC_ITS ---
Vital Signs 07/24/25 14:03 Height 5 ft 6 in Weight 200 lb BMI 32.3 BP 112/64 Blood Pressure Location Rt brachial Position Sitting Respiration 18 Pulse 64 Pulse Source Pulse Oximeter Temp 98.5 F Temp Source Oral Pulse Oximetry (%) 96 Oxygen Delivery Method Room Air Intake Visit Reasons: Annual PE- A1C needed. Allergies No Known Allergies Allergy (Verified 07/24/25 15:33) Medication List - Last Reconciled 07/24/25 by STEWART HarrisP- albuterol sulfate 90 mcg/actuation 2 inhalations inhalation Q6-8H PRN amoxicillin 2,000 mg (4 x 500 mg) PO ONCE apixaban 5 mg PO BID 90 days aspirin 81 mg PO DAILY 90 days atorvastatin 40 mg PO BEDTIME 90 days [bed protector 1; NS] benzonatate 200 mg PO BID PRN 10 days [Chair Lift For Stair use use daily] [cleaning towels 1; NS] clotrimazole-betamethasone 1-0.05 % 1 appl topical BID [diabetic shoes daily use with 3 pairs of inserts.] diaper,brief,adult,disposable Change at least 3 times daily or as needed for episodes of incontinence flash glucose scanning reader (FreeStyle Gera 2 [place]) TID flash glucose sensor (FreeStyle Gera 2 Sensor kit) TID fluticasone furoate-vilanterol 100-25 mcg/dose (Breo Ellipta) 1 ea inhalation DAILY gabapentin 400 mg PO TID 30 days glipizide 10 mg PO BID hospital bed weakness, use daily hydrocortisone 2.5% 1 appl topical TID insulin aspart U-100 (Novolog FlexPen U-100 Insulin aspart) 1 sliding scale dose subcut TID 30 days isosorbide mononitrate ER 30 mg PO DAILY 90 days lancets Use to check blood sugar if implanted device is not functioning. losartan 25 mg PO DAILY melatonin 10 mg (2 x 5 mg) PO BEDTIME PRN 90 days memantine (Namenda) 5 mg PO BID 30 days metoclopramide HCl 5 mg PO QIDACHS metoprolol succinate ER 50 mg PO DAILY 90 days montelukast 10 mg PO DAILY 90 days pen needle, diabetic (Comfort EZ Pen [place]) Use to administer insulin with pen 3 times a day as ordered. sertraline 25 mg PO DAILY tacrolimus 0.1% 1 appl topical DAILY PRN trospium ER 60 mg PO DAILY walker use daily Tobacco use date assessed: 07/24/25 Dental Screening Dental Screen Date: 02/08/25 HPI Annual PE- A1C needed. HPI Details History of Present Illness The patient is a 75-year-old male presenting for a physical examination. The patient has a history of diabetes mellitus with poor glycemic control, as indicated by an A1c level above 8. He is managed by an locomotive pipe fitter, but dietary non-compliance is noted, as he consumes unrestricted foods. Additionally, he experiences neuropathy, a complication of his diabetes. recent EMG of BUE did show severe left carpel tunnel, which i will refer him to our hand specialist. He He consults multiple specialists, including a urologist, stitching department supervisor, process steward, and locomotive pipe fitter, neurologist, reflecting a comprehensive healthcare approach. His eye examinations are up to date, indicating regular monitoring for diabetic retinopathy. The patient has seborrheic keratosis and multiple skin tags, which are benign skin conditions. He uses a cane regularly due to a slow but steady gait and is incontinent of urine, which may affect his daily activities. He is requesting a therapist, denies any si or hi Health Maintenance - RSV vaccination is due Social History - Functional status: Uses a cane regular ly due to slow but steady gait - Nutritional intake: Consumes unrestric kinza foods despite dietary recommendations for diabetes management Review of Systems - Neurological: Reports diabetic neuropa thy - Genitourinary: Reports urinary inconti nence -denies any fevers, chills, cp, increase d SOB, N/V, SI or HI. Physical Exam General: Cooperative, healthy appearing, comfortable, no acute distress and well developed Orientation: Patient oriented x3 Limitations: Uses a cane on a regular basis Head: Normal to inspection Ears: Hearing grossly normal bilaterally Nose: Normal external nose present Face and sinus: Normal facial exam Eyes: Appearance normal, both eyes and all related structures Neck: Normal visual inspection and Yes full ROM Respiratory: Normal respiratory effort and able to speak in complete sentences. Clear to auscultation bilaterally Cardiovascular: Regular rate and rhythm. Normal S1 and S2 GI: Normal to inspection. Soft to palpation and nontender : Testicles without masses/lesions and no hernias appreciated. Incontinent of urine Skin: Seborrheic keratosis, back lesions, skin tags, multiple Neuro: Patient oriented x3. Neuropathy present Extremities: Normal to inspection. Slow gait, but steady. Uses a cane plan 1. Diabetes Mellitus The patient is advised to improve glycemic control, focusing on dietary modifications and medication adherence. Follow-up with the locomotive pipe fitter is recommended for treatment adjustments. 2. Diabetic Neuropathy Management includes optimizing blood glucose levels to prevent further nerve damage, follow up with neuro. 3. Seborrheic Keratosis No specific treatment is required unless lesions become symptomatic or for cosmetic reasons, follow up with derm. 4. Urinary Incontinence The patient is encouraged to discuss management options with his urologist. 5. Preventative Care: Rsv Vaccination The patient is due for the RSV vaccination and should receive it at the earliest opportunity. Discussion Notes I discussed the importance of tight glucose control with the patient and emphasized the need for dietary modifications to manage his diabetes effectively. We also talked about the necessity of following up with his specialists, including the locomotive pipe fitter, to ensure comprehensive management of his conditions. I informed him about the need for the RSV vaccination and advised him to get it soon. Patient Instructions - Follow a diabetic-friendly diet to hel p control blood sugar levels. - Adhere to prescribed medications and m onitor blood glucose regularly. - Schedule follow-up appointments with y our locomotive pipe fitter and other specialists. - Get the RSV vaccination as soon as pos sible. - follow up with all specialists [facility] Medical History Encephalomalacia on imaging study Fatty liver Acquired deformity of toenail Delayed gastric emptying Prostate cancer Ventricular bigeminy seen on alarm security or surveillance monitor BPH (benign prostatic hyperplasia) Depression HTN (hypertension) Tenosynovitis of finger Encephalopathy Bilateral carpal tunnel syndrome Myocardial infarction PFO (patent foramen ovale) Cervical spondylarthritis Acquired skin tag Chronic pancreatitis Carpal tunnel syndrome COPD (chronic obstructive pulmonary disease) CVA (cerebral vascular accident) Type 2 diabetes mellitus Surgical History History of shoulder surgery History of appendectomy History of back surgery Family History Father Mental health disorder Mother Diabetes Unknown Substance use disorder Social History Housing: Apartment Alcohol intake: current Alcohol intake frequency: holidays/special occasions only Patient Tobacco Use Status: Never used Tobacco e-Cigarette/Vaping Use: Never Used Second Hand Smoke Exposure: No service: No Current occupational status: retired Cognitive needs: No Hearing needs: No Vision needs: No Questionnaire Thrive Questionnaire Date Thrive assessed: 02/08/25 I am a: Patient What is your living situation today?: I have a steady place to live Within the past 12 months, did the food you bought not last and you didn't have the money to get more?: Never true Within the past 12 months, did you worry whether your food would run out before you got money to buy more?: Never true Do you have trouble paying for medicines?: No Do you have trouble getting transportation to medical appointments?: No Do you have trouble paying your heating and electricity bill?: No Do you have trouble taking care of your child, family member or friend?: Yes Do you have trouble with day-to-day activities such as bathing, preparing meals, shopping, managing finances, etc.?: No Are you currently unemployed and looking for a job?: No Are you interested in more education?: No Please select the resources that you would like help with: None Currently or been in a relationship where the following occur: No concerns reported THRIVE Score: 0 JANY-7 AMB Questionnaire JANY-7 Date JANY - 7 assessed: 02/08/25 Source: Developed by Drs. Brayden Huffman, Becka Llanos, Tommy Butler and colleagues, with an educational rafal from [employer]. Physical exam (Primary Care) Vital Signs: Last Vital Signs Temp 98.5 F 07/24/25 14:03 Pulse 64 07/24/25 14:03 Resp 18 07/24/25 14:03 BP 112/64 07/24/25 14:03 Pulse Ox 96 07/24/25 14:03 Oxygen Delivery Method Room Air 07/24/25 14:03 BMI result Body Mass Index 32.3 Tobacco/Smoking Status: Tobacco use Status Tobacco use date assessed 07/24/25 07/24/25 14:09 Patient Tobacco Use Status Never used Tobacco 07/24/25 14:09 e-Cigarette/Vaping Use Never Used 07/24/25 14:09 Thrive Assessment: Date of Thrive Assessment Date Thrive assessed 02/08/25 07/24/25 14:09 Currently or been in a relationship where the following occur: No concerns reported Results AMB Hemoglobin A1c AMB Hemoglobin A1c 8.9 % Last Edit by TOBY Mccall on 07/24/25 14:2 0 Results Reviewed Results Reviewed: Laboratory Last Values Hgb A1c (Clinic) 8.9 % (4.0-6.0) H 07/24/25 14:12 Coding Level of Care Code Est Pt Prev Care >65y(46693) Diagnoses Encounter for routine adult physical exam with abnormal findings Z00.01 Severe carpal tunnel syndrome of left wrist G56.02 Assessment & Plan Assessment & Plan (1) Encounter for routine adult physical exam with abnormal findings: Code(s): Z00.01 - Encounter for general adult medical examination with abnormal findings Category: Medical (2) Severe carpal tunnel syndrome of left wrist: Code(s): G56.02 - Carpal tunnel syndrome, left upper limb Category: Medical Plan . Orders: Orders AMB Hemoglobin A1c Today Z13.9 - Encounter for screening, unspecified Lipid Panel Today Z00.01 - Encounter for general adult medical examination with abnormal findings Complete Blood Count Auto Diff Today Z00.01 - Encounter for general adult medical examination with abnormal findings Comprehensive [place]. Panel Fast Today Z00.01 - Encounter for general adult m edical examination with abnormal findings TSH reflex Free T4 Today Z00.01 - Encounter for general adult medical examination with abnormal findings UA CC w/rflx Micro + Cult Today Z00.01 - Encounter for general adult medical examination with abnormal findings Referrals Orthopedics Referral G56.02 - Carpal tunnel syndrome, left upper limb
--- OUTSIDE RECORDS SUMMARY | 2025-07-24 15:28 | XMS_ITS | Patient Health Record ---
Author Organization [facility] Address [address] [facility] [address] [place] [address] Care Team Providers Care Cognos Developer Name Role Phone VOSSKELLYGRETCHEN Dionna Primary Care Provide r Unavailable WILL PEREZ Unavailable [phone] Allergies No Known Allergies Reason For Referral Reason [id number] Diagnosis 1 Inflamed internal he morrhoid (K64.8) Referred Organization [facility] Referred Provider WILL PEREZ Referred Address [address] [place] [address] [place], Referred Provider Specialty [facility]astro[facility] log[facility] Referral Priority [...] Status Risk Notes Problem Acute myocardial infarction (05666418) Acute myocardial infarction, unspecified (I21.9) Active confirmed Problem Hyperlipidemia (50789096) Hyperlipidemia (E78.5) Active confirmed Problem Asthma (824728630) Asthma (J45.909) Active confirmed Problem Hypertension (13580982) Hypertension (I10) Active confirmed Problem Type 2 diabetes mellitus (87368027) Type 2 diabetes mellitus (E11.9) Active confirmed Vital Signs Heart Rate 69 /min 11/30/2024 Blood pressure diastolic 69 mm Hg 11/30/2024 Height 66 in 11/30/2024 Blood pressure systolic 109 mm Hg 11/30/2024 Weight 193 lbs 11/30/2024 BMI 31.15 kg/m2 11/30/2024 Encounters Encounter Location Date Provider Diagnosis [facility] [address] [facility], [place] [address] 11/30/2024 [facility] Abdominal pain R10.9 ; Constipation in male K59.00 ; Pancreatic cyst K86.2 and Colon cancer screening Z12.11 [facility] [address] [facility], [place] [address] 11/30/2024 [facility] Assessments Encounter Date Diagnosis (ICD Code) [...] Insured Coverage Start Date Coverage End Date [facility] Plan [address] [address] BERNIE KRISHNAN [phone] [id number] EDUARDO MILLS Self - patient is the insured MEDICARE SECONDARY [address] [place]HUA SALMERON [phone] [id number] EDUARDO MILLS Self - patient is the insured Medical (General) History Medical History History ICD Code Hypertension I10 Type 2 diabetes mellitus E11.9 Hyperlipidemia E78.5 Asthma J45.909 Acute myocardial infarction, unspecified I21.9 Surgical History Surgery Date(Month/Year) appendectomy Back surgery
--- OUTSIDE RECORDS SUMMARY | 2025-07-24 15:28 | XMS_ITS | Patient Health Record ---
Author Organization [employer]. 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 Name Role Phone Mau Rivas Primary Care Provider [phone] Allergies No Known Allergies Results Component Value Reference Range Notes X-Ray CHEST 2 VIEWS Reviewed date:10/20/2024 08:18:46 AM Interpretation: Performing Lab: Notes/Report: See Below For Report Exam # [id number] - October 15 2024 - CHEST 2 VIEWS - US ABDOMEN COMP Reviewed date:11/10/2024 04:39:59 PM Interpretation: Performing Lab: Notes/Report: See Below For Report Exam # [id number] - November 09 2024 - ABDOMEN COMP - Prothrombin Time (PT) with I NR-LC Reviewed date:10/20/2024 08:18:52 AM Interpretation: Performing Lab:[facility] [address], [address] [place] [id number], Phone - [phone], Director - Simon Notes/Report: INR 1.0 0.9-1.2 Higher intensity therapeutic range 2.5 - 3.5 antagonist therapy: Reference interval is for non-anticoagulated patients. . Standard Dose (moderate intensity therapeutic range): 2.0 - 3.0 Suggested INR therapeutic range for Vitamin K Prothrombin Time 11.0 9.1-12.0 sec EKG Electrocardiogram Reviewed date:10/07/2024 02:14:04 PM Interpretation: Performing Lab: Notes/Report: Cardiovascular Risk Assessme nt Reviewed date:10/20/2024 08:18:56 AM Interpretation: Performing Lab:[facility] [address], [address] [place] [id number], Phone - [phone], Director - Simon Notes/Report: Interpretation Note Supplemental report is available. PDF . Occult Blood, Fecal, IA-LAB MELVIN Reviewed date:10/20/2024 08:19:02 AM Interpretation: Performing Lab:[facility] [address] [place] [id number], Phone - [phone], Director - Simon Notes/Report: Occult Blood, Fecal, IA Negative Negative Microalbumin/Creatinine Rati o, Random Urine-LC Reviewed date:10/20/2024 08:22:37 AM Interpretation: Performing Lab:[facility] [address] [place] [id number], Phone - [phone], Director - Simon Notes/Report: Creatinine, Urine 107.2 Not Estab. mg/dL Albumin, Urine 5.0 Not Estab. ug/mL Alb/Creat Ratio 5 0-29 mg/g creat Normal: 0 - 29 Moderately increased: 30 - 300 Severely increased: >300 Hemoglobin A1C Reviewed date:01/10/2025 09:49:17 AM Interpretation: Performing Lab:[facility] [id number], Phone - [phone], Director - An Notes/Report: Hemoglobin A1c 11.0 4.8-5.6 % . Diabetes: >6.4 Prediabetes: 5.7 - 6.4 Glycemic control for adults with diabetes: <7.0 CBC With Differential/Platel et-LC-Q Reviewed date:10/20/2024 08:22:42 AM Interpretation: Performing Lab:[facility] [address] [id number], Phone - [phone], Director - Simon Notes/Report: WBC 5.7 3.4-10.8 [...] Immature Grans (Abs) 0.0 0.0-0.1 x10E3/uL Urinalysis, Dtwdywym-UM-S Reviewed date:10/20/2024 08:25:48 AM Interpretation: Performing Lab:[facility] [address] [id number], Phone - [phone], Director - Simon Notes/Report: Specific Upper Tract >=1.030 1.005-1.030 pH 5.5 5.0-7.5 Urine-Color Yellow [...] 14+eGFR-LC-Q Reviewed date:10/20/2024 08:22:46 AM Interpretation: Performing Lab:[facility] [address], [facility] [place] [id number], Phone - [phone], Director - Simon Notes/Report: Glucose 155 70-99 [...] Panel-Q-LC Reviewed date:10/20/2024 08:22:50 AM Interpretation: Performing Lab:[facility] [address] [id number], Phone - [phone], [facility] Notes/Report: Cholesterol, Total 115 100-199 mg/dL Triglycerides 129 0-149 mg/dL HDL Cholesterol 37 >39 mg/dL VLDL Cholesterol Orville 23 5-40 mg/dL LDL Chol Calc (NIH) 55 0-99 mg/dL PSA Total (Reflex To Free) Reviewed date:10/20/2024 08:22:54 AM Interpretation: Performing Lab:[facility] [address] [id number], Phone - [phone], Director - [facility] Notes/Report: Prostate Specific Ag 2.1 0.0-4.0 ng/mL Values obtained with different assay methods or kits cannot be used prostatectomy. The AUA defines biochemical recurrence as an initial According to the [place] [employer], Serum PSA should PSA value 0.2 ng/mL or greater followed by a subsequent confirmatory . interchangeably. Results cannot be interpreted as absolute evidence [employer] ECLIA methodology. decrease and remain at undetectable levels after radical of the presence or absence of malignant disease. PSA value 0.2 ng/mL or greater. Reflex Criteria The percent free PSA is performed on a reflex basis only when the total PSA is between 4.0 and 10.0 ng/mL. Microalb/Creat Ratio, Timed Ur-LC Reviewed date:11/17/2024 03:59:07 PM Interpretation: Performing Lab:[facility] [id number], Phone - [phone], Director - Simon Notes/Report: Ur.Collec. Interval 0 Creatinine, Urine 57.6 Not Estab. mg/dL Albumin, Urine 3.5 Not Estab. ug/mL Alb/Creat Ratio 6.1 0.0-30.0 ug/mg creat Alb, U Excret. Rate 0.0-20.0 ug/min No to deborah volume submitted. Unable to calculate 24 hour result. Albumin,Ur mg/day TNP Unable to calculate result since non-numeric result obtained for component test. Microscopic Examination Reviewed date:11/17/2024 03:59:07 PM Interpretation: Performing Lab:[address] [id number], Phone - [phone], Director - Simon Notes/Report: Specific [place]ract >=1.030 1.005-1.030 pH 5.5 5.0-7.5 Urine-Color Yellow Yellow Appearance Clear Clear WBC Esterase Negative Negative Protein Negative Negative/Trace Glucose 3+ Negative Ketones Trace Negative Occult Blood Negative Negative Bilirubin Negative Negative Urobilinogen,Semi-Qn 0.2 0.2-1.0 mg/dL Nitrite, Urine Negative Negative Microscopic Examination Micr oscopic not indicated and not performed. Cardiovascular Risk Assessme nt Reviewed date:11/17/2024 03:59:06 PM Interpretation: Performing Lab:[address] [id number], Phone - [phone], Director - Simon Notes/Report: Interpretation Note Supplemental report is available. PDF Not applicable Written Authorization Reviewed date:11/17/2024 03:59:06 PM Interpretation: Performing Lab:[address] [id number], Phone - [phone], Director - Simon Notes/Report: Written Authorization Written Authorization Received. Logged by Yeni Norman Authorization received from Original Requisition 11-16-2024 AFP, Serum, Tumor Marker Reviewed date:11/17/2024 03:59:06 PM Interpretation: Performing Lab:[address] [id number], Phone - [phone], Director - Simon Notes/Report: AFP, Serum, Tumor Marker 2.5 0.0-8.4 ng/mL used interchangeably. Results cannot be interpreted as absolute Values obtained with different assay methods or kits cannot be . evidence of the presence or absence of malignant disease. [employer] Electrochemiluminescence Immunoassay (ECLIA) . This test is not interpretable in females. PSA Total, Serum-LC Reviewed date:11/17/2024 03:59:06 PM Interpretation: Performing Lab:[facility] [address] [id number], Phone - [phone], Director - Simon Notes/Report: Prostate Specific Ag 1.8 0.0-4.0 ng/mL PSA value 0.2 ng/mL or greater followed by a subsequent confirmatory [employer]ra ECLIA methodology. Values obtained with different assay methods or kits cannot be used interchangeably. Results cannot be interpreted as absolute evidence decrease and remain at undetectable levels after radical prostatectomy. The AUA defines biochemical recurrence as an initial PSA value 0.2 ng/mL or greater. . According to the [place] [employer], Serum PSA should of the presence or absence of malignant disease. Hemoglobin A1C Reviewed date:11/17/2024 03:59:06 PM Interpretation: Performing Lab:[facility] [address], [address] [place] [id number], Phone - [phone], Director - Simon Notes/Report: Hemoglobin A1c 8.7 4.8-5.6 % Diabetes: >6.4 Prediabetes: 5.7 - 6.4 . Glycemic control for adults with diabetes: <7.0 Prothrombin Time (PT) with I NR-LC Reviewed date:11/17/2024 03:59:06 PM Interpretation: Performing Lab:[facility] [address] [id number], Phone - [phone], - Simon Notes/Report: INR 1.0 0.9-1.2 Higher intensity therapeutic range 2.5 - 3.5 Standard Dose (moderate intensity Reference interval is for non-anticoagulated patients. Suggested INR therapeutic range for Vitamin K therapeutic range): 2.0 - 3.0 antagonist therapy: . Prothrombin Time 11.3 9.1-12.0 sec CBC With Differential/Platel et-LC-Q Reviewed date:11/17/2024 03:59:06 PM Interpretation: Performing Lab:[facility] [address] [place] [id number], Phone - [phone], Director - Simon Notes/Report: WBC 5.6 3.4-10.8 [...] 14+eGFR-LC-Q Reviewed date:11/17/2024 03:59:06 PM Interpretation: Performing Lab:[facility] [address] [place] [id number], Phone - [phone], Director - Simon Notes/Report: Glucose 311 70-99 [...] io-LC Reviewed date:11/17/2024 03:59:06 PM Interpretation: Performing Lab:[facility] [address] [id number], Phone - [phone], Director - Simon Notes/Report: Cholesterol, Total 114 100-199 mg/dL Triglycerides 168 0-149 mg/dL HDL Cholesterol 44 >39 mg/dL VLDL Cholesterol Orville 28 5-40 mg/dL LDL Chol Calc (NIH) 42 0-99 mg/dL LDL/HDL Ratio 1.0 0.0-3.6 ratio Avg.Risk 3.6 3.2 Men Women LDL/HDL Ratio 3X Avg.Risk 8.0 6.1 2X Avg.Risk 6.2 5.0 1/2 Avg.Risk 1.0 1.5 Ceruloplasmin-LC Reviewed date:11/17/2024 03:59:06 PM Interpretation: Performing Lab:[facility] [address] [id number], Phone - [phone], Director - Simon Notes/Report: Ceruloplasmin 23.6 16.0-31.0 mg/dL [facility] CKD Program Reviewed date:11/17/2024 03:59:06 PM Interpretation: Performing Lab:[facility] [address] [id number], Phone - [phone], Director - Simon Notes/Report: Interpretation Note guidelines are at http://kdigo.org/home/guidelin es/. DISCLAIMER unable to provide suggestions for treatment or follow-up. National Kidney Foundation Kidney Disease Outcomes Quality These assessments and treatment suggestions are provided as with stages 3, 4, or pre-dialysis 5 CKD. It is not intended clinician should consider this information within the Disease Improving Global Outcomes (KDIGO) clinical practice SEE GUIDANCE FOR CHRONIC KIDNEY DISEASE PROGRAM: Kidney not presently in CKD stage 3 or higher, therefore we are Estimated GFR is 60 mL/min/1.73mE2 or above; this patient is - program is intended for patients who have been diagnosed CHRONIC KIDNEY DISEASE: in addition to other evidence and expert opinion. The clinical judgment. They are derived from national guidelines context of clinical opinion and the individual patient. EGFR, BLOOD PRESSURE, AND PROTEINURIA ASSESSMENT Initiative (KDOQI (TM)), with its limitations and a convenience in support of the physician-patient disclaimers, are at www.kidney.org/professionals/K DOQI. This relationship and are not intended to replace the physician's - for children, patients, or transplant patients. PDF . Occult Blood, Fecal, IA-LAB MELVIN Reviewed date:11/17/2024 04:15:29 PM Interpretation: Performing Lab:[facility] [address], [address] [place] [address] [id number], Phone - [phone], Director - Simon Notes/Report: Occult Blood, Fecal, IA Positive Negative Reason For Referral Reason Please fax consul t notes and/or results of procedure approved to [phone]. Thanks! ~Annual Eye Exam~ Diagnosis 1 Encounter for examin ation of eyes and vision without abnormal findings (Z01.00) Referral Organization [facility] Referring Provider First Name Mau Referring Provider Last Name Rob Referring Provider Speciality General Pr actice Referred Provider [employer], [facility] Referred Provider Specialty Avionics Supervisor Clinical Notes Robert Martell 06/27 02:53:50 PM >GAVE PT REFERRAL SAME DAY ON 10/07/2024 Referral Priority Routine Reason Please fax consul t notes and/or results of procedure approved to [phone]. Thanks! CONSULT ONLY - MANAGED CARE ~Annual Eye Exam~ Diagnosis 1 Encounter for examin ation of eyes and vision without abnormal findings (Z01.00) Referral Organization [facility] Referring Provider First Name Mau Referring Provider Last Name Rob Referring Provider Speciality General Pr actroman Referred Provider [employer] Referred Provider Specialty Avionics Supervisor Referral Priority Routine Reason NEW PATIENT [phone] or [phone] [place] [phone] [place] [phone] [place] [phone] If additional testing is needed, please refer back to PCP. Please fax consult notes and/or results of procedure approved to [phone]. Thanks! Diagnosis 1 Internal hemorrhoids (K64.8) Referral Organization [facility] Referring Provider First Name Mau Referring Provider Last Name Rob Referring Provider Speciality General Pr actice Referred Provider X[employer] Graf ([place]) Referred Provider Specialty Gastroentero logy Referral Priority Routine Reason If additional licha ting is needed, please refer back to PCP. Diagnosis 1 Fecal occult blood t est positive (R19.5) Referral Organization [facility] Referring Provider First Name Mau Referring Provider Last Name Rob [facility] General Niesha actice Referred Provider Specialty Gastroentero [...] Notes Problem Long-term current use of insulin (882443698) custodial (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 of insulin (Z79.4) Active confirmed Problem Diabetic renal disease (075510209) Type 2 diabetes mellitus with diabetic chronic kidney disease (E11.22) Active confirmed Problem Mixed hyperlipidemia (523902652) Mixed hyperlipidemia (E78.2) Active confirmed Problem Alzheimer's disease with early onset (275386016) Alzheimer's disease with early onset (G30.0) Active confirmed Problem Hypertensive heart AND renal disease (87114480) Hypertensive heart and chronic kidney disease without heart failure, with stage 1 through stage 4 chronic kidney disease, or unspecified chronic kidney disease (I13.10) Active confirmed Problem Old myocardial infarction (7215172) Old myocardial infarction (I25.2) Active confirmed Problem Fatty liver (231774715) Fatty infiltration of liver (K76.0) Active confirmed Problem Moderate recurrent major depression (42212252) Major depressive disorder, recurrent episode, moderate (F33.1) Active confirmed Problem Hepatomegaly (29436380) Hepatomegaly (R16.0) Active confirmed Problem Long-term current use of anticoagulant (997816698) custodial (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 of anticoagulants (Z79.01) Active confirmed Problem Internal hemorrhoids (83380870) Internal hemorrhoids (K64.8) Active confirmed Problem Angina (892912699) 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) Active confirmed Problem History of placement of stent for coronary artery disease (situation) (055872188) H/O heart artery stent (Z95.5) Active confirmed Problem Low compliance bladder (6575797) Hyperactivity of bladder (N31.8) Active confirmed Problem Chronic pancreatitis (360264363) Chronic pancreatitis, unspecified pancreatitis type (K86.1) Active confirmed As per [facility] records from 07/14/2024 Problem Chronic kidney disease stage 2 (046429271) CKD (chronic kidney disease), stage II (N18.2) Active confirmed GFR 92 as per lab results from 11/17/2024 has improved from GFR 82 as per lab results from [facility] record from 06/26/2024 Problem Diabetic peripheral neuropathy (178538446) Diabetic peripheral neuropathy (E11.42) Active confirmed Problem Type 2 diabetes mellitus with other specified complication, without long-term current use of insulin (E11.69) Active confirmed Problem Pulmonary hypertension (42494441) Pulmonary hypertension (I27.20) Active confirmed As per [facility] records from 09/27/2024 Problem Benign prostatic hypertrophy without outflow obstruction (577338570) BPH without urinary obstruction (N40.0) Active confirmed Problem Chronic obstructive lung disease (42652716) COPD without exacerbation (J44.9) Active confirmed Problem Diabetic peripheral vascular disease (171311651) Diabetic peripheral vascular disease (E11.51) Active confirmed [...] 11/23/2024 Encounters Encounter Location Date Provider Diagnosis [facility] [address] [place] [address] 10/07/2024 Mau Rivas [facility] [address] [place] [address] 10/07/2024 Mau Freyarez [facility] [address] [place] [address] 10/07/2024 Mau Rivas [facility] [address] [place] [address] 10/14/2024 Mau Rivas H/O heart artery yon nt Z95.5 [facility] [address] [place] [address] 11/15/2024 Mau Freyarez [facility] [address] [place] [address] 10/07/2024 Mauamilcar Rivas Major depressive disorder, recurrent episode, moderate F33.1 ; Hypertensive heart and chronic kidney disease without heart failure, with stage 1 through stage 4 chronic kidney disease, or unspecified chronic kidney disease I13.10 ; Atherosclerosis of [place] coronary artery of [place] heart with angina pectoris I25.119 ; Pulmonary [...] ; H/O heart artery stent Z95.5 ; custodial (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 of insulin Z79.4 ; History of cerebrovascular accident (CVA) in adulthood Z86.73 ; Body mass index (BMI) of 32.0 to 32.9 in adult Z68.32 ; Encounter for examination of eyes and vision without abnormal findings Z01.00 ; Encounter for fecal immunochemical test screening Z12.11 ; Screening for osteoporosis Z13.820 and Encounter for prostate cancer screening Z12.5 [place] [id number] [address] [address] 10/20/2024 Mau Rivas Hypertensive heart a nd chronic kidney disease without heart failure, with stage 1 through stage 4 chronic kidney disease, or unspecified chronic kidney disease I13.10 ; Elevated liver enzymes R74.8 ; Pulmonary hypertension I27.20 ; Atherosclerosis of [place] coronary artery of [place] heart with angina pectoris I25.119 ; Old [...] ; H/O heart artery stent Z95.5 ; 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 Z79.4 and Body mass index (BMI) of 31.0 to 31.9 in adult Z68.[address] [address] 11/09/2024 Mau Rivas Elevated liver enzym es R74.[address] [address] 11/15/2024 Mau Rivas Alzheimer's disease with early [...] ; Pulmonary hypertension I27.20 ; Atherosclerosis of [place] coronary artery of [place] heart with angina pectoris I25.119 ; Type [...] ; H/O heart artery stent Z95.5 ; 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 helper (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 of anticoagulants Z79.01 ; custodial (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 of insulin Z79.4 ; Body mass index (BMI) of 30.0 to 30.9 in adult Z68.30 ; Encounter for examination of eyes and vision without abnormal findings Z01.00 and Encounter for screening fecal occult blood testing Z12.[address] [address] 11/15/2024 Mau Rivas Elevated liver enzym es R74.8 ; Hypertensive heart and chronic kidney disease without heart failure, with stage 1 through stage 4 chronic kidney disease, or unspecified chronic kidney disease I13.10 ; Mixed hyperlipidemia E78.2 ; Type 2 diabetes mellitus with diabetic chronic kidney disease E11.22 ; BPH without urinary obstruction N40.0 ; Hyperactivity of bladder N31.8 and H/O heart artery stent Z95.[address] [address] 11/23/2024 Mau Rivas Major depressive disorder, recurrent [...] chronic kidney disease I13.10 ; Atherosclerosis of [place] coronary artery of [place] heart with angina pectoris I25.119 ; Pulmonary [...] ; H/O heart artery stent Z95.5 ; 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 [address] [place] [address] 11/25/2024 Mau [facility] [address] [place] [address] 03/06/2025 Mau Rivas Type 2 diabetes mellitus with diabetic chronic kidney disease E11.22 ; Hypertensive heart and chronic kidney disease without heart failure, with stage 1 through stage 4 chronic kidney disease, or unspecified chronic kidney disease I13.10 and Mixed hyperlipidemia E78.2 Assessments Encounter Date Diagnosis (ICD Code) Assessment Notes Treatment Notes Treatment Clinical Notes Section Notes 10/14/2024 H/O heart artery stent (ICD-10 - [...] 10/20/2024 Elevated liver enzymes (ICD-10 - R74.8) 11/15/2024 Elevated liver enzymes (ICD-10 - R74.8) 11/15/2024 Alzheimer's disease with early onset (ICD-10 - G30.0) 11/15/2024 Internal hemorrhoids (ICD-10 - K64.8) 03/06/2025 Type 2 diabetes mellitus with diabetic chronic kidney disease (ICD-10 - E11.22) 11/23/2024 Major depressive disorder, recurrent episode, moderate (ICD-10 - F33.1) Recommended to patient avoid stressful situations. Will continue to monitor. 11/23/2024 Fecal occult blood test positive (ICD-10 - R19.5) 11/09/2024 Elevated liver enzymes (ICD-10 - R74.8) 10/07/2024 Hypertensive heart and chronic kidney disease [...] stressful situations. Will continue to monitor. 10/07/2024 Atherosclerosis of [place] coronary artery of [place] heart with angina pectoris (ICD-10 - I25.119) 11/23/2024 COPD without exacerbation (ICD-10 - J44.9) 03/06/2025 Hypertensive heart and chronic kidney disease without heart failure, with stage 1 through stage 4 chronic kidney disease, or unspecified chronic kidney disease (ICD-10 - I13.10) 11/15/2024 Dementia in other diseases classified elsewhere, mild, without behavioral disturbance, psychotic disturbance, mood disturbance, and anxiety (ICD-10 - F02.A0) Continue taking Donepezil 11/15/2024 Hypertensive heart and chronic kidney disease without heart failure, with stage 1 through stage 4 chronic kidney disease, or unspecified chronic kidney disease (ICD-10 - I13.10) 10/20/2024 Pulmonary hypertension (ICD-10 - I27.20) As per [facility] records from 09/27/2024 As per [facility] records from 09/27/2024. Will continue to monitor. Strict blood pressure control, low fat diet and daily exercise as tolerated recommended. 10/20/2024 Atherosclerosis of [place] coronary artery of [place] heart with angina pectoris (ICD-10 - I25.119) 03/06/2025 Mixed hyperlipidemia (ICD-10 - E78.2) 11/15/2024 COPD without exacerbation (ICD-10 - J44.9) 11/15/2024 Mixed hyperlipidemia (ICD-10 - E78.2) 11/23/2024 Alzheimer's disease with early onset (ICD-10 - G30.0) 10/07/2024 Pulmonary hypertension (ICD-10 - I27.20) As per [facility] records from 09/27/2024 As per [facility] records from 09/27/2024. Will continue to monitor. Strict blood pressure control, low fat diet and daily exercise as tolerated recommended. 10/07/2024 Old myocardial infarction (ICD-10 - I25.2) Will continue to monitor. Strict blood pressure control, low fat diet and daily exercise as tolerated recommended. 11/23/2024 Dementia in other diseases classified elsewhere, mild, without behavioral disturbance, psychotic disturbance, mood disturbance, and anxiety (ICD-10 - F02.A0) Continue Donepezil HCl 10 MG Tablet. Will continue to monitor patient. 10/20/2024 Old myocardial infarction (ICD-10 - I25.2) Will continue to monitor. Strict blood pressure control, low fat diet and daily exercise as tolerated recommended. 11/15/2024 Type 2 diabetes mellitus with diabetic chronic kidney disease (ICD-10 - E11.22) 11/15/2024 Major depressive disorder, recurrent episode, moderate (ICD-10 - F33.1) Recommended to patient avoid stressful situations. Will continue to monitor. 11/15/2024 Hypertensive heart and chronic kidney disease without heart failure, with stage 1 through stage 4 chronic kidney disease, or unspecified chronic kidney disease (ICD-10 - I13.10) Heart disease and CKD Stage II due to HTN. Blood pressure control and daily exercise as tolerated is recommended. Will continue to monitor. 11/15/2024 BPH without urinary obstruction (ICD-10 - N40.0) 10/20/2024 Type 2 diabetes mellitus with diabetic chronic kidney disease (ICD-10 - E11.22) Diabetes Mellitus (DM) w Renal Manifestations, CKD II due to DM 11/23/2024 Chronic pancreatitis, unspecified pancreatitis type (ICD-10 - K86.1) As per [facility] records from 07/14/2024 As per [facility] records from 07/14/2024. Will continue to monitor patient. 10/07/2024 Type 2 diabetes mellitus with diabetic chronic kidney disease (ICD-10 - E11.22) Diabetes Mellitus (DM) w Renal Manifestations, CKD II due to DM 10/07/2024 CKD (chronic kidney disease), stage II (ICD-10 - N18.2) GFR 82 as per lab results from [facility] record from 06/26/2024 GFR 82 as per lab results from [facility] record from 06/26/2024 11/23/2024 Hypertensive heart and chronic kidney disease without heart failure, with stage 1 through stage 4 chronic kidney disease, or unspecified chronic kidney disease (ICD-10 - I13.10) Heart disease and CKD Stage II due to HTN. Blood pressure control and daily exercise as tolerated is recommended. Will continue to monitor. 11/15/2024 Pulmonary hypertension (ICD-10 - I27.20) As per [facility] records from 09/27/2024 As per [facility] records from 09/27/2024. Will continue to monitor. Strict blood pressure control, low fat diet and daily exercise as tolerated recommended. 10/20/2024 CKD (chronic kidney disease), stage II (ICD-10 - N18.2) GFR 82 as per lab results from [facility] record from 06/26/2024 GFR 82 as per lab results from [facility] record from 06/26/2024 11/15/2024 Hyperactivity of bladder (ICD-10 - N31.8) 11/15/2024 H/O heart artery stent (ICD-10 - Z95.5) 10/20/2024 Type 2 diabetes mellitus with other specified complication, without long-term current use of insulin (ICD-10 - E11.69) Mixed Hyperlipidemia as due to diabetes mellitus (DM). Continue taking Glipizide. 11/15/2024 Atherosclerosis of [place] coronary artery of [place] heart with angina pectoris (ICD-10 - I25.119) 11/23/2024 Atherosclerosis of [place] coronary artery of [place] heart with angina pectoris (ICD-10 - I25.119) 10/07/2024 Type 2 diabetes mellitus with other specified complication, without long-term current use of insulin (ICD-10 - E11.69) Mixed Hyperlipidemia as due to diabetes mellitus (DM) 10/07/2024 Mixed hyperlipidemia (ICD-10 - E78.2) 11/23/2024 Pulmonary hypertension (ICD-10 - I27.20) As per [facility] records from 09/27/2024 As per [facility] records from 09/27/2024. Will continue to monitor. Strict blood pressure control, low fat diet and daily exercise as tolerated recommended. 11/15/2024 Type 2 diabetes mellitus with diabetic chronic kidney disease (ICD-10 - E11.22) Diabetes Mellitus (DM) w Renal Manifestations, CKD II due to DM 10/20/2024 Mixed hyperlipidemia (ICD-10 - E78.2) 10/20/2024 Diabetic peripheral neuropathy (ICD-10 - E11.42) DM w Neurological Manisfestation. Neuropathy/Polyne uropathy/Peripher al due to DM 11/23/2024 Type 2 diabetes mellitus with diabetic chronic kidney disease (ICD-10 - E11.22) Diabetes Mellitus (DM) w Renal Manifestations, CKD II due to DM 11/15/2024 CKD (chronic kidney disease), stage II (ICD-10 - N18.2) GFR 82 as per lab results from [facility] record from 06/26/2024 GFR 82 as per lab results from [facility] record from 06/26/2024 10/07/2024 Diabetic peripheral neuropathy (ICD-10 - E11.42) DM w Neurological Manisfestation. Neuropathy/Polyne uropathy/Peripher al due to DM 10/07/2024 Diabetic peripheral vascular disease (ICD-10 - [...] diabetes mellitus (DM). Continue taking Glipizide. 11/23/2024 CKD (chronic kidney disease), stage II (ICD-10 - N18.2) GFR 92 as per lab results from 11/17/2024 has improved from GFR 82 as per lab results from [facility] record from 06/26/2024 GFR 92 as per lab results from 11/17/2024 has improved from GFR 82 as per lab results from [facility] record from 06/26/2024 10/20/2024 Diabetic peripheral vascular disease (ICD-10 - E11.51) DM w Peripheral Circulatory Diseases, Peripheral Vascular Disease (PVD) due to DM - Encouraged patient to perform aerobic activity for 20 to 30 mins 5 days a week to improve vascular health - Recommending ASA 81 mg / daily - Advised about Compressive socks use 10/20/2024 COPD without exacerbation (ICD-10 - J44.9) 11/15/2024 Mixed hyperlipidemia (ICD-10 - E78.2) 11/23/2024 Type 2 diabetes mellitus with other specified complication, without long-term current use of insulin (ICD-10 - E11.69) Mixed Hyperlipidemia as due to diabetes mellitus (DM). Continue glipiZIDE 10 MG Tablet, 10/07/2024 COPD without exacerbation (ICD-10 - J44.9) 10/07/2024 Chronic pancreatitis, unspecified pancreatitis type (ICD-10 - K86.1) As per [facility] records from 07/14/2024 As per [facility] records from 07/14/2024. Avoid smoking and drinking alcohol, and limit caffeine. Eat a healthy diet that's low in fat and protein, and eat smaller meals more frequently 11/23/2024 Mixed hyperlipidemia (ICD-10 - E78.2) 11/15/2024 Diabetic peripheral neuropathy (ICD-10 - E11.42) DM w Neurological Manisfestation. Neuropathy/Polyne uropathy/Peripher al due to DM 10/20/2024 Major depressive disorder, recurrent episode, moderate (ICD-10 - F33.1) Recommended to patient avoid stressful situations. Will continue to monitor. 10/20/2024 Chronic pancreatitis, unspecified pancreatitis type (ICD-10 - K86.1) As per [facility] records from 07/14/2024 As per [facility] records from 07/14/2024. Avoid smoking and drinking [...] Manisfestation. Neuropathy/Polyne uropathy/Peripher al due to DM 10/07/2024 BPH without urinary obstruction (ICD-10 - N40.0) 10/07/2024 Hyperactivity of bladder (ICD-10 - N31.8) 11/23/2024 Diabetic peripheral vascular disease (ICD-10 - E11.51) DM w Peripheral Circulatory Diseases, Peripheral Vascular Disease (PVD) due to DM - Encouraged patient to perform aerobic activity for 20 to 30 mins 5 days a week to improve vascular health - Recommending ASA 81 mg / daily - Advised about Compressive socks use 11/15/2024 Chronic pancreatitis, unspecified pancreatitis type (ICD-10 - K86.1) As per [facility] records from 07/14/2024 As per [facility] records from 07/14/2024. Will continue to monitor patient. 10/20/2024 BPH without urinary obstruction (ICD-10 - N40.0) 11/15/2024 BPH without urinary obstruction (ICD-10 - N40.0) 11/23/2024 BPH without urinary obstruction (ICD-10 - N40.0) 10/07/2024 Obesity (BMI 30.0-34.9) (ICD-10 - E66.811) Avoid overeating, eating too quickly, eating high-fat foods, eating during stressful situations, or drinking too much alcohol or coffee. Counseled patient on adequate diet and exercise as tolerant. 10/07/2024 H/O heart artery stent (ICD-10 - Z95.5) 11/23/2024 Obesity (BMI 30.0-34.9) (ICD-10 - E66.9) Avoid overeating, eating too quickly, eating high-fat foods, eating during stressful situations, or drinking too much alcohol or coffee. Counseled patient on adequate diet and exercise. 11/15/2024 Obesity (BMI 30.0-34.9) (ICD-10 - E66.9) [...] patient on adequate diet and exercise. 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9 in adult (ICD-10 - Z68.32) 10/07/2024 Encounter for examination of eyes and vision without abnormal findings (ICD-10 - Z01.00) 11/23/2024 Body mass index (BMI) of 30.0 to 30.9 in adult (ICD-10 - Z68.30) 11/15/2024 Body mass index (BMI) of 30.0 [...] Name:Mau montoya, 12/19/2025 09:00:00 AM, [address] [facility] [address], [place], [address], Insurance Providers Payer Name Payer Address Payer Phone Subscriber Number Group Number Insured Name Patient Relationship to Insured Coverage Start Date Coverage End Date [facility] [employer] [address] [address] [place] [phone] [id number] EDUARDO MILLS Self - patient is the [...]
--- OUTSIDE RECORDS SUMMARY | 2025-07-24 15:28 | XMS_ITS | Clinical Summary ---
Author Organization [facility], Address [address] [place] [address] [place] [address] Phone Care Team Providers Care Sand Bobber Name Role Phone Lucia Rebolledo PA-C Primary [...] age to complete this topic Insurance [address] [place] [id number] [place] [address] ([id number]) JOSHUA LORENZ [id number] Care Teams Sand Bobber Relationship Specialty Start Date End Date Lucia Rebolledo PA-C PCP - General Physician Grocery Store Associate 12/09/19
--- OUTSIDE RECORDS SUMMARY | 2025-07-24 15:29 | XMS_ITS | Clinical Summary ---
Author Organization [address] [place] [address] [place] [phone] Phone Care Team Providers Care Security Incident Response Engineer Name Role Phone Lewis Goldberg NP Primary [...] TESTING OR INJECTING INSULIN FOR 30 DAYS 024 Active NUTRITIONAL SUPPLEMENTS ORAL Take 4 Tablets by mouth as needed for Other (hypoglycemia) . 024 Active gabapentin (NEURONTIN) 400 mg capsule Take 1 Capsule by mouth 3 times daily. Active trospium 60 mg capsule,extended release 24hr Take 1 Capsule by mouth daily. Active glucagon (Baqsimi) 3 mg/actuation nasal spray 1 Dose by Nasal route as needed for Other (hypoglycemia) . 023 Active dextrose 40 % gel Take 15 g by mouth as needed for Other. 023 Active glucagon (Gvoke HypoPen 1-Pack) 0.5 mg/0.1 mL auto-injector Inject 1 Dose into the skin as needed for Other (severe hypoglycemia). 022 Active atorvastatin (LIPITOR) 40 mg tablet Take 1 Tablet by mouth daily. 09/22/2 022 Active isosorbide mononitrate (IMDUR) 30 mg 24 hr tablet Take 1 Tablet by mouth daily. Active lancets lancets USE DIRECTED TO TEST BLOOD SUGAR ONCE A DAY Active losartan (COZAAR) 25 mg tablet Take 25 mg by mouth daily. Active aspirin 81 mg EC tablet Take 1 Tab by mouth daily. Active albuterol HFA (PROAIR HFA ; PROVENTIL HFA ; VENTOLIN HFA) 90 mcg/actuation inhaler Inhale 2 Puffs into the lungs every 4 hours as needed. Active montelukast (SINGULAIR) 10 mg tablet TAKE ONE TABLET BY MOUTH EVERY DAY IN THE EVENING Active lipase/protease/a mylase (PANCRELIPASE EC ORAL) Take 1 Capsule by mouth 3 times daily (with meals). Active fluticasone furoate-vilantero L (Breo Ellipta) 100-25 mcg/dose inhaler Inhale by mouth. INHALE 1 PUFF BY MOUTH INTO THE lungs EVERY DAY AT THE same TIME EVERY DAY Active glipiZIDE (GLUCOTROL) 10 mg tablet Take 1 tablet (10 mg total) by mouth 2 (two) times a day before meals. 180 tablet 3 Active blood sugar diagnostic (FreeStyle Lite Strips) test strip Use to check BS 3 times a day 100 each 12 025 2025 Active blood-glucose meter kit 1 each 1 (one) time each day. Use to check BS 3 times a day 1 each 025 2025 Active freestyle 28 gauge lancets Check blood sugar 3 times a day or as directed 100 each 11 025 2025 Active pen needle, diabetic (BD Ultra-Fine Short Pen Needle) 31 gauge x 5/16 needle Use to inject 1-4 times daily as directed 100 each Active pimecrolimus (ELIDEL) 1 % cream Apply topically if needed. Active insulin technical advisor cart,aut,G6/7,cnt r (Omnipod 5 G6-G7 Intro Kt,Gen5,) cartridgeIndicati ons:Diabetes mellitus type 2, uncomplicated, on long filler cigar roller machine insulin pump ([facility] V24, [facility] V28) Please dispense 1 pdf, it was stolen 1 each Active insulin aspart (NovoLOG FlexPen) 100 unit/mL (3 mL) injection pen Inject 3 times a day with meals per scale :100-149: 18 units; 150-199: 19 units; 200-249: 20 units; 250-300: 21 units; 301-350: 22 units; 351-400: 23 units call office if BS above 400, when not in insulin pump. Max dose 40 units 15 mL Active Additional Information Patient not taking.Reported on 06/13/2025 insulin degludec (TRESIBA FlexTouch U-200) 200 unit/mL (3 mL) CONCENTRATED injection pen 90 units SC at bedtime 45 mL Active insulin aspart (NovoLOG) 100 unit/mL injection Use daily with insulin pump, max daily dose 150 units. Dispense 3 vials 30 mL 2025 Active insulin pump cart,auto,BT,G6/7 (Omnipod 5 G6-G7 Pods, Gen 5,) cartridgeIndicati ons:Diabetes mellitus type 2 with neurological manifestations ([facility] V24, [facility] V28) 1 DEVICE BY DOES NOT APPLY ROUTE EVERY 48 HOURS 45 each Active lansoprazole (PREVACID) [address] capsule Take 1 capsule (30 mg total) by mouth 1 (one) time each day. Do not crush or chew. 30 each 2025 Active hydrocortisone (Proctosol HC) 2.5 % rectal cream Insert into the rectum 2 (two) times a day for 10 days. 30 g Active apixaban (ELIQUIS) 5 mg tablet Take 1 tablet (5 mg total) by mouth 2 (two) times a day. Take 1 Tablet by mouth 2 times daily. 180 tablet 2 Active metoprolol succinate (TOPROL-XL) 50 mg 24 hr tablet Take 1 tablet (50 mg total) by mouth 1 (one) time each day. 90 tablet 2 Active pen needle, diabetic (Comfort EZ Pen Seaman) 33 gauge x 5/32 needle USE ONE DAILY WITH LANTUS DIRECTED 100 each 11 025 Active pen needle, diabetic (Microdot Insulin Pen Needle) 33 gauge x 5/32 needle Use with insulin 4 times a day 100 each 5 025 2024 Discontinued Active Problems Problem Noted Date Diagnosed Date URI (upper respiratory infection) 02/03/2025 Assessment & Plan (02/03/2025 1:19 PM EDT): Patient reports that he has had a cough and he currently has influenza. Patient encouraged to go home, wear a mask when in public areas and follow-up with his primary care provider if necessary. Pancreatic insufficiency 07/27/2024 Diabetes mellitus type 2, un complicated, on assisted insulin pump ([facility] V24, [facility] V28) 05/21/2023 Diabetes mellitus type 2 wit h neurological manifestations ([facility] V24, [facility] V28) 08/04/2022 PVC's (premature ventricular [...] losartan and isosorbide as prescribed. Chronic pancreatitis ([facility] V24, [facility] V28) 07/19/2019 PFO (patent foramen [...] 9:12 AM EDT): Patient has history of [place] and was left with residual coronary disease. [...] 1:19 PM EDT): Patient has history of [place] and was left with residual coronary disease. [...] with routine medical care. Cerebrovascular accident (CVA) ([facility] V24, [facility] V28) 11/22/2018 Overview (06/13/2025): Follows with neurology. [...] Encounters Date Type Department Care Team Description 07/12/2025 Telephone [facility] Cardiology [facility] [address] [place] [address] Maco Cross MD 06/13/2025 8:40 AM EDT Office Visit [facility] Cardiology [facility] [address] [place] [address] Jerrica Rizzo NP Coronary artery disease involving tununak coronary artery of tununak heart without angina pectoris (Primary Dx); Cerebrovascular accident (CVA), unspecified mechanism (CMS/HCC V24, CMS/HCC V28); PFO (patent foramen ovale); Mixed hyperlipidemia 06/12/2025 9:30 AM EDT Office Visit Gastroenterology - [place] [address] [place] [phone] Lucia Rebolledo PA Positive colorectal cancer screening using Cologuard test (Primary Dx); Gastroesophageal reflux disease with esophagitis without hemorrhage; Tubular adenoma; Internal hemorrhoids with complication 05/31/2025 Telephone Endocr[facility]ology - [place] [address] [place] [phone] Sydney Hector PA 05/29/2025 Telephone Endocrinology - [place] [address] [place] [phone] Sydney Hector PA 05/09/2025 8:00 AM EDT Office Visit Endocrinology [address] [phone] Sydney Hector PA Diabetes mellitus type 2 with neurological manifestations ([facility] V24, [facility] V28) (Primary Dx); Secondary hypertension; Mixed hyperlipidemia from Last 3 Months Surgical History Surgery Date Site/Laterality Comments APPENDECTOMY PROCEDURE: IN APPENDECTOMY ROTATOR CUFF REPAIR PROCEDURE: HISTORICAL ROTATOR CUFF REPAIR BACK SURGERY 1992 PROCEDURE: HISTORICAL BACK SURGERY; COMMENT: lumbar COLONOSCOPY W/ BIOPSIES ESOPHAGOGASTRODUODENOSCOPY Medical History Medical History Date Comments Type 2 diabetes mellitus wit h neurological manifestations, uncontrolled 11/18/2017 DX:Type 2 diabetes mellitus with neurological manifestations, uncontrolled Major depression 03/03/2019 DX:Major depres kody Old [place] (myocardial infarction) 03/03/2019 D X:Old [place] (myocardial infarction) PFO (patent foramen ovale) 06/29/2019 DX:PF O (patent foramen ovale) Family history of cardiovasc ular disease DX:Family history of cardiov ascular disease Sleep apnea Hyperlipidemia Hypertension Pancreatitis GERD (gastroesophageal reflux disease) CAD (coronary artery disease) CVA (cerebral vascular accid ent) ([facility] V24, [facility] V28) Esophageal dysmotility PVC (premature ventricular contraction) [...] Safety Answer Date Record ed Physical Abuse Unrecognized value 03/08/2025 Verbal Abuse Unrecognized value 03/08/2025 Sex and Gender Information Value Date [...] 08/09/2025 9:45 AM EDT Office Visit Endocrinology [facility] [address] [place] [phone] Sydney Hector PA [address] [place] [address] 12/25/2025 11:30 AM EST Office Visit Gastroenterology - [place] [address] [place] [phone] Lucia Rebolledo PA [address] [place] [address] Health Maintenance Due Date Last Done Comments Diabetes: Annual Foot Exam 1962 DTaP,Tdap,and Td Vaccines (1 - Tdap) 1971 RSV Immunization Adult Patients (1 - Risk 60-74 years 1-dose series) 2012 Zoster Vaccines (2 of 2) 11/25/2019 09/30/2019, 07/26 Hepatitis C Screening 09/23/2022 Social Influencers of Health Screening 09/23/2022 Depression Screening 10/26/2024 Diabetes: Annual Retina Eye Exam 10/28/2024 10/28/2023 COVID-19 Vaccine ( season) 2025 10/02/2022, 09/09/2021, 01/21/2021, Additional history exists Influenza Vaccine (#1) 2025 , 07/10/2022, 07/29/2021, [...] EDT Diabetes mellitus type 2, uncomplicated, on assisted insulin pump ([facility] V24, [facility] V28) COLONOSCOPY Routine 03/08/2025 2:40 PM EDT BRBPR (bright red blood per rectum) Positive colorectal cancer screening using Cologuard test MICROALBUMIN CREATININE URINE RATIO Routine 12/29/2024 10:20 AM EST Diabetes mellitus type 2, uncomplicated, on assisted insulin pump ([facility] V24, [facility] V28) BASIC METABOLIC PANEL Routine 12/29/2024 10:20 AM EST Diabetes mellitus type 2, uncomplicated, on long filler cigar roller machine insulin pump ([facility] V24, [facility] V28) LIPID PANEL WITH REFLEX TO DIRECT LDL Routine 12/29/2024 10:20 AM EST Diabetes mellitus type 2, uncomplicated, on long filler cigar roller machine insulin pump ([facility] V24, [facility] V28) HM DIABETES EYE EXAM Routine 10/28/2023 from Last 3 Months or Most Recently Relevant to Health Maintenance Results * (ABNORMAL) Hemoglobin A1c (05/09/2025 8:40 AM EDT) Hemoglobin A1C 9.5(H) <6.5 % LAB CHEMISTRY METHOD 05/09/2025 1:30 PM EDT [facility] Mean Bld Glu Estim. 226 mg/dL LAB CHEMISTRY METHOD 05/09/2025 1:30 PM EDT [facility] Blood Venous blood specimen / Unknown Venipuncture / Unknown 05/09/2025 8:40 AM EDT 05/09/2025 8:40 AM EDT us Sydney LEWIS LAB BLOOD ORDERABLES Final Result [facility] [address] [place] [address], * COLONOSCOPY Anesthesia - MAC; [facility] ENDOSCOPY (03/08/2025 2:40 PM EDT) Anatomical Region Laterality Modality Endoscopy 03/08/2025 2:22 PM EDT Impressions 03/08/2025 2:45 PM EDT - Two diminutive polyps in the sigmoid colon and in the transverse colon, removed with a jumbo cold forceps. Resected and retrieved. - Internal hemorrhoids. Recommendation: - Await pathology results. - No repeat colonoscopy due to age. Narrative 03/08/2025 2:45 PM EDT [facility] GI Patient Name: Deann Thao Procedure [...] verified by the physician, the nurse, the staff appraiser and the sterile instrument technician in the pre-procedure area in the [...] reduce spontaneously). Procedure Code(s): --- Professional --- 67121, Colonoscopy, flexible; with biopsy, single or multiple Diagnosis Code(s): --- Professional --- D12.5, Benign neoplasm of sigmoid colon D12.3, Benign neoplasm of transverse colon (hepatic flexure or splenic flexure) CPT copyright 2020 [employer]. All rights reserved. The codes documented in this report are preliminary and upon credit assessment analyst review may be revised to meet current compliance requirements. Joe Echols MD 03/08/2025 2:45:33 PM This report has been signed electronically.Joe Echols MD Number of Addenda: 0 Note Initiated On: 03/08/2025 2:22 PM Scope Withdrawal Time: 0 hours 9 minutes 20 seconds Scope In: 2:29:28 PM Scope Out: 2:40:44 PM Endoscopy Department at [facility] - [address] [place] [phone] Procedure Note Joe Echols MD - 03/08/2025 [facility] GI Patient Name: Deann Thao Procedure [...] the physician, the nurse, theanesthetist and the sterile instrument technician in the pre-procedure area in the [...] but reducespontaneously). Procedure Code(s): --- Professional --- 00170, Colonoscopy, flexible; with biopsy, singleor multiple Diagnosis Code(s): --- Professional --- D12.5, Benign neoplasm of sigmoid colon D12.3, Benign neoplasm of transverse colon (hepatic flexure or splenic flexure) CPT copyright 2020 [employer]. All rights reserved. The codes documented in this report are preliminary and upon credit assessment analyst reviewmay be revised to meet current compliance requirements. Joe Echols MD 03/08/2025 2:45:33 PM This report has been signed electronically.Joe Echols MD Number of Addenda: 0 Note Initiated On: 03/08/2025 2:22 PM Scope Withdrawal Time: 0 hours 9 minutes 20 seconds Scope In: 2:29:28 PM Scope Out: 2:40:44 PM Endoscopy Department at [facility] - [address] [place] [phone] IMPRESSION: - Two diminutive polyps in the [...] mg/dL LAB CHEMISTRY METHOD 12/29/2024 12:56 PM [facility] Triglycerides 119 0 - 150 mg/dL LAB CHEMISTRY METHOD 12/29/2024 12:56 PM [facility] HDL 47 >=40 mg/dL LAB CHEMISTRY METHOD 12/29/2024 12:56 PM [facility] LDL Calculated 29 0 - 100 mg/dL LAB CHEMISTRY METHOD 12/29/2024 12:56 PM [facility] VLDL Cholesterol [place] 23.8 mg/dL LAB CHEMISTRY METHOD 12/29/2024 12:56 PM [facility] Non HDL Chol. (LDL+VLDL) 53 <145 mg/dL LAB CHEMISTRY METHOD 12/29/2024 12:56 PM [facility] Chol/HDL Ratio 2.1 0.0 - 4.4 LAB CHEMISTRY METHOD 12/29/2024 12:56 PM [facility] Blood Venous blood specimen / Unknown Venipuncture / Unknown 12/29/2024 10:20 AM EST 12/29/2024 10:20 AM EST Sydney LEWIS LAB BLOOD ORDERABLES Final Result [facility] [address] [place] [address], [place] [phone] * (ABNORMAL) Microalbumin creatinine urine ratio (12/29/2024 10:20 AM EST) Creatinine, Urine 224.0 mg/dL LAB CHEMISTRY METHOD 12/29/2024 1:14 PM [facility] Microalb, Ur 98.1(H) 0.0 - 29.0 mg/L LAB CHEMISTRY METHOD 12/29/2024 1:14 PM [facility] Microalb/Crea t Ratio 44(H) <30 mg/g creat LAB CHEMISTRY METHOD 12/29/2024 1:14 PM [facility] Urine Urine specimen from urethra / Unknown Non-blood Collection / Unknown 12/29/2024 10:20 AM EST 12/29/2024 10:20 AM EST Sydney LEWIS LAB URINE ORDERABLES Final Result [facility] [address] [place] [address], [place] [phone] * (ABNORMAL) Basic metabolic panel (12/29/2024 10:20 AM EST) Sodium 135 133 - 145 mmol/L LAB CHEMISTRY METHOD 12/29/2024 12:52 PM EST [facility] Potassium 4.1 3.5 - 5.5 mmol/L LAB CHEMISTRY METHOD 12/29/2024 12:52 PM [facility] Chloride 100 96 - 110 mmol/L LAB CHEMISTRY METHOD 12/29/2024 12:52 PM [facility] CO2 25 21 - 32 mmol/L LAB CHEMISTRY METHOD 12/29/2024 12:52 PM [facility] Anion Gap 10 3 - 11 LAB CHEMISTRY METHOD 12/29/2024 12:52 PM [facility] Glucose 303(H) 70 - 100 mg/dL LAB CHEMISTRY METHOD 12/29/2024 12:52 PM [facility] BUN 12 5 - 25 mg/dL LAB CHEMISTRY METHOD 12/29/2024 12:52 PM [facility] Creatinine 0.97 0.70 - 1.30 mg/dL LAB CHEMISTRY METHOD 12/29/2024 12:52 PM [facility] eGFR 83 >=60 mL/min/1. 73m2 LAB CHEMISTRY METHOD 12/29/2024 12:52 PM [facility] Comment:Calculation based on the Chronic Kidney Disease Epidemiology Collaboration (CKD-EPI) equation refit without adjustment for race. BUN/Creatinine Ratio 12.4 LAB CHEMISTRY METHOD 12/29/2024 12:52 PM [facility] Calcium 9.4 8.5 - 10.5 mg/dL LAB CHEMISTRY METHOD 12/29/2024 12:52 PM [facility] Blood Venous blood specimen / Unknown Venipuncture / Unknown 12/29/2024 10:20 AM EST 12/29/2024 10:20 AM EST us Sydney LEWIS LAB BLOOD ORDERABLES Final Result [facility] [address] [place] [address], * Diabetes Eye Exam (10/28/2023) Diabetes: Annual Retina Eye Exam abstracted us Historical Provider MD HEALTH MAINTENANCE Final Result from Last 3 Months or Most Recently Relevant to Health Maintenance Insurance [facility] Member Subscriber Plan / Payer (Ef fective 2024-Present) Name:Deann Thao Relation to Subscriber:Self Name:Deann Thao Payer ID:[id number] Group ID:[id number] Type:Not on file Address: [place] [address] [address] [phone] Care Teams Security Incident Response Engineer Relationship Specialty Start Date End Date Lewis Goldberg NP [address] [facility] [place], [place] PCP - General 07/05/21
== END 2025-07-24 15:27 | disposition home or self-care (01) ==
LOC: HO.HMCC 13:49
PROVIDERS: PCP Nurse Practitioner Family; Visit Provider Nurse Practitioner Family
DX: Z00.01 Encounter for general adult medical examination with abnormal findings (principal); G56.02 Carpal tunnel syndrome, left upper limb; Z13.9 Encounter for screening, unspecified

== ENCOUNTER → 2025-07-24 13:48 | Outpatient (BNVA) | payer OTHER, SELFPAY | PROVIDERS: PCP Nurse Practitioner Family; Visit Provider Nurse Practitioner Family | DX: Z00.01 Encounter for general adult medical examination with abnormal findings (principal); E11.40 Type 2 diabetes mellitus with diabetic neuropathy, unspecified; L82.1 Other seborrheic keratosis; R32 Unspecified urinary incontinence; G56.02 Carpal tunnel syndrome, left upper limb | CPT/HCPCS: 83036; 99397 ==

== ENCOUNTER 2025-08-01 07:55 | Outpatient (REF) | payer OTHER, SELFPAY ==
--- OUTSIDE RECORDS SUMMARY | 2024-12-16 04:30 | XMS_ITS ---
Author Organization [facility] Address [address] [place] [address] Care Team Providers Care Fountain Roller Assembler Name Role Phone Mau Rivas Primary Care Provider REASON FOR VISIT INR LAB Social History Sex Assigned At : Social History Observation Description Sex Assigned At Female Encounters Encounter Location Date Provider Diagnosis [facility] [address] [address] 12/16/2024 Mau Rivas Plan Of Treatment Next Appt Details Provider Name:Mau montoya, 12/19/2025 09:00:00 AM, [address] [place] [address], [place], [address], Progress Notes * MILLSEDUARDODOB:05/1950 (75 yo M)Acc No.[id number]:12/16/2024 Progress Note Patient: Federico GLOVER EDUARDO Provider: Dionna Rivas MD :1950 A ge:74 Y S ex:Male Date:12/16/2024 Address:[address] [place], [place] [id number] Subjective: * Chief Complaints: * 1 . INR LAB. * Medical History: Objective: * Vitals: Assessment: Plan: * Treatment: * Images: * Electronic signature of Gus Rivas MD on 08/01/2025 at 08:01 AM EDT Sign off status: Pending * Provider: Dionna Rivas MD Date: 0 12/16/2024 Generated for Rosalie padilla/Yoav/eTransmitting on: 1 08:01 AM EDT
--- OUTSIDE RECORDS SUMMARY | 2024-12-20 05:00 | XMS_ITS ---
Author Organization [facility] Address [address] [place] [address] Care Team Providers Care Financial Associate Name Role Phone Mau Rivas Primary Care Provider [phone] REASON FOR VISIT RESULTS LAB Social History Sex Assigned At : Social History Observation Description Sex Assigned At Female Encounters Encounter Location Date Provider Diagnosis [facility] [address] [address] 12/20/2024 Mau Rivas Plan Of Treatment Next Appt Details Provider Name:aMu montoya, 12/19/2025 09:00:00 AM, [address] [place] [address], [place], [address], Progress Notes * GENE SAÚLSUNDOB:05/1950 (75 yo M)Acc No.[id number]:12/20/2024 Progress Notes Patient: MAYO ERICNACION Provider: Dionna Rivas MD :1950 A ge:74 Y S ex:Male Date:12/20/2024 Address:[address] [place], [place] [id number] Subjective: * Chief Complaints: * 1 . RESULTS LAB. * Medical History: Objective: * Vitals: Assessment: Plan: * Treatment: * Images: Care Plan Details* * Electronic signature of Gus Rivas MD on 08/01/2025 at 08:01 AM EDT Sign off status: Pending * Provider: Dionna Rivas MD Date: 0 12/20/2024 Generated for Printi ng/Faxing/eTransmitting on: 1 08:01 AM EDT
--- OUTSIDE RECORDS SUMMARY | 2024-12-30 05:00 | XMS_ITS ---
Author Organization [facility] Address [address] [place] [address] Care Team Providers Care Chamber Magistrate Name Role Phone Mau Rivas Primary Care Provider REASON FOR VISIT F/UP REFILL Social History Sex Assigned At : Social History Observation Description Sex Assigned At Female Encounters Encounter Location Date Provider Diagnosis [address] [address] 12/30/2024 Mau Rivas Plan Of Treatment Next Appt Details Provider Name:Mau Coats jan, 12/19/2025 09:00:00 AM, [address] [place] [address], [place], [address], Progress Notes * EDUARDO MILLSDOB:05/1950 (75 yo M)Acc No.[id number]:12/30/2024 Progress Note Patient: Federico GLOVER EDUARDO Provider: Dionna Rivas MD :1950 A ge:74 Y S ex:Male Date:12/30/2024 Address:[address] [place], [place] [id number] Subjective: * Chief Complaints: * 1 . F/UP REFILL. * Medical History: Objective: * Vitals: Assessment: Plan: * Treatment: * Images: Care Plan Details* * Electronic signature of Gus Rivas MD on 08/01/2025 at 08:01 AM EDT Sign off status: Pending * Provider: Dionna Rivas MD Date: 0 12/30/2024 Generated for Rosalie padilla/Yoav/Ceferinoitting on: 1 08:01 AM EDT
--- OUTSIDE RECORDS SUMMARY | 2025-08-01 08:01 | XMS_ITS | Patient Health Record ---
Author Organization [employer]. Address [address] [place] [address] [place] [id number] Care Team Providers Care [employer] Chemist Name Role Phone Mau Rivas Primary Care Provider Allergies No Known Allergies Results Component Value Reference Range Notes Cardiovascular Risk Assessme nt Reviewed date:10/20/2024 08:18:56 AM Interpretation: Performing Lab:[facility] [address] [id number], Phone - [phone], Director - Simon Notes/Report: Interpretation Note Supplemental report is available. PDF . US ABDOMEN COMP Reviewed date:11/10/2024 04:39:59 PM Interpretation: Performing Lab: Notes/Report: See Below For Report Exam # [id number] - November 09 2024 - ABDOMEN COMP - Microalb/Creat Ratio, Timed Ur-LC Reviewed date:11/17/2024 03:59:07 PM Interpretation: Performing Lab:[facility] [place], [address] [place] [id number], Phone - [phone], Director - Simon Notes/Report: Ur.Collec. Interval 0 Creatinine, Urine 57.6 Not Estab. mg/dL Albumin, Urine 3.5 Not Estab. ug/mL Alb/Creat Ratio 6.1 0.0-30.0 ug/mg creat Alb, U Excret. Rate 0.0-20.0 ug/min No to deborah volume submitted. Unable to calculate 24 hour result. Albumin,Ur mg/day TNP Unable to calculate result since non-numeric result obtained for component test. Written Authorization Reviewed date:11/17/2024 03:59:06 PM Interpretation: Performing Lab:[facility] [place], [address] [place] [id number], Phone - [phone], Director - Simon Notes/Report: Written Authorization Written Authorization Received. Logged by Yeni Norman Authorization received from Original Requisition 11-16-2024 AFP, Serum, Tumor Marker Reviewed date:11/17/2024 03:59:06 PM Interpretation: Performing Lab:[facility] [id number], Phone - [phone], Director - Simon Notes/Report: AFP, Serum, Tumor Marker 2.5 0.0-8.4 ng/mL used interchangeably. Results cannot be interpreted as absolute Values obtained with different assay methods or kits cannot be . evidence of the presence or absence of malignant disease. [facility] [employer] Electrochemiluminescence Immunoassay (ECLIA) . This test is not interpretable in females. Prothrombin Time (PT) with I NR-LC Reviewed date:11/17/2024 03:59:06 PM Interpretation: Performing Lab:[facility] [id number], Phone - [phone], Director - Simon Notes/Report: INR 1.0 0.9-1.2 Higher intensity therapeutic range 2.5 - 3.5 Standard Dose (moderate intensity Reference interval is for non-anticoagulated patients. Suggested INR therapeutic range for Vitamin K therapeutic range): 2.0 - 3.0 antagonist therapy: . Prothrombin Time 11.3 9.1-12.0 sec CBC With Differential/Platel et-LC-Q Reviewed date:11/17/2024 03:59:06 PM Interpretation: Performing Lab:[facility] [id number], Phone - [phone], Director - Simon Notes/Report: WBC 5.6 3.4-10.8 [...] 14+eGFR-LC-Q Reviewed date:11/17/2024 03:59:06 PM Interpretation: Performing Lab:[facility] [place], [address] [place] [id number], Phone - [phone], Director - Simon Notes/Report: Glucose 311 70-99 [...] io-LC Reviewed date:11/17/2024 03:59:06 PM Interpretation: Performing Lab:[facility] [place], [address] [place] [address] [id number], Phone - [phone], Director - Simon Notes/Report: Cholesterol, Total 114 100-199 mg/dL Triglycerides 168 0-149 mg/dL HDL Cholesterol 44 >39 mg/dL VLDL Cholesterol Orville 28 5-40 mg/dL LDL Chol Calc (NIH) 42 0-99 mg/dL LDL/HDL Ratio 1.0 0.0-3.6 ratio Avg.Risk 3.6 3.2 Men Women LDL/HDL Ratio 3X Avg.Risk 8.0 6.1 2X Avg.Risk 6.2 5.0 1/2 Avg.Risk 1.0 1.5 Ceruloplasmin-LC Reviewed date:11/17/2024 03:59:06 PM Interpretation: Performing Lab:[facility] [address] [id number], Phone - [phone], Director - Simon Notes/Report: Ceruloplasmin 23.6 16.0-31.0 mg/dL EKG Electrocardiogram Reviewed date:10/07/2024 02:14:04 PM Interpretation: Performing Lab: Notes/Report: Occult Blood, Fecal, IA-LAB MELVIN Reviewed date:10/20/2024 08:19:02 AM Interpretation: Performing Lab:[facility] [address] [id number], Phone - [phone], Director - Simon Notes/Report: Occult Blood, Fecal, IA Negative Negative Microalbumin/Creatinine Rati o, Random Urine-LC Reviewed date:10/20/2024 08:22:37 AM Interpretation: Performing Lab:[facility] [address] [id number], Phone - [phone], Director - Simon Notes/Report: Creatinine, Urine 107.2 Not Estab. mg/dL Albumin, Urine 5.0 Not Estab. ug/mL Alb/Creat Ratio 5 0-29 mg/g creat Normal: 0 - 29 Moderately increased: 30 - 300 Severely increased: >300 Hemoglobin A1C Reviewed date:01/10/2025 09:49:17 AM Interpretation: [facility]forming [facility], [address] [place] [id number], Phone - [phone], Director - MDJodry Notes/Report: Hemoglobin A1c 11.0 4.8-5.6 % . Diabetes: >6.4 Prediabetes: 5.7 - 6.4 Glycemic control for adults with diabetes: <7.0 CBC With Differential/Platel et-LC-Q Reviewed date:10/20/2024 08:22:42 AM Interpretation: Performing Lab:[facility] [id number], Phone - [phone], Director - Simon Notes/Report: WBC 5.7 3.4-10.8 [...] Immature Grans (Abs) 0.0 0.0-0.1 x10E3/uL Urinalysis, Mutipjdl-AJ-I Reviewed date:10/20/2024 08:25:48 AM Interpretation: Performing Lab:[facility] [id number], Phone - [phone], Director - Simon Notes/Report: Specific Brigantine >=1.030 1.005-1.030 pH 5.5 5.0-7.5 Urine-Color Yellow [...] 14+eGFR-LC-Q Reviewed date:10/20/2024 08:22:46 AM Interpretation: Performing Lab:[facility] [place], [facility] [place] [id number], Phone - [phone], Director - Simon Notes/Report: Glucose 155 70-99 [...] Panel-Q-LC Reviewed date:10/20/2024 08:22:50 AM Interpretation: Performing Lab:[facility] [place], [facility] [place], [place] [id number], Phone - [phone], Director - Simon Notes/Report: Cholesterol, Total 115 100-199 mg/dL Triglycerides 129 0-149 mg/dL HDL Cholesterol 37 >39 mg/dL VLDL Cholesterol Orville 23 5-40 mg/dL LDL Chol Calc (NIH) 55 0-99 mg/dL PSA Total (Reflex To Free) Reviewed date:10/20/2024 08:22:54 AM Interpretation: Performing Lab:[facility] [place], [address] [place] [id number], Phone - [phone], Director - Simon Notes/Report: Prostate Specific Ag 2.1 0.0-4.0 ng/mL Values obtained with different assay methods or kits cannot be used prostatectomy. The AUA defines biochemical recurrence as an initial According to the [place] [employer], Serum PSA should PSA value [...] PSA is between 4.0 and 10.0 ng/mL. X-Ray CHEST 2 VIEWS Reviewed date:10/20/2024 08:18:46 AM Interpretation: Performing Lab: Notes/Report: See Below For Report Exam # [id number] - October 15 2024 - CHEST 2 VIEWS - Microscopic Examination Reviewed date:11/17/2024 03:59:07 PM Interpretation: Performing Lab:[facility] [place] [address] [place] [id number], Phone - [phone], Director - Simon Notes/Report: Specific Brigantine >=1.030 1.005-1.030 pH 5.5 5.0-7.5 Urine-Color Yellow Yellow Appearance Clear Clear WBC Esterase Negative Negative Protein Negative Negative/Trace Glucose 3+ Negative Ketones Trace Negative Occult Blood Negative Negative Bilirubin Negative Negative Urobilinogen,Semi-Qn 0.2 0.2-1.0 mg/dL Nitrite, Urine Negative Negative Microscopic Examination Micr oscopic not indicated and not performed. Cardiovascular Risk Assessme nt Reviewed date:11/17/2024 03:59:06 PM Interpretation: Performing Lab:[facility] [place] [facility] [place], [place] [id number], Phone - [phone], Director - Simon Notes/Report: Interpretation Note Supplemental report is available. PDF Not applicable PSA Total, Serum-LC Reviewed date:11/17/2024 03:59:06 PM Interpretation: Performing Lab:[facility] [place], [facility] [place], [place] [id number], Phone - [phone], Director - Simon Notes/Report: Prostate Specific Ag [...] ng/mL or greater. . According to the [place] [employer], Serum PSA should of the presence or absence of malignant disease. Hemoglobin A1C Reviewed date:11/17/2024 03:59:06 PM Interpretation: Performing Lab:[facility] [place], [facility] [place], [place] [id number], Phone - [phone], Director - Simon Notes/Report: Hemoglobin A1c 8.7 4.8-5.6 % Diabetes: >6.4 Prediabetes: 5.7 - 6.4 . Glycemic control for adults with diabetes: <7.0 [facility] CKD Program Reviewed date:11/17/2024 03:59:06 PM Interpretation: Performing Lab:[facility] [place], [facility] [place], [place] [id number], Phone - [phone], Director - Simon Notes/Report: Interpretation Note guidelines [...] Reviewed date:11/17/2024 04:15:29 PM Interpretation: Performing Lab:[facility] [place], [address] [place] [id number], Phone - [phone], Director - Simon Notes/Report: Occult Blood, Fecal, IA Positive Negative Prothrombin Time (PT) with I NR-LC Reviewed date:10/20/2024 08:18:52 AM Interpretation: Performing Lab:[facility] [place], [address] [place] [id number], Phone - [phone], Director - Simon Notes/Report: INR 1.0 0.9-1.2 Higher intensity therapeutic range 2.5 - 3.5 antagonist therapy: Reference interval is for non-anticoagulated patients. . Standard Dose (moderate intensity therapeutic range): 2.0 - 3.0 Suggested INR therapeutic range for Vitamin K Prothrombin Time 11.0 9.1-12.0 sec Reason For Referral Reason Please fax consul t notes and/or results of procedure approved to [phone]. Thanks! ~Annual Eye Exam~ Diagnosis 1 Encounter for examin ation of eyes and vision without abnormal findings (Z01.00) Referral Organization [facility] Referring Provider First Name Mau Referring Provider Last Name Rob Referring Provider Speciality General Pr actice Referred Provider [employer], [employer] Referred Provider Specialty Metallography Teacher Clinical Notes Robert Martell 06/27 02:53:50 PM >GAVE PT REFERRAL SAME DAY ON 10/07/2024 Referral Priority Routine Reason Please fax consul t notes and/or results of procedure approved to [phone]. Thanks! CONSULT ONLY - MANAGED CARE ~Annual Eye Exam~ Diagnosis 1 Encounter for examin ation of eyes and vision without abnormal findings (Z01.00) Referral Organization [facility] Referring Provider First Name Mau Referring Provider Last Name Rob Referring Provider Speciality General Pr actroman Referred Provider [employer], [employer] Referred Provider Specialty Metallography Teacher Referral Priority Routine Reason NEW PATIENT [phone] or [phone] or [phone] [place] [phone] [place] [phone] If additional testing is needed, please refer back to PCP. Please fax consult notes and/or results of procedure approved to [phone]. Thanks! Diagnosis 1 Internal hemorrhoids (K64.8) Referral Organization [facility] Referring Provider First Name Mau Referring Provider Last Name Rob Referring Provider Speciality General Pr actice Referred Provider [employer] ([place]) Referred Provider Specialty Gastroentero logy Referral Priority Routine Reason If additional licha ting is needed, please refer back to PCP. Diagnosis 1 Fecal occult blood t est positive (R19.5) Referral Organization [facility] Referring Provider First Name Mau Referring Provider Last Name Rob 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.4) Active confirmed Problem Diabetic renal disease (267655726) Type 2 diabetes mellitus with diabetic chronic kidney disease (E11.22) Active confirmed Problem Mixed hyperlipidemia (796008624) Mixed hyperlipidemia (E78.2) Active confirmed Problem Alzheimer's disease with early onset (839638978) Alzheimer's disease with early onset (G30.0) Active confirmed Problem Hypertensive heart AND renal disease (65670707) Hypertensive heart and chronic kidney disease without heart failure, with stage 1 through stage 4 chronic kidney disease, or unspecified chronic kidney disease (I13.10) Active confirmed Problem Old myocardial infarction (2564710) Old myocardial infarction (I25.2) Active confirmed Problem Fatty liver (292529612) Fatty infiltration of liver (K76.0) Active confirmed Problem Moderate recurrent major depression (12305747) Major depressive disorder, recurrent episode, moderate (F33.1) Active confirmed Problem Hepatomegaly (04548312) Hepatomegaly (R16.0) Active confirmed Problem Long-term current use of anticoagulant (248855717) prison (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 of anticoagulants (Z79.01) Active confirmed Problem Internal hemorrhoids (54565365) Internal hemorrhoids (K64.8) Active confirmed Problem Angina (759668804) 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) Active confirmed Problem History of placement of stent for coronary artery disease (situation) (610866455) H/O heart artery stent (Z95.5) Active confirmed Problem Low compliance bladder (5147248) Hyperactivity of bladder (N31.8) Active confirmed Problem Chronic pancreatitis (587654965) Chronic pancreatitis, unspecified pancreatitis type (K86.1) Active confirmed As per [facility] records from 07/14/2024 Problem Chronic kidney disease stage 2 (949029001) CKD (chronic kidney disease), stage II (N18.2) Active confirmed GFR 92 as per lab results from 11/17/2024 has improved from GFR 82 as per lab results from [facility] record from 06/26/2024 Problem Diabetic peripheral neuropathy (425173275) Diabetic peripheral neuropathy (E11.42) Active confirmed Problem Type 2 diabetes mellitus with other specified complication, without long-term current use of insulin (E11.69) Active confirmed Problem Pulmonary hypertension (62957121) Pulmonary hypertension (I27.20) Active confirmed As per [facility] records from 09/27/2024 Problem Benign prostatic hypertrophy without outflow obstruction (353088222) BPH without urinary obstruction (N40.0) Active confirmed Problem Chronic obstructive lung disease (34424821) COPD without exacerbation (J44.9) Active confirmed Problem Diabetic peripheral vascular disease (953528031) Diabetic peripheral vascular disease (E11.51) Active confirmed [...] 11/23/2024 Encounters Encounter Location Date Provider Diagnosis [facility] [address] [place] [address] 10/07/2024 Mau Rivas [facility] [address] [place] [address] 10/07/2024 Mau Freyarez [facility] [address] [place] [address] 10/07/2024 Mau Rivas [facility] [address] [place] [address] 10/14/2024 Mau Rivas H/O heart artery yon nt Z95.5 [facility] [address] [place] [address] 11/15/2024 Mau Freyarez [facility] [address] [place] [address] 10/07/2024 Mauamilcar Rivas Major depressive disorder, recurrent episode, moderate F33.1 ; Hypertensive heart and chronic kidney disease without heart failure, with stage 1 through stage 4 chronic kidney disease, or unspecified chronic kidney disease I13.10 ; Atherosclerosis of [place] coronary artery of [place] heart with angina pectoris I25.119 ; Pulmonary [...] ; H/O heart artery stent Z95.5 ; prison (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 of insulin Z79.4 ; History of cerebrovascular accident (CVA) in adulthood Z86.73 ; Body mass index (BMI) of 32.0 to 32.9 in adult Z68.32 ; Encounter for examination of eyes and vision without abnormal findings Z01.00 ; Encounter for fecal immunochemical test screening Z12.11 ; Screening for osteoporosis Z13.820 and Encounter for prostate cancer screening Z12.5 [place] [address] [address] 10/20/2024 Mau Rivas Hypertensive heart a nd chronic kidney disease without heart failure, with stage 1 through stage 4 chronic kidney disease, or unspecified chronic kidney disease I13.10 ; Elevated liver enzymes R74.8 ; Pulmonary hypertension I27.20 ; Atherosclerosis of [place] coronary artery of [place] heart with angina pectoris I25.119 ; Old [...] H/O heart artery stent Z95.5 ; 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 Z79.4 and Body mass index (BMI) of 31.0 to 31.9 in adult Z68.[address] [address] 11/09/2024 Mau Rivas Elevated liver enzym es R74.[address] [address] 11/15/2024 Mau Rivas Alzheimer's disease with early [...] ; Pulmonary hypertension I27.20 ; Atherosclerosis of [place] coronary artery of [place] heart with angina pectoris I25.119 ; Type [...] H/O heart artery stent Z95.5 ; 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 Z79.01 ; 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 Z79.4 ; Body mass index (BMI) of 30.0 to 30.9 in adult Z68.30 ; Encounter for examination of eyes and vision without abnormal findings Z01.00 and Encounter for screening fecal occult blood testing Z12.[address] [address] 11/15/2024 Mau Rivas Elevated liver enzym es [...] N31.8 and H/O heart artery stent Z95.[address] [address] 11/23/2024 Mau Rivas Major depressive disorder, recurrent [...] chronic kidney disease I13.10 ; Atherosclerosis of [place] coronary artery of [place] heart with angina pectoris I25.119 ; Pulmonary [...] H/O heart artery stent Z95.5 ; 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 Z79.4 ; prison (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 of anticoagulants Z79.01 and Body mass index (BMI) of 30.0 to 30.9 in adult Z68.30 [employer] [facility] [address] [place] [address] 11/17/2024 [facility] [address] [place] [address] 11/25/2024 Evrent [facility] [address] [place] [address] 03/06/2025 Mau Rivas Type 2 diabetes mellitus [...] (ICD-10 - I27.20) [facility] per [facility] records from 09/27/2024 As per [facility] records from 09/27/2024. Will continue to monitor. Strict blood pressure control, low fat diet and daily exercise as tolerated recommended. 10/07/2024 Atherosclerosis of [place] coronary artery of [place] heart with angina pectoris (ICD-10 - I25.119) 10/07/2024 Pulmonary hypertension (ICD-10 - I27.20) As per [facility] records from 09/27/2024 As per [facility] records from 09/27/2024. Will continue to monitor. Strict blood pressure control, low fat diet and daily exercise as tolerated recommended. 10/20/2024 Atherosclerosis of [place] coronary artery of [place] heart with angina pectoris (ICD-10 - I25.119) [...] pancreatitis type (ICD-10 - K86.1) As per [facility] records from 07/14/2024 As per [facility] records from 07/14/2024. Will continue to [...] (ICD-10 - I27.20) As per [facility] records from 09/27/2024 As per [facility] records from 09/27/2024. Will continue to monitor. Strict blood pressure control, low fat diet and daily exercise as tolerated recommended. 10/20/2024 CKD (chronic kidney disease), stage II (ICD-10 - N18.2) GFR 82 as per lab results from [facility] record from 06/26/2024 GFR 82 as per lab results from [facility] record from 06/26/2024 10/07/2024 CKD (chronic kidney disease), stage II (ICD-10 - N18.2) GFR 82 as per lab results from [facility] record from 06/26/2024 GFR 82 as per lab results from [facility] record from 06/26/2024 10/07/2024 Type 2 diabetes mellitus with other specified complication, without long-term current use of insulin (ICD-10 - E11.69) Mixed Hyperlipidemia as due to diabetes mellitus (DM) 11/15/2024 Atherosclerosis of [place] coronary artery of [place] heart with angina pectoris (ICD-10 - I25.119) 11/15/2024 H/O heart artery stent (ICD-10 - Z95.5) 10/20/2024 Type 2 diabetes mellitus with other specified complication, without long-term current use of insulin (ICD-10 - E11.69) Mixed Hyperlipidemia as due to diabetes mellitus (DM). Continue taking Glipizide. 11/23/2024 Atherosclerosis of [place] coronary artery of [place] heart with angina pectoris (ICD-10 - I25.119) 11/23/2024 Pulmonary hypertension (ICD-10 - I27.20) As per [facility] records from 09/27/2024 As per [facility] records from 09/27/2024. Will continue to monitor. [...] pancreatitis type (ICD-10 - K86.1) As per [facility] records from 07/14/2024 As per [facility] records from 07/14/2024. Avoid smoking and drinking alcohol, and limit caffeine. Eat a healthy diet that's low in fat and protein, and eat smaller meals more frequently 10/07/2024 BPH without urinary obstruction (ICD-10 - N40.0) 10/20/2024 Chronic pancreatitis, unspecified pancreatitis type (ICD-10 - K86.1) As per [facility] records from 07/14/2024 As per [facility] records from 07/14/2024. Avoid smoking and [...] pancreatitis type (ICD-10 - K86.1) As per [facility] records from 07/14/2024 As per [facility] records from 07/14/2024. 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 (ICD-10 - Z79.4) 10/20/2024 Body mass index (BMI) of 31.0 to 31.9 in adult (ICD-10 - Z68.31) 10/07/2024 Body mass index (BMI) of 32.0 to 32.9 in adult (ICD-10 - Z68.32) 11/23/2024 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
--- OUTSIDE RECORDS SUMMARY | 2025-08-01 08:01 | XMS_ITS | Clinical Summary ---
Author Organization [address] [place] [address] [place] [phone] Phone Care Team Providers Care Pipe Layer Helper Name Role Phone Lewis Goldberg NP Primary [...] topically if needed. 02/14/20 25 Active insulin refrigerating machine operator cart,aut,G6/7,cntr (Omnipod 5 G6-G7 Intro Kt,Gen5,) cartridgeIndicatio ns:Diabetes mellitus type 2, uncomplicated, on technician terminal and repeater insulin pump ([facility] V24, [facility] V28) Please dispense 1 pdf, [...] units SC at bedtime 45 mL 03/28/20 Active insulin aspart (NovoLOG) 100 unit/mL injection Use daily with insulin pump, max daily dose 150 units. Dispense 3 vials 30 mL 05/09/20 026 Active insulin pump cart,auto,BT,G6/7 (Omnipod 5 G6-G7 Pods, Gen 5,) cartridgeIndicatio ns:Diabetes mellitus type 2 with neurological manifestations ([facility] V24, [facility] V28) 1 DEVICE BY DOES NOT APPLY ROUTE EVERY 48 HOURS 45 each 05/23/20 25 Active lansoprazole (PREVACID) [address] capsule Take 1 capsule (30 mg total) by mouth 1 (one) time each day. Do not crush or chew. 30 each 06/12/20 25 026 Active hydrocortisone (Proctosol HC) 2.5 % rectal cream Insert into the rectum 2 (two) times a day for 10 days. 30 g 06/12/20 25 Active apixaban (ELIQUIS) 5 mg tablet Take 1 tablet (5 mg total) by mouth 2 (two) times a day. Take 1 Tablet by mouth 2 times daily. 180 tablet 2 06/13/20 25 Active metoprolol succinate (TOPROL-XL) 50 mg 24 hr tablet Take 1 tablet (50 mg total) by mouth 1 (one) time each day. 90 tablet 2 06/13/20 25 Active pen needle, diabetic (Comfort EZ Pen [place]) 33 gauge x 5/32 needle USE ONE DAILY WITH LANTUS DIRECTED 100 each 11 06/27/20 25 Active Active Problems Problem Noted Date Diagnosed [...] Diabetes mellitus type 2, un complicated, on mcc insulin pump ([facility] V24, [facility] V28) 05/21/2023 Diabetes mellitus type 2 wit h neurological manifestations ([facility] V24, [facility] V28) 08/04/2022 PVC's (premature ventricular [...] losartan and isosorbide as prescribed. Chronic pancreatitis ([facility] V24, [facility] V28) 07/19/2019 PFO (patent foramen [...] 9:12 AM EDT): Patient has history of MO and was left with residual coronary disease. [...] 1:19 PM EDT): Patient has history of MO and was left with residual coronary disease. [...] with routine medical care. Cerebrovascular accident (CVA) ([facility] V24, [facility] V28) 11/22/2018 Overview (06/13/2025): Follows [...] Type Department Care Team Description 07/12/2025 Telephone [facility] [address] [place] [phone] Maco Cross MD 06/13/2025 8:40 AM EDT Office Visit [facility] [address] [place] [phone] Jerrica Rizzo NP Coronary artery disease involving barrow coronary artery of barrow heart without angina pectoris (Primary Dx); Cerebrovascular accident (CVA), unspecified mechanism (CMS/HCC V24, CMS/HCC V28); PFO (patent foramen ovale); Mixed hyperlipidemia 06/12/2025 9:30 AM EDT Office Visit [facility] - [place] [address] [place] [phone] Lucia Rebolledo PA Positive colorectal cancer screening using Cologuard test (Primary Dx); Gastroesophageal reflux disease with esophagitis without hemorrhage; Tubular adenoma; Internal hemorrhoids with complication 05/31/2025 Telephone Endocrinology - [place] [address] [place] [phone] Sydney Hector PA 05/29/2025 Telephone [address]ocr[address] [phone] Sydney Hector PA 05/09/2025 8:00 AM EDT Office Visit Endocrinology [address] [phone] Sydney Hector PA Diabetes mellitus type 2 with neurological manifestations ([facility] V24, [facility] V28) (Primary Dx); Secondary hypertension; Mixed hyperlipidemia from Last 3 Months Surgical History Surgery Date Site/Laterality Comments APPENDECTOMY PROCEDURE: [place] APPENDECTOMY ROTATOR CUFF REPAIR PROCEDURE: HISTORICAL ROTATOR CUFF REPAIR BACK SURGERY 1992 PROCEDURE: HISTORICAL BACK SURGERY; COMMENT: lumbar COLONOSCOPY W/ BIOPSIES ESOPHAGOGASTRODUODENOSCOPY Medical History Medical History Date Comments Type 2 diabetes mellitus wit h neurological manifestations, uncontrolled 11/18/2017 DX:Type 2 diabetes mellitus with neurological manifestations, uncontrolled Major depression 03/03/2019 DX:Major depres kody Old MO (myocardial infarction) 03/03/2019 D X:Old MO (myocardial infarction) PFO (patent foramen ovale) 06/29/2019 DX:PF O (patent foramen ovale) Family history of cardiovasc ular disease DX:Family history of cardiov ascular disease Sleep apnea Hyperlipidemia Hypertension Pancreatitis GERD (gastroesophageal reflux disease) CAD (coronary artery disease) CVA (cerebral vascular accid ent) (CMS/HCC V24, [facility] V28) Esophageal dysmotility PVC (premature [...] 08/09/2025 9:45 AM EDT Office Visit [facility]ocrinology [facility] [address] [place] [address] Sydney Hector PA [address] [place] [address] 12/25/2025 11:30 AM EST Office Visit Gastroenterology - [place] [address] [place] [phone] Lucia Rebolledo PA [address] [place] [address] Health Maintenance Due Date Last Done Comments [...] EDT Diabetes mellitus type 2, uncomplicated, on technician terminal and repeater insulin pump ([facility] V24, [facility] V28) COLONOSCOPY Routine 03/08/2025 2:40 PM EDT BRBPR (bright red blood per rectum) Positive colorectal cancer screening using Cologuard test MICROALBUMIN CREATININE URINE RATIO Routine 12/29/2024 10:20 AM EST Diabetes mellitus type 2, uncomplicated, on technician terminal and repeater insulin pump ([facility] V24, CMS/HCC V28) BASIC METABOLIC PANEL Routine 12/29/2024 10:20 AM EST Diabetes mellitus type 2, uncomplicated, on mcc insulin pump (CMS/HCC V24, CMS/HCC V28) LIPID PANEL WITH REFLEX TO DIRECT LDL Routine 12/29/2024 10:20 AM EST Diabetes mellitus type 2, uncomplicated, on technician terminal and repeater insulin pump ([facility] V24, CMS/HCC V28) DIABETES EYE EXAM Routine 10/28/2023 from Last 3 Months or Most Recently Relevant to Health Maintenance Results * (ABNORMAL) Hemoglobin A1c (05/09/2025 8:40 AM EDT) Hemoglobin A1C 9.5(H) <6.5 % LAB CHEMISTRY METHOD 05/09/2025 1:30 PM EDT [facility] Mean Bld Glu Estim. 226 mg/dL LAB CHEMISTRY METHOD 05/09/2025 1:30 PM EDT [facility] Blood Venous blood specimen / Unknown Venipuncture / Unknown 05/09/2025 8:40 AM EDT 05/09/2025 8:40 AM EDT us Sydney LEWIS LAB BLOOD ORDERABLES Final Result [facility] [address] [place] [address], * COLONOSCOPY Anesthesia - MAC; [facility] ENDOSCOPY (03/08/2025 2:40 PM EDT) Anatomical Region Laterality Modality Endoscopy 03/08/2025 2:22 PM EDT Impressions 03/08/2025 2:45 PM EDT - Two diminutive polyps in the sigmoid colon and in the transverse colon, removed with a jumbo cold forceps. Resected and retrieved. - Internal hemorrhoids. Recommendation: - Await pathology results. - No repeat colonoscopy due to age. Narrative 03/08/2025 2:45 PM EDT [facility] Patient Name: Deann Thao Procedure [...] verified by the physician, the nurse, the c d still operator and the food safety technician in the pre-procedure area in the [...] reduce spontaneously). Procedure Code(s): --- Professional --- 34533, Colonoscopy, flexible; with biopsy, single or multiple Diagnosis Code(s): --- Professional --- D12.5, Benign neoplasm of sigmoid colon D12.3, Benign neoplasm of transverse colon (hepatic flexure or splenic flexure) CPT copyright 2020 [employer]. All rights reserved. The codes documented in this report are preliminary and upon sas programmer remote review may be revised to meet current compliance requirements. Joe Echols MD 03/08/2025 2:45:33 PM This report has been signed electronically.Joe Echols MD Number of Addenda: 0 Note Initiated On: 03/08/2025 2:22 PM Scope Withdrawal Time: 0 hours 9 minutes 20 seconds Scope In: 2:29:28 PM Scope Out: 2:40:44 PM Endoscopy Department at [facility] - [address] [place] [phone] Procedure Note Joe Echols MD - 03/08/2025 [facility] Patient Name: Deann Thao Procedure [...] the physician, the nurse, theanesthetist and the food safety technician in the pre-procedure area in the [...] but reducespontaneously). Procedure Code(s): --- Professional --- 50316, Colonoscopy, flexible; with biopsy, singleor multiple Diagnosis Code(s): --- Professional --- D12.5, Benign neoplasm of sigmoid colon D12.3, Benign neoplasm of transverse colon (hepatic flexure or splenic flexure) CPT copyright 2020 [employer]. All rights reserved. The codes documented in this report are preliminary and upon sas programmer remote reviewmay be revised to meet current compliance requirements. Joe Echols MD 03/08/2025 2:45:33 PM This report has been signed electronically.Joe Echols MD Number of Addenda: 0 Note Initiated On: 03/08/2025 2:22 PM Scope Withdrawal Time: 0 hours 9 minutes 20 seconds Scope In: 2:29:28 PM Scope Out: 2:40:44 PM Endoscopy Department at [facility] - [address] [place] [phone] IMPRESSION: - Two diminutive polyps in the [...] mg/dL LAB CHEMISTRY METHOD 12/29/2024 12:56 PM [facility] Triglycerides 119 0 - 150 mg/dL LAB CHEMISTRY METHOD 12/29/2024 12:56 PM [facility] HDL 47 >=40 mg/dL LAB CHEMISTRY METHOD 12/29/2024 12:56 PM [facility] LDL Calculated 29 0 - 100 mg/dL LAB CHEMISTRY METHOD 12/29/2024 12:56 PM [facility] VLDL Cholesterol [place] 23.8 mg/dL LAB CHEMISTRY METHOD 12/29/2024 12:56 PM [facility] Non HDL Chol. (LDL+VLDL) 53 <145 mg/dL LAB CHEMISTRY METHOD 12/29/2024 12:56 PM [facility] Chol/HDL Ratio 2.1 0.0 - 4.4 LAB CHEMISTRY METHOD 12/29/2024 12:56 PM EST [facility] Blood Venous blood specimen / Unknown Venipuncture / Unknown 12/29/2024 10:20 AM EST 12/29/2024 10:20 AM EST Sdyney LEWIS LAB BLOOD ORDERABLES Final Result Performing Organization Address [facility]/ZIP Co de Phone Number [facility] [address] [place] [address], [place] [phone] * (ABNORMAL) Microalbumin creatinine urine ratio (12/29/2024 10:20 AM EST) Creatinine, Urine 224.0 mg/dL LAB CHEMISTRY METHOD 12/29/2024 1:14 PM [facility] Microalb, Ur 98.1(H) 0.0 - 29.0 mg/L LAB CHEMISTRY METHOD 12/29/2024 1:14 PM [facility] Microalb/Crea t Ratio 44(H) <30 mg/g creat LAB CHEMISTRY METHOD 12/29/2024 1:14 PM [facility] Urine Urine specimen from urethra / Unknown Non-blood Collection / Unknown 12/29/2024 10:20 AM EST 12/29/2024 10:20 AM EST Sydney LEWIS LAB URINE ORDERABLES Final Result Performing Organization Address City/[facility]/ZIP Co de Phone Number [facility] [address] [place] [address], [place] [phone] * (ABNORMAL) Basic metabolic panel (12/29/2024 10:20 AM EST) Sodium 135 133 - 145 mmol/L LAB CHEMISTRY METHOD 12/29/2024 12:52 PM [facility] Potassium 4.1 3.5 - 5.5 mmol/L LAB CHEMISTRY METHOD 12/29/2024 12:52 PM EST [facility] Chloride 100 96 - 110 mmol/L LAB CHEMISTRY METHOD 12/29/2024 12:52 PM [facility] CO2 25 21 - 32 mmol/L LAB CHEMISTRY METHOD 12/29/2024 12:52 PM [facility] Anion Gap 10 3 - 11 LAB CHEMISTRY METHOD 12/29/2024 12:52 PM [facility] Glucose 303(H) 70 - 100 mg/dL LAB CHEMISTRY METHOD 12/29/2024 12:52 PM [facility] BUN 12 5 - 25 mg/dL LAB CHEMISTRY METHOD 12/29/2024 12:52 PM [facility] Creatinine 0.97 0.70 - 1.30 mg/dL LAB CHEMISTRY METHOD 12/29/2024 12:52 PM [facility] eGFR 83 >=60 mL/min/1. 73m2 LAB CHEMISTRY METHOD 12/29/2024 12:52 PM [facility] Comment:Calculation based on the Chronic Kidney Disease Epidemiology Collaboration (CKD-EPI) equation refit without adjustment for race. BUN/Creatinine Ratio 12.4 LAB CHEMISTRY METHOD 12/29/2024 12:52 PM [facility] Calcium 9.4 8.5 - 10.5 mg/dL LAB CHEMISTRY METHOD 12/29/2024 12:52 PM [facility] Blood Venous blood specimen / Unknown Venipuncture / Unknown 12/29/2024 10:20 AM EST 12/29/2024 10:20 AM EST us Sydney LEWIS LAB BLOOD ORDERABLES Final Result [facility] [address] [place] [address], * Diabetes Eye Exam (10/28/2023) Diabetes: Annual Retina Eye Exam abstracted us Historical Provider HEALTH MAINTENANCE Final Result from Last 3 Months or Most Recently Relevant to Health Maintenance Insurance [facility] Member Subscriber Plan / Payer (Ef fective 2024-Present) Name:Deann Thao Relation to Subscriber:Self Name:Deann Thao Payer ID:[id number] Group ID:[id number] Type:Not on file Address: [place] [address] [place] [phone] Care Teams Pipe Layer Helper Relationship Specialty Start Date End Date Lewis Goldberg NP [address] [place], [place] PCP - General 07/05/21
--- OUTSIDE RECORDS SUMMARY | 2025-08-01 08:01 | XMS_ITS | Clinical Summary ---
Author Organization [facility], Address [address] [place] [address] [place] [address] Phone Care Team Providers Care Bearing Press Machine Operator Name Role Phone Lucia Rebolledo PA-C Primary [...] to complete this topic Insurance [address] [place] [id number] [place] [address] ([id number]) [place] [id number] Care Teams Bearing Press Machine Operator Relationship Specialty Start Date End Date Lucia Rebolledo PA-C PCP - General Physician Unit Manager 12/09/19
--- OUTSIDE RECORDS SUMMARY | 2025-08-01 08:01 | XMS_ITS | Patient Health Record ---
Author Organization [facility] Address [address] [facility] [place] [address] Care Team Providers Care Balloon Seller Name Role Phone VOSSKELLYGRETCHEN Dionna Primary Care Provide r Unavailable WILL PEREZ Unavailable Allergies No Known Allergies Reason For Referral Reason [id number] Diagnosis 1 Inflamed internal he morrhoid (K64.8) Referred Organization [facility] Referred Provider WILL PEREZ Referred Address [address] [place] [address] [place], Referred Provider Specialty Gastroentero logy Referral Priority [...] Status Risk Notes Problem Acute myocardial infarction (38969304) Acute myocardial infarction, unspecified (I21.9) Active confirmed Problem Hyperlipidemia (88521206) Hyperlipidemia (E78.5) Active confirmed Problem Asthma (379636830) Asthma (J45.909) Active confirmed Problem Hypertension (87852184) Hypertension (I10) Active confirmed Problem Type 2 diabetes mellitus (84970302) Type 2 diabetes mellitus (E11.9) Active confirmed Vital Signs Heart Rate 69 /min 11/30/2024 Blood pressure diastolic 69 mm Hg 11/30/2024 Height 66 in 11/30/2024 Blood pressure systolic 109 mm Hg 11/30/2024 Weight 193 lbs 11/30/2024 BMI 31.15 kg/m2 11/30/2024 Encounters Encounter Location Date Provider Diagnosis [facility] [address] [facility] [place] [address] 11/30/2024 [facility] Abdominal pain R10.9 ; Constipation in male K59.00 ; Pancreatic cyst K86.2 and Colon cancer screening Z12.11 [facility] [address] [facility] [place] [address] 11/30/2024 [facility] Assessments Encounter Date Diagnosis (ICD Code) Assessment [...] Insured Coverage Start Date Coverage End Date [facility] Health Plan [address] [address] [place] [id number] EDUARDO MILLS Self - patient is the insured MEDICARE SECONDARY [address] [place] [id number] EDUARDO MILLS Self - patient is the insured Medical (General) History Medical History History ICD Code Hypertension I10 Type 2 diabetes mellitus E11.9 Hyperlipidemia E78.5 Asthma J45.909 Acute myocardial infarction, unspecified I21.9 Surgical History Surgery Date(Month/Year) appendectomy Back surgery
[2025-08-01 10:14] LABS: MANUAL DIFF FLAG NO
[2025-08-01 10:22] LABS: Appearance Urine Turbid; Glucose Urine UA Negative (Negative); PH 5.5 (5.0-9.0); Specific Gravity - Urine >= 1.030 (1.005-1.025); UMIC TRIGGER UACC YES
[2025-08-01 10:29] LABS: Hematocrit 38.7 % (42.0-52.0); Hemoglobin 12.9 g/dl (14.0-18.0); Imm Gran Abs Auto 0.03 X10*3/uL (0.00-0.03); Imm Gran Pct Auto 0.6 % (0.0-0.4); Lymphocytes Absolute Auto 2.0 X10*3/uL (1.2-4.9); Mean Corpuscular HGB Conc 33.3 g/dl (31.0-36.0); Mean Corpuscular Hemoglobin 29.2 pg (27.0-33.0); Mean Corpuscular Volume 87.6 fL (80.0-98.0); NRBC Abs Auto 0.000 X10*3/uL (0.0-0.012); NRBC Pct Auto 0.0 /100WBC (0.0-0.2); Platelet Count 237 X10*3/uL (160-400); Red Blood Count 4.42 X10*6/uL (4.60-5.80); White Blood Count 5.4 X10*3/uL (4.8-10.8)
[2025-08-01 10:52] LABS: Alanine Aminotransferase 45 U/L (0-40); Albumin Level 4.3 g/dL (3.5-5.0); Alkaline Phosphatase 97 U/L (39-117); Anion Gap 11 (12-20); Aspartate Amino Transferase 38 U/L (5-37); Blood Urea Nitrogen 16 mg/dL (9-16); Calcium 8.8 mg/dL (8.4-10.2); Carbon Dioxide 27 mmol/L (22-29); Chloride 107 mmol/L (96-108); Cholesterol 112 mg/dL (<200); Estimated Glomerular Filt Rate > 60; HDL Cholesterol 44 mg/dL (>40); Potassium 4.0 mmol/L (3.3-5.1); Sodium 141 mmol/L (135-145); Total Protein 7.0 g/dL (6.5-8.0); Triglycerides 99 mg/dL (<150)
[2025-08-01 12:12] LABS: Free T4 (Free Thyroxine) 0.82 ng/dL (0.71-1.85)
== END 2025-08-01 07:56 | disposition home or self-care (01) ==
LOC: HO.HMGCLDS 07:55
PROVIDERS: PCP Nurse Practitioner Family; Visit Provider Nurse Practitioner Family
DX: Z00.01 Encounter for general adult medical examination with abnormal findings (principal); Z13.0 Encounter for screening for diseases of the blood and blood-forming organs and certain disorders involving the immune mechanism; Z13.29 Encounter for screening for other suspected endocrine disorder; Z13.6 Encounter for screening for cardiovascular disorders
CPT/HCPCS: 36415; 80053; 80061; 81001; 84439; 84443; 85025

== ENCOUNTER 2025-08-08 10:14 | Outpatient (REF) | payer OTHER, SELFPAY ==
--- OUTSIDE RECORDS SUMMARY | 2024-12-16 04:30 | XMS_ITS ---
Author Organization [email or web address] Address [address] [place] [address] Care Team Providers Care Inspector Rubber Stamp Die Name Role Phone Mau Rivas Primary Care Provider [phone] REASON FOR VISIT INR LAB Social History Sex Assigned At : Social History Observation Description Sex Assigned At Female Encounters Encounter Location Date Provider Diagnosis [facility] [address] [address] 12/16/2024 Mau Rivas Plan Of Treatment Next Appt Details Provider Name:Mauamilcar montoya, 12/19/2025 09:00:00 AM, [address] [place] [address], [place], [address], Progress Notes * MILLSEDUARDODOB:05/1950 (75 yo M)Acc No.[id number]:12/16/2024 Progress Note Patient: Federico GLOVER EDUARDO Provider: Dionna Rivas MD :1950 A ge:74 Y S ex:Male Date:12/16/2024 Address:[address] [place], [place] [id number] Subjective: * Chief Complaints: * 1 . INR LAB. * Medical History: Objective: * Vitals: Assessment: Plan: * Treatment: * Images: * Electronic signature of Gus Rivas MD on 08/08/2025 at 11:59 AM EDT Sign off status: Pending * Provider: Dionna Rivas MD Date: 0 12/16/2024 Generated for Rosalie padilla/Yoav/eTransmitting on: 1 11:59 AM EDT
--- OUTSIDE RECORDS SUMMARY | 2024-12-20 05:00 | XMS_ITS ---
Author Organization [facility] Address [address] [place] [address] Care Team Providers Care Lens Cutter Name Role Phone Mau Rivas Primary Care Provider [phone] REASON FOR VISIT RESULTS LAB Social History Sex Assigned At : Social History Observation Description Sex Assigned At Female Encounters Encounter Location Date Provider Diagnosis [facility] [address] [address] 12/20/2024 Mau Rivas Plan Of Treatment Next Appt Details Provider Name:Mau montoya, 12/19/2025 09:00:00 AM, [address] [place] [address], [place], [address], Progress Notes * GENE SAÚLSUNDOB:05/1950 (75 yo M)Acc No.[id number]:12/20/2024 Progress Notes Patient: MAYO ERICNACION Provider: Dionna Rivas MD :1950 A ge:74 Y S ex:Male Date:12/20/2024 Address:[address] [place], [place] [id number] Subjective: * Chief Complaints: * 1 . RESULTS LAB. * Medical History: Objective: * Vitals: Assessment: Plan: * Treatment: * Images: Care Plan Details* * Electronic signature of Gus Rivas MD on 08/08/2025 at 11:59 AM EDT Sign off status: Pending * Provider: Dionna Rivas MD Date: 0 12/20/2024 Generated for Printi ng/Faxing/eTransmitting on: 1 11:59 AM EDT
--- OUTSIDE RECORDS SUMMARY | 2024-12-30 05:00 | XMS_ITS ---
Author Organization [facility] Address [address] [place] [address] Care Team Providers Care Soliciting Freight Agent Name Role Phone Mau Rivas Primary Care Provider [phone] REASON FOR VISIT F/UP REFILL Social History Sex Assigned At : Social History Observation Description Sex Assigned At Female Encounters Encounter Location Date Provider Diagnosis [address] [address] 12/30/2024 Mau Rivas Plan Of Treatment Next Appt Details Provider Name:Mauamilcar Coats jan, 12/19/2025 09:00:00 AM, [address] [place] [address], [place], [address], Progress Notes * EDUARDO MILLSDOB:05/1950 (75 yo M)Acc No.[id number]:12/30/2024 Progress Note Patient: Federico GLOVER EDUARDO Provider: Dionna Rivas MD :1950 A ge:74 Y S ex:Male Date:12/30/2024 Address:[address] [place], [place] [phone] Subjective: * Chief Complaints: * 1 . F/UP REFILL. * Medical History: Objective: * Vitals: Assessment: Plan: * Treatment: * Images: Care Plan Details* * Electronic signature of Gus Rivas MD on 08/08/2025 at 11:59 AM EDT Sign off status: Pending * Provider: Dionna Rivas MD Date: 0 12/30/2024 Generated for Rosalie padilla/Yoav/Ceferinoitting on: 1 11:59 AM EDT
--- OUTSIDE RECORDS SUMMARY | 2025-08-08 11:58 | XMS_ITS | Patient Health Record ---
Author Organization [facility] Address [address] [facility] [place] [place] [address] Care Team Providers Care It Systems Analyst Name Role Phone VOSSKELLYGRETCHEN Dionna Primary Care Provide r Unavailable WILL PEREZ Unavailable Allergies No Known Allergies Reason For Referral Reason [id number] Diagnosis 1 Inflamed internal he morrhoid (K64.8) Referred Organization [facility] Referred Provider WILL PEREZ Referred Address [address] [place] [address] [place],[address], Referred Provider Specialty Gastroentero logy Referral Priority [...] Status Risk Notes Problem Acute myocardial infarction (61620580) Acute myocardial infarction, unspecified (I21.9) Active confirmed Problem Hyperlipidemia (66500650) Hyperlipidemia (E78.5) Active confirmed Problem Asthma (060680058) Asthma (J45.909) Active confirmed Problem Hypertension (91224226) Hypertension (I10) Active confirmed Problem Type 2 diabetes mellitus (54167422) Type 2 diabetes mellitus (E11.9) Active confirmed Vital Signs Heart Rate 69 /min 11/30/2024 Blood pressure diastolic 69 mm Hg 11/30/2024 Height 66 in 11/30/2024 Blood pressure systolic 109 mm Hg 11/30/2024 Weight 193 lbs 11/30/2024 BMI 31.15 kg/m2 11/30/2024 Encounters Encounter Location Date Provider Diagnosis [facility] [address] [facility] [place] [place] [address] 11/30/2024 [facility] Abdominal pain R10.9 ; Constipation in male K59.00 ; Pancreatic cyst K86.2 and Colon cancer screening Z12.11 [facility] [address] [facility] [place] [place] [address] 11/30/2024 [facility] Assessments Encounter Date [...] Insured Coverage Start Date Coverage End Date [facility] Health Plan [address] [address] [place] [phone] [id number] EDUARDO MILLS Self - patient is the insured MEDICARE SECONDARY [address] [place] [phone] [id number] EDUARDO MILLS Self - patient is the insured Medical (General) History Medical History History ICD Code Hypertension I10 Type 2 diabetes mellitus E11.9 Hyperlipidemia E78.5 Asthma J45.909 Acute myocardial infarction, unspecified I21.9 Surgical History Surgery Date(Month/Year) appendectomy Back surgery
--- OUTSIDE RECORDS SUMMARY | 2025-08-08 11:59 | XMS_ITS | Patient Health Record ---
Author Organization [employer]. Address [address] [place] [address] Care Team Providers Care Body Builder Name Role Phone Mau Rivas Primary Care Provider Allergies No Known Allergies Results Component Value Reference Range Notes US ABDOMEN COMP Reviewed date:11/10/2024 04:39:59 PM Interpretation: Performing Lab: Notes/Report: See Below For Report Exam # [id number] - November 09 2024 - ABDOMEN COMP - X-Ray CHEST 2 VIEWS Reviewed date:10/20/2024 08:18:46 AM Interpretation: Performing Lab: Notes/Report: See Below For Report Exam # [id number] - October 15 2024 - CHEST 2 VIEWS - Microalb/Creat Ratio, Timed Ur-LC Reviewed date:11/17/2024 03:59:07 PM Interpretation: Performing Lab:[facility] [place], [address], [place] [id number], Phone - [phone], Director - [place] Notes/Report: Ur.Collec. Interval 0 [...] Reviewed date:11/17/2024 03:59:07 PM Interpretation: Performing Lab:[facility], [address] [facility], [place], [place] [id number], Phone - [phone], Director - [place] Notes/Report: Specific [place] >=1.030 1.005-1.030 pH 5.5 5.0-7.5 Urine-Color Yellow Yellow Appearance Clear Clear WBC Esterase Negative Negative Protein Negative Negative/Trace Glucose 3+ Negative Ketones Trace Negative Occult Blood Negative Negative Bilirubin Negative Negative Urobilinogen,Semi-Qn 0.2 0.2-1.0 mg/dL Nitrite, Urine Negative Negative Microscopic Examination Micr oscopic not indicated and not performed. Cardiovascular Risk Assessme nt Reviewed date:11/17/2024 03:59:06 PM Interpretation: Performing Lab:[facility] [place], [address] [place] [id number], Phone - [phone], Director - [place] Notes/Report: Interpretation Note Supplemental report is available. PDF Not applicable PSA Total, Serum-LC Reviewed date:11/17/2024 03:59:06 PM Interpretation: Performing Lab:[facility] [address] [id number], Phone - [phone], Director Khurram Montes Notes/Report: Prostate Specific Ag 1.8 0.0-4.0 ng/mL [...] ng/mL or greater. . According to the [place] [employer], Serum PSA should of the presence or absence of malignant disease. Hemoglobin A1C Reviewed date:11/17/2024 03:59:06 PM Interpretation: Performing Lab:[facility], [address] [place] [id number], Phone - [phone], Director - Santosh Notes/Report: Hemoglobin A1c 8.7 4.8-5.6 % Diabetes: >6.4 Prediabetes: 5.7 - 6.4 . Glycemic control for adults with diabetes: <7.0 CBC With Differential/Platel et-LC-Q Reviewed date:11/17/2024 03:59:06 PM Interpretation: Performing Lab:[facility] [address] [id number], Phone - [phone], Director Khurram BALLARDFarrier Notes/Report: WBC 5.6 3.4-10.8 x10E3/uL RBC 5.17 [...] Reviewed date:11/17/2024 03:59:06 PM Interpretation: Performing Lab:[facility], [address] [place] [id number], Phone - [phone], Director - [place] Notes/Report: Glucose 311 70-99 [...] Reviewed date:11/17/2024 03:59:06 PM Interpretation: Performing Lab:[facility], [address] [place] [address], [place], [place] [id number], Phone - [phone], Director - [place] Notes/Report: Cholesterol, Total 114 100-199 mg/dL Triglycerides 168 0-149 mg/dL HDL Cholesterol 44 >39 mg/dL VLDL Cholesterol [place] 28 5-40 mg/dL LDL Chol Calc (NIH) 42 0-99 mg/dL LDL/HDL Ratio 1.0 0.0-3.6 ratio Avg.Risk 3.6 3.2 Men Women LDL/HDL Ratio 3X Avg.Risk 8.0 6.1 2X Avg.Risk 6.2 5.0 1/2 Avg.Risk 1.0 1.5 [facility] CKD Program Reviewed date:11/17/2024 03:59:06 PM Interpretation: Performing Lab:[facility], [address] [place], [place] [id number], Phone - [phone], Director - Santosh Notes/Report: Interpretation Note guidelines are at [email or web address] [...] Reviewed date:11/17/2024 04:15:29 PM Interpretation: Performing Lab:[facility] [address] [id number], Phone - [phone], Director - [place] Notes/Report: Occult Blood, Fecal, IA Positive Negative EKG Electrocardiogram Reviewed date:10/07/2024 02:14:04 PM Interpretation: Performing Lab: Notes/Report: Occult Blood, Fecal, IA-LAB MELVIN Reviewed date:10/20/2024 08:19:02 AM Interpretation: Performing Lab:[facility], [address] [place] [id number], Phone - [phone], - [place] Notes/Report: Occult Blood, Fecal, IA Negative Negative Microalbumin/Creatinine Rati o, Random Urine-LC Reviewed date:10/20/2024 08:22:37 AM Interpretation: Performing Lab:[facility] [address] [id number], Phone - [phone], Director Khurram Montes Notes/Report: Creatinine, Urine 107.2 Not Estab. mg/dL Albumin, Urine 5.0 Not Estab. ug/mL Alb/Creat Ratio 5 0-29 mg/g creat Normal: 0 - 29 Moderately increased: 30 - 300 Severely increased: >300 Hemoglobin A1C Reviewed date:01/10/2025 09:49:17 AM Interpretation: Performing Lab:[facility] [place] [id number], Phone - [phone], Director Khurram Nolan Notes/Report: Hemoglobin A1c 11.0 4.8-5.6 % . Diabetes: >6.4 Prediabetes: 5.7 - 6.4 Glycemic control for adults with diabetes: <7.0 CBC With Differential/Platel et-LC-Q Reviewed date:10/20/2024 08:22:42 AM Interpretation: Performing Lab:[facility], [facility] [place], [place] [id number], Phone - [phone], Director - MDSean Notes/Report: WBC 5.7 3.4-10.8 x10E3/uL RBC 5.07 [...] Immature Grans (Abs) 0.0 0.0-0.1 x10E3/uL Urinalysis, Hovvbqph-TB-G Reviewed date:10/20/2024 08:25:48 AM Interpretation: Performing Lab:[facility], [facility] [place], [place] [id number], Phone - [phone], Director - Santosh Notes/Report: Specific [place] >=1.030 1.005-1.030 pH 5.5 5.0-7.5 Urine-Color Yellow [...] 14+eGFR-LC-Q Reviewed date:10/20/2024 08:22:46 AM Interpretation: Performing Lab:[facility] [place] [address] [place] [id number], Phone - [phone], Director - MDUnited States Air Force [facility] Clinic[facility] Notes/Report: Glucose 155 70-99 mg/dL BUN 14 [...] Panel-Q-LC Reviewed date:10/20/2024 08:22:50 AM Interpretation: Performing Lab:[facility] [place] [address] [place] [id number], Phone - [phone], Director - MDAngelina Notes/Report: Cholesterol, Total 115 100-199 mg/dL Triglycerides 129 0-149 mg/dL HDL Cholesterol 37 >39 mg/dL VLDL Cholesterol [place] 23 5-40 mg/dL LDL Chol Calc (NIH) 55 0-99 mg/dL PSA Total (Reflex To Free) Reviewed date:10/20/2024 08:22:54 AM Interpretation: Performing Lab:[facility], [address] [place], [place] [id number], Phone - [phone], Director - Santosh Notes/Report: Prostate Specific Ag 2.1 0.0-4.0 ng/mL Values obtained with different assay methods or kits cannot be used prostatectomy. The AUA defines biochemical recurrence as an initial According to the [place] [employer] Association, Serum PSA should PSA value [...] PSA is between 4.0 and 10.0 ng/mL. Prothrombin Time (PT) with I NR-LC Reviewed date:10/20/2024 08:18:52 AM Interpretation: Performing Lab:[facility], [facility] [place] [id number], Phone - [phone], Director - [place] Notes/Report: INR 1.0 0.9-1.2 Higher intensity therapeutic range 2.5 - 3.5 antagonist therapy: Reference interval is for non-anticoagulated patients. . Standard Dose (moderate intensity therapeutic range): 2.0 - 3.0 Suggested INR therapeutic range for Vitamin K Prothrombin Time 11.0 9.1-12.0 sec Written Authorization Reviewed date:11/17/2024 03:59:06 PM Interpretation: Performing Lab:[facility], [facility] [place], [place] [id number], Phone - [phone], Director - [place] Notes/Report: Written Authorization Written Authorization Received. Logged by Yeni Norman Authorization received from Original Requisition 11-16-2024 AFP, Serum, Tumor Marker Reviewed date:11/17/2024 03:59:06 PM Interpretation: Performing Lab:[facility], [facility] [place], [place] [id number], Phone - [phone], - [place] Notes/Report: AFP, Serum, Tumor Marker 2.5 0.0-8.4 ng/mL used interchangeably. Results cannot be interpreted as absolute Values obtained with different assay methods or kits cannot be . evidence of the presence or absence of malignant disease. Proteo[employer]ix Electrochemiluminescence Immunoassay (ECLIA) . This test is not interpretable in females. Prothrombin Time (PT) with I NR-LC Reviewed date:11/17/2024 03:59:06 PM Interpretation: Performing Lab:[facility], [facility] [place], [place] [id number], Phone - [phone], Director - [place] Notes/Report: INR 1.0 0.9-1.2 Higher intensity therapeutic range 2.5 - 3.5 Standard Dose (moderate intensity Reference interval is for non-anticoagulated patients. Suggested INR therapeutic range for Vitamin K therapeutic range): 2.0 - 3.0 antagonist therapy: . Prothrombin Time 11.3 9.1-12.0 sec Ceruloplasmin-LC Reviewed date:11/17/2024 03:59:06 PM Interpretation: Performing Lab:[facility], [address] [place] [id number], Phone - [phone], Director - [place] Notes/Report: Ceruloplasmin 23.6 16.0-31.0 mg/dL Cardiovascular Risk Assessme nt Reviewed date:10/20/2024 08:18:56 AM Interpretation: Performing Lab:[facility], [address] [place] [id number], Phone - [phone], Director - [place] Notes/Report: Interpretation Note Supplemental report is available. PDF . Reason For Referral Reason Please fax consul t notes and/or results of procedure approved to [phone]. Thanks! ~Annual Eye Exam~ Diagnosis 1 Encounter for examin ation of eyes and vision without abnormal findings (Z01.00) Referral Organization [facility] Referring Provider First Name Mau Referring Provider Last Name Rob Referring Provider Speciality General Pr actice Referred Provider [employer], [facility] Referred Provider Specialty Percussion Tuner Clinical Notes Robert Martell 06/27 02:53:50 PM >GAVE PT REFERRAL SAME DAY ON 10/07/2024 Referral Priority Routine Reason Please fax consul t notes and/or results of procedure approved to [phone]. Thanks! CONSULT ONLY - MANAGED CARE ~Annual Eye Exam~ Diagnosis 1 Encounter for examin ation of eyes and vision without abnormal findings (Z01.00) Referral Organization [facility] Referring Provider First Name Mau Referring Provider Last Name Rob Referring Provider [facility] General Pr actice Referred Provider [employer], [place] Referred Provider Specialty Percussion Tuner Referral Priority Routine Reason NEW PATIENT [phone] or [phone] [place] [phone] [place] [phone] [place] [phone] If additional testing is needed, please refer back to PCP. Please fax consult notes and/or results of procedure approved to [phone]. Thanks! Diagnosis 1 Internal hemorrhoids (K64.8) Referral Organization [facility] Referring Provider First Name Mau Referring Provider Last Name Rob Referring Provider Speciality General Niesha actroman Referred Provider [employer] ([place]) Referred Provider Specialty Gastroentero logy Referral Priority Routine Reason If additional licha ting is needed, please refer back to PCP. Diagnosis 1 Fecal occult blood t est positive (R19.5) Referral Organization [facility] Referring Provider First Name Mau Referring Provider Last Name Rob Referring Provider [facility] General Niesha actroman Referred Provider Specialty Gastroentero [...] Problem Status W/U Status Risk Notes Problem Type 2 diabetes mellitus with other specified complication, without long-term current use of insulin (E11.69) Active confirmed Problem Mixed hyperlipidemia (079976134) Mixed hyperlipidemia (E78.2) Active confirmed Problem Chronic obstructive lung disease (55351252) COPD without exacerbation (J44.9) Active confirmed Problem History of placement of stent for coronary artery disease (situation) (432643198) H/O heart artery stent (Z95.5) Active confirmed Problem Old myocardial infarction (3294213) Old myocardial infarction (I25.2) Active confirmed Problem Diabetic peripheral neuropathy (916651791) Diabetic peripheral neuropathy (E11.42) Active confirmed Problem Low compliance bladder (8656484) Hyperactivity of bladder (N31.8) Active confirmed Problem Moderate recurrent major depression (64822807) Major depressive disorder, recurrent episode, moderate (F33.1) Active confirmed Problem Benign prostatic hypertrophy without outflow obstruction (583264194) BPH without urinary obstruction (N40.0) Active confirmed Problem Diabetic peripheral vascular disease (161895259) Diabetic peripheral vascular disease (E11.51) Active confirmed Problem Long-term current use of insulin (894904981) 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 teacher (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 of insulin (Z79.4) Active confirmed Problem Angina (355946620) 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) Active confirmed Problem Hypertensive heart AND renal disease (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) Hypertensive heart and chronic kidney disease without heart failure, with stage 1 through stage 4 chronic kidney disease, or unspecified chronic kidney disease (I13.10) Active confirmed Problem Chronic kidney disease stage 2 (842287127) CKD (chronic kidney disease), stage II (N18.2) Active confirmed GFR 92 as per lab results from 11/17/2024 has improved from GFR 82 [facility] Problem Diabetic renal disease (710852633) Type 2 diabetes mellitus with diabetic chronic kidney disease (E11.22) Active confirmed Problem Chronic pancreatitis (443371253) Chronic pancreatitis, unspecified pancreatitis type (K86.1) Active confirmed As per [facility] records from 07/14/2024 Problem Pulmonary hypertension (18290122) Pulmonary hypertension (I27.20) Active confirmed As per [facility] records from 09/27/2024 Problem Alzheimer's disease with early onset (174218181) Alzheimer's disease with early onset (G30.0) Active confirmed Problem Internal hemorrhoids (07488538) Internal hemorrhoids (K64.8) Active confirmed Problem 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, mild, without behavioral disturbance, psychotic disturbance, mood disturbance, and anxiety (F02.A0) Active confirmed Problem Long-term current use of anticoagulant (573008760) 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 teacher (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 of anticoagulants (Z79.01) Active confirmed Problem Hepatomegaly (12697278) Hepatomegaly (R16.0) Active confirmed Problem Fatty liver (888322328) Fatty infiltration of liver (K76.0) Active confirmed Vital Signs Temperature 97 degrees Fahrenheit 11/23/2024 Respiratory Rate 18 /min 11/23/2024 Oximetry 97 % 11/23/2024 Blood pressure diastolic 58 mm Hg 11/23/2024 Height 5ft6in in 11/23/2024 Blood pressure systolic 119 mm Hg 11/23/2024 Weight 191 lbs 11/23/2024 BMI 30.82 kg/m2 11/23/2024 Encounters Encounter Location Date Provider Diagnosis [facility] [address] [place] [address] 10/07/2024 Mau Rivas [facility] [address] [place] [address] 10/07/2024 Mauamilcar Rivas [facility] [address] [place] [address] 10/07/2024 Mauamilcar Rivas [facility] [address] [place] [address] 10/14/2024 Mauamilcar Rivas H/O heart artery yon nt Z95.5 [facility] [address] [place] [address] 11/15/2024 Mau Rivas [facility] [address] [place] [address] 10/07/2024 Mau Rivas Major depressive disorder, recurrent episode, moderate F33.1 ; Hypertensive heart and chronic kidney disease without heart failure, with stage 1 through stage 4 chronic kidney disease, or unspecified chronic kidney disease I13.10 ; Atherosclerosis [place] coronary artery of [place] heart with angina pectoris I25.119 ; Pulmonary [...] ; H/O heart artery stent Z95.5 ; 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 teacher (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 of insulin Z79.4 ; History of cerebrovascular accident (CVA) in adulthood Z86.73 ; Body mass index (BMI) of 32.0 to 32.9 in adult Z68.32 ; Encounter for examination of eyes and vision without abnormal findings Z01.00 ; Encounter for fecal immunochemical test screening Z12.11 ; Screening for osteoporosis Z13.820 and Encounter for prostate cancer screening Z12.5 [facility] [address] [address] 10/20/2024 Mau Rob Hypertensive heart a nd chronic kidney disease without heart failure, with stage 1 through stage 4 chronic kidney disease, or unspecified chronic kidney disease I13.10 ; Elevated liver enzymes R74.8 ; Pulmonary hypertension I27.20 ; Atherosclerosis of [place] coronary artery of [place] heart with angina pectoris I25.119 ; Old [...] ; custodial (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 of insulin Z79.4 and Body mass index (BMI) of 31.0 to 31.9 in adult Z68.[address] [address] 11/09/2024 Mau Rivas Elevated liver enzym es R74.[address] [address] 11/15/2024 Mau Rivas Alzheimer's disease with early [...] ; Pulmonary hypertension I27.20 ; Atherosclerosis of [place] coronary artery of [place] heart with angina pectoris I25.119 ; Type [...] stent Z95.5 ; custodial (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 of anticoagulants Z79.01 ; 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 teacher (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 of insulin Z79.4 ; Body mass index (BMI) of 30.0 to 30.9 in adult Z68.30 ; Encounter for examination of eyes and vision without abnormal findings Z01.00 and Encounter for screening fecal occult blood testing Z12.11 [place] [address] [facility] [address] [place] [address] 11/15/2024 Mau Rivas Elevated liver enzym es [...] N31.8 and H/O heart artery stent Z95.5 [facility] [address] [facility] [address] [place] [address] 11/23/2024 Mau Rivas Major depressive disorder, recurrent [...] chronic kidney disease I13.10 ; Atherosclerosis [place] coronary artery of [place] heart with angina pectoris I25.119 ; Pulmonary [...] ; H/O heart artery stent Z95.5 ; 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 teacher (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 of insulin Z79.4 ; 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 teacher (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 of anticoagulants Z79.01 and Body mass index (BMI) of 30.0 to 30.9 in adult Z68.30 [facility] [address] [place] [address] 11/17/2024 Mau [facility] [address] [place] [address] 11/25/2024 Mau [facility] [address] [place] [address] 03/06/2025 Mau Rivas Type 2 diabetes mellitus [...] (ICD-10 - I27.20) [facility] per [facility] records from 09/27/2024 [facility] per [facility] records from 09/27/2024. Will continue to monitor. Strict blood pressure control, low fat diet and daily exercise as tolerated recommended. 10/07/2024 Atherosclerosis of [place] coronary artery of [place] heart with angina pectoris (ICD-10 - I25.119) 10/07/2024 Pulmonary hypertension (ICD-10 - I27.20) [facility] per [facility] records from 09/27/2024 As per [facility] records from 09/27/2024. Will continue to monitor. Strict blood pressure control, low fat diet and daily exercise as tolerated recommended. 10/20/2024 Atherosclerosis of [place] coronary artery of [place] heart with angina pectoris (ICD-10 - I25.119) [...] pancreatitis type (ICD-10 - K86.1) As per [facility] records from 07/14/2024 As per [facility] records from 07/14/2024. Will continue to [...] (ICD-10 - I27.20) [facility] per [facility] records from 09/27/2024 As per [facility] records from 09/27/2024. Will continue to monitor. Strict blood pressure control, low fat diet and daily exercise as tolerated recommended. 10/20/2024 CKD (chronic kidney disease), stage II (ICD-10 - N18.2) GFR 82 as per lab results from [facility] record from 06/26/2024 GFR 82 as per lab results from [facility] record from 06/26/2024 10/07/2024 CKD (chronic kidney disease), stage II (ICD-10 - N18.2) GFR 82 as per lab results from [facility] record from 06/26/2024 GFR 82 as per lab results from [facility] record from 06/26/2024 10/07/2024 Type 2 diabetes mellitus with other specified complication, without long-term current use of insulin (ICD-10 - E11.69) Mixed Hyperlipidemia as due to diabetes mellitus (DM) 11/15/2024 Atherosclerosis of [place] coronary artery of [place] heart with angina pectoris (ICD-10 - I25.119) 11/15/2024 H/O heart artery stent (ICD-10 - Z95.5) 10/20/2024 Type 2 diabetes mellitus with other specified complication, without long-term current use of insulin (ICD-10 - E11.69) Mixed Hyperlipidemia as due to diabetes mellitus (DM). Continue taking Glipizide. 11/23/2024 Atherosclerosis of [place] coronary artery of [place] heart with angina pectoris (ICD-10 - I25.119) 11/23/2024 Pulmonary hypertension (ICD-10 - I27.20) [facility] per [facility] records from 09/27/2024 As per [facility] records from 09/27/2024. Will continue to monitor. [...] GFR 82 as per lab results from [facility] record from 06/26/2024 10/20/2024 Diabetic peripheral neuropathy [...] pancreatitis type (ICD-10 - K86.1) As per [facility] records from 07/14/2024 As per [facility] records from 07/14/2024. Avoid smoking and drinking alcohol, and limit caffeine. Eat a healthy diet that's low in fat and protein, and eat smaller meals more frequently 10/07/2024 BPH without urinary obstruction (ICD-10 - N40.0) 10/20/2024 Chronic pancreatitis, unspecified pancreatitis type (ICD-10 - K86.1) As per [facility] records from 07/14/2024 As per [facility] records from 07/14/2024. Avoid smoking and [...] pancreatitis type (ICD-10 - K86.1) As per [facility] records from 07/14/2024 As per [facility] records from 07/14/2024. Will continue to [...] heart artery stent (ICD-10 - Z95.5) 10/07/2024 custodial (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 of insulin (ICD-10 - Z79.4) 10/20/2024 H/O heart artery stent (ICD-10 - Z95.5) 11/23/2024 H/O heart artery stent (ICD-10 - Z95.5) 11/23/2024 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 teacher (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 of insulin (ICD-10 - Z79.4) 10/07/2024 History of cerebrovascular accident (CVA) in adulthood (ICD-10 - Z86.73) 10/20/2024 custodial (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 of insulin (ICD-10 - Z79.4) 11/15/2024 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 teacher (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 of anticoagulants (ICD-10 - Z79.01) 11/15/2024 custodial (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 of insulin (ICD-10 - Z79.4) 10/20/2024 Body mass index (BMI) of 31.0 to 31.9 in adult (ICD-10 - Z68.31) 10/07/2024 Body mass index (BMI) of 32.0 to 32.9 in adult (ICD-10 - Z68.32) 11/23/2024 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 teacher (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 of anticoagulants (ICD-10 - Z79.01) [...] 12/19/2025 09:00:00 AM, [address] [facility] [address], [place], [address], Insurance Providers Payer Name Payer Address Payer Phone Subscriber Number Group Number Insured Name Patient Relationship to Insured Coverage Start Date Coverage End Date [facility] [address] [address] [place] [address] [id number] EDUARDO MILLS Self - patient is the [...]
--- OUTSIDE RECORDS SUMMARY | 2025-08-08 11:59 | XMS_ITS | Clinical Summary ---
Author Organization [facility], Address [address] [place] [address] [place] [address] Phone Care Team Providers Care Returns Supervisor Name Role Phone Lucia Rebolledo PA-C Primary [...] age to complete this topic Insurance [address] [place] [id number] [place] [address] ([id number]) JOSHUA LORENZ [id number] Care Teams Returns Supervisor Relationship Specialty Start Date End Date Lucia Rebolledo PA-C PCP - General Physician Steelworker 12/09/19
--- OUTSIDE RECORDS SUMMARY | 2025-08-08 11:59 | XMS_ITS | Clinical Summary ---
Author Organization [address] [place] [address] [place] [phone] Phone Care Team Providers Care Speech Therapy Assistant Name Role Phone Lewis Goldberg NP Primary Care Provider [phone] Allergies Active Allergy Reactions Criticality Noted Date [...] topically if needed. 02/14/20 25 Active insulin airport guide cart,aut,G6/7,cntr (Omnipod 5 G6-G7 Intro Kt,Gen5,) cartridgeIndicatio ns:Diabetes mellitus type 2, uncomplicated, on nursing home insulin pump ([facility] V24, [facility] V28) Please dispense 1 pdf, it [...] ns:Diabetes mellitus type 2 with neurological manifestations ([facility] V24, [facility] V28) 1 DEVICE BY DOES NOT [...] Active pen needle, diabetic (Comfort EZ Pen May) 33 gauge x 5/32 needle USE ONE [...] Diabetes mellitus type 2, un complicated, on buttermaker helper insulin pump ([facility] V24, [facility] V28) 05/21/2023 Diabetes mellitus type 2 wit h neurological manifestations ([facility] V24, [facility] V28) 08/04/2022 PVC's (premature ventricular contractions) [...] losartan and isosorbide as prescribed. Chronic pancreatitis ([facility] V24, [facility] V28) 07/19/2019 PFO (patent foramen ovale) [...] 9:12 AM EDT): Patient has history of AL and was left with residual coronary disease. [...] 1:19 PM EDT): Patient has history of AL and was left with residual coronary disease. [...] with routine medical care. Cerebrovascular accident (CVA) ([facility] V24, [facility] V28) 11/22/2018 Overview (06/13/2025): Follows with [...] Type Department Care Team Description 07/12/2025 Telephone [facility] Cardiology [facility] [address] [place] [phone] Maco Cross MD 06/13/2025 8:40 AM EDT Office Visit [facility] [address] [place] [phone] Jerrica Rizzo NP Coronary artery disease involving burns paiute coronary artery of burns paiute heart without angina pectoris (Primary Dx); Cerebrovascular accident (CVA), unspecified mechanism (CMS/HCC V24, CMS/HCC V28); PFO (patent foramen ovale); Mixed hyperlipidemia 06/12/2025 9:30 AM EDT Office Visit Gastroenterology - [place] [address] [place] [phone] Lucia Rebolledo PA Positive colorectal cancer screening using Cologuard test (Primary Dx); Gastroesophageal reflux disease with esophagitis without hemorrhage; Tubular adenoma; Internal hemorrhoids with complication 05/31/2025 Telephone Endocrinology - [place] [address] [place] [phone] Sydney Hector PA 05/29/2025 Telephone [address] [phone] Sydney Hector PA 05/09/2025 8:00 AM EDT Office Visit Endocrinology [address] [phone] Sydney Hector PA Diabetes mellitus type 2 with neurological manifestations ([facility]/HCC V24, CMS/[facility] V28) (Primary Dx); Secondary hypertension; Mixed hyperlipidemia from Last 3 Months Surgical History Surgery Date Site/Laterality Comments APPENDECTOMY PROCEDURE: MT APPENDECTOMY ROTATOR CUFF REPAIR PROCEDURE: HISTORICAL ROTATOR CUFF REPAIR BACK SURGERY 1992 PROCEDURE: HISTORICAL BACK SURGERY; COMMENT: lumbar COLONOSCOPY W/ BIOPSIES ESOPHAGOGASTRODUODENOSCOPY Medical History Medical History Date Comments Type 2 diabetes mellitus wit h neurological manifestations, uncontrolled 11/18/2017 DX:Type 2 diabetes mellitus with neurological manifestations, uncontrolled Major depression 03/03/2019 DX:Major depres kody Old AL (myocardial infarction) 03/03/2019 D X:Old AL (myocardial infarction) PFO (patent foramen ovale) 06/29/2019 DX:PF O (patent foramen ovale) Family history of cardiovasc ular disease DX:Family history of cardiov ascular disease Sleep apnea Hyperlipidemia Hypertension Pancreatitis GERD (gastroesophageal reflux disease) CAD (coronary artery disease) CVA (cerebral vascular accid ent) (CMS/HCC V24, [facility] V28) Esophageal dysmotility PVC (premature ventricular [...] 08/09/2025 9:45 AM EDT Office Visit Endocrinology [facility] [address] [place] [phone] Sydney Hector PA [address] [place] [address] 12/25/2025 11:30 AM EST Office Visit Gastroenterology - [place] [address] [address] [place] [phone] Lucia Rebolledo PA [address] [place] [address] Health Maintenance Due Date Last Done Comments Diabetes: Annual Foot Exam 1962 DTaP,Tdap,and Td Vaccines (1 - Tdap) 1971 RSV Immunization Adult Patients (1 - Risk 50-74 years 1-dose series) 2002 Zoster Vaccines (2 of 2) 11/25/2019 09/30/2019, [...] EDT Diabetes mellitus type 2, uncomplicated, on nursing home insulin pump ([facility] V24, [facility] V28) COLONOSCOPY Routine 03/08/2025 2:40 PM EDT BRBPR (bright red blood per rectum) Positive colorectal cancer screening using Cologuard test MICROALBUMIN CREATININE URINE RATIO Routine 12/29/2024 10:20 AM EST Diabetes mellitus type 2, uncomplicated, on buttermaker helper insulin pump ([facility] V24, CMS/HCC V28) BASIC METABOLIC PANEL Routine 12/29/2024 10:20 AM EST Diabetes mellitus type 2, uncomplicated, on buttermaker helper insulin pump (CMS/HCC V24, CMS/HCC V28) LIPID PANEL WITH REFLEX TO DIRECT LDL Routine 12/29/2024 10:20 AM EST Diabetes mellitus type 2, uncomplicated, on nursing home insulin pump (CMS/[facility] V24, CMS/HCC V28) DIABETES EYE EXAM Routine 10/28/2023 from Last 3 Months or Most Recently Relevant to Health Maintenance Results * (ABNORMAL) Hemoglobin A1c (05/09/2025 8:40 AM EDT) Hemoglobin A1C 9.5(H) <6.5 % LAB CHEMISTRY METHOD 05/09/2025 1:30 PM EDT [facility] Mean Bld Glu Estim. 226 mg/dL LAB CHEMISTRY METHOD 05/09/2025 1:30 PM EDT [facility] Blood Venous blood specimen / Unknown Venipuncture / Unknown 05/09/2025 8:40 AM EDT 05/09/2025 8:40 AM EDT us Sydney LEWIS LAB BLOOD ORDERABLES Final Result [facility] [address] [place] [address], * COLONOSCOPY Anesthesia - MAC; [facility] ENDOSCOPY (03/08/2025 2:40 PM EDT) Anatomical Region Laterality Modality Endoscopy 03/08/2025 2:22 PM EDT Impressions 03/08/2025 2:45 PM EDT - Two diminutive polyps in the sigmoid colon and in the transverse colon, removed with a jumbo cold forceps. Resected and retrieved. - Internal hemorrhoids. Recommendation: - Await pathology results. - No repeat colonoscopy due to age. Narrative 03/08/2025 2:45 PM EDT [facility] GI Patient Name: Deann Thao Procedure [...] verified by the physician, the nurse, the paraffin plant sweater operator and the film laboratory technician in the pre-procedure area in the [...] reduce spontaneously). Procedure Code(s): --- Professional --- 59394, Colonoscopy, flexible; with biopsy, single or multiple Diagnosis Code(s): --- Professional --- D12.5, Benign neoplasm of sigmoid colon D12.3, Benign neoplasm of transverse colon (hepatic flexure or splenic flexure) CPT copyright 2020 [employer]. All rights reserved. The codes documented in this report are preliminary and upon industrial recruiter review may be revised to meet current compliance requirements. Joe Echols MD 03/08/2025 2:45:33 PM This report has been signed electronically.Joe Echols MD Number of Addenda: 0 Note Initiated On: 03/08/2025 2:22 PM Scope Withdrawal Time: 0 hours 9 minutes 20 seconds Scope In: 2:29:28 PM Scope Out: 2:40:44 PM Endoscopy Department at [facility] - [address] [place] [phone] Procedure Note Joe Echols MD - 03/08/2025 [facility] GI Patient Name: Deann Thao Procedure [...] the physician, the nurse, theanesthetist and the film laboratory technician in the pre-procedure area in the [...] but reducespontaneously). Procedure Code(s): --- Professional --- 73485, Colonoscopy, flexible; with biopsy, singleor multiple Diagnosis Code(s): --- Professional --- D12.5, Benign neoplasm of sigmoid colon D12.3, Benign neoplasm of transverse colon (hepatic flexure or splenic flexure) CPT copyright 2020 [employer]. All rights reserved. The codes documented in this report are preliminary and upon industrial recruiter reviewmay be revised to meet current compliance requirements. Joe Echols MD 03/08/2025 2:45:33 PM This report has been signed electronically.Joe Echols MD Number of Addenda: 0 Note Initiated On: 03/08/2025 2:22 PM Scope Withdrawal Time: 0 hours 9 minutes 20 seconds Scope In: 2:29:28 PM Scope Out: 2:40:44 PM Endoscopy Department at [facility] - [address] [place] [phone] IMPRESSION: - Two diminutive polyps in the [...] mg/dL LAB CHEMISTRY METHOD 12/29/2024 12:56 PM [facility] Triglycerides 119 0 - 150 mg/dL LAB CHEMISTRY METHOD 12/29/2024 12:56 PM [facility] HDL 47 >=40 mg/dL LAB CHEMISTRY METHOD 12/29/2024 12:56 PM [facility] LDL Calculated 29 0 - 100 mg/dL LAB CHEMISTRY METHOD 12/29/2024 12:56 PM [facility] VLDL Cholesterol [place] 23.8 mg/dL LAB CHEMISTRY METHOD 12/29/2024 12:56 PM [facility] Non HDL Chol. (LDL+VLDL) 53 <145 mg/dL LAB CHEMISTRY METHOD 12/29/2024 12:56 PM [facility] Chol/HDL Ratio 2.1 0.0 - 4.4 LAB CHEMISTRY METHOD 12/29/2024 12:56 PM EST [facility] Blood Venous blood specimen / Unknown Venipuncture / Unknown 12/29/2024 10:20 AM EST 12/29/2024 10:20 AM EST Sydney LEWIS LAB BLOOD ORDERABLES Final Result Performing Organization Address [facility]/ZIP Co de Phone Number [facility] [address] [place] [address], [place] [phone] * (ABNORMAL) Microalbumin creatinine urine ratio (12/29/2024 10:20 AM EST) Creatinine, Urine 224.0 mg/dL LAB CHEMISTRY METHOD 12/29/2024 1:14 PM [facility] Microalb, Ur 98.1(H) 0.0 - 29.0 mg/L LAB CHEMISTRY METHOD 12/29/2024 1:14 PM [facility] Microalb/Crea t Ratio 44(H) <30 mg/g creat LAB CHEMISTRY METHOD 12/29/2024 1:14 PM [facility] Urine Urine specimen from urethra / Unknown Non-blood Collection / Unknown 12/29/2024 10:20 AM EST 12/29/2024 10:20 AM EST Sydney LEWIS LAB URINE ORDERABLES Final Result Performing Organization Address City/[facility]/ZIP Co de Phone Number [facility] [address] [place] [address], [place] [phone] * (ABNORMAL) Basic metabolic panel (12/29/2024 10:20 AM EST) Sodium 135 133 - 145 mmol/L LAB CHEMISTRY METHOD 12/29/2024 12:52 PM [facility] Potassium 4.1 3.5 - 5.5 mmol/L LAB CHEMISTRY METHOD 12/29/2024 12:52 PM EST [facility] Chloride 100 96 - 110 mmol/L LAB CHEMISTRY METHOD 12/29/2024 12:52 PM [facility] CO2 25 21 - 32 mmol/L LAB CHEMISTRY METHOD 12/29/2024 12:52 PM [facility] Anion Gap 10 3 - 11 LAB CHEMISTRY METHOD 12/29/2024 12:52 PM [facility] Glucose 303(H) 70 - 100 mg/dL LAB CHEMISTRY METHOD 12/29/2024 12:52 PM [facility] BUN 12 5 - 25 mg/dL LAB CHEMISTRY METHOD 12/29/2024 12:52 PM [facility] Creatinine 0.97 0.70 - 1.30 mg/dL LAB CHEMISTRY METHOD 12/29/2024 12:52 PM [facility] eGFR 83 >=60 mL/min/1. 73m2 LAB CHEMISTRY METHOD 12/29/2024 12:52 PM [facility] Comment:Calculation based on the Chronic Kidney Disease Epidemiology Collaboration (CKD-EPI) equation refit without adjustment for race. BUN/Creatinine Ratio 12.4 LAB CHEMISTRY METHOD 12/29/2024 12:52 PM [facility] Calcium 9.4 8.5 - 10.5 mg/dL LAB CHEMISTRY METHOD 12/29/2024 12:52 PM [facility] Blood Venous blood specimen / Unknown Venipuncture / Unknown 12/29/2024 10:20 AM EST 12/29/2024 10:20 AM EST us Sydney LEWIS LAB BLOOD ORDERABLES Final Result [facility] [address] [place] [address], * Diabetes Eye Exam (10/28/2023) Diabetes: Annual Retina Eye Exam abstracted us Historical Provider HEALTH MAINTENANCE Final Result from Last 3 Months or Most Recently Relevant to Health Maintenance Insurance [facility] Member Subscriber Plan / Payer (Ef fective 2024-Present) Name:Deann Thao Relation to Subscriber:Self Name:Deann Thao Payer ID:[id number] Group ID:[id number] Type:Not on file Address: [place] [address] [address] [phone] Care Teams Speech Therapy Assistant Relationship Specialty Start Date End Date Lewis Goldberg NP [address], [place] PCP - General 07/05/21
[2025-08-08 13:17] LABS: Appearance Urine Clear; Glucose Urine UA Negative (Negative); PH 5.5 (5.0-9.0); Specific Gravity - Urine 1.015 (1.005-1.025)
[2025-08-08 14:11] LABS: Alanine Aminotransferase 61 U/L (0-40); Albumin Level 4.4 g/dL (3.5-5.0); Anion Gap 12 (12-20); Aspartate Amino Transferase 39 U/L (5-37); Blood Urea Nitrogen 12 mg/dL (9-16); Calcium 9.3 mg/dL (8.4-10.2); Carbon Dioxide 27 mmol/L (22-29); Chloride 103 mmol/L (96-108); Estimated Glomerular Filt Rate > 60; Potassium 4.3 mmol/L (3.3-5.1); Sodium 138 mmol/L (135-145); Total Protein 7.2 g/dL (6.5-8.0)
[2025-08-08 14:17] LABS: Alkaline Phosphatase 104 U/L (39-117)
[2025-08-09 03:53] LABS: HBS Num1 0.28 mIU/mL (0-7.99); HBc Num1 0.10 S/CO (0.00-0.79); HBsAGNum1 0.37 S/CO (0.00-0.99); Hepatitis A Antibody IgM 0.17 Index (0-0.79); Hepatitis B Surface Antigen Negative (Negative); ~HepC Num1 0.08 S/CO (0.00-0.79); ~Hepatitis A Antibody IgM Nonreactive (Nonreactive); ~Hepatitis B Surface Antibody NONREACTIVE (Nonreactive); ~Hepatitis C Antibody Nonreactive (Nonreactive)
== END 2025-08-08 10:15 | disposition home or self-care (01) ==
LOC: HO.HMGCLDS 10:14
PROVIDERS: PCP Nurse Practitioner Family; Visit Provider Nurse Practitioner Family
DX: Z00.01 Encounter for general adult medical examination with abnormal findings (principal); R74.8 Abnormal levels of other serum enzymes; R79.89 Other specified abnormal findings of blood chemistry; Z13.29 Encounter for screening for other suspected endocrine disorder
CPT/HCPCS: 36415; 80053; 81003; 84443; 86376; 86704; 86706; 86709; 86803; 87340

== ENCOUNTER 2025-08-16 08:36 | Outpatient (AMB) | payer OTHER, SELFPAY ==
--- NOTE | 2025-08-16 08:39 | MHC.OFFVIS ---
Intake Visit Reasons: AD, CR Health Care Coach Services: Health Care Coach Offered & Declined ( to translate) Accompanied by: Spouse Allergies No Known Allergies Allergy (Verified 08/16/25 08:42) Medication List - Last Reconciled 08/16/25 by Tamar Vera CNP albuterol sulfate 90 mcg/actuation 2 inhalations inhalation Q6-8H PRN amoxicillin 2,000 mg (4 x 500 mg) PO ONCE apixaban 5 mg PO BID 90 days aspirin 81 mg PO DAILY 90 days atorvastatin 40 mg PO BEDTIME 90 days [bed protector 1; NS] benzonatate 200 mg PO BID PRN 10 days [Chair Lift For Stair use use daily] [cleaning towels 1; NS] clotrimazole-betamethasone 1-0.05 % 1 appl topical BID [diabetic shoes daily use with 3 pairs of inserts.] diaper,brief,adult,disposable Change at least 3 times daily or as needed for episodes of incontinence flash glucose scanning reader (CHF TechnologiesStyle Gera 2 [place]) TID flash glucose sensor (FreeStyle Gera 2 Sensor kit) TID fluticasone furoate-vilanterol 100-25 mcg/dose (Breo Ellipta) 1 ea inhalation DAILY gabapentin 400 mg PO TID 30 days glipizide 10 mg PO BID hospital bed weakness, use daily hydrocortisone 2.5% 1 appl topical TID insulin aspart U-100 (Novolog FlexPen U-100 Insulin aspart) 1 sliding scale dose subcut TID 30 days isosorbide mononitrate ER 30 mg PO DAILY 90 days lancets Use to check blood sugar if implanted device is not functioning. losartan 25 mg PO DAILY melatonin 10 mg (2 x 5 mg) PO BEDTIME PRN 90 days memantine (Namenda) 5 mg PO BID 30 days metoclopramide HCl 5 mg PO QIDACHS metoprolol succinate ER 50 mg PO DAILY 90 days montelukast 10 mg PO DAILY 90 days pen needle, diabetic (Comfort EZ Pen [place]) Use to administer insulin with pen 3 times a day as ordered. sertraline 25 mg PO DAILY tacrolimus 0.1% 1 appl topical DAILY PRN trospium ER 60 mg PO DAILY walker use daily HPI Comments Details: He was doing okay. He was taking memantine 5mg twice a day, no medication side effects. He felt that his memory was fine, and his noted that memory may be a bit better since starting medication. He was still having numbness and tingling to both hands, and decreased division service manager strength, L > R. He has tried wrist splints without any relief. His said they were already referred to orthopedics and were contacted for appointment, which was scheduled for 09/2025. He was walking with walker, no falls. Mood was okay. Memory was not so good, very forgetful. Previously on rivastigmine patch, but he could not get medication in [place] and has been without medication since 11/2024. Neck pain for long time with pain down both arms. Numbness and tingling in both hands for long time, possibly more than a year, trouble closing his hands and division service manager strength was not so good, L > R. He had R CTS release a few years ago which did not work at all. Some numbness and tingling in his legs. Walking with cane. Blood sugar was not well controlled at this time. Spends time walking, watching TV, sleeping. In the past, he has gotten lost while walking and when on the bus, getting off at the incorrect stop. 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 He has a history of diabetes and has had at least for strokes. [facility] Medical History (Updated 08/16/25 @ 08:45 by Tamar Vera CNP) Encephalomalacia on imaging study Fatty liver Acquired deformity of toenail Delayed gastric emptying Prostate cancer Ventricular bigeminy seen on awake overnight monitor BPH (benign prostatic hyperplasia) Depression HTN (hypertension) Tenosynovitis of finger Encephalopathy Bilateral carpal tunnel syndrome Myocardial infarction PFO (patent foramen ovale) Cervical spondylarthritis Acquired skin tag Chronic pancreatitis Carpal tunnel syndrome COPD (chronic obstructive pulmonary disease) CVA (cerebral vascular accident) Type 2 diabetes mellitus Surgical History History of shoulder surgery History of appendectomy History of back surgery Family History Father Mental health disorder Mother Diabetes Unknown Substance use disorder Social History Housing: Apartment Alcohol intake: current Alcohol intake frequency: holidays/special occasions only Patient Tobacco Use Status: Never used Tobacco e-Cigarette/Vaping Use: Never Used Second Hand Smoke Exposure: No service: No Current occupational status: retired Cognitive needs: No Hearing needs: No Vision needs: No Review of Systems Const Denies chills, Denies daytime sleepiness, Denies difficulty sleeping, Denies fatigue, Denies fever(s), Denies frequent falls, Denies headache(s), Denies increased appetite, Denies poor appetite, Denies snoring, Denies weakness, Denies weight gain and Denies weight loss Eyes Denies loss of vision ENT Denies vertigo, Denies dizziness, Denies headache(s) and Reports neck pain Card Denies chest pain at rest, Denies chest pain with activity, Denies syncope, Denies leg edema, Denies palpitations, Denies dyspnea and Denies dyspnea on exertion Resp Denies cough, Denies dyspnea, Denies dyspnea on exertion and Denies snoring GI Denies abdominal pain, Denies constipation, Denies heartburn, Denies diarrhea and Denies nausea Denies urinary frequency, Denies urinary incontinence and Denies urinary urgency Musc Reports abnormal gait (balance difficulty), Reports back pain, Reports myalgias, Reports arthralgias, Reports neck pain, Reports numbness and Reports tingling Neuro Reports abnormal gait (balance difficulty), Denies vertigo, Denies dizziness, Denies syncope, Denies frequent falls, Denies headache(s), Denies lack of coordination, Denies loss of vision, Reports memory loss, Reports numbness, Denies Other visual disturbances, Denies restless legs, Denies seizure-like activity, Reports tingling, Denies paresthesias, Denies tremor(s) and Denies weakness Psych Reports anxiety, Reports depression, Denies auditory hallucinations, Reports memory loss and Denies visual hallucinations Endo Denies fatigue and Denies palpitations Physical Exam Const Other: General Appearance:? normal, in no acute distress. Heart:? S1, S2 normal, no murmurs. Lungs:? clear anteriorly and posteriorly. Musculoskeletal:? normal. Extremities:? no edema. Psych:? alert, as below. Neuro Other: Abnormal Neurological Findings:?LE DTR 1+. 5-/5 L division service manager. 5-/5 APB bilaterally. Walking with cane. MMSE 18/30. Mental Status: alert, as below. Cranial Nerves: Pupils are equal, round, and reactive to light. External ocular muscles are intact. Visual navarro are full, no ptosis. Face is symmetrical, no facial weakness or droop. Facial sensations are normal. Tongue protrudes in midline. Palate elevates symmetrically. Shoulder shrugging is normal Motor Examination: As above, otherwise normal muscle tone, bulk and strength. No atrophy or fasciculations. No drift of the extended upper extremities. LE DTR 1+. Sensory Exam: Normal light touch, temperature, pinprick, vibration, and joint-position sensations. Rhomberg sign is absent. Coordination: No ataxia. No titubation. Wforgf-[id number], khfx-hcaz-bqhp test, and rapid alternating movements were normal. Gait Exam: With cane. Cerebellar Signs: [id number]-mv-[id number] is okay. Extrapyramidal System: No tremor, rigidity with normal facial expressions. No bradykinesia. No bradyphrenia. Normal arm swing and posture. No propulsion or retropulsion. Speech: Normal. No dysphasia or dysarthria. MMSE Level of Consciousness: Alert. Orientation: Knows correct day. Does not know year, month, date, or season. Knows correct city, county and state. Knows correct location. Does not know floor. Registration: Able to register 3 objects. Attention: Unable to do serial 7's. Recall: Able to recall 1 out of 3 objects. Language: Normal spontaneous speech, fluency, repetition, naming, comprehension, reading, and writing. Total Score: 18/30. Results Reviewed Results Reviewed: [address] [address] EMG / Nerve Conduction Report Signed Patient: Deann Crum MR#: [id number] : 1950 Acct:[id number] Age/Sex: 75 / M ADM Date: 06/20/25 Loc: HO.NEURO Attending Dr: Rufina Andrade MD Ordering Physician: Tamar Vera CNP Date of Service: 06/20/25 Procedure(s): NE electromyogram (EMG); NE nerve conduction velocity Accession Number(s): [id number]; [id number] cc: Tamar Vera FINAL OPERATIONS TECHNICIAN~ R/O CERVICAL RADICULOPATHY, BREANA HAND WEAKNESS, RT SIDE NECK PAIN, DIABETIC NCV/EMG BREANA UPPER Impression: Severe carpal tunnel syndrome on the left, and an early carpal tunnel syndrome on the right. EMG of the right C5-T1 innervated muscles is consistent with mild chronic neuropathic changes in the right abductor pollicis brevis muscle suggestive of chronic median neuropathy. Please see complete neurophysiological report Dictated By: Rufina Andrade MD Signed By: <Electronically signed by Rufina Andrade MD> 06/20/25 9694 Assessment & Plan Assessment & Plan (1) Alzheimer disease: Code(s): G30.9 - Alzheimer's disease, unspecified; F02.80 - Dementia in other diseases classified elsewhere, unspecified severity, without behavioral disturbance, psychotic disturbance, mood disturbance, and anxiety Category: Medical Plan: Increase memantine 10mg 1 tablet twice a day. Stay physically and socially active. (2) Bilateral carpal tunnel syndrome: Code(s): G56.03 - Carpal tunnel syndrome, bilateral upper limbs Category: Medical Plan: NCV/EMG results reviewed, severe carpal tunnel syndrome on left and early carpal tunnel syndrome on right. He was already referred to orthopedics by PCP, and appointment was scheduled for 09/2025. (3) History of stroke: Code(s): Z86.73 - Personal history of transient ischemic attack (TIA), and cerebral infarction without residual deficits Category: Medical Plan: Control blood pressure. Continue statin and Eliquis. (4) Diabetic peripheral neuropathy: Code(s): E11.42 - Type 2 diabetes mellitus with diabetic polyneuropathy Category: Medical Plan: Control blood sugar. Stay physically active. Plan Meds tried: Donepezil (GI side effects), rivastigmine patch Medications: New memantine (Namenda) 10 mg PO BID 180 tabs 1RF 90 days Discontinued memantine (Namenda) Discontinued Reason: Doctor's Order 5 mg PO BID 30 days 60 tabs 3RF Coding Level of Care Code Est Pt Level 4 (15214) Diagnoses Alzheimer disease G30.9; F02.80 Bilateral carpal tunnel syndrome G56.03 History of stroke Z86.73 Diabetic peripheral neuropathy E11.42
--- OUTSIDE RECORDS SUMMARY | 2025-08-16 09:02 | XMS_ITS | Clinical Summary ---
Author Organization [facility], Address [address] [place] [address] [place] [address] Phone Care Team Providers Care Cushion Gum Applicator Name Role Phone Lucia Rebolledo PA-C Primary [...] to complete this topic Insurance [address] [place] [id number] [place] [address] ([id number]) [place] [phone] Care Teams Cushion Gum Applicator Relationship Specialty Start Date End Date Lucia Rebolledo PA-C PCP - General Physician Secretary Of State 12/09/19
--- OUTSIDE RECORDS SUMMARY | 2025-08-16 09:02 | XMS_ITS | Encounter Summary ---
Author Organization [facility] Address [address] [place] [address] Care Team Providers Care National Insurance Officer Name Role Phone Lewis Goldberg NP Primary Care Provider [phone] Encounter Details Date Type Department Care Team (Late Contact Info) Description 08/09/2025 Results Follow-Up [facility] - [address] [phone] Sydney Hector PA [address] [place] [address] Social History Tobacco Use Types Packs/Day Years [...] Department Care Team (Late Contact Info) Description 11/10/2025 9:00 AM EST Office Visit Endocrinology - [place] [address] [place], [place] [phone] Narendra Brantley MD [address] [place], [place] 12/25/2025 11:30 AM EST Office Visit Gastroenterology - [address] [place] [phone] Lucia Rebolledo PA [address] [place] [address] documented as of this encounter Visit Diagnoses Not on filedocumented in this encounter Care Teams National Insurance Officer Relationship Specialty Start Date End Date Lewis Goldberg NP [address] [place], [place] PCP - General 07/05/21 documented as of this encounter
--- OUTSIDE RECORDS SUMMARY | 2025-08-16 09:02 | XMS_ITS | Clinical Summary ---
Author Organization [address] [place] [address] [place] [phone] Phone Care Team Providers Care Operator Vacuum Name Role Phone Lewis Goldberg NP Primary [...] INJECTING INSULIN FOR 30 DAYS 4 Active NUTRITIONAL SUPPLEMENTS ORAL Take 4 Tablets by mouth as needed for Other (hypoglycemia ). 4 Active gabapentin (NEURONTIN) 400 mg capsule Take 1 Capsule by mouth 3 times daily. Active trospium 60 mg capsule,extended release 24hr Take 1 Capsule by mouth daily. Active glucagon (Baqsimi) 3 mg/actuation nasal spray 1 Dose by Nasal route as needed for Other (hypoglycemia ). 3 Active dextrose 40 % gel Take 15 g by mouth as needed for Other. 3 Active glucagon (Gvoke HypoPen 1-Pack) 0.5 mg/0.1 mL auto-injector Inject 1 Dose into the skin as needed for Other (severe hypoglycemia) . 2 Active atorvastatin (LIPITOR) 40 mg tablet Take 1 Tablet by mouth daily. 2 Active isosorbide mononitrate (IMDUR) 30 mg 24 hr tablet Take 1 Tablet by mouth daily. 2 Active lancets lancets USE DIRECTED [...] EVERY DAY IN THE EVENING 8 Active lipase/protease/am ylase (PANCRELIPASE EC ORAL) Take 1 Capsule by mouth 3 times daily (with meals). 4 Active fluticasone furoate-vilanteroL (Breo Ellipta) 100-25 mcg/dose inhaler Inhale by mouth. INHALE 1 PUFF BY MOUTH INTO THE lungs EVERY DAY AT THE same TIME EVERY DAY 8 Active glipiZIDE (GLUCOTROL) 10 mg tablet Take 1 tablet (10 mg total) by mouth 2 (two) times a day before meals. 180 tablet 3 5 Active blood sugar diagnostic (FreeStyle [...] day or as directed 100 each 11 5 12/30/19 26 Active pen needle, diabetic (BD Ultra-Fine Short Pen Needle) 31 gauge x 5/16 needle Use to inject 1-4 times daily as directed 100 each 11 5 Active pimecrolimus (ELIDEL) 1 % cream Apply topically if needed. 5 Active insulin ground systems engineer cart,aut,G6/7,cntr (Omnipod 5 G6-G7 Intro Kt,Gen5,) cartridgeIndicatio ns:Diabetes mellitus type 2, uncomplicated, on long-term insulin pump ([facility] V24, [facility] V28) Please dispense 1 pdf, it was stolen 1 each 5 Active insulin aspart (NovoLOG FlexPen) 100 unit/mL (3 mL) injection pen Inject 3 times a day with meals per scale :100-149: 18 units; 150-199: 19 units; 200-249: 20 units; 250-300: 21 units; 301-350: 22 units; 351-400: 23 units call office if BS above 400, when not in insulin pump. Max dose 40 units 15 mL 5 Active insulin degludec (TRESIBA FlexTouch U-200) 200 unit/mL (3 mL) CONCENTRATED injection pen 90 units SC at bedtime 45 mL 5 Active insulin aspart (NovoLOG) 100 unit/mL injection Use daily with insulin pump, max daily dose 150 units. Dispense 3 vials 30 mL 5 05/09/20 26 Active insulin pump cart,auto,BT,G6/7 (Omnipod 5 G6-G7 Pods, Gen 5,) cartridgeIndicatio ns:Diabetes mellitus type 2 with neurological manifestations ([facility] V24, [facility] V28) 1 DEVICE BY DOES NOT APPLY ROUTE EVERY 48 HOURS 45 each 3 5 Active lansoprazole (PREVACID) [address] capsule Take 1 capsule (30 mg total) by mouth 1 (one) time each day. Do not crush or chew. 30 each 3 5 06/12/20 26 Active hydrocortisone (Proctosol HC) 2.5 % rectal cream Insert into the rectum 2 (two) times a day for 10 days. 30 g 5 Active apixaban (ELIQUIS) 5 mg tablet Take 1 tablet (5 mg total) by mouth 2 (two) times a day. Take 1 Tablet by mouth 2 times daily. 180 tablet 2 5 Active metoprolol succinate (TOPROL-XL) 50 mg 24 hr tablet Take 1 tablet (50 mg total) by mouth 1 (one) time each day. 90 tablet 2 5 Active pen needle, diabetic (Comfort EZ Pen [place]) 33 gauge x 5/32 needle USE ONE DAILY WITH LANTUS DIRECTED 100 each 11 5 Active Active Problems Problem Noted Date [...] Diabetes mellitus type 2, un complicated, on long-term insulin pump ([facility] V24, [facility] V28) 05/21/2023 Diabetes mellitus type 2 wit h neurological manifestations ([facility] V24, [facility] V28) 08/04/2022 PVC's (premature ventricular contractions) [...] losartan and isosorbide as prescribed. Chronic pancreatitis ([facility] V24, [facility] V28) 07/19/2019 PFO (patent foramen ovale) [...] 9:12 AM EDT): Patient has history of CA and was left with residual coronary disease. [...] 1:19 PM EDT): Patient has history of CA and was left with residual coronary disease. [...] with routine medical care. Cerebrovascular accident (CVA) ([facility] V24, [facility] V28) 11/22/2018 Overview (06/13/2025): Follows with [...] Encounters Date Type Department Care Team Description 08/09/2025 9:45 AM EDT Office Visit Endocrinology [address] [phone] Sydney Hector PA Diabetes mellitus type 2, uncomplicated, on keno terminal operator insulin pump ([facility] V24, [facility] V28) (Primary Dx); Mixed hyperlipidemia; Secondary hypertension 08/09/2025 Results Follow-Up [address] [phone] Sydney Hector PA 07/12/2025 Telephone [facility] Cardiology [facility] [address] [facility] [address] [place] [address] Maco Cross MD 06/13/2025 8:40 AM EDT Office Visit [address] [place] [address] Jerrica Rizzo NP Coronary artery disease involving napaimute coronary artery of napaimute heart without angina pectoris (Primary Dx); Cerebrovascular accident (CVA), unspecified mechanism (CMS/HCC V24, CMS/HCC V28); PFO (patent foramen ovale); Mixed hyperlipidemia 06/12/2025 9:30 AM EDT Office Visit Gastroenterology - [place] [address] [place] [phone] Lucia Rebolledo PA Positive colorectal cancer screening using Cologuard test (Primary Dx); Gastroesophageal reflux disease with esophagitis without hemorrhage; Tubular adenoma; Internal hemorrhoids with complication 05/31/2025 Telephone Endocrinology - [place] [address] [place] [address] Sydney Hector PA 05/29/2025 Telephone Endocrinology - [place] [address] [place] [phone] Sydney Hector PA from Last 3 Months Surgical History Surgery [...] Major depression 03/03/2019 DX:Major depres kody Old CA (myocardial infarction) 03/03/2019 D X:Old CA (myocardial infarction) PFO (patent foramen ovale) 06/29/2019 DX:PF O (patent foramen ovale) Family history of cardiovasc ular disease DX:Family history of cardiov ascular disease Sleep apnea Hyperlipidemia Hypertension Pancreatitis GERD (gastroesophageal reflux disease) CAD (coronary artery disease) CVA (cerebral vascular accid ent) (CMS/HCC V24, CMS/HCC V28) Esophageal dysmotility PVC (premature ventricular contraction) [...] Sign Reading Time Taken Comments Blood Pressure 106/52 08/09/2025 10:03 AM EDT Pulse 65 08/09/2025 10:03 AM EDT Temperature 36.3 C (97.3 F) 08/09/2025 10:03 AM EDT Respiratory Rate 14 03/28/2025 8:05 AM EDT Oxygen Saturation 95% 06/13/2025 8:25 AM EDT Inhaled Oxygen Concentration - - Weight 90.6 kg (199 lb 12.8 oz) 025 10:03 AM EDT Height 167.6 cm (5' 6 ) 08/09/2025 10:0 3 AM EDT Body Mass Index 32.25 08/09/2025 10:03 AM EDT Plan of Treatment Upcoming Encounters Date Type Department Care Team (Late st Contact Info) Description 11/10/2025 9:00 AM EST Office Visit Endocrinology - [place] [address] [place] [phone] Narendra Brantley MD [address] [place] [address] 12/25/2025 11:30 AM EST Office Visit Gastroenterology - [address] [place] [address] Lucia Rebolledo PA [address] [place] [address] Health Maintenance Due Date Last Done Comments Diabetes: Annual Foot Exam 1962 DTaP,Tdap,and Td Vaccines (1 - Tdap) 1971 Zoster Vaccines (2 of 2) 11/25/2019 09/30/2019, 07/26 Hepatitis C Screening 09/23/2022 Social Influencers of Health Screening 09/23/2022 Depression Screening 10/26/2024 Diabetes: Annual Retina Eye Exam 10/28/2024 10/28/2023 COVID-19 Vaccine ( season) 2025 10/02/2022, 09/09/2021, 01/21/2021, Additional history exists Diabetes: Annual Urine Albumin-Creatinine Ratio (uACR) 12/29/2025 12/29/2024, 05/20/2024 Diabetes: Annual GFR (Glomerular Filtration Rate) 12/29/2025 12/29/2024, 06/11/2023 Hypertension/CHF/CAD Annual BMP Blood Test 12/29/2025 12/29/2024, 06/11/2023 Diabetes: Blood Sugar Control Test (HGBA1C) 02/07/2026 08/09/2025, 05/09/2025, 12/29/2024, Additional history exists Falls Risk Assessment 03/08/2026 03/08/2025 Cholesterol Screening (Lipid Panel) 12/29/2029 12/29/2024, 05/20/2024, 05/20/2024 Colorectal Cancer Screening: Colonoscopy 03/08/2035 03/08/2025 Pneumococcal Vaccine: 50+ Years Completed 02/27/2022, 07/12/2020 Influenza Vaccine Completed 07/29/2025, , 07/10/2022, Additional history exists RSV Immunization Adult Patients Completed 07/29/2025 HIB Vaccines Aged Out No longer eligi [...] Date/Time Associated Diagnosis Comments HEMOGLOBIN A1C Routine 08/09/2025 10:44 AM EDT Diabetes mellitus type 2, uncomplicated, on keno terminal operator insulin pump ([facility] V24, [facility] V28) COLONOSCOPY Routine 03/08/2025 2:40 PM EDT BRBPR (bright red blood per rectum) Positive colorectal cancer screening using Cologuard test MICROALBUMIN CREATININE URINE RATIO Routine 12/29/2024 10:20 AM EST Diabetes mellitus type 2, uncomplicated, on keno terminal operator insulin pump ([facility] V24, CMS/HCC V28) BASIC METABOLIC PANEL Routine 12/29/2024 10:20 AM EST Diabetes mellitus type 2, uncomplicated, on long-term insulin pump (CMS/HCC V24, CMS/HCC V28) LIPID PANEL WITH REFLEX TO DIRECT LDL Routine 12/29/2024 10:20 AM EST Diabetes mellitus type 2, uncomplicated, on keno terminal operator insulin pump ([facility] V24, CMS/HCC V28) DIABETES EYE EXAM Routine 10/28/2023 from Last 3 Months or Most Recently Relevant to Health Maintenance Results * (ABNORMAL) Hemoglobin A1c (08/09/2025 10:44 AM EDT) Hemoglobin A1C 8.7(H) <6.5 % LAB CHEMISTRY METHOD 08/09/2025 1:31 PM EDT [facility] Mean Bld Glu Estim. 203 mg/dL LAB CHEMISTRY METHOD 08/09/2025 1:31 PM EDT [facility] Blood Venous blood specimen / Unknown Venipuncture / Unknown 08/09/2025 10:44 AM EDT 08/09/2025 10:44 AM EDT us Sydney LEWIS LAB BLOOD ORDERABLES Final Result [facility] [address] [place] [address], * COLONOSCOPY Anesthesia - [facility] ENDOSCOPY (03/08/2025 2:40 PM EDT) Anatomical Region Laterality Modality Endoscopy 03/08/2025 2:22 PM EDT Impressions 03/08/2025 2:45 PM EDT - Two diminutive polyps in the sigmoid colon and in the transverse colon, removed with a jumbo cold forceps. Resected and retrieved. - Internal hemorrhoids. Recommendation: - Await pathology results. - No repeat colonoscopy due to age. Narrative 03/08/2025 2:45 PM EDT [facility] Patient Name: Deann Thao Procedure [...] verified by the physician, the nurse, the outpatient receptionist and the pharmaceutical laboratory technician in the pre-procedure area in [...] reduce spontaneously). Procedure Code(s): --- Professional --- 88149, Colonoscopy, flexible; with biopsy, single or multiple Diagnosis Code(s): --- Professional --- D12.5, Benign neoplasm of sigmoid colon D12.3, Benign neoplasm of transverse colon (hepatic flexure or splenic flexure) CPT copyright 2020 [employer]. All rights reserved. The codes documented in this report are preliminary and upon day light relief operator review may be revised to meet current compliance requirements. Joe Echols MD 03/08/2025 2:45:33 PM This report has been signed electronically.Joe Echols MD Number of Addenda: 0 Note Initiated On: 03/08/2025 2:22 PM Scope Withdrawal Time: 0 hours 9 minutes 20 seconds Scope In: 2:29:28 PM Scope Out: 2:40:44 PM Endoscopy Department at [facility] - [address] [place] [phone] Procedure Note Joe Echols MD - 03/08/2025 [facility] GI Patient Name: Deann Thao Procedure [...] the physician, the nurse, theanesthetist and the pharmaceutical laboratory technician in the pre-procedure area in [...] but reducespontaneously). Procedure Code(s): --- Professional --- 57346, Colonoscopy, flexible; with biopsy, singleor multiple Diagnosis Code(s): --- Professional --- D12.5, Benign neoplasm of sigmoid colon D12.3, Benign neoplasm of transverse colon (hepatic flexure or splenic flexure) CPT copyright 2020 [employer]. All rights reserved. The codes documented in this report are preliminary and upon day light relief operator reviewmay be revised to meet current compliance requirements. Joe Echols MD 03/08/2025 2:45:33 PM This report has been signed electronically.Joe Echols MD Number of Addenda: 0 Note Initiated On: 03/08/2025 2:22 PM Scope Withdrawal Time: 0 hours 9 minutes 20 seconds Scope In: 2:29:28 PM Scope Out: 2:40:44 PM Endoscopy Department at [facility] - [address] [place] [phone] IMPRESSION: - Two diminutive polyps in the [...] mg/dL LAB CHEMISTRY METHOD 12/29/2024 12:56 PM [facility] Triglycerides 119 0 - 150 mg/dL LAB CHEMISTRY METHOD 12/29/2024 12:56 PM [facility] HDL 47 >=40 mg/dL LAB CHEMISTRY METHOD 12/29/2024 12:56 PM [facility] LDL Calculated 29 0 - 100 mg/dL LAB CHEMISTRY METHOD 12/29/2024 12:56 PM [facility] VLDL Cholesterol [place] 23.8 mg/dL LAB CHEMISTRY METHOD 12/29/2024 12:56 PM [facility] Non HDL Chol. (LDL+VLDL) 53 <145 mg/dL LAB CHEMISTRY METHOD 12/29/2024 12:56 PM [facility] Chol/HDL Ratio 2.1 0.0 - 4.4 LAB CHEMISTRY METHOD 12/29/2024 12:56 PM EST [facility] Blood Venous blood specimen / Unknown Venipuncture / Unknown 12/29/2024 10:20 AM EST 12/29/2024 10:20 AM EST Sydney LEWIS LAB BLOOD ORDERABLES Final Result Performing Organization Address City/[facility]/ZIP Co de Phone Number [facility] [address] [place] [address], [place] [phone] * (ABNORMAL) Microalbumin creatinine urine ratio (12/29/2024 10:20 AM EST) Creatinine, Urine 224.0 mg/dL LAB CHEMISTRY METHOD 12/29/2024 1:14 PM [facility] Microalb, Ur 98.1(H) 0.0 - 29.0 mg/L LAB CHEMISTRY METHOD 12/29/2024 1:14 PM EST [facility] Microalb/Crea t Ratio 44(H) <30 mg/g creat LAB CHEMISTRY METHOD 12/29/2024 1:14 PM EST [facility] Urine Urine specimen from urethra / Unknown Non-blood Collection / Unknown 12/29/2024 10:20 AM EST 12/29/2024 10:20 AM EST us Sydney LEWIS LAB URINE ORDERABLES Final Result [facility] [address] [place] [address], [place] [phone] * (ABNORMAL) Basic metabolic panel (12/29/2024 10:20 AM EST) Sodium 135 133 - 145 mmol/L LAB CHEMISTRY METHOD 12/29/2024 12:52 PM EST [facility] Potassium 4.1 3.5 - 5.5 mmol/L LAB CHEMISTRY METHOD 12/29/2024 12:52 PM [facility] Chloride 100 96 - 110 mmol/L LAB CHEMISTRY METHOD 12/29/2024 12:52 PM [facility] CO2 25 21 - 32 mmol/L LAB CHEMISTRY METHOD 12/29/2024 12:52 PM [facility] Anion Gap 10 3 - 11 LAB CHEMISTRY METHOD 12/29/2024 12:52 PM [facility] Glucose 303(H) 70 - 100 mg/dL LAB CHEMISTRY METHOD 12/29/2024 12:52 PM [facility] BUN 12 5 - 25 mg/dL LAB CHEMISTRY METHOD 12/29/2024 12:52 PM [facility] Creatinine 0.97 0.70 - 1.30 mg/dL LAB CHEMISTRY METHOD 12/29/2024 12:52 PM [facility] eGFR 83 >=60 mL/min/1. 73m2 LAB CHEMISTRY METHOD 12/29/2024 12:52 PM [facility] Comment:Calculation based on the Chronic Kidney Disease Epidemiology Collaboration (CKD-EPI) equation refit without adjustment for race. BUN/Creatinine Ratio 12.4 LAB CHEMISTRY METHOD 12/29/2024 12:52 PM [facility] Calcium 9.4 8.5 - 10.5 mg/dL LAB CHEMISTRY METHOD 12/29/2024 12:52 PM [facility] Blood Venous blood specimen / Unknown Venipuncture / Unknown 12/29/2024 10:20 AM EST 12/29/2024 10:20 AM EST us Sydney LEWIS LAB BLOOD ORDERABLES Final Result [facility] [address] [place] [address], * Diabetes Eye Exam (10/28/2023) Diabetes: Annual Retina Eye Exam abstracted us Historical Provider HEALTH MAINTENANCE Final Result from Last 3 Months or Most Recently Relevant to Health Maintenance Insurance [facility] Member Subscriber Plan / Payer (Ef fective 2024-Present) Name:Deann Thao Relation to Subscriber:Self Name:Deann Thao Payer ID:[id number] Group ID:[id number] Type:Not on file Address: [place] [address] [place] [phone] Care Teams Operator Vacuum Relationship Specialty Start Date End Date Lewis Goldberg NP [address] [facility] [place], [place] PCP - General 07/05/21
== END 2025-08-16 08:56 | disposition home or self-care (01) ==
LOC: HO.HSM 08:37
PROVIDERS: PCP Nurse Practitioner Family; Visit Provider Registered Nurse
DX: G30.9 Alzheimer's disease, unspecified (principal); F02.80 Dementia in other diseases classified elsewhere, unspecified severity, without behavioral disturbance, psychotic disturbance, mood disturbance, and anxiety; G56.03 Carpal tunnel syndrome, bilateral upper limbs; Z86.73 Personal history of transient ischemic attack (TIA), and cerebral infarction without residual deficits; E11.42 Type 2 diabetes mellitus with diabetic polyneuropathy
CPT/HCPCS: 99214

== ENCOUNTER → 2025-08-16 08:36 | Outpatient (BNVA) | payer OTHER, SELFPAY | PROVIDERS: PCP Nurse Practitioner Family; Visit Provider Registered Nurse | DX: G30.9 Alzheimer's disease, unspecified (principal); F02.80 Dementia in other diseases classified elsewhere, unspecified severity, without behavioral disturbance, psychotic disturbance, mood disturbance, and anxiety; G56.03 Carpal tunnel syndrome, bilateral upper limbs; E11.42 Type 2 diabetes mellitus with diabetic polyneuropathy; Z86.73 Personal history of transient ischemic attack (TIA), and cerebral infarction without residual deficits | CPT/HCPCS: 99212 ==